=== PATIENT | male | born 1970 | race African-American/Black ===

== ENCOUNTER → 2019-04-27 07:54 | Outpatient (CLI) | payer OTHER, SELFPAY ==
[2019-04-27 08:35] LABS: Add Manual Diff / Slide Review NO; Basophils Absolute Auto 0 /uL (0-100); Basophils Percent Auto 0.5 % (0-2); Eosinophils Absolute Auto 300 /uL (0-450); Eosinophils Percent Auto 3.2 % (2-4); Hematocrit 45.8 % (41-53); Hemoglobin 14.8 g/dL (13.5-17.5); Lymphocytes Absolute Auto 2300 /uL (1100-4500); Mean Corpuscular HGB Conc 32.4 % (30-36); Mean Corpuscular Hemoglobin 26.6 PG (26-34); Mean Corpuscular Volume 82.2 fL (80-100); Monocytes Absolute Auto 800 /uL (0-900); Monocytes Percent Auto 9.3 % (3-14); Neutrophils Absolute Auto 5600 /uL (1500-7000); Platelet Count 241 X10^3/uL (150-400); Red Blood Cell Count 5.57 X10^6/uL (4.5-5.9); Red Cell Distribution Width 14.5 % (11.6-14.8)
[2019-04-27 08:53] LABS: Creatinine Urine Random 252.8 mg/dL
[2019-04-27 08:55] LABS: Alanine Aminotransferase 20 IU/L (21-72); Albumin 4.1 g/dL (3.5-5.0); Albumin Globulin Ratio 1.2 (1.0-2.8); Alkaline Phosphatase 139 U/L (38-126); Aspartate Aminotransferase 26 IU/L (17-59); BUN Creatinine Ratio 11.8 (6-22); Bilirubin Total 0.4 mg/dL (0.2-1.3); Blood Urea Nitrogen 13 mg/dL (9-20); Calcium 9.3 mg/dL (8.4-10.2); Carbon Dioxide 29 mmol/L (22-32); Chloride 104 mmol/L (98-107); Cholesterol 233 mg/dL (140-199); Estimated Glomerular Filt Rate > 60.0 mL/min (>60); Globulin 3.5 g/dL (1.7-4.1); Glucose 100 mg/dL (70-100); HDL Cholesterol 47 mg/dL (40-60); HEMOLYSIS < 15 (0-50); LDL Cholesterol Calculated 159 mg/dL (<100); Potassium 4.3 mmol/L (3.4-5.1); Sodium 138 mmol/L (137-145); Total Protein 7.6 g/dL (6.3-8.2); Triglycerides 133 mg/dL (35-150)
[2019-04-27 08:58] LABS: Microalbumi Creatinin Ratio Ur 5.1 ug/mg CR (<30); Microalbumin Urine Random 1.3 mg/dL (0-1.6)
== END ==
PROVIDERS: PCP Family Medicine; Visit Provider Family Medicine
DX: I10 Essential (primary) hypertension (principal); Z13.1 Encounter for screening for diabetes mellitus; Z13.220 Encounter for screening for lipoid disorders; Z13.0 Encounter for screening for diseases of the blood and blood-forming organs and certain disorders involving the immune mechanism
CPT/HCPCS: 36415; 80053; 80061; 82043; 82570; 85025

== ENCOUNTER → 2019-05-03 09:51 | Outpatient (CLI) | payer OTHER, SELFPAY ==
--- NOTE | 2019-05-03 09:54 | DI.RAD.S_ITS ---
PROCEDURE: XR HIP W PEL IF DONE LT 2V INDICATIONS: pain TECHNIQUE: AP pelvis with lateral view(s) of the left hip(s). COMPARISON: None. FINDINGS: Bones: No fractures or dislocations. Pelvic ring appears intact. No suspicious bony lesions. Soft tissues: The visualized bowel gas pattern is normal. No suspicious soft tissue calcifications. IMPRESSION: Symmetric mild to moderate hip joint osteoarthritis, no trauma found. Dictated by: Jorge L Landry M.D. on 05/03/2019 at 11:45 Approved by: Jorge L Landry M.D. on 05/03/2019 at 11:45
--- NOTE | 2019-05-03 09:54 | DI.RAD.S_ITS ---
PROCEDURE: XR ANKLE RT MIN 3V INDICATIONS: pain TECHNIQUE: 3 views of the ankle were acquired. COMPARISON: None. FINDINGS: Bones: No fractures or dislocations. Ankle mortise is normally aligned. No suspicious bony lesions. Soft tissues: No tibiotalar joint effusion. Achilles tendon appears normal. IMPRESSION: Normal for age, source of current ankle pain symptoms is not seen. Dictated by: Jorge L Landry M.D. on 05/03/2019 at 11:42 Approved by: Jorge L Landry M.D. on 05/03/2019 at 11:43
--- NOTE | 2019-05-03 09:54 | DI.RAD.S_ITS ---
PROCEDURE: XR LUMBAR SPINE MIN 4V INDICATIONS: DJD TECHNIQUE: 5 views of the lumbar spine were acquired. COMPARISON: None. FINDINGS: Bones: 5 nonrib-bearing vertebrae are present. There is normal bony alignment. No vertebral body compression fractures. No suspicious bony lesions. Note is made of degenerative disc disease is mild in severity at L1-2 and L5-S1. Facet osteoarthritis is mild to moderate in severity at L4-5 and moderately severe at L5-S1 to the degree that spinal and foraminal stenosis at the lumbosacral junction may be present. Soft tissues: Overlying bowel gas pattern is normal. No suspicious soft tissue calcifications. Oblique images: No pars defects. IMPRESSION: The degenerative changes are relatively mild, no compression fractures seen. There is potential for significant spinal and foraminal stenosis at L4-5 and especially at L5-S1. Dictated by: Jorge L Landry M.D. on 05/03/2019 at 11:44 Approved by: Jorge L Landry M.D. on 05/03/2019 at 11:45
--- NOTE | 2019-05-03 09:54 | DI.RAD.S_ITS ---
PROCEDURE: XR KNEE LT 3V INDICATIONS: DJD TECHNIQUE: 3 views of the bilateral knees were acquired (6 views total). COMPARISON: [facility], CR, XR KNEE RT 3V, 05/03/2019, 10:09. FINDINGS: Bones: No fractures or dislocations. No suspicious bony lesions. Soft tissues: No joint effusion. No suspicious soft tissue calcifications. IMPRESSION: Minimal narrowing of the medial compartment joint interspace, right greater than left lateral facet patellofemoral joint degenerative osteoarthritic narrowing. No effusion or loose body is seen. Dictated by: Jorge L Landry M.D. on 05/03/2019 at 11:46 Approved by: Jorge L Landry M.D. on 05/03/2019 at 11:47
--- NOTE | 2019-05-03 09:54 | DI.RAD.S_ITS ---
PROCEDURE: XR ANKLE LT MIN 3V INDICATIONS: pain TECHNIQUE: 3 views of the ankle were acquired. COMPARISON: [facility], CR, XR ANKLE RT MIN 3V, 05/03/2019, 9:54. FINDINGS: Bones: No fractures or dislocations. Ankle mortise is normally aligned. No suspicious bony lesions. Soft tissues: No tibiotalar joint effusion. Achilles tendon appears normal. IMPRESSION: No trauma found, no appreciable degenerative change. Source of persistent pain is not found. Dictated by: Jorge L Landry M.D. on 05/03/2019 at 11:43 Approved by: Jorge L Landry M.D. on 05/03/2019 at 11:44
--- NOTE | 2019-05-03 09:54 | DI.RAD.S_ITS ---
PROCEDURE: XR KNEE RT 3V INDICATIONS: DJD TECHNIQUE: 3 views of the knee were acquired. COMPARISON: None. FINDINGS: Bones: No fractures or dislocations. No suspicious bony lesions. Soft tissues: No joint effusion. No suspicious soft tissue calcifications. IMPRESSION: Minimal medial compartment joint space narrowing, also a small degree of narrowing of the lateral facet of the patellofemoral joint can be seen on the patellar sunrise view. No trauma is seen but there is a small degree of degenerative osteoarthritis. Dictated by: Jorge L Landry M.D. on 05/03/2019 at 11:46 Approved by: Jorge L Landry M.D. on 05/03/2019 at 11:46
== END ==
PROVIDERS: PCP Family Medicine; Visit Provider Family Medicine
DX: M25.571 Pain in right ankle and joints of right foot (principal); M25.572 Pain in left ankle and joints of left foot; M17.0 Bilateral primary osteoarthritis of knee; M54.16 Radiculopathy, lumbar region; M25.552 Pain in left hip
CPT/HCPCS: 72110; 73502; 73562; 73610

== ENCOUNTER → 2019-06-01 07:05 | Outpatient (CLI) | payer OTHER, SELFPAY ==
[2019-06-01 07:55] LABS: Hemoglobin A1C% w Est Avg Glu 5.7 % (4.0-6.0)
[2019-06-01 08:02] LABS: Alanine Aminotransferase 31 IU/L (21-72); Albumin 4.2 g/dL (3.5-5.0); Albumin Globulin Ratio 1.3 (1.0-2.8); Alkaline Phosphatase 135 U/L (38-126); Aspartate Aminotransferase 30 IU/L (17-59); BUN Creatinine Ratio 14.5 (6-22); Bilirubin Total 0.4 mg/dL (0.2-1.3); Blood Urea Nitrogen 16 mg/dL (9-20); C-Reactive Protein Quant < 0.5 mg/dL (<1.0); Calcium 9.4 mg/dL (8.4-10.2); Carbon Dioxide 27 mmol/L (22-32); Chloride 105 mmol/L (98-107); Cholesterol 156 mg/dL (140-199); Estimated Glomerular Filt Rate > 60.0 mL/min (>60); Gamma Glutamyl Transpeptidase 40 U/L (15-73); Globulin 3.2 g/dL (1.7-4.1); Glucose 94 mg/dL (70-100); HDL Cholesterol 43 mg/dL (40-60); HEMOLYSIS < 15 (0-50); LDL Cholesterol Calculated 95 mg/dL (<100); Potassium 4.2 mmol/L (3.4-5.1); Sodium 139 mmol/L (137-145); Total Protein 7.4 g/dL (6.3-8.2); Triglycerides 89 mg/dL (35-150)
[2019-06-01 08:03] LABS: Rheumatoid Factor < 8.6 IU/mL (<12.0)
[2019-06-01 08:09] LABS: Erythrocyte Sedimentation Rate 6 MM/HR (0-15)
== END ==
PROVIDERS: PCP Family Medicine; Visit Provider Family Medicine
DX: R74.8 Abnormal levels of other serum enzymes (principal); M25.571 Pain in right ankle and joints of right foot; M25.572 Pain in left ankle and joints of left foot; E78.00 Pure hypercholesterolemia, unspecified; Z83.3 Family history of diabetes mellitus
CPT/HCPCS: 36415; 80053; 80061; 82977; 83036; 85651; 86140; 86430

== ENCOUNTER → 2019-06-06 10:04 | Outpatient (CLI) | payer OTHER, SELFPAY ==
--- NOTE | 2019-06-06 10:06 | DI.RAD.S_ITS ---
PROCEDURE: XR SHOULDER RT MIN 2V INDICATIONS: Right greater than left shoulder pain TECHNIQUE: 3 views of the shoulder were acquired. COMPARISON: None. FINDINGS: Bones: No fractures or dislocations. No suspicious bony lesions. Visualized ribs appear intact. Moderate degenerative changes of the right acromioclavicular joint. Coracoclavicular and acromioclavicular intervals are maintained. Soft tissues: No suspicious soft tissue calcifications. IMPRESSION: Right shoulder without acute radiographic abnormalities. Moderate right acromioclavicular osteoarthrosis. Dictated by: Leif Lloyd M.D. on 06/06/2019 at 13:05 Approved by: Leif Lloyd M.D. on 06/06/2019 at 13:07
--- NOTE | 2019-06-06 10:06 | DI.RAD.S_ITS ---
PROCEDURE: XR SHOULDER LT MIN 2V INDICATIONS: Right greater than left shoulder pain TECHNIQUE: 3 views of the shoulder were acquired. COMPARISON: [facility], CR, XR SHOULDER RT MIN 2V, 06/06/2019, 10:09. FINDINGS: Bones: No acute fractures or dislocations. Mild degenerative changes of the left acromioclavicular joint. Coracoclavicular and acromioclavicular intervals are maintained with left acromioclavicular interval measuring at the upper limits of normal. No suspicious bony lesions. Visualized ribs appear intact. Soft tissues: No suspicious soft tissue calcifications. IMPRESSION: Left shoulder without acute radiographic abnormalities. Mild left acromioclavicular osteoarthrosis with the left acromioclavicular interval measuring at the upper limits of normal. Dictated by: Leif Lloyd M.D. on 06/06/2019 at 13:07 Approved by: Leif Lloyd M.D. on 06/06/2019 at 13:16
[2019-06-06 10:46] LABS: Appearance Urine UA CLEAR; Bilirubin Urine UA NEGATIVE (NEGATIVE); Color Urine UA YELLOW; Glucose Urine UA NEGATIVE (Negative); Ketones Urine UA NEGATIVE (NEGATIVE); Leukocyte Esterase Urine UA 1+ (NEGATIVE); Nitrite Urine UA NEGATIVE (Negative); Occult Blood Urine UA 1+ (Negative); Protein Urine UA NEGATIVE (Negative); Urobilinogen Urine UA 0.2 E.U./dL (0.2); pH Urine UA 5.5 (4.5-8.0)
[2019-06-06 11:09] LABS: Bacteria Urine Few (2-10); RBC Urine 1-5/HPF (0-5/HPF); Squamous Epithelial Cell Urine 1-5 /HPF (0-5/HPF); WBC Urine 5-10/HPF (0-5/HPF)
[2019-06-06 11:11] LABS: Culture Indicated Urine Specimen Cultured
== END ==
PROVIDERS: PCP Family Medicine; Visit Provider Family Medicine
DX: M25.511 Pain in right shoulder (principal); M25.512 Pain in left shoulder; M19.011 Primary osteoarthritis, right shoulder; M19.012 Primary osteoarthritis, left shoulder; R82.90 Unspecified abnormal findings in urine
CPT/HCPCS: 73030; 81001; 87077; 87086

== ENCOUNTER → 2019-07-19 11:59 | Outpatient (CLI) | payer OTHER, SELFPAY | PROVIDERS: PCP Family Medicine; Visit Provider Family Medicine | DX: G56.22 Lesion of ulnar nerve, left upper limb (principal) | CPT/HCPCS: 95885; 95886; 95911 ==

== ENCOUNTER → 2019-11-13 07:50 | Outpatient (CLI) | payer OTHER, SELFPAY ==
--- NOTE | 2019-11-13 | DI.RAD.S_ITS ---
PROCEDURE: XR HIP W PEL IF DONE LT MIN 4V INDICATIONS: degenerative joint disease TECHNIQUE: AP pelvis with lateral view(s) of the left and right hip(s). COMPARISON: [facility], , XR HIP W PEL IF DONE LT 2V, 05/03/2019, 10:05. FINDINGS: Bones: No fractures or dislocations. Pelvic ring appears intact. No suspicious bony lesions. Lumbar spondylosis and facet arthropathy. Mild bilateral hip degeneration with subchondral sclerosis and spurring. Sacroiliac joints appear grossly intact Soft tissues: The visualized bowel gas pattern is normal. No suspicious soft tissue calcifications. IMPRESSION: Mild bilateral hip joint degeneration, grossly unchanged since 05/03/19. Dictated by: Bran Meek M.D. on 11/13/2019 at 12:15 Approved by: Bran Meek M.D. on 11/13/2019 at 12:16
--- NOTE | 2019-11-13 | DI.RAD.S_ITS ---
PROCEDURE: XR THORACIC SPINE 3V INDICATIONS: DEGENERATIVE JOINT DISEASE TECHNIQUE: 3 views of the thoracic spine were acquired. COMPARISON: None. FINDINGS: Bones: No fractures or dislocations. No suspicious bony lesions. Soft tissues: No paravertebral stripe thickening. IMPRESSION: No fracture Dictated by: Bran Meek M.D. on 11/13/2019 at 12:16 Approved by: Bran Meek M.D. on 11/13/2019 at 12:18
--- NOTE | 2019-11-13 | DI.RAD.S_ITS ---
PROCEDURE: XR LUMBAR SPINE 2-3V INDICATIONS: DEGENERATIVE JOINT DISEASE TECHNIQUE: 3 views of the lumbar spine were acquired. COMPARISON: [facility], CR, XR LUMBAR SPINE MIN 4V, 05/03/2019, 10:00. FINDINGS: Bones: No fracture or focal osseous destruction. Multilevel degenerative endplate sclerosis and spurring. Diffuse facet arthropathy. Straightening of the normal lordotic curvature. Trace retrolisthesis of L3 on L4. Moderate narrowing of the L5-S1 disc space which appears slightly progressed. Soft tissues: Overlying bowel gas pattern is normal. No suspicious soft tissue calcifications. IMPRESSION: L5-S1 disc degeneration, slightly progressed since the prior study. Diffuse facet arthropathy. Dictated by: Bran Meek M.D. on 11/13/2019 at 12:30 Approved by: Bran Meek M.D. on 11/13/2019 at 12:33
== END ==
PROVIDERS: PCP Family Medicine; Referring Provider Orthopaedic Surgery; Visit Provider Orthopaedic Surgery
DX: M16.0 Bilateral primary osteoarthritis of hip (principal); M47.816 Spondylosis without myelopathy or radiculopathy, lumbar region; M51.37 Other intervertebral disc degeneration, lumbosacral region
CPT/HCPCS: 72072; 72100; 73522

== ENCOUNTER → 2021-05-15 11:26 | Outpatient (CLI) | payer OTHER, SELFPAY ==
[2021-05-15 12:39] LABS: Add Manual Diff / Slide Review NO; Basophils Absolute Auto 100 /uL (0-100); Basophils Percent Auto 0.9 % (0-2); Eosinophils Absolute Auto 300 /uL (0-450); Eosinophils Percent Auto 3.9 % (2-4); Hematocrit 43.8 % (41-53); Hemoglobin 14.1 g/dL (13.5-17.5); Lymphocytes Absolute Auto 1900 /uL (1100-4500); Lymphocytes Percent Auto 26.6 % (25-40); Mean Corpuscular HGB Conc 32.2 % (30-36); Mean Corpuscular Hemoglobin 26.2 PG (26-34); Mean Corpuscular Volume 81.4 fL (80-100); Monocytes Absolute Auto 800 /uL (0-900); Monocytes Percent Auto 11.5 % (3-14); Neutrophils Absolute Auto 4100 /uL (1500-7000); Neutrophils Percent Auto 57.1 % (50-75); Platelet Count 208 X10^3/uL (150-400); Red Blood Cell Count 5.38 X10^6/uL (4.5-5.9); Red Cell Distribution Width 13.8 % (11.6-14.8); White Blood Cell Count 7.2 X10^3/uL (4.5-11.0)
[2021-05-15 12:51] LABS: Alanine Aminotransferase 35 IU/L (<50); Albumin 4.3 g/dL (3.5-5.0); Albumin Globulin Ratio 1.3 (1.0-2.8); Alkaline Phosphatase 122 U/L (38-126); Aspartate Aminotransferase 35 IU/L (17-59); BUN Creatinine Ratio 13.2 (6-22); Bilirubin Total 0.3 mg/dL (0.2-1.3); Blood Urea Nitrogen 15 mg/dL (9-20); Calcium 9.6 mg/dL (8.4-10.2); Carbon Dioxide 28 mmol/L (22-32); Chloride 106 mmol/L (98-107); Cholesterol 140 mg/dL (140-199); Estimated Glomerular Filt Rate > 60.0 mL/min (>60); Globulin 3.2 g/dL (1.7-4.1); Glucose 102 mg/dL (70-100); HDL Cholesterol 49 mg/dL (40-60); HEMOLYSIS < 15 (0-50); LDL Cholesterol Calculated 73 mg/dL (<100); Potassium 4.5 mmol/L (3.4-5.1); Sodium 138 mmol/L (137-145); Total Protein 7.5 g/dL (6.3-8.2); Triglycerides 91 mg/dL (35-150)
[2021-05-15 12:54] LABS: Hemoglobin A1C% w Est Avg Glu 5.8 % (4.0-6.0)
[2021-05-15 13:22] LABS: Prostate Specific Antigen 1.11 ng/mL (0.10-4.00)
[2021-05-15 13:50] LABS: Thyroid Stimulating Hormone 2.11 uIU/mL (0.47-4.68)
[2021-05-15 15:03] LABS: Creatinine Urine Random 178.8 mg/dL
[2021-05-15 15:11] LABS: Microalbumin Urine Random < 0.6 mg/dL (0-1.6)
== END ==
PROVIDERS: PCP Family Medicine; Referring Provider Family Medicine; Visit Provider Family Medicine
DX: R73.03 Prediabetes (principal); E78.00 Pure hypercholesterolemia, unspecified; E66.09 Other obesity due to excess calories; Z68.41 Body mass index [BMI] 40.0-44.9, adult; I10 Essential (primary) hypertension; Z83.3 Family history of diabetes mellitus
CPT/HCPCS: 36415; 80053; 80061; 82043; 82570; 83036; 84153; 84443; 85025

== ENCOUNTER → 2021-11-12 08:40 | Outpatient (CLI) | payer OTHER, SELFPAY ==
--- NOTE | 2021-11-12 08:44 | DI.US.S_ITS ---
PROCEDURE: US BREAST RT LIMITED COMPARISON: None. INDICATIONS: mass behind nipple FINDINGS: IMPRESSION: Dictated by: Chanel Mattson M.D. on 11/12/2021 at 10:19 Approved by: Chanel Mattson M.D. on 11/12/2021 at 10:44
--- NOTE | 2021-11-12 08:44 | DI.MG.S_ITS ---
MALE BILATERAL DIGITAL DIAGNOSTIC MAMMOGRAM 3D/2D: 11/12/2021 CLINICAL: Right nipple mass. No prior exams were available for comparison. There is a moderate amount of asymmetric heterogeneous gynecomastia in the right breast that correlates with palpable abnormality. No significant masses, calcifications, or other findings are seen in either breast. Specifically, no other finding to correspond to the patient's right breast palpable abnormality. IMPRESSION: INCOMPLETE: NEEDS ADDITIONAL IMAGING EVALUATION There is no abnormality seen in the right breast to correspond with the palpable abnormality which is most consistent with normal fibroglandular tissue of gynecomastia, however, ultrasound is recommended to evaluate for underlying lesion within the tissue. This was performed immediately following this exam. This exam was interpreted at Station ID: [id number]. NOTE: For mammograms, a report in lay terms will be sent to the patient. Approximately 15% of breast malignancies will not be visualized mammographically. In the management of a palpable breast mass, a negative mammogram must not discourage biopsy of a clinically suspicious lesion. Electronically Signed By: Chanel paul/:11/12/2021 09:40:29 ACR BI-RADS Category 0: Incomplete [id number]
--- NOTE | 2021-11-12 10:05 | DI.US.S_ITS ---
Procedure: US breast RT limited LIMITED ULTRASOUND OF RIGHT BREAST: 11/12/2021 CLINICAL: Palpable right breast lump. [facility] the right breast retroareolar was performed. Irizarry scale images of the real-time examination were reviewed. Gynecomastia is present. No significant abnormalities were seen sonographically in the right breast. Specifically, no finding to correspond to the patient's palpable abnormality. IMPRESSION: NEGATIVE Asymmetric gynecomastia is present and may be symptomatic. The patient should follow up with his primary care physician to discuss possible contributing factors including medication changes, and hormonal or lifestyle factors. There is no sonographic evidence of malignancy. Findings and recommendations were conveyed to the patient at time of exam. This exam was interpreted at Station ID: [id number]. Electronically Signed By: Chanel paul/:11/12/2021 11:05:55 letter sent: Normal Exam Ultrasound BI-RADS: 1 Negative
== END ==
PROVIDERS: PCP Family Medicine; Referring Provider Family Medicine; Visit Provider Family Medicine
DX: N62 Hypertrophy of breast (principal); R92.2 Inconclusive mammogram
CPT/HCPCS: 76642; 77066; G0279

== ENCOUNTER → 2022-06-21 07:27 | Outpatient (CLI) | payer OTHER, SELFPAY ==
[2022-06-21 09:39] LABS: Add Manual Diff / Slide Review NO; Basophils Absolute Auto 0 /uL (0-100); Basophils Percent Auto 0.7 % (0-2); Eosinophils Absolute Auto 400 /uL (0-450); Eosinophils Percent Auto 5.2 % (2-4); Hematocrit 42.2 % (41-53); Hemoglobin 13.5 g/dL (13.5-17.5); Lymphocytes Absolute Auto 2000 /uL (1100-4500); Lymphocytes Percent Auto 28.6 % (25-40); Mean Corpuscular Hemoglobin 25.6 PG (26-34); Mean Corpuscular Volume 79.9 fL (80-100); Monocytes Absolute Auto 800 /uL (0-900); Monocytes Percent Auto 10.6 % (3-14); Neutrophils Absolute Auto 3900 /uL (1500-7000); Neutrophils Percent Auto 54.9 % (50-75); Platelet Count 250 X10^3/uL (150-400); Red Blood Cell Count 5.27 X10^6/uL (4.5-5.9); Red Cell Distribution Width 14.1 % (11.6-14.8); White Blood Cell Count 7.1 X10^3/uL (4.5-11.0)
[2022-06-21 10:16] LABS: Hemoglobin A1C% w Est Avg Glu 6.1 % (4.0-6.0)
[2022-06-21 11:02] LABS: Alanine Aminotransferase 33 IU/L (<50); Albumin 3.9 g/dL (3.5-5.0); Albumin Globulin Ratio 1.2 (1.0-2.8); Alkaline Phosphatase 131 U/L (38-126); Aspartate Aminotransferase 30 IU/L (17-59); BUN Creatinine Ratio 11.7 (6-22); Bilirubin Total 0.3 mg/dL (0.2-1.3); Blood Urea Nitrogen 12 mg/dL (9-20); Calcium 8.5 mg/dL (8.4-10.2); Carbon Dioxide 28 mmol/L (22-32); Chloride 104 mmol/L (98-107); Cholesterol 154 mg/dL (140-199); Estimated Glomerular Filt Rate > 60 mL/min (>60); Globulin 3.2 g/dL (1.7-4.1); Glucose 104 mg/dL (70-100); HDL Cholesterol 58 mg/dL (40-60); HEMOLYSIS < 15 (0-50); LDL Cholesterol Calculated 81 mg/dL (<100); Potassium 4.1 mmol/L (3.4-5.1); Sodium 138 mmol/L (137-145); Total Protein 7.1 g/dL (6.3-8.2); Triglycerides 73 mg/dL (35-150)
[2022-06-21 14:20] LABS: Creatinine Urine Random 295.2 mg/dL
[2022-06-21 14:27] LABS: Microalbumi Creatinin Ratio Ur 11.8 ug/mg CR (<30); Microalbumin Urine Random 3.5 mg/dL (0-1.6)
== END ==
PROVIDERS: PCP Family Medicine; Referring Provider Family Medicine; Visit Provider Family Medicine
DX: R73.03 Prediabetes (principal)
CPT/HCPCS: 36415; 80053; 80061; 82043; 82570; 83036; 85025

== ENCOUNTER → 2022-08-06 09:01 | Outpatient (CLI) | payer OTHER, SELFPAY ==
--- NOTE | 2022-08-06 09:04 | DI.CT.S_ITS ---
PROCEDURE: CT LUNG LOW DOSE SCREENING INDICATIONS: Personal history of nicotine dependence TECHNIQUE: Noncontrast 2.0-2.5 mm thick sections acquired from the pulmonary apices to the posterior costophrenic angles. 7 mm thick axial MIP, and 5 mm coronal and sagittal reformats were then acquired. A low radiation dose technique was utilized. COMPARISON: None. FINDINGS: Image quality: Diagnostic, given the low radiation dose technique. Lungs and pleura: No suspicious pulmonary nodule or mass. No consolidation or pleural effusion. Mediastinum: No pericardial effusion. No mediastinal adenopathy by size criteria. Thoracic aorta and central pulmonary arteries are normal in size. Esophagus is normal in caliber. Bones and chest wall: No suspicious bony lesions. No vertebral body compression fractures. No axillary or supraclavicular adenopathy by size criteria. Abdomen: Visualized upper abdomen solid organs and bowel loops appear normal in the absence of contrast. IMPRESSION: LUNG-RADS 1 - negative; Continue annual screening with low-dose noncontrast chest CT in 12 months. Dictated by: Tayo Carr M.D. on 08/06/2022 at 9:43 Approved by: Tayo Carr M.D. on 08/06/2022 at 9:52
== END ==
PROVIDERS: PCP Family Medicine; Referring Provider Family Medicine; Visit Provider Family Medicine
DX: Z13.83 Encounter for screening for respiratory disorder NEC (principal); Z87.891 Personal history of nicotine dependence
CPT/HCPCS: 71250

== ENCOUNTER 2022-09-01 09:53 | Emergency (ER) | payer OTHER, SELFPAY ==
--- NOTE | 2022-09-01 09:58 | DI.RAD.S_ITS ---
PROCEDURE: XR FEMUR RT MIN 2V INDICATIONS: fall TECHNIQUE: 2 views of the femur were acquired. COMPARISON: None. FINDINGS: Bones: No fractures or dislocations. No suspicious bony lesions. Soft tissues: No suspicious soft tissue calcifications or masses. IMPRESSION: No acute radiographic findings. If pain persists, followup imaging in 5-7 days is recommended to exclude occult fracture. Dictated by: Alfreda Cano M.D. on 09/01/2022 at 11:09 Approved by: Alfreda Cano M.D. on 09/01/2022 at 11:09
--- NOTE | 2022-09-01 09:58 | DI.RAD.S_ITS ---
PROCEDURE: XR HIP W PEL IF DONE RT 2V INDICATIONS: fall TECHNIQUE: AP pelvis with lateral view(s) of the right hip(s). COMPARISON: [facility], , XR HIP W PEL IF DONE PAULIE 3TO4V, 11/13/2019, 8:14. FINDINGS: Bones: No fractures or dislocations. There is moderate to severe right hip joint space narrowing. Pelvic ring appears intact. No suspicious bony lesions. Soft tissues: The visualized bowel gas pattern is normal. No suspicious soft tissue calcifications. IMPRESSION: Degenerative change. No acute radiographic findings. If pain persists, consider cross-sectional imaging to evaluate for occult fracture. Dictated by: Alfreda Cano M.D. on 09/01/2022 at 10:54 Approved by: Alfreda Cano M.D. on 09/01/2022 at 10:55
[2022-09-01 10:01] VITALS: BP 174/84; PULSE 69; RESP 20; TEMP 36.8; O2SAT 99
[2022-09-01] MEDS: KETOROLAC 30 MG/ML VIAL IM (10:12)
--- NOTE | 2022-09-01 10:12 | ED.FALL ---
HPI - Fall General Chief Complaint: Fall Stated Complaint: Fall on ice,right thigh pain Time Seen by Provider: 09/01/22 09:58 Source: patient and EMS Mode of arrival: EMS History of Present Illness HPI Narrative: Patient is a 52-year-old male history of hypertension hyperlipidemia presenting after ground level fall landing on his right leg. He feels like it is muscle in his thigh able to move his foot without any difficulty. Hips do not hurt but it does hurt to ambulate and bear weight. No head injury no loss of consciousness. Not on anticoagulation no other injuries reported. Related Data Previous Rx's Medication Instructions Recorded albuterol sulfate 90 mcg/actuation 2 puff inhalation Q6H PRN 10/16/21 aerosol inhaler shortness of breath or wheezing #18 grams celecoxib 200 mg capsule (Celebrex) 200 mg PO BID #180 caps 10/16/21 diclofenac sodium 1 % topical gel 2 g topical QID #720 grams 10/16/21 nortriptyline 10 mg capsule 10 mg PO BEDTIME #90 caps 10/16/21 prazosin 1 mg capsule 1 mg PO BEDTIME #90 caps 10/16/21 rosuvastatin 20 mg tablet 20 mg PO DAILY #90 tabs 10/16/21 amlodipine 10 mg tablet 10 mg PO DAILY #90 tabs 08/11/22 hydrocodone 5 mg-acetaminophen 325 1 tab PO Q6H PRN pain #10 tabs 09/01/22 mg tablet Allergies Allergy/AdvReac Type Severity Reaction Status Date / Time No Known Drug Allergies Allergy Verified 06/29/22 08:48 Review of Systems Review of Systems Narrative: GENERAL: Denies chills,fever HEENT: Denies throat pain RESPIRATORY: Denies dyspnea, cough, wheezing CARDIOVASCULAR: Denies chest pain, palpitations GASTROINTESTINAL: Denies nausea, vomiting MUSCULOSKELETAL: See HPI SKIN: No rash, no laceration, no pruritus NEUROLOGIC: Denies weakness, dizziness, headache, numbness 8 point review of systems is negative except for those stated above and HPI Patient History Medical History Bilateral primary osteoarthritis of hip Bilateral primary osteoarthritis of knee Degenerative joint disease of knee Facet joint disease of lumbosacral region Hyperlipidemia Hypertension Migraine headache Morbid obesity TROY (obstructive sleep apnea) PTSD (post-traumatic stress disorder) Shoulder impingement syndrome Family History Mother Diabetes mellitus Hypertension Breast cancer Grandfather Myocardial infarction Social History Smoking Status: Former smoker Smoking Status: Former smoker tobacco type: cigarettes alcohol intake frequency: holidays/special occasions only Substance Use Type: does not use Exam Initial Vital Signs Initial Vital Signs: Vital Signs Temperature 98.2 F 09/01/22 10:01 Pulse Rate 69 09/01/22 10:01 Respiratory Rate 20 09/01/22 10:01 Blood Pressure 174/84 H 09/01/22 10:01 Pulse Oximetry 99 09/01/22 10:01 Oxygen Delivery Method 09/01/22 10:01 GENERAL: Alert pleasant 52-year-old male no acute distress HEENT: Head atraumatic,EOMI, pupils reactive, face symmetric, moist mucous membranes CARDIOVASCULAR: Regular rate and rhythm without murmurs, rubs or gallops. RESPIRATORY: Breath sounds equal bilaterally, no wheezes rales or rhonchi. ABDOMEN: Soft, nontender. Normoactive bowel sounds all 4 quadrants. No guarding or rebound. EXTREMITIES: Normal range of motion, no clubbing or edema. Neurovascularly intact No clavicle tenderness or step-offs no shoulder pain pelvis is stable. Mild right side pain distal pedal pulse intact. Right knee is within normal limits NEUROLOGICAL: Alert and oriented x4.Normal gait and speech. Document Restorer strength equal bilaterally SKIN: Warm, dry, no laceration, no petechiae, no rashes or lesions. Course Orders Ordered: ED Orders 09/01/22 09:58 XR femur RT min 2V Stat XR hip w pel if done RT 2V Stat Discontinued Medications Ketorolac Tromethamine (Ketorolac 30 Mg/Ml Vial) 30 mg IM NOW ONE Stop: 09/01/22 09:59 Last Admin: 09/01/22 10:12 Dose: 30 mg Documented By: LEIGH Vital Signs Vital signs: Vital Signs - 8 hr 09/01/22 10:01 Temperature 98.2 F Pulse Rate 69 Respiratory Rate 20 Blood Pressure 174/84 H Pulse Oximetry 99 Oxygen Delivery Method Room Air MDM - Fall Imaging Data Extremity x-ray #1: Radiologist's Impression: ALAN Pringle [id number] XRay Report Signed Patient: Kumar Vences MR#: [id number] : 1970 Acct:[id number] Age/Sex: 52 / M Date of Service: 09/01/22 Loc: ED Accession Number: [id number] ?? Procedure: XR hip w pel if done RT 2V Ordering Provider: Dionne Schwartz D.O. PROCEDURE:? XR HIP W PEL IF DONE RT 2V ? INDICATIONS:? fall ? TECHNIQUE:? AP pelvis with lateral view(s) of the right hip(s).? ? COMPARISON:? [facility], , XR HIP W PEL IF DONE PAULIE 3TO4V, 11/13/2019, 8:14. ? FINDINGS:? ? Bones:? No fractures or dislocations.? There is moderate to severe right hip joint space narrowing.? Pelvic ring appears intact.? No suspicious bony lesions.? ? Soft tissues:? The visualized bowel gas pattern is normal.? No suspicious soft tissue calcifications.? ? ? IMPRESSION:? Degenerative change.? No acute radiographic findings. If pain persists, consider cross-sectional imaging to evaluate for occult fracture.? ? Dictated by: Alfreda Cano M.D. on 09/01/2022 at 10:54 ? ? Approved by: Alfreda Cano M.D. on 09/01/2022 at 10:55 ? Extremity x-ray #2: Radiologist's Impression: Signed Patient: Kumar Vences MR#: [id number] : 1970 Acct:[id number] Age/Sex: 52 / M Date of Service: 09/01/22 Loc: ED Accession Number: [id number] ?? Procedure: XR femur RT min 2V Ordering Provider: Dionne Schwartz D.O. PROCEDURE:? XR FEMUR RT MIN 2V ? INDICATIONS:? fall ? TECHNIQUE:? 2 views of the femur were acquired.? ? COMPARISON:? None. ? FINDINGS:? ? Bones:? No fractures or dislocations.? No suspicious bony lesions.? ? Soft tissues:? No suspicious soft tissue calcifications or masses.? ? IMPRESSION:? No acute radiographic findings. If pain persists, followup imaging in 5-7 days is recommended to exclude occult fracture. ? ? Dictated by: Alfreda Cano M.D. on 09/01/2022 at 11:09 ? ? Approved by: Alfreda Cano M.D. on 09/01/2022 at 11:09 ? [facility] Narrative Medical decision making narrative: Patient is a 52-year-old male who had a mechanical fall on the ice landing on his right thigh. X-rays are negative. He is given a shot of Toradol for pain. Neurologically intact. Supportive care only. Crutches as needed. Discharge Plan Departure Patient Disposition: Home Clinical Impression: Contusion Instructions: Contusion Activity Restrictions/Additional Instructions: *You have been diagnosed with right thigh contusion *What to do: At this time elevate and ice. He is crutches as needed *Continue to take medications as directed [place] 1 tablet every 6 hours if needed for severe--> [facility] in [place] Continue Celebrex as prescribed *Follow up with your primary care provider in 2-3 days or call [phone] *Return to ER if you should have increasing pain inability to move toes or any new, worsening or concerning symptoms Prescriptions: New hydrocodone-acetaminophen 5-325 mg tablet 1 tab PO Q6H PRN (Reason: pain) Qty: 10 0RF No Action albuterol sulfate 90 mcg/actuation HFA aerosol inhaler 2 puff INHALATION Q6H PRN (Reason: shortness of breath or wheezing) Qty: 18 3RF celecoxib [Celebrex] 200 mg capsule 200 mg PO BID Qty: 180 3RF diclofenac sodium 1 % gel 2 g TOP QID Qty: 720 3RF nortriptyline 10 mg capsule 10 mg PO BEDTIME Qty: 90 3RF prazosin 1 mg capsule 1 mg PO BEDTIME Qty: 90 3RF rosuvastatin 20 mg tablet 20 mg PO DAILY Qty: 90 3RF amlodipine 10 mg tablet 10 mg PO DAILY Qty: 90 3RF Referrals: Maddi Powers MD [Primary Care Provider] - Visit Report Forms: Patient Portal/API
== END 2022-09-01 16:29 | disposition home or self-care (01) ==
PROVIDERS: Emergency Provider Emergency Medicine; PCP Family Medicine
DX: S70.11XA Contusion of right thigh, initial encounter (principal); W00.0XXA Fall on same level due to ice and snow, initial encounter; Z79.899 Other long term (current) drug therapy
CPT/HCPCS: 73502; 73552; 96372; 99283; J1885

== ENCOUNTER 2022-09-08 20:45 | Emergency (ER) | payer OTHER, SELFPAY ==
[2022-09-08 20:58] VITALS: BP 141/78; PULSE 98; RESP 20; TEMP 36.8; O2SAT 95; BMI 53.1
--- NOTE | 2022-09-08 22:18 | DI.RAD.S_ITS ---
PROCEDURE: XR KNEE LT 3V INDICATIONS: fall TECHNIQUE: 3 views of the knee were acquired. COMPARISON: [facility], , XR KNEE LT 3V, 05/03/2019, 10:11. FINDINGS: Bones: No fractures or dislocations. No suspicious bony lesions. Patellar osteophyte present. Soft tissues: No joint effusion. No suspicious soft tissue calcifications. IMPRESSION: Mild effusion. No visualized acute fracture or dislocation. However, if clinical concern and/or pain persist, short interval imaging followup in 7-10 days is recommended, as occult injury cannot be definitively excluded. Dictated by: Vane Marcus M.D. on 09/08/2022 at 22:57 Approved by: Vane Marcus M.D. on 09/08/2022 at 22:58
--- NOTE | 2022-09-08 22:18 | DI.RAD.S_ITS ---
PROCEDURE: XR FEMUR LT MIN 2V INDICATIONS: fall TECHNIQUE: 2 views of the femur were acquired. COMPARISON: [facility], CR, XR HIP W PEL IF DONE RT 2V, 09/01/2022, 10:17. [facility], CR, XR FEMUR RT MIN 2V, 09/01/2022, 10:17. FINDINGS: Bones: No fractures or dislocations. No suspicious bony lesions. Degenerative changes at the knee are noted. Soft tissues: No suspicious soft tissue calcifications or masses. IMPRESSION: No visualized acute fracture or dislocation. However, if clinical concern and/or pain persist, short interval imaging followup in 7-10 days is recommended, as occult injury cannot be definitively excluded. Dictated by: Vane Marcus M.D. on 09/08/2022 at 22:57 Approved by: Vane Marcus M.D. on 09/08/2022 at 22:57
--- NOTE | 2022-09-08 22:28 | PC.NURSE ---
Refuses xray, requesting MRI.
--- NOTE | 2022-09-09 01:54 | ED_ITS ---
HPI - Extremity Injury (Lower) General Chief Complaint: Extremity Injury, Lower Stated Complaint: GLF Time Seen by Provider: 09/09/22 01:53 Source: patient and family Mode of arrival: EMS Limitations: no limitations History of Present Illness HPI Narrative: Patient is a 52-year-old male here for evaluation of a left lower extremity injury. He states he was seen here couple days ago where he injured his right lower extremity after fall. He has been on crutches because of this. He feels like it is improving but is not back to 100%. This evening he fell because he was trying to protect his right leg but landed on his left leg. Describes pain in his hamstring but then also in his quadriceps. He states that it hurts to stand on his leg and also can not straighten his leg. He reports no other injuries from the event. Related Data Previous Rx's Medication Instructions Recorded albuterol sulfate 90 mcg/actuation 2 puff inhalation Q6H PRN 10/16/21 aerosol inhaler shortness of breath or wheezing #18 grams celecoxib 200 mg capsule (Celebrex) 200 mg PO BID #180 caps 10/16/21 diclofenac sodium 1 % topical gel 2 g topical QID #720 grams 10/16/21 nortriptyline 10 mg capsule 10 mg PO BEDTIME #90 caps 10/16/21 prazosin 1 mg capsule 1 mg PO BEDTIME #90 caps 10/16/21 rosuvastatin 20 mg tablet 20 mg PO DAILY #90 tabs 10/16/21 amlodipine 10 mg tablet 10 mg PO DAILY #90 tabs 08/11/22 hydrocodone 5 mg-acetaminophen 325 1 tab PO Q6H PRN pain #10 tabs 09/01/22 mg tablet hydrocodone 5 mg-acetaminophen 325 1 tab PO Q4-6H PRN pain #10 tabs 09/09/22 mg tablet Allergies Allergy/AdvReac Type Severity Reaction Status Date / Time No Known Drug Allergies Allergy Verified 06/29/22 08:48 Review of Systems Constitutional Constitutional: Reports system reviewed and no additional complaints, except as documented Musculoskeletal Musculoskeletal: Reports system reviewed and no additional complaints, except as documented Integumentary/Breasts Skin/Breast: Reports system reviewed and no additional complaints, except as documented Neurologic Neurologic: Reports system reviewed and no additional complaints, except as documented Hematologic/Lymphatic On Anticoagulants: No Patient History Medical History Bilateral primary osteoarthritis of hip Bilateral primary osteoarthritis of knee Degenerative joint disease of knee Facet joint disease of lumbosacral region Hyperlipidemia Hypertension Migraine headache Morbid obesity TROY (obstructive sleep apnea) PTSD (post-traumatic stress disorder) Shoulder impingement syndrome Family History Mother Diabetes mellitus Hypertension Breast cancer Grandfather Myocardial infarction Social History Smoking Status: Former smoker Smoking Status: Former smoker tobacco type: cigarettes alcohol intake frequency: holidays/special occasions only Substance Use Type: does not use Exam Initial Vital Signs Initial Vital Signs: Vital Signs Temperature 98.2 F 09/08/22 20:58 Pulse Rate 98 H 09/08/22 20:58 Respiratory Rate 20 09/08/22 20:58 Blood Pressure 141/78 H 09/08/22 20:58 Pulse Oximetry 95 09/08/22 20:58 Oxygen Delivery Method 09/08/22 20:58 Const General: No ill appearing HENMT Head: normal to inspection and normocephalic Neuro General: patient alert and patient awake Extrem Other: Patient has tenderness to palpation over the belly of the left hamstring muscle however no tenderness over the quadriceps. There is no deficit noted in this area. He does have a palpable deficit noted in his quadriceps tendon on the left. This is where he is having discomfort. Passively his leg can be straightened but he can not straighten it actively. His ankles unremarkable. No tenderness to palpation of the patella. Procedures Orthopedic Splinting/Casting Injury #1: Side: left Lower Extremity Injury Location: knee Lower Extremity Immobilizer: knee immobilizer Other Orthopedic Equipment: walker Post splinting neuro exam: no change Post splinting vascular exam: no change Placed by: Nursing Course Orders Ordered: ED Orders 09/08/22 22:18 XR femur LT min 2V Stat XR knee LT 3V Stat Discontinued Medications Hydrocodone Bitart/Acetaminophen (Hydrocodone/Acet 5/325 Prepack) 1 bottle MISC SEEINSTR ONE Stop: 09/09/22 01:56 Last Admin: 09/09/22 02:55 Dose: 1 bottle Documented By: SB Vital Signs Vital signs: Vital Signs - 8 hr 09/08/22 20:58 Temperature 98.2 F Pulse Rate 98 H Respiratory Rate 20 Blood Pressure 141/78 H Pulse Oximetry 95 Oxygen Delivery Method Room Air MDM - Extremity Injury (Lower) Imaging Data Extremity x-ray #1: Radiologist's Impression: [address] [address] XRay Report Signed Patient: Kumar Vences MR#: [id number] : 1970 Acct:[id number] Age/Sex: 52 / M Date of Service: 09/08/22 Loc: ED Accession Number: [id number] ?? Procedure: XR femur LT min 2V Ordering Provider: Shorty Harrison D.O. PROCEDURE:? XR FEMUR LT MIN 2V ? INDICATIONS:? fall ? TECHNIQUE:? 2 views of the femur were acquired.? ? COMPARISON:? [facility], CR, XR HIP W PEL IF DONE RT 2V, 09/01/2022, 10:17.? [facility], CR, XR FEMUR RT MIN 2V, 09/01/2022, 10:17. ? FINDINGS:? ? Bones:? No fractures or dislocations.? No suspicious bony lesions.? Degenerative changes at the knee are noted. ? Soft tissues:? No suspicious soft tissue calcifications or masses.? ? IMPRESSION:? No visualized acute fracture or dislocation. However, if clinical concern and/or pain persist, short interval imaging followup in 7-10 days is recommended, as occult injury cannot be definitively excluded. ? ? Dictated by: Vane Marcus M.D. on 09/08/2022 at 22:57 ? ? Approved by: Vane Marcus M.D. on 09/08/2022 at 22:57 Extremity x-ray #2: Radiologist's Impression: [address] [address] XRay Report Signed Patient: Kumar Vences MR#: [id number] : 1970 Acct:[id number] Age/Sex: 52 / M Date of Service: 09/08/22 Loc: ED Accession Number: [id number] ?? Procedure: XR knee LT 3V Ordering Provider: Shorty Harrison D.O. PROCEDURE:? XR KNEE LT 3V ? INDICATIONS:? fall ? TECHNIQUE:? 3 views of the knee were acquired.? ? COMPARISON:? [facility], CR, XR KNEE LT 3V, 05/03/2019, 10:11. ? FINDINGS:? ? Bones:? No fractures or dislocations.? No suspicious bony lesions.? Patellar osteophyte present. ? Soft tissues:? No joint effusion.? No suspicious soft tissue calcifications.? ? ? IMPRESSION:? Mild effusion.? No visualized acute fracture or dislocation. However, if clinical concern and/or pain persist, short interval imaging followup in 7-10 days is recommended, as occult injury cannot be definitively excluded. ? ? Dictated by: Vane Marcus M.D. on 09/08/2022 at 22:57 ? ? Approved by: Vane Marcus M.D. on 09/08/2022 at 22:58?? MDM Narrative Medical decision making narrative: X-ray shows no signs of fracture however given his presentation I do have concern about a quadriceps tendon rupture. He was placed in a knee immobilizer. He was given a walker. He can walk on his lower extremities. He was informed that he should contact the Orthopedic Department at the number provided him for follow-up in the next week. Patient discharged home with follow-up instructions. He expressed understanding. Discharge Plan Departure Patient Disposition: Home Clinical Impression: Quadriceps tendon rupture Instructions: How to Use a Knee Immobilizer Activity Restrictions/Additional Instructions: The x-ray did not show any signs of fractures which means that you can put pressure on your left leg. I do recommend that if you are up and moving that you use the knee immobilizer however you can take it off when your sleeping or sitting on the couch. You can either use the crutches or the walker as needed. Contact the Orthopedic Department at the number provided below for a follow-up. A prescription for pain medication was sent to [facility] in [place]. Prescriptions: New hydrocodone-acetaminophen 5-325 mg tablet 1 tab PO Q4-6H PRN (Reason: pain) Qty: 10 0RF No Action albuterol sulfate 90 mcg/actuation HFA aerosol inhaler 2 puff INHALATION Q6H PRN (Reason: shortness of breath or wheezing) Qty: 18 3RF celecoxib [Celebrex] 200 mg capsule 200 mg PO BID Qty: 180 3RF diclofenac sodium 1 % gel 2 g TOP QID Qty: 720 3RF nortriptyline 10 mg capsule 10 mg PO BEDTIME Qty: 90 3RF prazosin 1 mg capsule 1 mg PO BEDTIME Qty: 90 3RF rosuvastatin 20 mg tablet 20 mg PO DAILY Qty: 90 3RF amlodipine 10 mg tablet 10 mg PO DAILY Qty: 90 3RF hydrocodone-acetaminophen 5-325 mg tablet 1 tab PO Q6H PRN (Reason: pain) Qty: 10 0RF Referrals: Maddi Powers MD [Primary Care Provider] - Lance Sanford MD [Physician] - Stand Alone Forms: Patient Portal/API, Work Release Note
--- NOTE | 2022-09-09 02:00 | PC.NURSE ---
States that he fell 3 days ago and was seen here in the ER - states that he is unable to bear weight to the right leg - states that he feels as though he tore the muscle in the right thigh and that it wasn't just bruising - states that he was compensating using the left leg and that he fell again onto the elft leg this time - states that he sat on the leg with the knee bent - arrived with medics stating that he is unable to walk at all - states that he can not bear weight on either of his legs - sitting in a wheelchair - no obvious deformities noted - no injuries noted - unable/refuses to stand from w/c
--- NOTE | 2022-09-09 02:15 | PC.NURSE ---
MD at bedside to speak with patient
[2022-09-09] MEDS: HYDROCODONE/ACET 5/325 PREPACK 1 BOTTLE MISC (02:55)
--- NOTE | 2022-09-09 02:55 | PC.NURSE ---
Pt given [place] as charted on the MAR with instructions for use at home - understanding verbalized 20 immobilizer applied to the left leg with instructions for adjusting it as well as use at home - understanding verbalized Walker brought to bedside and adjusted to pt's height - instructions for use at home given - repeat demonstration given correctly - uses walker without concern - struggles to stand - difficult to assess willingness to stand/pull up or inability - makes many excuses prior to attempting - stating that he can't - able to walk without assistance once standing - walks to [place] and turns around and returns to the room - sitting on the edge of the bed - pt able to push with his legs easily and without assistance to slide back on to the bed for better seating.
--- NOTE | 2022-09-09 03:30 | PC.NURSE ---
DC instructions given written and verbal - the patient has numerous questions on how he is to get around at home - how do I get off the floor? How do I go up stairs? How do I move in tight places - discussed as able - the patient then struggles to get up again stating that he is unable - encouraged that he is able to adjust himself in the bed using weight on his legs - encouraged that this is the same to stand - continues to make excuses why he can't - encouraged to get up and with RN and tech at bedside the patient is able to stand and move with the walker correctly
== END 2022-09-09 03:35 | disposition home or self-care (01) ==
PROVIDERS: Emergency Provider Emergency Medicine; PCP Family Medicine
DX: S76.119A Strain of unspecified quadriceps muscle, fascia and tendon, initial encounter (principal); W18.30XA Fall on same level, unspecified, initial encounter; Y99.0 Civilian activity done for income or pay
CPT/HCPCS: 73552; 73562; 99281; 99283

== ENCOUNTER → 2022-09-25 07:50 | Outpatient (CLI) | payer OTHER, SELFPAY ==
--- NOTE | 2022-09-25 07:52 | DI.MRI.S_ITS ---
PROCEDURE: MR KNEE LT WO CON INDICATIONS: Strain of left quadriceps muscle TECHNIQUE: Noncontrast sagittal PD fast spin echo and T2 fast spin echo with fat saturation, sagittal 3-D FLASH with fat saturation; coronal T1 spin echo and PD fast spin echo with fat saturation, and axial PD fast spin echo with fat saturation through the knee. COMPARISON: [facility], CR, XR KNEE LT 3V, 09/08/2022, 22:22. FINDINGS: Image quality: Excellent. Menisci: The medial and lateral menisci demonstrate normal morphology and internal signal. The meniscal root ligaments appear intact. Cruciate ligaments: The anterior and posterior cruciate ligaments appear intact. Medial structures: The medial collateral ligament appears intact. The semimembranosus tendon insertions and meniscocapsular junction appear intact. Visualized portions of the pes anserinus tendons appear intact without associated bursal fluid collections. Lateral structures: The lateral collateral ligament, long and short heads of the biceps femoris tendon appear intact. The popliteus tendon appears intact. Iliotibial band appears normal. Anterior structures: There is severe partial tearing of the quadriceps tendon with residual intact fibers from the vastus lateralis component. There is extensive associated edema and fluid along the expected course of the quadriceps tendon as well as tracking along the visualized musculature of the anterior compartment. There is retraction of the torn fibers proximally. Associated mild lateral tilt and shift of the patella is demonstrated. No femoral trochlear dysplasia or ventral trochlear prominence. No edema in the infrapatellar fat pad. Bones and cartilage: No bone marrow contusions or fractures. The cartilage of the medial and lateral femorotibial compartments, as well as the patellofemoral compartment, appears preserved in thickness. Joint space: There is small to moderate joint effusion. No Benz's cyst. IMPRESSION: 1. Severe partial tearing of the quadriceps tendon with residual intact fibers from the vastus lateralis component. There is mild resultant lateral tilt and shift of the patella. 2. Extensive associated edema and fluid along the course of the quadriceps tendon as well as tracking along the visualized anterior compartment musculature. 3. Small to moderate joint effusion. Dictated by: Todd Salazar M.D. on 09/27/2022 at 2:02 Approved by: Todd Salazar M.D. on 09/27/2022 at 2:09
== END ==
PROVIDERS: PCP Family Medicine; Referring Provider Orthopaedic Surgery; Visit Provider Orthopaedic Surgery
DX: S76.112S Strain of left quadriceps muscle, fascia and tendon, sequela (principal); M25.462 Effusion, left knee; R60.0 Localized edema; X58.XXXS Exposure to other specified factors, sequela
CPT/HCPCS: 73721

== ENCOUNTER 2022-10-01 13:46 | Day surgery (SDC) | payer OTHER, SELFPAY ==
[2022-09-28 12:36] VITALS: BMI 52.4
[2022-10-01] VITALS (8 sets, daily range): BP systolic 133–165; BP diastolic 86–95; PULSE 94–998; RESP 10–18; TEMP 36.6–37.1; O2SAT 94–100; BMI 51.7
[2022-10-01 14:34] LABS: COVID19 -Nasal RAPID Negative (Negative)
[2022-10-01] MEDS: LACTATED RINGERS 1,000 ML 42 ML IV (14:53)
--- NOTE | 2022-10-01 15:00 | PM.PREOP ---
Pre-operative Note Interval Note History & Physical reviewed/Exam performed by Physician: Yes Changes to H&P: No
[2022-10-01] MEDS: CEFAZOLIN 3 GM IN 0.9 % NACL 3 GM/100 ML PLAST..BAG IV (16:09)
[2022-10-01] MEDS: BUPIVACAINE 0.5% W/ EPI (PF) 30 ML VIAL INJ (16:10)
[2022-10-01] MEDS: TRANEXAMIC ACID 1,000 MG in SODIUM CHLORIDE 0.9% 100 ML 200 MG IV (16:10)
--- NOTE | 2022-10-01 16:27 | SUR.OPER ---
Supine on padded OR bed, head on pillow, arms secured on padded arm boards at <90 degrees abduction, legs uncrossed, safety belt at thigh, tape over blanket over non-operative leg, bump under left leg and left hip. Pt positioned per direction and supervision of Dr Lr.
--- NOTE | 2022-10-01 17:00 | DI.RAD.S_ITS ---
PROCEDURE: XR KNEE LT 1TO2V INDICATIONS: LEFT QUADRACEPES REPAIR. TECHNIQUE: Two intraoperative fluoroscopic spot images of the left knee. COMPARISON: [facility], KYLEE, XR KNEE LT 3V, 09/08/2022, 22:22. FINDINGS: Bones: There is a bone anchor is seen in the medial femoral condyle. Linear radiodensities project over the patella on AP and lateral views. Normal joint alignment. Soft tissues: Intraoperative changes. IMPRESSION: 1. Intraoperative fluoroscopy for quadriceps repair. 2. No unexpected fracture or significant dislocation. Dictated by: Chanel Mattson M.D. on 10/02/2022 at 11:07 Approved by: Chanel Mattson M.D. on 10/02/2022 at 11:08
--- NOTE | 2022-10-01 18:30 | P.OP_ITS ---
Operative Date/Time/Diagnoses Date of procedure: 10/01/22 Time of procedure: 18:30 Pre-op diagnosis: Left quadriceps tendon rupture Post-op diagnosis: same Procedure & Clinicians Procedure: Operative repair of left quadriceps tendon Same procedure as scheduled: Yes Indications: Harrison is a 52-year-old male who sustained a left quadriceps rupture. He was unable to perform a straight leg raise. In order to restore the extensor mechanism, he was indicated for operative repair of the quadriceps tendon. Surgeon: Cayden Lr Operative Notes Findings: Left complete quadriceps tendon rupture as seen on MRI and under direct visualization Closure Type: primary Specimen(s): none sent Prosthetic devices, grafts, tissues, transplants, or devices: Arthrex tight rope button x2, suture tape x2, Ethibond x1 Estimated Blood Loss (mL): 30 Tourniquet time (min): 85 Procedure in detail: Patient was seen in the preoperative holding area. We discussed the risks and benefits of surgery including the risk of infection, damage to internal structures, bleeding, numbness, failure of the construct, rerupture of his quadriceps, arthritis in the future, future surgeries, risk of anesthesia and . Patient expressed understanding with these risks and wished to go forward with surgery. His left lower extremity was marked with my initials. Patient was then brought back to the operating room and placed supine on the operating table. He underwent smooth induction of anesthesia. The left lower extremity was prepped and draped in the standard sterile fashion and a sterile tourniquet was applied to the upper thigh. 1 g of TXA and 3 g of Ancef were gi meliton. Time-out was performed and again my initials were noted on the left thigh. The tourniquet was then inflated to 300 mmHg. A direct incision was made over the patella and quadriceps tendon through fat and fascia down to the tendon. At this point there was noted there is a complete avulsion of the quadriceps tendon off of the patella. I began by placing a FiberTape starting proximally on the lateral side of the tendon and performing a Krackow suture down the tendon, looping in a tight rope, and then performing Krackow a backup the tendon and tying the suture proximally. This was performed again on the medial side of the tendon. 2 4.5mm drill holes were placed through the patella and the button was pulled through and flipped. The tunnel directions and height were confirmed on fluoroscopy. The repair tapes were then pulled into the tunnels using the tight rope. Final position of the buttons were confirmed using fluoroscopy. The retinaculum was closed with #2 Ethibond. The fascia and skin was closed with 2 0 PDS and cyndi and an Aquacel dressing was placed. Last, the patient was placed into a long-leg cast which was then univalved on the medial side and overwrapped with Coban. Complications: none Post-operative Condition: stable Disposition: PACU Plan for aftercare: Patient will remain in the cast for a minimum of 1 week. If he can tolerate going into a hinged knee brace, we will do this in 1 week. The dressing will remain on for 2 weeks. Keep the cast clean and dry.
[2022-10-01] MEDS: fentaNYL 100 MCG/2 ML INJ IV (18:34)
[2022-10-01] MEDS: OXYCODONE/ACETAMINOPHEN 5/325 TABLET 1 TAB PO ×2 (18:34→19:06)
--- NOTE | 2022-10-01 20:25 | SUR.PHASEII ---
Patient unable to get pivot out of the stretcher and into the wheelchair independently due to his LLE injury/surgery, even with the assist of crutches. Lifting assist requested from inpatient unit and the ER staff. Five person assist needed to place patient in wheelchair and to place patient in car. assisting when able. Instructed patient and to shrimp picker prescription at [facility]. Instructed to call 911 for lift-assist at home if unable to get into the house. V /U.
== END 2022-10-01 20:28 | disposition home or self-care (01) ==
PROVIDERS: PCP Family Medicine; Referring Provider Orthopaedic Surgery; Visit Provider Orthopaedic Surgery
PROC: (CPT 27385; principal; 2022-10-01 15:30)
DX: S76.112A Strain of left quadriceps muscle, fascia and tendon, initial encounter (principal); W10.9XXA Fall (on) (from) unspecified stairs and steps, initial encounter; Z20.822 Contact with and (suspected) exposure to COVID-19
CPT/HCPCS: 27386; 73560; 76000; 87635; A9270; J0330; J0690; J1100; J1885; J2250; J2405; J2704; J3010

== ENCOUNTER → 2023-07-13 09:04 | Outpatient (CLI) | payer OTHER, SELFPAY ==
[2023-07-13 11:03] LABS: Alanine Aminotransferase 28 IU/L (<50); Albumin Globulin Ratio 1.2 (1.0-2.8); Alkaline Phosphatase 139 U/L (38-126); Aspartate Aminotransferase 26 IU/L (17-59); BUN Creatinine Ratio 15.1 (6-22); Bilirubin Total 0.2 mg/dL (0.2-1.3); Blood Urea Nitrogen 16 mg/dL (9-20); Calcium 9.3 mg/dL (8.4-10.2); Carbon Dioxide 30 mmol/L (22-32); Chloride 101 mmol/L (98-107); Cholesterol 229 mg/dL (140-199); Estimated Glomerular Filt Rate > 60 mL/min (>60); Globulin 3.4 g/dL (1.7-4.1); Glucose 107 mg/dL (70-100); HDL Cholesterol 51 mg/dL (40-60); HEMOLYSIS < 15 (0-50); LDL Cholesterol Calculated 146 mg/dL (<100); Potassium 3.8 mmol/L (3.4-5.1); Sodium 137 mmol/L (137-145); Total Protein 7.4 g/dL (6.3-8.2); Triglycerides 161 mg/dL (35-150)
[2023-07-13 11:26] LABS: Creatinine Urine Random 268.3 mg/dL
[2023-07-13 11:31] LABS: Microalbumin Urine Random 1.1 mg/dL (0-1.6)
== END ==
PROVIDERS: PCP Family Medicine; Referring Provider Family Medicine; Visit Provider Family Medicine
DX: I10 Essential (primary) hypertension (principal)
CPT/HCPCS: 36415; 80053; 80061; 82043; 82570

== ENCOUNTER → 2023-12-30 11:16 | Outpatient (CLI) | payer OTHER, SELFPAY ==
--- NOTE | 2023-12-30 11:18 | DI.US.S_ITS ---
PROCEDURE: US PERIPH VENOUS LOW EXTREM LT INDICATIONS: R/O DVT TECHNIQUE: Real-time imaging, as well as color and pulse Doppler interrogation, were performed of the lower extremity deep veins from the inguinal ligament to the popliteal fossa, with documentation of the visualized calf veins. COMPARISON: None. FINDINGS: The common femoral, femoral, popliteal, and the visualized calf veins are normally compressible, and free of intraluminal thrombus. Color and pulse Doppler demonstrate normal phasic intraluminal flow. There is normal augmentation response to distal compression maneuver. Prominent left inguinal lymph nodes are seen measuring up to 1.1 cm in short axis. IMPRESSION: 1. No findings of lower extremity deep venous thrombosis. 2. Mildly enlarged left inguinal lymph node. Recommend clinical follow-up. Dictated by: Clarisse Reed M.D. on 12/30/2023 at 12:10 Approved by: Clarisse Reed M.D. on 12/30/2023 at 12:10
== END ==
PROVIDERS: PCP Family Medicine; Referring Provider Nurse Practitioner Family; Visit Provider Nurse Practitioner Family
DX: M79.89 Other specified soft tissue disorders (principal); R59.0 Localized enlarged lymph nodes
CPT/HCPCS: 93971

== ENCOUNTER 2024-01-07 12:32 | Inpatient (IN) | payer OTHER, SELFPAY ==
[2024-01-07] VITALS (10 sets, daily range): BP systolic 109–146; BP diastolic 61–88; PULSE 74–115; RESP 18–24; TEMP 36.2–36.7; O2SAT 96–99; BMI 53.1; BMI 52.0
--- NOTE | 2024-01-07 12:37 | ED_ITS ---
HPI - Extremity Problem <Wyatt Hauser PA-C - Last Filed: 01/07/24 14:55> General Chief complaint: Extremity Problem,Nontraumatic Stated complaint: left leg pain/swelling- cellulitis last week Time Seen by Provider: 01/07/24 12:37 History of Present Illness HPI Narrative: This is a 53-year-old male presents emergency department due to continued left extremity edema. Patient states that it began about a week and a half ago without any accidents or injuries. He was seen at the walk-in clinic about a week ago where they ordered an ultrasound which was negative for DVT but did show an enlarged lymph node in the inguinal area. He was given a week's worth of Keflex which he has been taking. He just finished his last dose of antibiotics this morning and states that the swelling has been getting worse. Denies any significant pain but does some pain with palpation with the palpation of the posterior calf. No history of heart failure or other valvular disease. History of left knee surgery about a year and a half ago. Denies any chest pain, shortness of breath, fevers or any other concerning signs or symptoms. Related Data Home Medications Medication Instructions Recorded Confirmed amlodipine 10 mg tablet 10 mg PO QAM 01/07/24 01/07/24 celecoxib 200 mg capsule (Celebrex) 200 mg PO QAM 01/07/24 01/07/24 diclofenac sodium 1 % topical gel 2 g topical QID PRN Pain (Scale 01/07/24 01/07/24 Score 4-6) nortriptyline 10 mg capsule 10 mg PO BEDTIME PRN Insomnia 01/07/24 01/07/24 prazosin 1 mg capsule 1 mg PO BEDTIME PRN ptsd/insomnia 01/07/24 01/07/24 rosuvastatin 20 mg tablet 20 mg PO QAM 01/07/24 01/07/24 Previous Rx's Medication Instructions Recorded ibuprofen 600 mg tablet 600 mg PO Q6H PRN pain #60 tabs 10/01/22 albuterol sulfate 90 mcg/actuation 2 puff inhalation Q6H PRN 11/12/22 aerosol inhaler shortness of breath or wheezing #18 grams Disabled Parking #1 ea 07/13/23 Allergies Allergy/AdvReac Type Severity Reaction Status Date / Time No Known Drug Allergies Allergy Verified 01/07/24 13:25 Review of Systems <Wyatt Hauser PA-C - Last Filed: 01/07/24 14:55> Review of Systems Narrative: GENERAL: Denies chills, fatigue, malaise, fever, sweats. HEENT: Denies sinus pain, ear pain, sore throat, difficulty swallowing, dizziness. RESPIRATORY: Denies dyspnea, cough, wheezing, hemoptysis, sputum. CARDIOVASCULAR: Denies chest pain, palpitations, orthopnea, edema, GASTROINTESTINAL: Denies nausea, vomiting, abdominal pain, diarrhea, constipation, melena. : Denies dysuria, frequency, incontinence, hematuria, urinary retention. MUSCULOSKELETAL: Reports left lower extremity edema SKIN: Denies rash, skin lesions, or other NEUROLOGIC: Denies weakness, headache, numbness, change in speech, confusion, seizures, incoordination. PSYCHIATRIC: No concerning psychosocial issues. 12 point review of systems is negative except for those stated above Patient History <Wyatt Hauser PA-C - Last Filed: 01/07/24 14:55> Medical History (Updated 01/07/24 @ 14:15 by Wyatt Hauser PA-C) COVID-19 virus infection (~05/2022) Migraine headache Shoulder impingement syndrome Degenerative joint disease of knee Bilateral primary osteoarthritis of hip Facet joint disease of lumbosacral region Bilateral primary osteoarthritis of knee PTSD (post-traumatic stress disorder) Hyperlipidemia Hypertension TROY (obstructive sleep apnea) Morbid obesity Family History Mother Diabetes mellitus Hypertension Breast cancer Grandfather Myocardial infarction Social History household members: spouse Smoking Status: Former smoker alcohol intake: current Smoking Status: Former smoker tobacco type: cigarettes alcohol intake frequency: holidays/special occasions only Substance Use Type: does not use Exam <Wyatt Hauser PA-C - Last Filed: 01/07/24 14:55> Narrative Exam Narrative: GENERAL: Well-developed patient, in mild distress. HEAD: Atraumatic. Normocephalic. EYES: Pupils equal round and reactive. Extraocular motions intact. No scleral icterus. No injection or drainage. ENT: Nose without bleeding, purulent drainage. Throat without erythema, tonsillar hypertrophy or exudate. Airway patent. NECK: Trachea midline. Non tender EXTREMITIES: 3+ pitting edema to the left lower extremity. Some pain with palpation to the posterior calf. Warm to the touch. Does appear mildly more erythematous than the right lower extremity. 2+ cap refill with good sensation. NEURO: AOx3. SKIN: No rash or erythema of visible areas Initial Vital Signs Initial Vital Signs: Vital Signs Pulse Rate 109 H 01/07/24 12:40 Blood Pressure 146/88 H 01/07/24 12:40 Pulse Oximetry 96 01/07/24 12:40 <Shorty Harrison DO - Last Filed: 01/07/24 14:59> Initial Vital Signs Initial Vital Signs: Vital Signs Pulse Rate 109 H 01/07/24 12:40 Blood Pressure 146/88 H 01/07/24 12:40 Pulse Oximetry 96 01/07/24 12:40 Course <Wyatt Hauser PA-C - Last Filed: 01/07/24 14:55> Orders Ordered: ED Orders 01/07/24 12:46 US periph venous low extrem lt Stat 01/07/24 13:00 CBC Auto Diff [Complete Blood Count AUTO DIFF] Stat CMP [Comprehensive Metabolic Panel] Stat 01/07/24 13:05 Lactate (Lactic Acid) Stat Procalcitonin Stat 01/07/24 13:50 Blood Culture Stat Sodium Chloride (Sodium Chloride 0.9% Flush) 10 ml IV BID ALIX Last Admin: 01/07/24 13:11 Dose: 10 ml Documented By: SEDRICK Sodium Chloride (Sodium Chloride 0.9% Flush) 10 ml IV PRN PRN PRN Reason: Flush Last Admin: 01/07/24 14:28 Dose: 10 ml Documented By: Admin: 01/07/24 14:27 Dose: 10 ml Documented By: Admin: 01/07/24 14:26 Dose: 10 ml Documented By: Admin: 01/07/24 13:44 Dose: 10 ml Documented By: SEDRICK Discontinued Medications Amlodipine Besylate (Amlodipine 5 Mg Tablet) 10 mg PO NOW ONE Stop: 01/07/24 13:32 Last Admin: 01/07/24 13:43 Dose: 10 mg Documented By: SEDRICK Sodium Chloride (Normal Saline 0.9%) 1,000 mls @ 1,000 mls/hr IV BOLUS ONE Stop: 01/07/24 13:45 Last Infusion: 01/07/24 14:50 Dose: Infused Documented By: Admin: 01/07/24 13:13 Dose: 1,000 mls/hr Documented By: SEDRICK Vancomycin HCl (Vancomycin) 1,000 mg in 200 mls @ 200 mls/hr IV NOW ONE Stop: 01/07/24 14:25 Last Infusion: 01/07/24 14:50 Dose: Infused Documented By: Admin: 01/07/24 13:43 Dose: 200 mls/hr Documented By: SEDRICK Ketorolac Tromethamine (Ketorolac 30 Mg/Ml Vial) 15 mg IV NOW ONE Stop: 01/07/24 13:32 Last Admin: 01/07/24 13:43 Dose: 15 mg Documented By: SEDRICK Morphine Sulfate (Morphine 4 Mg/Ml Inj) 4 mg IV NOW ONE Stop: 01/07/24 14:22 Last Admin: 01/07/24 14:25 Dose: 4 mg Documented By: ABBY Ondansetron HCl (Ondansetron 4 Mg/2 Ml Inj) 4 mg IV NOW ONE Stop: 01/07/24 14:22 Last Admin: 01/07/24 14:26 Dose: 4 mg Documented By: ABBY Vital Signs Vital signs: Vital Signs - 8 hr 01/07/24 12:40 01/07/24 12:40 01/07/24 12:41 Temperature 98.1 F Pulse Rate 109 H 115 H Respiratory Rate 20 Blood Pressure 146/88 H 146/88 H Pulse Oximetry 96 98 Oxygen Delivery Method Room Air 01/07/24 13:00 01/07/24 13:30 01/07/24 14:00 Temperature Pulse Rate 99 H 103 H 83 Respiratory Rate 22 24 Blood Pressure Pulse Oximetry 98 98 99 Oxygen Delivery Method Room Air Room Air 01/07/24 14:30 01/07/24 14:50 01/07/24 14:50 Temperature Pulse Rate 81 76 Respiratory Rate Blood Pressure 143/80 H Pulse Oximetry 99 98 Oxygen Delivery Method Room Air <Shorty Harrison DO - Last Filed: 01/07/24 14:59> Orders Ordered: ED Orders 01/07/24 12:46 US periph venous low extrem lt Stat 01/07/24 13:00 CBC Auto Diff [Complete Blood Count AUTO DIFF] Stat CMP [Comprehensive Metabolic Panel] Stat 01/07/24 13:05 Lactate (Lactic Acid) Stat Procalcitonin Stat 01/07/24 13:50 Blood Culture Stat Sodium Chloride (Sodium Chloride 0.9% Flush) 10 ml IV BID ALIX Last Admin: 01/07/24 13:11 Dose: 10 ml Documented By: SEDRICK Sodium Chloride (Sodium Chloride 0.9% Flush) 10 ml IV PRN PRN PRN Reason: Flush Last Admin: 01/07/24 14:28 Dose: 10 ml Documented By: Admin: 01/07/24 14:27 Dose: 10 ml Documented By: Admin: 01/07/24 14:26 Dose: 10 ml Documented By: Admin: 01/07/24 13:44 Dose: 10 ml Documented By: SEDRICK Discontinued Medications Amlodipine Besylate (Amlodipine 5 Mg Tablet) 10 mg PO NOW ONE Stop: 01/07/24 13:32 Last Admin: 01/07/24 13:43 Dose: 10 mg Documented By: SEDRICK Sodium Chloride (Normal Saline 0.9%) 1,000 mls @ 1,000 mls/hr IV BOLUS ONE Stop: 01/07/24 13:45 Last Infusion: 01/07/24 14:50 Dose: Infused Documented By: Admin: 01/07/24 13:13 Dose: 1,000 mls/hr Documented By: SEDRICK Vancomycin HCl (Vancomycin) 1,000 mg in 200 mls @ 200 mls/hr IV NOW ONE Stop: 01/07/24 14:25 Last Infusion: 01/07/24 14:50 Dose: Infused Documented By: Admin: 01/07/24 13:43 Dose: 200 mls/hr Documented By: SEDRICK Ketorolac Tromethamine (Ketorolac 30 Mg/Ml Vial) 15 mg IV NOW ONE Stop: 01/07/24 13:32 Last Admin: 01/07/24 13:43 Dose: 15 mg Documented By: SEDRICK Morphine Sulfate (Morphine 4 Mg/Ml Inj) 4 mg IV NOW ONE Stop: 01/07/24 14:22 Last Admin: 01/07/24 14:25 Dose: 4 mg Documented By: RB Ondansetron HCl (Ondansetron 4 Mg/2 Ml Inj) 4 mg IV NOW ONE Stop: 01/07/24 14:22 Last Admin: 01/07/24 14:26 Dose: 4 mg Documented By: RB Vital Signs Vital signs: Vital Signs - 8 hr 01/07/24 12:40 01/07/24 12:40 01/07/24 12:41 Temperature 98.1 F Pulse Rate 109 H 115 H Respiratory Rate 20 Blood Pressure 146/88 H 146/88 H Pulse Oximetry 96 98 Oxygen Delivery Method Room Air 01/07/24 13:00 01/07/24 13:30 01/07/24 14:00 Temperature Pulse Rate 99 H 103 H 83 Respiratory Rate 22 24 Blood Pressure Pulse Oximetry 98 98 99 Oxygen Delivery Method Room Air Room Air 01/07/24 14:30 01/07/24 14:50 01/07/24 14:50 Temperature Pulse Rate 81 76 Respiratory Rate Blood Pressure 143/80 H Pulse Oximetry 99 98 Oxygen Delivery Method Room Air MDM - Extremity (Nontraumatic) <Wyatt Hauser PA-C - Last Filed: 01/07/24 14:55> Lab Data 01/07/24 13:00 01/07/24 13:00 Labs: Lab Results 01/07/24 01/07/24 Range/Units 13:00 13:05 WBC 15.5 H (4.5-11.0) X10^3/uL RBC 4.71 (4.5-5.9) X10^6/uL Hgb 11.9 L (13.5-17.5) g/dL Hct 37.3 L (41-53) % MCV 79.2 L (80-100) fL MCH 25.4 L (26-34) PG MCHC 32.0 (30-36) % RDW 14.7 (11.6-14.8) % Plt Count 363 (150-400) X10^3/uL Neut % (Auto) 84.4 H (50-75) % Lymph % (Auto) 7.3 L (25-40) % [place] % (Auto) 7.4 (3-14) % Eos % (Auto) 0.6 L (2-4) % Baso % (Auto) 0.3 (0-2) % Neut # (Auto) 88335 H (6502-0109) /uL Lymph # (Auto) 1100 (0318-2116) /uL [place] # (Auto) 1100 H (0-900) /uL Eos # (Auto) 100 (0-450) /uL Baso # (Auto) 100 (0-100) /uL Sodium 136 L (137-145) mmol/L Potassium 4.4 (3.4-5.1) mmol/L Chloride 107 (98-107) mmol/L Carbon Dioxide 24 (22-32) mmol/L BUN 12 (9-20) mg/dL Creatinine 0.89 (0.66-1.25) mg/dL Estimated GFR > 60 (>60) mL/min BUN/Creatinine Ratio 13.5 (6-22) Glucose 139 H (70-100) mg/dL Lactate 1.5 (0.7-2.1) mmol/L Calcium 8.7 (8.4-10.2) mg/dL Total Bilirubin 0.6 (0.2-1.3) mg/dL AST 47 (17-59) IU/L ALT 48 (<50) IU/L Alkaline Phosphatase 136 H (38-126) U/L Total Protein 7.3 (6.3-8.2) g/dL Albumin 3.3 L (3.5-5.0) g/dL Globulin 4.0 (1.7-4.1) g/dL Albumin/Globulin Ratio 0.8 L (1.0-2.8) Procalcitonin 0.29 (<0.5) ng/mL Imaging Data US - DVT: Radiologist's Impression: [place] [address] Ultrasound Report Signed Patient: Kumar Vences MR#: [id number] : 1970 Acct:[id number] Age/Sex: 53 / M Date of Service: 01/07/24 Loc: ED Accession Number: [id number] Procedure: US [facility] venous low extrem lt Ordering Provider: Wyatt Hauser P.A-C PROCEDURE: US PERIP VENOUS LOW EXTREM LT INDICATIONS: LLE edema TECHNIQUE: Real-time imaging, as well as color and pulse Doppler interrogation, were performed of the lower extremity deep veins from the inguinal ligament to the popliteal fossa, with documentation of the visualized calf veins. COMPARISON: [facility], US PERIP VENOUS LOW EXTREM LT, 12/30/2023, 11:24. FINDINGS: The common femoral, femoral, popliteal, and the visualized calf veins are normally compressible, and free of intraluminal thrombus. Color and pulse Doppler demonstrate normal phasic intraluminal flow. There is normal augmentation response to distal compression maneuver. Prominent left groin lymph nodes are seen. Generalized soft tissue edema can be seen. Limited quality study, secondary to body habitus and soft tissue swelling. IMPRESSION: No findings of lower extremity deep venous thrombosis. Note: Concordant preliminary findings given by the home care attendant upon the completion of the examination to Brenda Hauser at 2:30 p.m. on January 07, 2024. Dictated by: Louie Ruffin M.D. on 01/07/2024 at 13:47 Approved by: Louie Ruffin M.D. on 01/07/2024 at 13:48 MDM Narrative Medical decision making narrative: ED course: This is a 53-year-old male with a history of hypertension, cellulitis, obesity, and obstructive sleep apnea presents to the emergency department due to approximately week and a half of the lower extremity edema. Patient was seen in the walk-in clinic about 8 days ago where he had a negative DVT ultrasound but was given oral Keflex. He has been taking this as prescribed in his on his last day today and reporting worsening swelling to the left lower extremity. On exam and appears significant swollen as well as erythematous and warm to the touch. There were no palpable areas of fluctuance concerning for an abscess. White count of 15.5. Blood cultures ordered. Lactate and profile within normal limits. Patient was placed on vancomycin. DVT ultrasound showed was negative for DVT per explosive ordnance technician. Discussed case with Dr. Hair, who kindly accepted the patient for admission. CC: Left lower extremity edema Complicating co-morbidities: Obesity Data collected from: Previous notes Medical records reviewed: Patient was seen in the walk-in clinic on 12/30/23 (8 days ago) Due to lower leg swelling to the left leg over the last 2 days. History of cellulitis in the past. Ultrasound was ordered to rule out DVT. Keflex was prescribed. Ultrasound showed no findings for DVT but did show a mildly enlarged left inguinal lymph node. Patient was seen about a year and a half ago due due to a quadriceps tendon rupture to his left lower extremity. History of bilateral osteoarthritis of the hips and knees. Morbid obesity and obstructive sleep apnea. X-rays were negative. Placed in a knee immobilizer and recommended follow up with the Orthopedics. History of hypertension, takes amlodipine 10 mg daily. Differential considered, but not limited to: Cellulitis, abscess, DVT Exam documented above, pertinent findings include: Erythema and edema to the left lower extremity, no palpable areas of fluctuance Lab Test results independently reviewed as above. Pertinent findings: CMP showed a very mild hyponatremia of 136, otherwise unremarkable. CBC did show leukocytosis of 15.5. Lactate and procalcitonin within normal limits. Mild anemia, no active signs of bleeding. Imaging studies independently reviewed: Ultrasound negative for DVT Scores Used: None MIPS Elements: None Consultations: None Treatments: 1 L bolus of normal saline as well as IV vancomycin Re-evaluations: Discussed possible admission with the patient which he was agreeable to. Discussion: Discussed plan with the patient was comfortable with the plan Diagnosis: Cellulitis Disposition: see below, along with detailed discharge instructions that have been reviewed with patient as well as indications for ED re-evaluation and additional outpatient follow up <Shorty Harrison DO - Last Filed: 01/07/24 14:59> Lab Data Labs: Lab Results 01/07/24 01/07/24 Range/Units 13:00 13:05 WBC 15.5 H (4.5-11.0) X10^3/uL RBC 4.71 (4.5-5.9) X10^6/uL Hgb 11.9 L (13.5-17.5) g/dL Hct 37.3 L (41-53) % MCV 79.2 L (80-100) fL MCH 25.4 L (26-34) PG MCHC 32.0 (30-36) % RDW 14.7 (11.6-14.8) % Plt Count 363 (150-400) X10^3/uL Neut % (Auto) 84.4 H (50-75) % Lymph % (Auto) 7.3 L (25-40) % [place] % (Auto) 7.4 (3-14) % Eos % (Auto) 0.6 L (2-4) % Baso % (Auto) 0.3 (0-2) % Neut # (Auto) 64935 H (4689-8345) /uL Lymph # (Auto) 1100 (0934-6528) /uL [place] # (Auto) 1100 H (0-900) /uL Eos # (Auto) 100 (0-450) /uL Baso # (Auto) 100 (0-100) /uL Sodium 136 L (137-145) mmol/L Potassium 4.4 (3.4-5.1) mmol/L Chloride 107 (98-107) mmol/L Carbon Dioxide 24 (22-32) mmol/L BUN 12 (9-20) mg/dL Creatinine 0.89 (0.66-1.25) mg/dL Estimated GFR > 60 (>60) mL/min BUN/Creatinine Ratio 13.5 (6-22) Glucose 139 H (70-100) mg/dL Lactate 1.5 (0.7-2.1) mmol/L Calcium 8.7 (8.4-10.2) mg/dL Total Bilirubin 0.6 (0.2-1.3) mg/dL AST 47 (17-59) IU/L ALT 48 (<50) IU/L Alkaline Phosphatase 136 H (38-126) U/L Total Protein 7.3 (6.3-8.2) g/dL Albumin 3.3 L (3.5-5.0) g/dL Globulin 4.0 (1.7-4.1) g/dL Albumin/Globulin Ratio 0.8 L (1.0-2.8) Procalcitonin 0.29 (<0.5) ng/mL Discharge Plan Departure Patient Disposition: Admitted As Inpatient Clinical Impression: Cellulitis Admit Date/Time: 01/07/24 14:54 Admit Provider: Jessie Hair ED Sign-out <Shorty Harrison, - Last Filed: 01/07/24 14:59> Cosign ED Attending Cosignature Attestation: Dr Harrison Co-Sign Statement: I was available for consultation during this patient's emergency department visit. This chart is signed by myself for administrative purposes only. I did not have direct contact with this patient during this visit. They were seen independently by the APC.
--- NOTE | 2024-01-07 12:46 | DI.US.S_ITS ---
PROCEDURE: US [facility] VENOUS LOW EXTREM LT INDICATIONS: LLE edema TECHNIQUE: Real-time imaging, as well as color and pulse Doppler interrogation, were performed of the lower extremity deep veins from the inguinal ligament to the popliteal fossa, with documentation of the visualized calf veins. COMPARISON: [facility], US, US [facility] VENOUS LOW EXTREM LT, 12/30/2023, 11:24. FINDINGS: The common femoral, femoral, popliteal, and the visualized calf veins are normally compressible, and free of intraluminal thrombus. Color and pulse Doppler demonstrate normal phasic intraluminal flow. There is normal augmentation response to distal compression maneuver. Prominent left groin lymph nodes are seen. Generalized soft tissue edema can be seen. Limited quality study, secondary to body habitus and soft tissue swelling. IMPRESSION: No findings of lower extremity deep venous thrombosis. Note: Concordant preliminary findings given by the carbon capture power plant operator upon the completion of the examination to Brenda Hauser at 2:30 p.m. on January 07, 2024. Dictated by: Louie Ruffin M.D. on 01/07/2024 at 13:47 Approved by: Louie Ruffin M.D. on 01/07/2024 at 13:48
[2024-01-07] MEDS: SODIUM CHLORIDE 0.9% FLUSH 10 ML IV ×5 (13:11→14:28)
[2024-01-07] MEDS: SODIUM CHLORIDE 0.9% 1,000 ML 1000 ML IV (13:13)
[2024-01-07 13:19] LABS: Add Manual Diff / Slide Review NO; Basophils Absolute Auto 100 /uL (0-100); Basophils Percent Auto 0.3 % (0-2); Eosinophils Absolute Auto 100 /uL (0-450); Eosinophils Percent Auto 0.6 % (2-4); Hematocrit 37.3 % (41-53); Hemoglobin 11.9 g/dL (13.5-17.5); Lymphocytes Absolute Auto 1100 /uL (1100-4500); Lymphocytes Percent Auto 7.3 % (25-40); Mean Corpuscular Hemoglobin 25.4 PG (26-34); Mean Corpuscular Volume 79.2 fL (80-100); Monocytes Absolute Auto 1100 /uL (0-900); Monocytes Percent Auto 7.4 % (3-14); Neutrophils Absolute Auto 13100 /uL (1500-7000); Neutrophils Percent Auto 84.4 % (50-75); Platelet Count 363 X10^3/uL (150-400); Red Blood Cell Count 4.71 X10^6/uL (4.5-5.9); Red Cell Distribution Width 14.7 % (11.6-14.8); White Blood Cell Count 15.5 X10^3/uL (4.5-11.0)
[2024-01-07] MEDS: KETOROLAC 30 MG/ML VIAL 15 MG IV (13:43)
[2024-01-07] MEDS: AMLODIPINE 5 MG TABLET 10 MG PO (13:43)
[2024-01-07] MEDS: VANCOMYCIN 1,000 MG/200 ML PIGGYBACK 200 MG IV (13:43)
[2024-01-07 13:47] LABS: Lactate (Lactic Acid) 1.5 mmol/L (0.7-2.1)
[2024-01-07 13:48] LABS: Alanine Aminotransferase 48 IU/L (<50); Albumin 3.3 g/dL (3.5-5.0); Albumin Globulin Ratio 0.8 (1.0-2.8); Alkaline Phosphatase 136 U/L (38-126); Aspartate Aminotransferase 47 IU/L (17-59); BUN Creatinine Ratio 13.5 (6-22); Bilirubin Total 0.6 mg/dL (0.2-1.3); Blood Urea Nitrogen 12 mg/dL (9-20); Calcium 8.7 mg/dL (8.4-10.2); Carbon Dioxide 24 mmol/L (22-32); Chloride 107 mmol/L (98-107); Estimated Glomerular Filt Rate > 60 mL/min (>60); Glucose 139 mg/dL (70-100); HEMOLYSIS 58 (0-50); Potassium 4.4 mmol/L (3.4-5.1); Sodium 136 mmol/L (137-145); Total Protein 7.3 g/dL (6.3-8.2)
[2024-01-07 14:04] LABS: Procalcitonin 0.29 ng/mL (<0.5)
[2024-01-07] MEDS: MORPHINE 4 MG/ML INJ IV (14:25)
[2024-01-07] MEDS: ONDANSETRON 4 MG/2 ML INJ IV (14:26)
--- NOTE | 2024-01-07 16:11 | PC.NURSE ---
Day shift: In room from ED at approx 1555. He is A&Ox4. Able to ambulate to BR with use of crutches. Reports being hungry and thirsty. Reg diet ordered per Dr Hair. His left leg is swollen and tender. Pain at rest reported at 3/10 and increases when standing. Oriented to room and call light. VS WNL. Agrees to not get OOB w/o help from staff. RA 97%. Awaiting any new MD orders at this time ([id number]).
--- NOTE | 2024-01-07 17:25 | P.HP_ITS ---
History of Present Illness History of Present Illness Date Patient Seen: 01/07/24 Time Patient Seen: 17:25 Chief complaint: left leg pain/swelling- cellulitis last week Narrative: This is a very pleasant 53-year-old male who is under the primary care of Dr. Stein. Presents to the ER with progressive worsening redness and swelling of his left lower extremity. He went to the walk-in clinic on December 29 was treated with a 7 day round of Keflex and his condition has worsened. He was found to have a leukocytosis and significant swelling and pain when he was seen in the ER was admitted for further treatment. Vancomycin treatment was initiated. Patient denies any injury or wound but did say he was scratching his left foot prior to this happening because he thinks he might have a little bit of tinea pedis. Otherwise no change in his history Otherwise he denies systemic complaints He had a Doppler done in the ER which was negative and 1 in the walk-in clinic that was negative as well He denies fevers chills, nausea or vomiting. In September he did a left quadriceps tendon tear and had it surgically fixed. He has been recovering well from this. Past medical history: 1. Migraine headaches 2. 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 Low back pain 4. Hyperlipidemia 5. Hypertension 6. Obstructive sleep apnea 7. Morbid obesity 8. Previous smoker Reviewed medications Allergies no known drug allergies Past surgical history: September 2023 left quadriceps tendon repair Family history: Mom had breast cancer and type 2 diabetes Grandfather had acute [place] Social history: Patient is , he is 2 children and 3 adopted children so total of 5 children. Lives in [place] with his life. 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 Health related behavior: Previous patient was a smoker Patient does not use illicit drugs or alcohol on a regular basis Twelve point review of systems is otherwise negative Negative for any GI symptoms or No chest pain or shortness a breath No rashes [facility] Medical History (Updated 01/07/24 @ 14:15 by Wyatt Hauser PA-C) COVID-19 virus infection (~05/2022) Migraine headache Shoulder impingement syndrome Degenerative joint disease of knee Bilateral primary osteoarthritis of hip Facet joint disease of lumbosacral region Bilateral primary osteoarthritis of knee PTSD (post-traumatic stress disorder) Hyperlipidemia Hypertension TROY (obstructive sleep apnea) Morbid obesity Family History Mother Diabetes mellitus Hypertension Breast cancer Grandfather Myocardial infarction Social History household members: spouse Smoking Status: Former smoker alcohol intake: current Meds Home Medications and Allergies Home Medications Medication Instructions Recorded Confirmed Type ibuprofen 600 mg tablet 600 mg PO Q6H PRN pain #60 tabs 10/01/22 01/07/24 Rx albuterol sulfate 90 mcg/actuation 2 puff inhalation Q6H PRN 11/12/22 01/07/24 Rx aerosol inhaler shortness of breath or wheezing #18 grams Disabled Parking #1 ea 07/13/23 01/07/24 Rx amlodipine 10 mg tablet 10 mg PO QAM 01/07/24 01/07/24 History celecoxib 200 mg capsule (Celebrex) 200 mg PO QAM 01/07/24 01/07/24 History diclofenac sodium 1 % topical gel 2 g topical QID PRN Pain (Scale 01/07/24 01/07/24 History Score 4-6) nortriptyline 10 mg capsule 10 mg PO BEDTIME PRN Insomnia 01/07/24 01/07/24 History prazosin 1 mg capsule 1 mg PO BEDTIME PRN ptsd/insomnia 01/07/24 01/07/24 History rosuvastatin 20 mg tablet 20 mg PO QAM 01/07/24 01/07/24 History Allergies Allergy/AdvReac Type Severity Reaction Status Date / Time No Known Drug Allergies Allergy Verified 01/07/24 13:25 Exam Vital Signs (past 8 hours): - 01/07/24 12:40 01/07/24 12:40 01/07/24 12:41 Temperature 98.1 F Pulse Rate 109 H 115 H Respiratory Rate 20 Blood Pressure 146/88 H 146/88 H Pulse Oximetry 96 98 Oxygen Delivery Method Room Air Oxygen Flow Rate 01/07/24 13:00 01/07/24 13:30 01/07/24 14:00 Temperature Pulse Rate 99 H 103 H 83 Respiratory Rate 22 24 Blood Pressure Pulse Oximetry 98 98 99 Oxygen Delivery Method Room Air Room Air Oxygen Flow Rate 01/07/24 14:30 01/07/24 14:50 01/07/24 14:50 Temperature Pulse Rate 81 76 Respiratory Rate Blood Pressure 143/80 H Pulse Oximetry 99 98 Oxygen Delivery Method Room Air Oxygen Flow Rate 01/07/24 15:00 01/07/24 16:00 01/07/24 16:16 Temperature 97.6 F Pulse Rate 74 82 Respiratory Rate 18 Blood Pressure 109/66 Pulse Oximetry 98 97 Oxygen Delivery Method Room Air Oxygen Flow Rate 0 Oxygen Delivery Method Room Air Oxygen Flow Rate 0 Narrative Exam Narrative: Patient is alert and oriented x3 in no apparent distress Afebrile vital signs are stable HEENT is unremarkable Neck: Supple without adenopathy or thyromegaly Chest: Clear to auscultation without wheezes rhonchi or crackles Cor: Regular rate and rhythm with distant S1-S2 Abdomen: Obese, positive bowel sounds, soft, nontender, nondistended, no hepatosplenomegaly Extremities: Patient with normal right lower extremity with trace edema normal pulses Left lower extremity is 2-3 times larger in terms of swelling than the right. I am able to palpate dorsalis pedis pulses though with difficulty due to swelling. He is marked tenderness and erythema primarily over her anterior betancourt and gastrocnemius muscle Patient has thickened nails but no discernible rash but does have dry skin there is no wounds noted. No drainage. Objective Labs 01/07/24 13:00 01/07/24 13:00 Labs: Laboratory Results - last 24 hr 01/07/24 01/07/24 13:00 13:05 WBC 15.5 H RBC 4.71 Hgb 11.9 L Hct 37.3 L MCV 79.2 L MCH 25.4 L MCHC 32.0 RDW 14.7 Plt Count 363 Neut % (Auto) 84.4 H Lymph % (Auto) 7.3 L [place] % (Auto) 7.4 Eos % (Auto) 0.6 L Baso % (Auto) 0.3 Neut # (Auto) 26036 H Lymph # (Auto) 1100 [place] # (Auto) 1100 H Eos # (Auto) 100 Baso # (Auto) 100 Sodium 136 L Potassium 4.4 Chloride 107 Carbon Dioxide 24 BUN 12 Creatinine 0.89 Estimated GFR > 60 BUN/Creatinine Ratio 13.5 Glucose 139 H Lactate 1.5 Calcium 8.7 Total Bilirubin 0.6 AST 47 ALT 48 Alkaline Phosphatase 136 H Total Protein 7.3 Albumin 3.3 L Globulin 4.0 Albumin/Globulin Ratio 0.8 L Procalcitonin 0.29 Assessment & Plan Assessment & Plan narrative: 53-year-old male admitted for left lower extremity cellulitis Plan: Will continue with vancomycin. Venous Doppler negative for DVT Will consult PT Will elevate Will provide hydrocodone for pain Will provide Lovenox for DVT prophylaxis Will attempt to keep patient off his leg as much as possible. We will repeat labs in a.m. and pending clinical appearance will consider increasing antibiotics. Assessment 2. Hypertension Plan: Continue outpatient medications of amlodipine 10 mg daily and prazosin 1 mg at bedtime Assessment 3. History of PTSD Plan: Continue nortriptyline as needed. Assessment 4. Hyperlipidemia Plan: Continue outpatient rosuvastatin Assessment 5. DJD Plan: Continue with supportive treatment Tylenol etc.. Assessment 6. DVT prophylaxis Plan Lovenox Assessment 7. Obstructive sleep apnea that he has currently not treating Plan: Will monitor while in the hospital and outpatient referral is necessary Code status is full code 56 minute spent with patient discussing with physician, nursing, reviewing clinic chart and meeting with patient and formulating a plan and documentation
[2024-01-07] MEDS: HYDROCODONE/ACET 5/325 TABLET 1 TAB PO ×2 (17:56→23:27)
[2024-01-07] MEDS: VANCOMYCIN 3,000 MG/600 ML PIGGYBACK 200 MG IV (18:26)
[2024-01-08 03:28] VITALS: BP 117/61; PULSE 86; RESP 18; TEMP 36.2; O2SAT 93
[2024-01-08 04:56] LABS: Add Manual Diff / Slide Review NO; Basophils Absolute Auto 100 /uL (0-100); Basophils Percent Auto 0.9 % (0-2); Eosinophils Absolute Auto 200 /uL (0-450); Eosinophils Percent Auto 1.2 % (2-4); Hematocrit 33.8 % (41-53); Hemoglobin 10.8 g/dL (13.5-17.5); Lymphocytes Absolute Auto 1300 /uL (1100-4500); Lymphocytes Percent Auto 9.8 % (25-40); Mean Corpuscular Hemoglobin 25.3 PG (26-34); Mean Corpuscular Volume 79.2 fL (80-100); Monocytes Absolute Auto 1300 /uL (0-900); Monocytes Percent Auto 9.5 % (3-14); Neutrophils Absolute Auto 10700 /uL (1500-7000); Neutrophils Percent Auto 78.6 % (50-75); Platelet Count 350 X10^3/uL (150-400); Red Blood Cell Count 4.27 X10^6/uL (4.5-5.9); Red Cell Distribution Width 14.7 % (11.6-14.8); White Blood Cell Count 13.6 X10^3/uL (4.5-11.0)
[2024-01-08] MEDS: HYDROCODONE/ACET 5/325 TABLET 1 TAB PO ×4 (04:56→20:30)
[2024-01-08 04:59] LABS: BUN Creatinine Ratio 11.6 (6-22); Blood Urea Nitrogen 13 mg/dL (9-20); Calcium 8.7 mg/dL (8.4-10.2); Carbon Dioxide 26 mmol/L (22-32); Chloride 105 mmol/L (98-107); Estimated Glomerular Filt Rate > 60 mL/min (>60); Glucose 118 mg/dL (70-100); HEMOLYSIS < 15 (0-50); Potassium 4.5 mmol/L (3.4-5.1); Sodium 134 mmol/L (137-145)
[2024-01-08] MEDS: VANCOMYCIN 2,000 MG/400 ML PIGGYBACK 200 MG IV ×2 (05:02→17:49)
[2024-01-08 08:00] VITALS: BP 114/56; PULSE 88; RESP 18; TEMP 36.2; O2SAT 93
[2024-01-08] MEDS: ATORVASTATIN 20 MG TABLET 40 MG PO (08:54)
[2024-01-08] MEDS: CELECOXIB 200 MG CAPSULE PO (08:54)
[2024-01-08] MEDS: ENOXAPARIN 40 MG/0.4 ML SYRINGE SUBCUT ×2 (08:54→20:29)
[2024-01-08] MEDS: AMLODIPINE 5 MG TABLET 10 MG PO (08:54)
[2024-01-08] MEDS: SODIUM CHLORIDE 0.9% FLUSH 10 ML IV (08:55)
--- NOTE | 2024-01-08 12:08 | PT.IIE ---
Current Diagnoses Cellulitis of left lower limb (01/07/24) Medical History (Last Updated 12/30/23 @ 10:31 by Tova Schuler [facility] Bilateral primary osteoarthritis of hip Bilateral primary osteoarthritis of knee COVID-19 virus infection (~05/2022) Degenerative joint disease of knee Facet joint disease of lumbosacral region Hyperlipidemia Hypertension Migraine headache Morbid obesity TROY (obstructive sleep apnea) PTSD (post-traumatic stress disorder) Shoulder impingement syndrome Physical Therapy Inpatient Evaluation/Re-Eval M1 PT/OT-IP Prior Functional Status Start: 01/08/24 09:40 Freq: NEEDED Status: Active Protocol: Document 01/08/24 11:28 MB (Rec: 01/08/24 12:08 MB [id number]) Medical Review Prior Functional Status Medical History Reviewed Yes Diet/Fluid Consistency Regular Communication WNLs Mobility and Gait I in the house, uses SPC in right hand when going to work [place] Activities of Daily Living and IADL's I Social History Household Members spouse Living Arrangements House Number of Floors (Floors) One Floor Number of Stairs To Enter/Railing? 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 PT-IP Current Condition Start: 01/08/24 09:40 Freq: NEEDED Status: Active Protocol: Document 01/08/24 11:28 MB (Rec: 01/08/24 12:08 MB [id number]) Physical Therapy Current Condition Current Condition Evaluation Date 01/08/24 Treatment Diagnosis LLE cellulitis M3 PT-IP Subjective Start: 01/08/24 09:40 Freq: NEEDED Status: Active Protocol: Document 01/08/24 11:28 MB (Rec: 01/08/24 12:08 MB [id number]) Subjective Physical Therapy Visit Type Type Initial Evaluation Visit Start Time 11:28 Visit Stop Time 11:43 Number of DEVELOPMENT CHEMIST Visits 0 Physical Therapy Visit Comments Patient Comments Pt states that he is comfortable and he is agreeable to PT Therapy Pain Assessment Pain When Pain Assessed During Mobility Pain Present Pain Present Pain Reported Location Left lower leg Intensity 4 Scale Used Numeric (0 - 10) Pain Management Techniques Distraction,Modification of Treatment,Re-positioning, Timing of Activity with Medications M4 PT-IP Mobility and Gait Start: 01/08/24 09:40 Freq: NEEDED Status: Active Protocol: Document 01/08/24 11:28 MB (Rec: 01/08/24 12:08 MB [id number]) PT-Bed Mobility Assessment Supine to Sit Supine to Sit Independent,Head of Bed Elevated,Bedrails Sit to Supine Sit to Supine Independent,Head of Bed Elevated,Bedrails Scooting Scooting to Edge of Bed Standby Assistance PT-Transfer Assessment Sit to and From Stand Sit to and from Stand Standby Assistance,1 Person Assistance,Use of Upper Extremities Equipment Transfer Assistive Device Front Wheeled Walker Orthotic/Prosthetic Devices or Brace: No Transfers Transfer Destination Bed Transfer Technique Left side stepping Transfer Ability Level of Assist Standby Assistance,1 Person Assistance,Use of Upper Extremities Comments Mobility Comments Step-to stepping left and then right foot with RW, step-to pattern Gait Assessment Gait Gait Assistance Required: Contact Guard Assist Distance (Feet) 3 Able to Maintain Weight Bearing Status Yes During Gait Assistive Devices Assistive Device Front Wheeled Walker Orthotic/Prosthetic Devices or Brace: No Gait Deviations General Gait Pattern Antalgic,Decreased Stride Length,Decreased Feet Clearance,Flexed Trunk,Step-to Gait Factors Limiting Gait Function Factors Limiting Gait Function Limited Range of Motion,Pain, Poor Balance Comments Gait Comments Pt refuses gait belt and states he will be steady enough to step with use of RW without it. Pt side steps up to the HOB to the left PT-Balance Assessment Sitting Balance and Reactions Static Sitting Balance Ability Normal Dynamic Sitting Balance Ability Good Standing Balance and Reactions Static Standing Balance Ability Good Dynamic Standing Balance Ability Good Device Used RW M5 PT-IP Objective Assessments Start: 01/08/24 09:40 Freq: NEEDED Status: Active Protocol: Document 01/08/24 11:28 MB (Rec: 01/08/24 12:08 MB [id number]) Orientation Orientation/Cognition Level of Alertness Alert Orientation Name,Age,Birthday,Month,Year, Place,Situation Language Function Ability No Deficits Noted Safety Awareness Understands Safety Issues Memory Description No Deficits Noted Gross Range of Motion Upper Extremity ROM Assessment Within Functional Limits Lower Extremity ROM Assessment Left Impaired Impairments LLE edema and decreased ROM and strength Strength Lower Extremity Strength Assessment Left Impaired Comments Strength Comments See ROM comments above, decreased WB when standing and no buckling, able to manage standing balance with RW M6 PT-IP Treatment Start: 01/08/24 09:40 Freq: NEEDED Status: Active Protocol: Document 01/08/24 11:28 MB (Rec: 01/08/24 12:08 MB [id number]) Physical Therapy Treatment Education Education Provided Safety M7 PT-IP Assessment and Plan Start: 01/08/24 09:40 Freq: NEEDED Status: Active Protocol: Document 01/08/24 11:28 MB (Rec: 01/08/24 12:08 MB [id number]) PT Summary Assessment and Plan Potential Rehabilitation Potential Good Status of Condition at Evaluation Evolving Summary Impairments Pain,ROM,Strength,Balance,Bed Mobility,Transfers,Gait, Activity Tolerance Progress Towards Goals Progressing Toward Goals Assessment Summary Pt is a 54 y/o male presenting with left LE edema, pain, decreased ROM and strength in setting of acute LLE cellulitis. He mobilizes well in the bed and does not feel like gait training to the steps today for stair training . Can try a later date. Recommend up with nsg. Goals Bed Mobility Goal Independent Transfer Goal Independent,Minimal Assistance ,Front Wheeled Walker Gait Goal Independent,Front Wheel Walker Gait Distance 100 Other Goals Pt will ascend and descend 5 steps with 1-2 rails or 1 rail and LRAD and mod I to allow safe home entry. Days to Meet Goals 5 Frequency of Treatment Frequency Of Treatment Once a Day Treatment Plan Physical Therapy Treatment Plan Bed Mobility Training,Transfer Training,Gait Training, Therapeutic Exercise,Balance Retraining,Discharge Planning Weight Bearing Status Weight Bearing Status Weight Bear as Tolerated Recommendations To Nursing Amount of Assist Needed Standby Assistance,1 Person Assist Discharge Recommendations PT Discharge Recommendations Home with Assistance Transportation Needs at Discharge Private Vehicle
--- NOTE | 2024-01-08 13:59 | PM.PN.1 ---
Subjective Subjective Date Patient Seen: 01/08/24 Time Patient Seen: 14:00 Interval history: Patient is feeling significantly better. His pain is better. He was able to stand on his leg without significant pain. Disrupted frequently by nursing and by labs affected sleep. But otherwise doing well. Blood pressures been well-controlled. He is tolerating p.o. without any difficulty. Twelve point review of systems is otherwise negative. Patient denies any chest pain or difficulty breathing. Denies any nausea vomiting or abdominal pain. No fevers. Exam Vital Signs (past 8 hours): - 01/08/24 08:00 Temperature 97.2 F L Pulse Rate 88 Respiratory Rate 18 Blood Pressure 114/56 L Pulse Oximetry 93 Oxygen Flow Rate 0 Oxygen Delivery Method Room Air Oxygen Flow Rate 0 Narrative Exam Narrative: Afebrile vital signs are stable HEENT is unremarkable Neck is supple without adenopathy Chest: Clear to auscultation without wheezes rhonchi or crackles Cor: Regular rate and rhythm with distant S1-S2 Abdomen: Soft Extremities: Pulses intact bilaterally Left lower extremity shows significant decrease in swelling to the point that they are air some skin changes with slight exfoliation some evidence of early blistering possibly on the anterior betancourt. Erythema is more cold last. Still increased warmth and significant swelling gastrocnemius and entire leg. It is now only approximately twice as big as his right leg. Pedal edema is decreased and more localized just to the top of the foot. Moves all extremities well Neurologic exam nonfocal Thickened dystrophic nails bilateral toes Objective Labs 01/08/24 04:20 01/08/24 04:20 Labs: Laboratory Results - last 24 hr 01/07/24 01/08/24 13:05 04:20 WBC 13.6 H RBC 4.27 L Hgb 10.8 L Hct 33.8 L MCV 79.2 L MCH 25.3 L MCHC 32.0 RDW 14.7 Plt Count 350 Neut % (Auto) 78.6 H Lymph % (Auto) 9.8 L [place] % (Auto) 9.5 Eos % (Auto) 1.2 L Baso % (Auto) 0.9 Neut # (Auto) 72762 H Lymph # (Auto) 1300 [place] # (Auto) 1300 H Eos # (Auto) 200 Baso # (Auto) 100 Sodium 134 L Potassium 4.5 Chloride 105 Carbon Dioxide 26 BUN 13 Creatinine 1.12 Estimated GFR > 60 BUN/Creatinine Ratio 11.6 Glucose 118 H Calcium 8.7 Procalcitonin 0.29 [facility] Medical History (Updated 01/07/24 @ 14:15 by Wyatt Hauser PA-C) COVID-19 virus infection (~05/2022) Migraine headache Shoulder impingement syndrome Degenerative joint disease of knee Bilateral primary osteoarthritis of hip Facet joint disease of lumbosacral region Bilateral primary osteoarthritis of knee PTSD (post-traumatic stress disorder) Hyperlipidemia Hypertension TROY (obstructive sleep apnea) Morbid obesity Family History Mother Diabetes mellitus Hypertension Breast cancer Grandfather Myocardial infarction Social History household members: spouse Smoking Status: Former smoker alcohol intake: current Assessment & Plan Assessment & Plan narrative: 53-year-old male admitted for left lower extremity cellulitis Plan: Will continue with vancomycin. Venous Doppler negative for DVT Patient is feeling better clinically. He was able to stand without excruciating pain in his leg but partially probably related to having pain medication. His pain is well-controlled with the hydrocodone. PT saw him. He is elevating it as much as possible and the swelling and overall pain has gone down. Clinically this is clear that the swelling down the erythema is decreasing probably more localized. No evidence of abscess formation. No exudate but some early blistering on the anterior betancourt. Patient received 3 doses essentially vancomycin. We will continue the same. Pending clinically how he appears tomorrow we could probably give him another dose IV and then send him home on Septra or doxycycline but I think clearly it should be Septra not doxycycline. He does not have any drug allergies. He does not have diabetes but probably impaired glucose tolerance. He failed Keflex outpatient. He declined doing blood sugar checks while he is in the hospital but we will check A1c tomorrow. Assessment 2. Hypertension well-controlled Plan: Continue outpatient medications of amlodipine 10 mg daily and prazosin 1 mg at bedtime Assessment 3. History of PTSD Plan: Continue nortriptyline as needed. Assessment 4. Hyperlipidemia Plan: Continue outpatient rosuvastatin Assessment 5. DJD Plan: Continue with supportive treatment Tylenol etc.. Assessment 6. DVT prophylaxis Plan Lovenox Assessment 7. Obstructive sleep apnea that he has currently not treating Plan: Will monitor while in the hospital and outpatient referral is necessary Code status is full code 53 minute spent with patient discussing with physician, nursing,pharmacy reviewing clinic chart and meeting with patient and formulating a plan and documentation
--- NOTE | 2024-01-08 14:17 | CM.DANOTE ---
DCP Assessment Note Pt is a 54yo M here following cellulitis in his lower left leg. PCP Dr. Priya Cooper and [facility] SENIOR RESEARCH ASSOCIATE reviewed EMR. Per Dr. Hair, pt is doing better today. anticipate home Tuesday vs Tuesday. Anticipate switching to PO abx at [place]. Pt uses cane at baseline. SENIOR RESEARCH ASSOCIATE met with pt in room. Pt lives in [place] with spouse. Deny any CM needs at [place]. Report family can assist as needed. Plan: anticipate home Tuesday vs Tue with family support. No CM needs identified. CM team will continue to follow as needed. KAMLESH Mane Discharge Planning/Care Management CM Discharge Assessment Start: 01/08/24 14:16 Freq: Status: Active Protocol: Document 01/08/24 14:16 (Rec: 01/08/24 14:17 [id number]) Discharge Planning Assessment Assigned Content Engineer KAMLESH Motley DPOA/Assigned Designee Name ismael Granado Contact Information [phone] Advance Directives? No History Provided By Patient Prior Living Arrangements House Household Members spouse Type of transporation used prior to Drives own vehicle admit Independent with ADL's Yes Is patient alert and oriented? Yes Barriers to Discharge No Discharge Plan Home Transportation Arrangement family in [place] Referrals Initiated None needed Whiteboard Updated in Patient Room with Yes name and ext. # of Content Engineer Review Status In Process Please Provide Date Initial DC 01/08/24 Assessment Was Performed Next Review Type Continued Stay Review
[2024-01-08 16:00] VITALS: BP 128/73; PULSE 89; RESP 16; TEMP 36.2; O2SAT 95
[2024-01-08 23:44] VITALS: BP 149/83; PULSE 93; RESP 19; TEMP 36.2; O2SAT 94
[2024-01-09] MEDS: HYDROCODONE/ACET 5/325 TABLET 1 TAB PO ×2 (05:07→17:58)
[2024-01-09] MEDS: VANCOMYCIN TROUGH 1 REQUEST MISC (05:09)
[2024-01-09 05:26] LABS: Add Manual Diff / Slide Review NO; Basophils Absolute Auto 200 /uL (0-100); Basophils Percent Auto 1.4 % (0-2); Eosinophils Absolute Auto 100 /uL (0-450); Eosinophils Percent Auto 1.3 % (2-4); Hematocrit 34.8 % (41-53); Lymphocytes Absolute Auto 1300 /uL (1100-4500); Lymphocytes Percent Auto 11.7 % (25-40); Mean Corpuscular HGB Conc 31.5 % (30-36); Mean Corpuscular Hemoglobin 24.9 PG (26-34); Monocytes Absolute Auto 1100 /uL (0-900); Monocytes Percent Auto 9.9 % (3-14); Neutrophils Absolute Auto 8300 /uL (1500-7000); Neutrophils Percent Auto 75.7 % (50-75); Platelet Count 381 X10^3/uL (150-400); Red Cell Distribution Width 14.7 % (11.6-14.8)
[2024-01-09 05:30] LABS: Hemoglobin A1C% w Est Avg Glu 6.7 % (4.0-6.0)
[2024-01-09 05:33] LABS: Blood Urea Nitrogen 12 mg/dL (9-20); Chloride 107 mmol/L (98-107)
[2024-01-09 05:40] LABS: Alanine Aminotransferase 44 IU/L (<50); Albumin 3.5 g/dL (3.5-5.0); Albumin Globulin Ratio 0.8 (1.0-2.8); Alkaline Phosphatase 135 U/L (38-126); Aspartate Aminotransferase 35 IU/L (17-59); BUN Creatinine Ratio 11.5 (6-22); Bilirubin Total 0.4 mg/dL (0.2-1.3); Calcium 8.9 mg/dL (8.4-10.2); Carbon Dioxide 25 mmol/L (22-32); Estimated Glomerular Filt Rate > 60 mL/min (>60); Globulin 4.3 g/dL (1.7-4.1); Glucose 128 mg/dL (70-100); HEMOLYSIS < 15 (0-50); Potassium 4.3 mmol/L (3.4-5.1); Sodium 136 mmol/L (137-145); Total Protein 7.8 g/dL (6.3-8.2)
[2024-01-09 05:47] LABS: Vancomycin Trough 14.9 ug/mL (10-20)
[2024-01-09] MEDS: VANCOMYCIN 2,000 MG/400 ML PIGGYBACK 200 MG IV ×2 (05:57→17:57)
[2024-01-09 08:00] VITALS: BP 153/82; PULSE 81; RESP 18; TEMP 36.1; O2SAT 96
--- NOTE | 2024-01-09 08:27 | P.PN_ITS ---
Subjective Subjective Date Patient Seen: 01/09/24 Time Patient Seen: 08:27 Interval history: Patient states he is doing okay today. Slept okay last night eating well. He feels like his leg is much better. But still quite painful swelling is still quite prominent. Venous ultrasound negative labs were reviewed white blood cell count is improving kidney function is normal mild anemia. Patient has mild early diabetes with a hemoglobin A1c of 6.7 which is a new diagnosis for him. Discussed about going home patient is on vancomycin discharge plan would be home with oral medication. Exam Vital Signs (past 8 hours): - 01/09/24 08:00 Temperature 97.0 F L Pulse Rate 81 Respiratory Rate 18 Blood Pressure 153/82 H Pulse Oximetry 96 Oxygen Flow Rate 0 Oxygen Delivery Method Room Air Oxygen Flow Rate 0 Narrative Exam Narrative: Gen.: Alert and oriented x3 no apparent distress. HEENT: NCAT PERRLA tympanic membranes are clear nares are patent oral mucosa is moist no tonsillar hypertrophy neck is supple without lymphadenopathy no thyroid enlargement. Cardio: S1-S2 regular rate and rhythm no murmurs appreciated. Respiratory: Lungs are clear to auscultation no wheezes or crackles normal respiratory effort. Abdomen: Soft nontender no rebound or guarding no liver spleen enlargement no appreciable hernias Extremities: Significant left lower extremity edema with cellulitic changes up through the knee. Objective Labs 01/09/24 05:10 01/09/24 05:10 Labs: Laboratory Results - last 24 hr 01/09/24 05:10 WBC 11.0 RBC 4.40 L Hgb 11.0 L Hct 34.8 L MCV 79.0 L MCH 24.9 L MCHC 31.5 RDW 14.7 Plt Count 381 Neut % (Auto) 75.7 H Lymph % (Auto) 11.7 L [place] % (Auto) 9.9 Eos % (Auto) 1.3 L Baso % (Auto) 1.4 Neut # (Auto) 8300 H Lymph # (Auto) 1300 [place] # (Auto) 1100 H Eos # (Auto) 100 Baso # (Auto) 200 H Sodium 136 L Potassium 4.3 Chloride 107 Carbon Dioxide 25 BUN 12 Creatinine 1.04 Estimated GFR > 60 BUN/Creatinine Ratio 11.5 Glucose 128 H Hemoglobin A1c 6.7 H Calcium 8.9 Total Bilirubin 0.4 AST 35 ALT 44 Alkaline Phosphatase 135 H Total Protein 7.8 Albumin 3.5 Globulin 4.3 H Albumin/Globulin Ratio 0.8 L Vancomycin Trough 14.9 PFSH Medical History (Updated 01/09/24 @ 08:31 by Bi Enriquez MD) COVID-19 virus infection (~05/2022) Migraine headache Shoulder impingement syndrome Degenerative joint disease of knee Bilateral primary osteoarthritis of hip Facet joint disease of lumbosacral region Bilateral primary osteoarthritis of knee PTSD (post-traumatic stress disorder) Hyperlipidemia Hypertension TROY (obstructive sleep apnea) Morbid obesity Family History Mother Diabetes mellitus Hypertension Breast cancer Grandfather Myocardial infarction Social History household members: spouse Smoking Status: Former smoker alcohol intake: current Assessment & Plan Assessment and plan (1) Cellulitis: Problem details: Left lower extremity cellulitis Will continue with vancomycin. Venous Doppler negative for DVT patient states he has doing a little bit better. Been up ambulating white blood cell count stable afebrile. Patient is on vancomycin. Tomorrow will go ahead and convert him to oral doxycycline and anticipate going home. Obstructive sleep apnea. Currently not treated. Patient obviously had this based on inpatient monitoring. Patient will need outpatient referral for CPAP. Type 2 diabetes. Patient has a hemoglobin A1c of 6.7. Patient has not been diagnosed with diabetes. Provided diabetic education today. Patient will need to follow-up as an outpatient for further treatment. Hypertension well-controlled continue with patient's current amlodipine prazosin. PTSD patient on prazosin at night with nortriptyline as needed for sleep and insomnia. Hyperlipidemia patient on Crestor. Continue with current dose of 20 mg a day DVT prophylaxis with Lovenox Code status is full code Disposition and plan. Continue IV vancomycin. Switch to oral medication tomorrow and discharge home on orals with close follow-up with Dr. Powers Status: Acute IH PROFEE Charge codes Subsequent inpatient/observation care: [id number]
--- NOTE | 2024-01-09 08:43 | CM.DPNOTE ---
DCP Note ARCHITECTURAL PROJECT MANAGER reviewed EMR. Per Dr. Enriquez, anticipate dc home tomorrow on PO abx, no CM needs from his perspective. Plan: anticipate home with spouse tomorrow/01/09 on PO abx. No barriers identified to safe return home. CM team will continue to follow as needed. Gena Anaya, KAMLESH
[2024-01-09] MEDS: ENOXAPARIN 40 MG/0.4 ML SYRINGE SUBCUT ×2 (09:31→21:07)
[2024-01-09] MEDS: AMLODIPINE 5 MG TABLET 10 MG PO (09:32)
[2024-01-09] MEDS: ATORVASTATIN 20 MG TABLET 40 MG PO (09:32)
[2024-01-09] MEDS: SODIUM CHLORIDE 0.9% FLUSH 10 ML IV ×2 (09:32→21:07)
[2024-01-09] MEDS: CELECOXIB 200 MG CAPSULE PO (09:34)
--- NOTE | 2024-01-09 11:21 | DI.RAD.S_ITS ---
PROCEDURE: XR CHEST 1V INDICATIONS: shortness of breath and weakness TECHNIQUE: One view of the chest was acquired. COMPARISON: None. FINDINGS: Surgical changes and devices: None. Lungs and pleura: Lungs are clear. No pleural effusions or pneumothorax. Mediastinum: Mediastinal contours appear normal. Heart size is normal. Bones and chest wall: No suspicious bony lesions. Overlying soft tissues appear unremarkable. IMPRESSION: No acute cardiopulmonary abnormality is seen. Dictated by: Gilberto Olson M.D. on 01/09/2024 at 12:31 Approved by: Gilberto Olson M.D. on 01/09/2024 at 12:34
--- NOTE | 2024-01-09 11:42 | PT.IPTN ---
Current Diagnoses Cellulitis of left lower limb (01/07/24) Cellulitis, unspecified (01/07/24) Physical Therapy Treatment Note M2 PT-IP Current Condition Start: 01/08/24 09:40 Freq: NEEDED Status: Active Protocol: Document 01/08/24 11:28 MB (Rec: 01/08/24 12:08 MB [id number]) Physical Therapy Current Condition Current Condition Evaluation Date 01/08/24 Treatment Diagnosis LLE cellulitis M3 PT-IP Subjective Start: 01/08/24 09:40 Freq: NEEDED Status: Active Protocol: Document 01/09/24 10:23 MB (Rec: 01/09/24 11:42 MB [id number]) Subjective Physical Therapy Visit Type Type Treatment Note Visit Start Time 10:23 Visit Stop Time 10:34 Number of CIRCUITRY NEGATIVE INSPECTOR Visits 0 Physical Therapy Visit Comments Patient Comments Pt sitting EOB with two CNAs nearby upon PT arrival and they state he was hoping to get up to go to the BR but he is too weak. Therapy Pain Assessment Pain When Pain Assessed During Mobility Pain Present Pain Present Pain Reported Location Left lower leg Intensity 4 Scale Used Numeric (0 - 10) M4 PT-IP Mobility and Gait Start: 01/08/24 09:40 Freq: NEEDED Status: Active Protocol: Document 01/09/24 10:23 MB (Rec: 01/09/24 11:42 MB [id number]) PT-Bed Mobility Assessment Sit to Supine Sit to Supine Total Assistance,Bedrails Scooting Scooting Up and Down in Bed Minimal Assistance PT-Transfer Assessment Comments Mobility Comments PT called in by nsg to assist pt in getting up to BR d/t increased weakness today and unable to get up with +2 assistance from MECHANICAL LABORATORY TECHNICIAN. Donned right sock and shoe and left sock, donned gait belt and obtained RW and pt is unable to stand up despite two attempts, bed raised, +3 assistance available. B legs, including right LE, are very weak today. 3 person assistance to get from sitting EOB to supine and PT holds left leg as pt is then able to push foot board with right foot and use arms to pull up in the bed with bed in Trendelenburg position M5 PT-IP Objective Assessments Start: 01/08/24 09:40 Freq: NEEDED Status: Active Protocol: Document 01/08/24 11:28 MB (Rec: 01/08/24 12:08 MB [id number]) Orientation Orientation/Cognition Level of Alertness Alert Orientation Name,Age,Birthday,Month,Year, Place,Situation Language Function Ability No Deficits Noted Safety Awareness Understands Safety Issues Memory Description No Deficits Noted Gross Range of Motion Upper Extremity ROM Assessment Within Functional Limits Lower Extremity ROM Assessment Left Impaired Impairments LLE edema and decreased ROM and strength Strength Lower Extremity Strength Assessment Left Impaired Comments Strength Comments See ROM comments above, decreased WB when standing and no buckling, able to manage standing balance with RW M6 PT-IP Treatment Start: 01/08/24 09:40 Freq: NEEDED Status: Active Protocol: Document 01/08/24 11:28 MB (Rec: 01/08/24 12:08 MB [id number]) Physical Therapy Treatment Education Education Provided Safety M7 PT-IP Assessment and Plan Start: 01/08/24 09:40 Freq: NEEDED Status: Active Protocol: Document 01/09/24 10:23 MB (Rec: 01/09/24 11:42 MB [id number]) PT Summary Assessment and Plan Potential Rehabilitation Potential Good Status of Condition at Evaluation Evolving Summary Impairments Pain,ROM,Strength,Balance,Bed Mobility,Transfers,Gait, Activity Tolerance Progress Towards Goals Progressing Toward Goals Assessment Summary Pt is significantly weaker in both legs today and cannot get OOB with 3 person assist available this a.m. Spoke with kareng. Goals Bed Mobility Goal Independent Transfer Goal Independent,Minimal Assistance ,Front Wheeled Walker Gait Goal Independent,Front Wheel Walker Gait Distance 100 Other Goals Pt will ascend and descend 5 steps with 1-2 rails or 1 rail and LRAD and mod I to allow safe home entry. Days to Meet Goals 5 Frequency of Treatment Frequency Of Treatment Once a Day Treatment Plan Physical Therapy Treatment Plan Bed Mobility Training,Transfer Training,Gait Training, Therapeutic Exercise,Balance Retraining,Discharge Planning Weight Bearing Status Weight Bearing Status Weight Bear as Tolerated Recommendations To Nursing Amount of Assist Needed Standby Assistance,1 Person Assist Discharge Recommendations PT Discharge Recommendations Home with Assistance Transportation Needs at Discharge Private Vehicle
--- NOTE | 2024-01-09 11:52 | PC.NURSE ---
Addendum entered by Marci Fisher R.N. 01/09/24 15:07: RN has spoken to charge nurse, pharmacist, PT and nurse propagation manager about pt's new onset bilat lower extremity weakness. RN called provider and brought up multiple concerns, including running vancomycin through a hand IV. Two RNs tried placing another IV more proximal due to high risk extravasation and were unsuccessful. Provider denied RN request for midline and said to continue using hand IV. RN brought up the possibility of a reaction from a statin and possibility of a spinal issue. Provider acknowledged RNs concerns. Original Note: After breakfast, pt reported to PCT that he felt very weak when trying to get up. Nursing staff notified PT and PT assessed pt, noticing marked bilateral lower extremity weakness. RN assessed patients vital signs, pt felt intermittently dizzy but no other complaints. RN did a brief stroke assessment, normal vision/visual crow, pupils equal and reactive, peripheral vision intact, normal upper body strength, alert and oriented, VS reported as normal, upper body coordination and speech assessed as normal. RN did notify provider that after breakfast pt was short of breath with exertion to sit on side of bed. Provider gave orders, did not suspect stroke.
[2024-01-09 12:01] LABS: BUN Creatinine Ratio 11.8 (6-22); Blood Urea Nitrogen 13 mg/dL (9-20); Calcium 9.1 mg/dL (8.4-10.2); Carbon Dioxide 26 mmol/L (22-32); Chloride 107 mmol/L (98-107); Estimated Glomerular Filt Rate > 60 mL/min (>60); Glucose 118 mg/dL (70-100); HEMOLYSIS 16 (0-50); Potassium 4.2 mmol/L (3.4-5.1); Sodium 136 mmol/L (137-145)
[2024-01-09 12:09] VITALS: TEMP 36.7
[2024-01-09 12:09] LABS: NT-proBNP (BNP-Adult 18+) < 20 pg/mL (<125)
[2024-01-09 14:53] LABS: Magnesium 2.3 mg/dL (1.6-2.3)
[2024-01-09 19:51] VITALS: BP 149/69; PULSE 89; RESP 19; TEMP 36.3; O2SAT 97
[2024-01-10] MEDS: HYDROCODONE/ACET 5/325 TABLET 1 TAB PO ×3 (03:31→19:01)
[2024-01-10 04:36] VITALS: BP 152/89; PULSE 90; RESP 19; TEMP 36.4; O2SAT 97
[2024-01-10] MEDS: VANCOMYCIN 2,000 MG/400 ML PIGGYBACK 200 MG IV ×2 (06:50→18:13)
[2024-01-10 08:00] VITALS: BP 154/89; PULSE 97; RESP 22; TEMP 35.9; O2SAT 95
[2024-01-10] MEDS: ENOXAPARIN 40 MG/0.4 ML SYRINGE SUBCUT ×2 (10:12→21:46)
[2024-01-10] MEDS: AMLODIPINE 5 MG TABLET 10 MG PO (10:12)
[2024-01-10] MEDS: CELECOXIB 200 MG CAPSULE PO (10:12)
[2024-01-10] MEDS: SODIUM CHLORIDE 0.9% FLUSH 10 ML IV (10:13)
[2024-01-10] MEDS: ATORVASTATIN 20 MG TABLET 40 MG PO (10:13)
--- NOTE | 2024-01-10 10:15 | PM.PN.1 ---
Subjective Subjective Interval history: The pt reports that the pain in his leg is well controlled this morning. He isn't sure if it appears improved from yesterday or not. He denies any chest pain or SOB. He didn't sleep very well last night, and is quite groggy this morning. He has not really been out of bed since the start of his hospitalization. Exam Vital Signs (past 8 hours): - 01/10/24 04:36 01/10/24 08:00 Temperature 97.6 F 96.7 F L Pulse Rate 90 97 H Respiratory Rate 19 22 Blood Pressure 152/89 H 154/89 H Pulse Oximetry 97 95 Oxygen Flow Rate 0 0 Oxygen Delivery Method Room Air Oxygen Flow Rate 0 Narrative Exam Narrative: Gen: NAD, sitting comfortably in bed, snoring when entered room CV: RRR, no murmurs Resp: clear to auscultation bilaterally Abd: soft, nontender Ext: left lower extremity with 3+ pitting edema, erythema to upper calf level, increased warmth; right LE with 1+ pitting edema Objective Labs 01/09/24 05:10 01/09/24 11:40 Labs: Laboratory Results - last 24 hr 01/09/24 11:40 Sodium 136 L Potassium 4.2 Chloride 107 Carbon Dioxide 26 BUN 13 Creatinine 1.10 Estimated GFR > 60 BUN/Creatinine Ratio 11.8 Glucose 118 H Calcium 9.1 Magnesium 2.3 NT-Pro-B Natriuret Pep < 20 PFSH Medical History (Updated 01/09/24 @ 08:31 by Bi Enriquez MD) COVID-19 virus infection (~05/2022) Migraine headache Shoulder impingement syndrome Degenerative joint disease of knee Bilateral primary osteoarthritis of hip Facet joint disease of lumbosacral region Bilateral primary osteoarthritis of knee PTSD (post-traumatic stress disorder) Hyperlipidemia Hypertension TROY (obstructive sleep apnea) Morbid obesity Family History Mother Diabetes mellitus Hypertension Breast cancer Grandfather Myocardial infarction Social History household members: spouse Smoking Status: Former smoker alcohol intake: current Assessment & Plan Assessment & Plan narrative: 1) Left lower extremity cellulitis: Very gradually improving. Blood cultures without growth. Venous doppler without evidence DVT. - Continue IV Vancomycin, would benefit from additional day of IV therapy based on appearance today - Plan to d/c on Doxycyline when able - PT following 2) HTN: BP minimally elevated - Continue home medications Amlodipine, Prazosin - May need to add additional agent if remains elevated 3) Hyperlipidemia: - Continue home statin 4) DM Type 2: New diagnosis with A1C 6.7 - F/U as an outpatient 5) TROY: Evident during hospitalization - Outpatient formal sleep study 6) PTSD: Stable - Continue home Prazosin, Notriptyline Code: Full DVT ppx: Lovenox FEN: Diabetic diet Dispo: PT eval today indicating need for SNF placement. Will continue to work on ambulation while in the hospital, pt desires d/c to home.
--- NOTE | 2024-01-10 10:29 | PT.IPTN ---
Current Diagnoses Cellulitis of left lower limb (01/07/24) Cellulitis, unspecified (01/07/24) Physical Therapy Treatment Note M2 PT-IP Current Condition Start: 01/08/24 09:40 Freq: NEEDED Status: Active Protocol: Document 01/08/24 11:28 MB (Rec: 01/08/24 12:08 MB [id number]) Physical Therapy Current Condition Current Condition Evaluation Date 01/08/24 Treatment Diagnosis LLE cellulitis M3 PT-IP Subjective Start: 01/08/24 09:40 Freq: NEEDED Status: Active Protocol: Document 01/10/24 10:14 TS (Rec: 01/10/24 10:28 TS [id number]) Subjective Physical Therapy Visit Type Type Treatment Note Visit Start Time 09:00 Visit Stop Time 09:45 Number of ELECTRONIC ASSEMBLER GROUP LEADER Visits 1 Physical Therapy Visit Comments Patient Comments Pt found resting in bed, reports pain is 2/10, is agreeable to OOB mobility. Therapy Pain Assessment Pain When Pain Assessed During Mobility Pain Present Pain Present Pain Reported Location Left lower leg Intensity 2 Scale Used Numeric (0 - 10) M4 PT-IP Mobility and Gait Start: 01/08/24 09:40 Freq: NEEDED Status: Active Protocol: Document 01/10/24 10:14 TS (Rec: 01/10/24 10:28 TS [id number]) PT-Bed Mobility Assessment Supine to Sit Supine to Sit Minimal Assistance,Head of Bed Elevated,Bedrails Sit to Supine Sit to Supine Maximum Assistance,2 Person Assistance,Bedrails Scooting Scooting to Edge of Bed Standby Assistance Scooting Up and Down in Bed Standby Assistance PT-Transfer Assessment Comments Mobility Comments Supine to sit [place] for upirghting trunk and LLE assistance to EOB, pt SOB, Spo2 96%, HR 120. Pt sat EOB initially Austen, progressed to SBA with handrails. Pt attempted to stand x5 with MaxA with long pauses in between attempts. Pt could not get lift off bed, pt returned to bed with MaxA x2. He scooted to HOB SBA with handrails and cues for RLE pushint into bed. Pt was left in bed, nursing in room. PT-Balance Assessment Sitting Balance and Reactions Static Sitting Balance Ability Fair Dynamic Sitting Balance Ability Fair M5 PT-IP Objective Assessments Start: 01/08/24 09:40 Freq: NEEDED Status: Active Protocol: Document 01/08/24 11:28 MB (Rec: 01/08/24 12:08 MB [id number]) Orientation Orientation/Cognition Level of Alertness Alert Orientation Name,Age,Birthday,Month,Year, Place,Situation Language Function Ability No Deficits Noted Safety Awareness Understands Safety Issues Memory Description No Deficits Noted Gross Range of Motion Upper Extremity ROM Assessment Within Functional Limits Lower Extremity ROM Assessment Left Impaired Impairments LLE edema and decreased ROM and strength Strength Lower Extremity Strength Assessment Left Impaired Comments Strength Comments See ROM comments above, decreased WB when standing and no buckling, able to manage standing balance with RW M6 PT-IP Treatment Start: 01/08/24 09:40 Freq: NEEDED Status: Active Protocol: Document 01/10/24 10:14 TS (Rec: 01/10/24 10:28 TS [id number]) Physical Therapy Treatment Education Education Provided Safety M7 PT-IP Assessment and Plan Start: 01/08/24 09:40 Freq: NEEDED Status: Active Protocol: Document 01/10/24 10:14 TS (Rec: 01/10/24 10:28 TS [id number]) PT Summary Assessment and Plan Potential Rehabilitation Potential Fair Summary Impairments Pain,ROM,Strength,Balance,Bed Mobility,Transfers,Gait, Activity Tolerance Progress Towards Goals Slow Progress due to Pain,Slow Progress due to Medical Issues,Slow Progress due to Activity Tolerance Assessment Summary Harrison continues to be very weak this session. He requires Austen for uprighting trunk and assistance moving LLE to EOB. He makes multiple attempts to try and stand with FWW this morning, pt could not get lift from bed with MaxA x1. PT is recommending SNF rehab at this time. pt was SBA 2 days ago to stand but has declined. If pt improves while in hospital he may be able to go home with assist from spouse. Goals Bed Mobility Goal Independent Transfer Goal Independent,Minimal Assistance ,Front Wheeled Walker Gait Goal Independent,Front Wheel Walker Gait Distance 100 Other Goals Pt will ascend and descend 5 steps with 1-2 rails or 1 rail and LRAD and mod I to allow safe home entry. Days to Meet Goals 5 Frequency of Treatment Frequency Of Treatment Once a Day Treatment Plan Physical Therapy Treatment Plan Bed Mobility Training,Transfer Training,Gait Training, Therapeutic Exercise,Balance Retraining,Discharge Planning Weight Bearing Status Weight Bearing Status Weight Bear as Tolerated Recommendations To Nursing Amount of Assist Needed 2 Person Assist,3 or More Person Assist Discharge Recommendations PT Discharge Recommendations SNF Rehab Transportation Needs at Discharge Wheelchair/Cabulance,Stretcher /Ambulance
--- NOTE | 2024-01-10 14:43 | PC.NURSE ---
Patient is unable to get up and stand from bed. He states that his l.leg is in pain from the cellulitis. His leg is swollen with 3 to 4+edema and area on betancourt is dry and flaky. His bilateral feet have 3to4+ edema as well. He is a 3 person assist to get situated in bed this morning as he was only able to sit at the end and edge of his bed. Patient has had several incontinent episodes with the urinal in the last couple of days, asked if he would like to try a condom catheter and this has been a hit with him. Patient not having anymore incontinent issues. Patient is obese and has a hard time moving around, he is also sob with exertion. Eats well at meals and is resting now.
[2024-01-10 16:00] VITALS: BP 122/86; PULSE 98; RESP 22; TEMP 36.6; O2SAT 94
--- NOTE | 2024-01-10 16:07 | CM.DPNOTE ---
DCP Note SNUFF DRIER reviewed EMR. SNUFF DRIER regrettably unable to meet with pt today due to triaging needs. Per chart review, pt went from stand by assist to 2-3 person max assist. Per nursing staff, etiology of pt's sudden weakness unclear. Per provider PN, pt has been groggy and not been out of bed in days. Per PN, pt desires to return home not dc to SNF. Per DIRECTOR OF SCOUT WORK Scotty, pt denies too much pain (10/22), however was increasingly weak since admission here. Pt could not get lift from bed to ambulate with walker this morning,. Pt was standby assist with PT eval 01/07. Per RN note, unable to ambulate with nursing staff, pt has had several incontinent episodes with urinal and has been SOB with exertion. CM team will follow closely. Medical POC continues to unfold- hopeful after another day of IV ABX pt will feel stronger/closer to his baseline ambulation to return home with spouse. CM team will inquire about rehab preference/start auth if indicated. KAMLESH Mane
[2024-01-10 20:00] VITALS: BP 139/89; PULSE 103; RESP 19; TEMP 36.6; O2SAT 100
--- NOTE | 2024-01-10 23:09 | PC.NURSE ---
Patient informed this TECHNICAL MGR that he had left his glasses on his dinner tray and that it taken before he could get them off. resource room teacher aware, email was sent to joaquín and labor crew supervisor Jasmine .
[2024-01-11 04:00] VITALS: BP 149/82; PULSE 88; RESP 18; TEMP 35.8; O2SAT 95
[2024-01-11] MEDS: VANCOMYCIN 2,000 MG/400 ML PIGGYBACK 200 MG IV ×2 (05:05→17:39)
[2024-01-11 07:52] VITALS: BP 151/77; PULSE 94; RESP 18; TEMP 36.3; O2SAT 96
--- NOTE | 2024-01-11 08:30 | PM.PN.1 ---
Subjective Subjective Interval history: The pt reports that he continues to feel very weak. He was unable to get out of bed yesterday with 3 person assist. He feels he is barely able to move his legs, but believes this is mainly because of fear. Exam Vital Signs (past 8 hours): - 01/11/24 04:00 01/11/24 07:52 Temperature 96.5 F L 97.4 F L Pulse Rate 88 94 H Respiratory Rate 18 18 Blood Pressure 149/82 H 151/77 H Pulse Oximetry 95 96 Oxygen Flow Rate 0 0 Oxygen Delivery Method Room Air Oxygen Flow Rate 0 Narrative Exam Narrative: Gen: NAD, sitting comfortably in bed CV: RRR, no murmurs Resp: clear to auscultation bilaterally Abd: soft, nontender, slightly distended, no rebound/guarding/rigidity Ext: left lower extremity with 3+ pitting edema, erythema improved from yesterday, increased warmth; right LE with 1+ pitting edema Neuro: CN grossly intact, 5/5 strength UE and sensation intact UE; LE bilaterally sensation intact, 5/5 strength however left leg slightly weaker than right Objective Labs 01/09/24 05:10 01/09/24 11:40 [facility] Medical History (Updated 01/09/24 @ 08:31 by Bi Enriquez MD) COVID-19 virus infection (~05/2022) Migraine headache Shoulder impingement syndrome Degenerative joint disease of knee Bilateral primary osteoarthritis of hip Facet joint disease of lumbosacral region Bilateral primary osteoarthritis of knee PTSD (post-traumatic stress disorder) Hyperlipidemia Hypertension TROY (obstructive sleep apnea) Morbid obesity Family History Mother Diabetes mellitus Hypertension Breast cancer Grandfather Myocardial infarction Social History household members: spouse Smoking Status: Former smoker alcohol intake: current Assessment & Plan Assessment & Plan narrative: 1) Left lower extremity cellulitis: Very gradually continues to improve. Blood cultures without growth. Venous doppler without evidence DVT. - Continue IV Vancomycin - Plan to d/c on Doxycyline when able 2) HTN: BP remains elevated - Continue home medications Amlodipine, Prazosin - Start Lisinopril 2.5mg daily 3) Hyperlipidemia: - Continue home statin 4) DM Type 2: New diagnosis with A1C 6.7 - F/U as an outpatient 5) TROY: Evident during hospitalization - Outpatient formal sleep study 6) PTSD: Stable - Continue home Prazosin, Notriptyline 7) Weakness: New this hospitalization, at baseline ambulatory at times with cane. Now unable to rise really at all even with 3 person assist. Suspect due to deconditioning, however very rapid onset. No significant focal neurological deficits. - Due to body habitus cannot obtain MRI at this facility, CT/CTA head/neck to r/o stroke due to relatively acute onset of severe weakness - Believe depression/mood contributing as well. Encourage OOB to chair with onur lift. - PT and nursing to continue working with pt aggressively for mobility Code: Full DVT ppx: Lovenox FEN: Diabetic diet Dispo: Pt should be ready for discharge tomorrow, other than mobility issues. Desires d/c to home, however would not be safe to do so as of today. Care management will work on placement options in the event needed.
[2024-01-11] MEDS: MAGNESIUM HYDROXIDE 30 ML UDC PO (08:46)
[2024-01-11] MEDS: ENOXAPARIN 40 MG/0.4 ML SYRINGE SUBCUT ×2 (08:46→21:13)
[2024-01-11] MEDS: AMLODIPINE 5 MG TABLET 10 MG PO (08:47)
[2024-01-11] MEDS: ATORVASTATIN 20 MG TABLET 40 MG PO (08:47)
[2024-01-11] MEDS: CELECOXIB 200 MG CAPSULE PO (08:47)
--- NOTE | 2024-01-11 10:30 | PT.IPTN ---
Current Diagnoses Cellulitis of left lower limb (01/07/24) Cellulitis, unspecified (01/07/24) Physical Therapy Treatment Note M2 PT-IP Current Condition Start: 01/08/24 09:40 Freq: NEEDED Status: Active Protocol: Document 01/08/24 11:28 MB (Rec: 01/08/24 12:08 MB [id number]) Physical Therapy Current Condition Current Condition Evaluation Date 01/08/24 Treatment Diagnosis LLE cellulitis M3 PT-IP Subjective Start: 01/08/24 09:40 Freq: NEEDED Status: Active Protocol: Document 01/11/24 11:54 TS (Rec: 01/11/24 12:08 TS [id number]) Subjective Physical Therapy Visit Type Type Treatment Note Visit Start Time 10:30 Visit Stop Time 11:20 Notes OT present Number of TOPOGRAPHICAL DRAFTER Visits 2 Physical Therapy Visit Comments Patient Comments Pt found resting in bed, is agreeable to PT. Therapy Pain Assessment Pain When Pain Assessed At Rest Pain Present Pain Present Pain Reported Location Left lower leg Intensity 4 Scale Used Numeric (0 - 10) Pain Management Techniques Distraction,Modification of Treatment,Re-positioning, Timing of Activity with Medications M4 PT-IP Mobility and Gait Start: 01/08/24 09:40 Freq: NEEDED Status: Active Protocol: Document 01/11/24 11:54 TS (Rec: 01/11/24 12:08 TS [id number]) PT-Bed Mobility Assessment Supine to Sit Supine to Sit Moderate Assistance,Head of Bed Elevated,Bedrails Sit to Supine Sit to Supine Maximum Assistance,2 Person Assistance,Bedrails Scooting Scooting to Edge of Bed Standby Assistance Scooting Up and Down in Bed Minimal Assistance PT-Transfer Assessment Comments Mobility Comments Pt performed heel slides and quad sets prior to mobility. Supine to sit ModA for LLE to EOB and uprighting trunk. Pt sat EOB CGA-ModA at times, pt tends to laterally lean to R side. Quads are weak with MMT sitting EOB. He attempted to stand x2 with MaxA x3, pt could not get lift off of bed. Sit to supine into bed MaxA x2. pt scooted to HOB [place] with cues for rails and pushing through RLE. PT-Balance Assessment Sitting Balance and Reactions Static Sitting Balance Ability Poor Dynamic Sitting Balance Ability Poor M5 PT-IP Objective Assessments Start: 01/08/24 09:40 Freq: NEEDED Status: Active Protocol: Document 01/08/24 11:28 MB (Rec: 01/08/24 12:08 MB [id number]) Orientation Orientation/Cognition Level of Alertness Alert Orientation Name,Age,Birthday,Month,Year, Place,Situation Language Function Ability No Deficits Noted Safety Awareness Understands Safety Issues Memory Description No Deficits Noted Gross Range of Motion Upper Extremity ROM Assessment Within Functional Limits Lower Extremity ROM Assessment Left Impaired Impairments LLE edema and decreased ROM and strength Strength Lower Extremity Strength Assessment Left Impaired Comments Strength Comments See ROM comments above, decreased WB when standing and no buckling, able to manage standing balance with RW M6 PT-IP Treatment Start: 01/08/24 09:40 Freq: NEEDED Status: Active Protocol: Document 01/11/24 11:54 TS (Rec: 01/11/24 12:08 TS [id number]) Physical Therapy Treatment Education Education Provided Safety M7 PT-IP Assessment and Plan Start: 01/08/24 09:40 Freq: NEEDED Status: Active Protocol: Document 01/11/24 11:54 TS (Rec: 01/11/24 12:08 TS [id number]) PT Summary Assessment and Plan Potential Rehabilitation Potential Fair Summary Impairments Pain,ROM,Strength,Balance,Bed Mobility,Transfers,Gait, Activity Tolerance Progress Towards Goals Slow Progress due to Pain,Slow Progress due to Medical Issues,Slow Progress due to Activity Tolerance Assessment Summary Harrison continues to make slow progress with his mobility. He requires ModA for supine to sit to sitting EOB. He tends to laterally lean to R side and requires assistance to maintain midline. He continues to not progress into standing with MaxA x3 with FWW. He demonstrates ability to follow directions but requires extra time to complete tasks and takes long pauses. He has SOB on exertion, Spo2 unremarkable . PT continues to recommend SNF rehab at this time to progress strength, functional mobility and activity tolerance. Goals Bed Mobility Goal Independent Transfer Goal Independent,Minimal Assistance ,Front Wheeled Walker Gait Goal Independent,Front Wheel Walker Gait Distance 100 Other Goals Pt will ascend and descend 5 steps with 1-2 rails or 1 rail and LRAD and mod I to allow safe home entry. Days to Meet Goals 5 Frequency of Treatment Frequency Of Treatment Once a Day Treatment Plan Physical Therapy Treatment Plan Bed Mobility Training,Transfer Training,Gait Training, Therapeutic Exercise,Balance Retraining,Discharge Planning Weight Bearing Status Weight Bearing Status Weight Bear as Tolerated Recommendations To Nursing Amount of Assist Needed 3 or More Person Assist, Mechanical Lift Discharge Recommendations PT Discharge Recommendations SNF Rehab Transportation Needs at Discharge Wheelchair/Cabulance,Stretcher /Ambulance
[2024-01-11] MEDS: HYDROCODONE/ACET 5/325 TABLET 1 TAB PO (11:04)
--- NOTE | 2024-01-11 11:23 | OT.IP.EVAL ---
Current Diagnoses Cellulitis of left lower limb (01/07/24) Cellulitis, unspecified (01/07/24) Past Medical History (Last Updated 12/30/23 @ 10:31 by Tova Schuler [facility]) Bilateral primary osteoarthritis of hip Bilateral primary osteoarthritis of knee COVID-19 virus infection (~05/2022) Degenerative joint disease of knee Facet joint disease of lumbosacral region Hyperlipidemia Hypertension Migraine headache Morbid obesity TROY (obstructive sleep apnea) PTSD (post-traumatic stress disorder) Shoulder impingement syndrome Occupational Therapy Inpatient Evaluation/Re-Eval M1 PT/OT-IP Prior Functional Status Start: 01/08/24 09:40 Freq: NEEDED Status: Active Protocol: Document 01/08/24 11:28 MB (Rec: 01/08/24 12:08 MB [id number]) Medical Review Prior Functional Status Medical History Reviewed Yes Diet/Fluid Consistency Regular Communication WNLs Mobility and Gait I in the house, uses SPC in right hand when going [place] Activities of Daily Living and IADL's I Social History Household Members spouse Living Arrangements House Number of Floors (Floors) One Floor Number of Stairs To Enter/Railing? 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 PT/OT-IP Prior Functional Status Start: 01/11/24 11:25 Freq: NEEDED Status: Active Protocol: Document 01/11/24 11:26 [facility] (Rec: 01/11/24 11:51 [facility] [id number]) Medical Review Prior Functional Status Medical History Reviewed Yes Diet/Fluid Consistency Regular Communication WNLs Mobility and Gait I in the house, uses SPC in right hand when going to work [place] Activities of Daily Living and IADL's I, pt drives Social History Household Members spouse Living Arrangements House Number of Floors (Floors) One Floor Number of Stairs To Enter/Railing? 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 OT-IP Current Condition Start: 01/11/24 11:25 Freq: Status: Active Protocol: Document 01/11/24 11:26 [facility] (Rec: 01/11/24 11:51 [facility] [id number]) Occupational Therapy Current Condition Current Condition Evaluation Date 01/11/24 Treatment Diagnosis LLE cellultis, weakness Diagnosis Onset Date 01/07/24 M3 OT- IP Subjective and Pain Start: 01/11/24 11:25 Freq: Status: Active Protocol: Document 01/11/24 11:26 [facility] (Rec: 01/11/24 11:51 [facility] [id number]) OT- Subjective Occupational Therapy Visit Type Type Initial Evaluation Visit Start Time 10:30 Visit Stop Time 11:23 Occupational Therapy Visit Comments Patient Comments Pt agreed to try to get up to the recliner. Patient/Caregiver Goals To get better. OT Pain Assessment Pain When Pain Assessed At Rest Pain Present Pain Present Pain Reported M4 OT- IP ADL's Start: 01/11/24 11:25 Freq: Status: Active Protocol: Document 01/11/24 11:26 [facility] (Rec: 01/11/24 11:51 [facility] [id number]) OT COD-Uqos-Sfudyuu Comments OT Self-Feeding Comments Not at meal time. OT ADL-Grooming General Evaluation Grooming Ability Standby Assistance Areas Needing Assistance Retrieving/Set-up of Grooming Items Comments OT Grooming Comments Set-up assist and cues for initiation. OT ADL-Oral Care Comments Oral Care Comments Pt doing so with nursing at the end of OT eval. OT ADL-Dressing General Eval Upper Body Dressing Ability Moderate Assistance Lower Body Dressing Ability Total Assistance Comments OT Dressing Comments Pt MODA for gown change and dependent for LB dressing needs. OT ADL-Toileting General Evaluation Toileting Ability Total Assistance Comments OT Toileting Comments Pt has been using external catheter. Pt states since coming into the hospital feel that he is incontinent now. OT ADL-Bathing Comments OT Bathing Comments Sponge bath more appropriate at this time. M5 OT- IP IADL's Start: 01/11/24 11:25 Freq: Status: Active Protocol: Document 01/11/24 11:26 [facility] (Rec: 01/11/24 11:51 [facility] [id number]) OT-Instrumental Activities of Daily Living Deficits IADL Deficits Identified Deficits Home Safety Awareness Awareness of Need for Assistance at Home Good Awareness Money Management Money Management Comments Pt will need assist. Meal Preparation Meal Preparation Comments Pt will need assist. Trainman Trainman Comments Pt will need assist. M6 OT- IP Functional Cognition Start: 01/11/24 11:25 Freq: Status: Active Protocol: Document 01/11/24 11:26 [facility] (Rec: 01/11/24 11:51 [facility] [id number]) Cognitive Factors Limiting Selfcare Function Cognitive Ability Level of Alertness Alert Patient Orientation Name,Place,Situation Attention Span Ability Capable of Focused Attention, Capable of Sustained Attention Ability to Follow Commands Able to Follow One Step Commands Cognitive Comments Cognitive Assessment Comments Pt slow to initiate movement and follow commands at times. Pt needing increased time to process. Pt will benefit from cognitive assessment. OT- Vision and Hearing OT- Hearing Assessment OT- Hearing Assessment WFL OT- Vision Assessment Visual Acuity Glasses For Reading Visual Attentiveness WFL Occular Pursuits WFL Visual Convergence WFL Visual Vinson WFL Diplopia Absent M7 OT- IP Mobility and Balance Start: 01/11/24 11:25 Freq: Status: Active Protocol: Document 01/11/24 11:26 [facility] (Rec: 01/11/24 11:51 [facility] [id number]) OT- Bed Mobility Assessment Rolling Type of Rolling Bilateral Level of Assistance Standby Assistance,Bedrails Sit to Supine Sit to Supine Assist Maximum Assistance,2 Person Assistance Scooting Scooting to Edge of Bed Maximum Assistance,1 Person Assistance,Bedrails OT-Transfer Assessment Comments Mobility Comments Pt needing one person assist to help with his legs and trunk to sit upright and MAX AX 1 to help scoot to the edge of the bed. Unable to get pt to stand with dependent x3 at this time and with the bed raised up and use of momentum. OT- Balance Assessment Sitting Balance and Reactions Static Sitting Balance Ability Poor Dynamic Sitting Balance Ability Poor M8 OT- IP Objective Assessments Start: 01/11/24 11:25 Freq: Status: Active Protocol: Document 01/11/24 11:26 [facility] (Rec: 01/11/24 11:51 [facility] [id number]) OT Gross Range of Motion Upper Extremity Range of Motion ROM Impairments grossly WFL but limited at end ROM OT Strength Comments Strength Comments RUE 4/5 to 5/5 and LUE 5/5 OT- Coordination Assessment Upper Extremity Finger Tapping Test Bilateral UE Impaired Comments Coordination Comments Mildly off for both fingers to nose. OT Sensation Assessment Comments Summary Comments Intact for light touch. M9 OT- IP Assessment and Plan Start: 01/11/24 11:25 Freq: Status: Active Protocol: Document 01/11/24 11:26 [facility] (Rec: 01/11/24 11:51 [facility] [id number]) OT Summary Assessment and Plan Potential Rehabilitation Potential Good Analytic Complexity at Evaluation High Summary OT Impairments Pain,Range of Motion,Strength, Balance,Functional Cognition, Functional Mobility,Grooming, Dressing,Toileting,Bathing, Toilet Transfers,Shower Transfers,Activity Tolerance Progress Towards Goals Slow Progress due to Pain,Slow Progress due to Medical Issues,Slow Progress due to Activity Tolerance,Slow Progress due to Cognition Assessment Summary Pt High complexity and main barriers are steps, pain, decreased initiation and pt states now incontinent of bladder, pain, and now unable to stand up at this time. Prior pt was independent with all ADL,IADL, and worked. Pt states prior would use a SPC at times. Pt will greatly benefit from skilled rehab. Goals Self-Feeding Goal Independent Grooming Goal Independent Dressing Goal Independent Toileting Goal Independent Bathing Goal Independent Toilet Transfer Goal Independent Shower Transfer Goal Independent Days to Meet Goals 30 Frequency of Treatment Frequency Of Treatment Once a Day Treatment Plan OT Treatment Plan ADL Training,Functional Cognition Training,Functional Mobility,Patient/Family Education,Discharge Planning Other Treatment Recommendations and Next SLUMS Treatment Focus Discharge Recommendations OT Discharge Recommendations SNF Rehab Transportation Needs at Discharge Stretcher/Ambulance
--- NOTE | 2024-01-11 12:32 | DI.CT.S_ITS ---
PROCEDURE: CT HEAD/BRAIN WO CON INDICATIONS: weakness, inability to ambulate, r/o CVA - unable to fit MRI TECHNIQUE: Noncontrast 4.5 mm thick angled axial sections acquired from the foramen magnum to the vertex, with coronal and sagittal reformats. For radiation dose reduction, the following was used: automated exposure control, adjustment of mA and/or kV according to patient size. COMPARISON: [facility], CT, CT ANGIO HEAD AND NECK, 01/11/2024, 13:45. FINDINGS: Image quality: Diagnostic. CSF spaces: Basal cisterns are patent. No extra-axial fluid collections. Ventricles are normal in size and shape. Brain: No midline shift. No intracranial masses or hemorrhage. Irizarry-white matter interface is normal. Skull and face: Calvarium and visualized facial bones are intact, without suspicious lesions. Sinuses: Visualized sinuses and mastoids are clear. IMPRESSION: No acute intracranial hemorrhage is seen. No aria noncontrast head CT findings of acute stroke can be seen. However, noncontrast head CT is insensitive to findings of acute stroke. - Please consider short-term follow-up in this patient that cannot have an MRI. No acute intracranial pathology. Dictated by: Louie Ruffin M.D. on 01/11/2024 at 13:34 Approved by: Louie Ruffin M.D. on 01/11/2024 at 13:36
--- NOTE | 2024-01-11 12:33 | DI.CT.S_ITS ---
PROCEDURE: CT ANGIO HEAD AND NECK INDICATIONS: weakness, inability to ambulate, r/o CVA - unable to fit MRI TECHNIQUE: After the administration of intravenous contrast, 1 mm thick sections acquired from the aortic arch through the [place] of [place]. 3-dimensional hifmair-ryiqnbytc-djqsnjorwv (MIP) and/or volume rendering reformats were acquired of the central intracranial vasculature and neck separately. For radiation dose reduction, the following was used: automated exposure control, adjustment of mA and/or kV according to patient size. COMPARISON: [facility], CT, CT HEAD/BRAIN WO CON, 01/11/2024, 13:45. FINDINGS: Image quality: This examination is somewhat limited by quantum mottle artifact. Limited by bolus timing, with venous contamination. BRAIN: CSF spaces: Ventricles are normal in size and shape. Basal cisterns are patent. No extra-axial fluid collections. Brain: No significant abnormality of the brain can be seen. Skull and face: Calvarium and facial bones appear intact, without suspicious lesions. Orbits appear normal. Sinuses: Sinuses and mastoids are clear. HEAD CT ANGIOGRAPHY: Anterior circulation: Intracranial internal carotid arteries are normal in size and flow. The flow within the paired anterior cerebral arteries is normal and symmetric. The flow within the middle cerebral arteries is normal and symmetric. The anterior communicating artery is seen. No aneurysms are seen. Posterior circulation: Visualized portions of the vertebral arteries demonstrate normal caliber, and join to form a normal appearing basilar artery. Flow within the posterior cerebral arteries is normal and symmetric. No aneurysms are seen. NECK CT ANGIOGRAPHY: Carotid system: The great vessels demonstrate a conventional anatomy as they arise from the aortic arch. The origins of the common carotid arteries appear patent. The common carotid arteries demonstrate normal caliber and courses. The bifurcation regions are both widely patent. The internal carotid arteries demonstrate normal calibers and courses. Posterior circulation: The origins of the vertebral arteries both appear widely patent. The more superior extracranial portions of both vertebral arteries also demonstrate normal courses and calibers. They join to form a normal appearing basilar artery. Soft tissues: Visualized neck soft tissues demonstrate no suspicious abnormalities. Bones: No suspicious bony lesions. Visualized cervical spine appears normally aligned. At least moderate cervical spine degenerative change can be seen, with multiple levels of bridging anterior osteophytes. IMPRESSION: No significant intracranial arterial abnormality is seen. No significant abnormality is seen within the arteries of the neck. Additional findings: At least moderate cervical spine degenerative change Any quantitative measurements of stenosis were performed using NASCET criteria. Dictated by: Louie Ruffin M.D. on 01/11/2024 at 13:36 Approved by: Louie Ruffin M.D. on 01/11/2024 at 13:38
--- NOTE | 2024-01-11 15:00 | CM.DPNOTE ---
RIDDHIP Cont Reviewed chart, discussed patient with provider and then met with patient to review discharge plan. Patient knows that therapies are recommending SNF. Patient with flat affect this visit, occasional blank stares, is on his phone and says he is trying to message his although appears to be struggling to complete his text. Patient agreeable to SNF referrals, no SNF preference, states he hoped to return home. Patient attempted to get his on speaker phone, had to . This BATCH TESTER spoke with OT and RN re patient's strange affect, RN has discussed with provider who ordered CT. Later review of notes shows no findings on CT/CTA. Patient will not fit into the MRI machine r/t [facility]. Discussed this case with JASON Henderson at [facility] and faxed updated clinical and therapy notes for her review F [phone]. In addition emailed Kavitha Su at [facility] for review. Will plan to discuss with Lilian at [facility] as well. JASON team following closely. Patient with very rapid onset of 2-3 max person assist. Was SBA from bed to BR upon admission, suspect an element of PTSD/depressive sx possibly contributing. SNF search, [facility] SNF auth request has been started today. Need PASRR if going to SNF. REMIGIO
--- NOTE | 2024-01-11 19:00 | PC.NURSE ---
Day shift: Pt with wheezes in lungs this evening. Dr Powers made aware. Order for chest x-ray and labs put in by this production underwriter per Dr Powers.
--- NOTE | 2024-01-11 19:02 | DI.RAD.S_ITS ---
PROCEDURE: XR CHEST 1V INDICATIONS: abnormal lung sounds TECHNIQUE: One view of the chest was acquired. COMPARISON: [facility], CR, XR CHEST 1V, 01/09/2024, 11:23. FINDINGS: Surgical changes and devices: None. Lungs and pleura: Mild increased interstitial prominence. There is blunting of the costophrenic angles, right greater than left slightly more prominent when compared to prior exam. Mediastinum: Mediastinal contours appear normal. Heart size is enlarged. Bones and chest wall: No suspicious bony lesions. Overlying soft tissues appear unremarkable. IMPRESSION: Cardiomegaly with increased interstitial prominence which could represent edema versus developing pneumonia. Interval progression of minimal bilateral effusions. Dictated by: Vane Marcus M.D. on 01/11/2024 at 20:11 Approved by: Vane Marcus M.D. on 01/11/2024 at 20:11
[2024-01-11 19:38] LABS: Add Manual Diff / Slide Review NO; Basophils Absolute Auto 100 /uL (0-100); Basophils Percent Auto 0.6 % (0-2); Eosinophils Absolute Auto 200 /uL (0-450); Eosinophils Percent Auto 1.6 % (2-4); Hematocrit 36.6 % (41-53); Hemoglobin 11.8 g/dL (13.5-17.5); Lymphocytes Absolute Auto 1000 /uL (1100-4500); Lymphocytes Percent Auto 8.4 % (25-40); Mean Corpuscular HGB Conc 32.2 % (30-36); Mean Corpuscular Hemoglobin 25.3 PG (26-34); Mean Corpuscular Volume 78.6 fL (80-100); Monocytes Absolute Auto 1100 /uL (0-900); Monocytes Percent Auto 8.9 % (3-14); Neutrophils Absolute Auto 9700 /uL (1500-7000); Neutrophils Percent Auto 80.5 % (50-75); Platelet Count 410 X10^3/uL (150-400); Red Blood Cell Count 4.66 X10^6/uL (4.5-5.9); Red Cell Distribution Width 14.7 % (11.6-14.8)
[2024-01-11 19:48] LABS: Alanine Aminotransferase 51 IU/L (<50); Albumin 3.9 g/dL (3.5-5.0); Albumin Globulin Ratio 0.9 (1.0-2.8); Alkaline Phosphatase 129 U/L (38-126); Aspartate Aminotransferase 49 IU/L (17-59); BUN Creatinine Ratio 13.1 (6-22); Bilirubin Total 0.4 mg/dL (0.2-1.3); Blood Urea Nitrogen 14 mg/dL (9-20); Calcium 9.2 mg/dL (8.4-10.2); Carbon Dioxide 27 mmol/L (22-32); Chloride 106 mmol/L (98-107); Estimated Glomerular Filt Rate > 60 mL/min (>60); Globulin 4.5 g/dL (1.7-4.1); Glucose 121 mg/dL (70-100); HEMOLYSIS < 15 (0-50); Potassium 4.5 mmol/L (3.4-5.1); Sodium 137 mmol/L (137-145); Total Protein 8.4 g/dL (6.3-8.2)
[2024-01-11 19:57] LABS: NT-proBNP (BNP-Adult 18+) < 20 pg/mL (<125)
[2024-01-11] MEDS: ALBUTEROL 2.5 MG/3 ML NEB (ADULT) INH (20:20)
[2024-01-11 20:38] VITALS: BP 113/60; PULSE 90; RESP 22; TEMP 36.1; O2SAT 97
--- NOTE | 2024-01-11 20:40 | DI.ECHO.S_ITS ---
[facility]+ [facility] : : [address] : : [place] : : [id number] : : Phone: [phone] Echocardiogram Report + + :Name: INLDA PLEITEZ Study Date: 01/12/2024 Height: 69 in : :Hospital ReadingLocation: Weight: 352 lb : : Gender: Male BSA: 2.6 m2 : :: 1970 Age: 54 yrs BP: 138/76 mmHg: :Reason For Study: CARDIOMEGALY : :Ordering Physician: DOROTHY, : :PERNELL Performed By: Justa Mena : :Referring: PERNELL DE LA CRUZ : + + Interpretation Summary The ejection fraction is estimated to be 60-65%. There is borderline concentric left ventricular hypertrophy. There is no significant valvular heart disease. Procedure: A two-dimensional transthoracic echocardiogram with color flow and Doppler was performed. The study quality was technically difficult. There is no prior echocardiogram noted for this patient. The heart rate ranged between 82-103 bpm during the study. Left Ventricle: The left ventricle is normal in size. There is borderline concentric left ventricular hypertrophy. The ejection fraction is estimated to be 60-65%. Left ventricular wall motion is normal. Right Ventricle: The right ventricle is not well visualized. The right ventricular systolic function is normal. Atria: The left atrial size is normal. Right atrial size is normal. There is no Doppler evidence for an interatrial shunt. Mitral Valve: The mitral valve is normal in structure and function. There is trace mitral regurgitation. Aortic Valve: The aortic valve is trileaflet. The aortic valve opens well. There is no aortic valve stenosis. No aortic regurgitation is present. Tricuspid Valve: The tricuspid valve is not well visualized. No tricuspid regurgitation. Pulmonic Valve: The pulmonic valve leaflets are thin and pliable; valve motion is normal. There is no pulmonic valvular regurgitation. Great Vessels: The aortic root is normal size. The dimensions of the ascending aorta are normal. The IVC is of normal diameter and collapses greater than 50% with a sniff. This suggests a low right atrial pressure of 3 mm Hg. Pericardium/ Pleura There is no pericardial effusion. There is no pleural effusion. MMode/2D Measurements & Calculations LVIDd: 5.5 cm LVOT diam: 2.3 cm LVIDs: 3.3 cm Ao root diam: 3.2 cm FS: 39.7 % asc Aorta Diam: 3.5 cm IVSd: 1.1 cm LVPWd: 1.1 cm LV weber. diameter/BSA (cm/m^2): 2.1 LV sys. diameter/BSA (cm/m^2): 1.3 LA A2 area: 26.5 cm2 RA long axis: 6.2 cm LA A4 area: 21.3 cm2 RA area: 19.8 cm2 LA length (vol): 6.2 cm RA vol: 53.9 ml LA vol: 77.7 ml RA : 20.5 ml/m2 LA vol index: 29.6 ml/m2 IVC diam: 1.6 cm TAPSE: 2.7 cm Doppler Measurements & Calculations Ao V2 max: 136.2 cm/sec LVOT Max Shiraz: 98.0 cm/sec Ao V2 mean: 97.6 cm/sec LV V1 max P.8 mmHg Ao max P.4 mmHg LV V1 VTI: 17.2 cm Ao mean P.2 mmHg SHAHRAM(I,D): 3.3 cm2 Ao V2 VTI: 22.3 cm SHAHRAM(V,D): 3.0 cm2 sev ratio: 0.77 SHAHRAM indexed to BSA (cm^2/m^2): 1.2 MV E max shiraz: 69.8 cm/sec PA V2 max: 103.3 cm/sec MV A max shiraz: 46.7 cm/sec PA V2 mean: 74.3 cm/sec MV E/A: 1.5 PA mean P.4 mmHg Med Peak E' Shiraz: 10.7 cm/sec PA pr(Accel): 36.2 mmHg E/E' med: 6.5 Lat Peak E' Shiraz: 10.8 cm/sec E/E' lat: 6.5 E/e' average: 6.5 MV dec time: 0.20 sec SV(LVOT): 72.7 ml Reading Physician:12:16 PM
[2024-01-11] MEDS: FUROSEMIDE 40 MG/4 ML VIAL 20 MG IV (21:13)
[2024-01-11] MEDS: SODIUM CHLORIDE 0.9% FLUSH 10 ML IV (21:14)
[2024-01-12] MEDS: VANCOMYCIN 2,000 MG/400 ML PIGGYBACK 200 MG IV ×2 (05:42→17:48)
[2024-01-12 05:43] VITALS: BP 138/76; PULSE 89; RESP 19; TEMP 36.1; O2SAT 94
[2024-01-12] MEDS: HYDROCODONE/ACET 5/325 TABLET 1 TAB PO (05:45)
[2024-01-12 06:23] LABS: Vancomycin Trough 13.5 ug/mL (10-20)
[2024-01-12 09:00] VITALS: BP 147/78; PULSE 87
[2024-01-12] MEDS: ATORVASTATIN 20 MG TABLET 40 MG PO (09:00)
[2024-01-12] MEDS: AMLODIPINE 5 MG TABLET 10 MG PO (09:00)
[2024-01-12] MEDS: lisinopriL 5 MG TABLET PO (09:00)
[2024-01-12] MEDS: ENOXAPARIN 40 MG/0.4 ML SYRINGE SUBCUT ×2 (09:02→20:09)
[2024-01-12] MEDS: CELECOXIB 200 MG CAPSULE PO (09:02)
[2024-01-12] MEDS: SODIUM CHLORIDE 0.9% FLUSH 10 ML IV ×2 (09:04→20:10)
[2024-01-12 10:20] LABS: Add Manual Diff / Slide Review NO; Basophils Absolute Auto 100 /uL (0-100); Basophils Percent Auto 0.9 % (0-2); Eosinophils Absolute Auto 100 /uL (0-450); Eosinophils Percent Auto 1.1 % (2-4); Hematocrit 36.1 % (41-53); Hemoglobin 11.4 g/dL (13.5-17.5); Lymphocytes Absolute Auto 500 /uL (1100-4500); Mean Corpuscular HGB Conc 31.7 % (30-36); Monocytes Absolute Auto 800 /uL (0-900); Monocytes Percent Auto 6.7 % (3-14); Neutrophils Absolute Auto 10700 /uL (1500-7000); Neutrophils Percent Auto 87.3 % (50-75); Platelet Count 421 X10^3/uL (150-400); Red Blood Cell Count 4.57 X10^6/uL (4.5-5.9); Red Cell Distribution Width 14.9 % (11.6-14.8); White Blood Cell Count 12.3 X10^3/uL (4.5-11.0)
[2024-01-12 10:47] VITALS: BP 147/89; PULSE 89; RESP 20; TEMP 37; O2SAT 95
[2024-01-12] MEDS: FUROSEMIDE 20 MG/2 ML VIAL IV (10:54)
[2024-01-12 10:56] LABS: HEMOLYSIS < 15 (0-50); Sodium 136 mmol/L (137-145)
[2024-01-12 10:57] LABS: Blood Urea Nitrogen 15 mg/dL (9-20); Calcium 9.2 mg/dL (8.4-10.2); Carbon Dioxide 26 mmol/L (22-32); Chloride 108 mmol/L (98-107); Estimated Glomerular Filt Rate > 60 mL/min (>60); Glucose 133 mg/dL (70-100); Magnesium 2.4 mg/dL (1.6-2.3); Potassium 4.4 mmol/L (3.4-5.1)
--- NOTE | 2024-01-12 11:18 | PT-IP ANOTE ---
Attempted to treat pt. Pt currently getting ECHO. Will con't PT efforts.
--- NOTE | 2024-01-12 12:44 | P.PN_ITS ---
Subjective Subjective Interval history: The pt has no specific complaints this morning. He feels frustrated with his weakness, but does feel it is primarily mental. As per nursing, the pt has had minimal audible wheezing with movement. Exam Vital Signs (past 8 hours): - 01/12/24 05:43 01/12/24 07:00 01/12/24 09:00 Temperature 97.0 F L Pulse Rate 89 87 Respiratory Rate 19 Blood Pressure 138/76 147/78 H Pulse Oximetry 94 Oxygen Delivery Method Room Air Oxygen Flow Rate 0 01/12/24 10:47 Temperature 98.6 F Pulse Rate 89 Respiratory Rate 20 Blood Pressure 147/89 H Pulse Oximetry 95 Oxygen Delivery Method Oxygen Flow Rate Oxygen Delivery Method Room Air Oxygen Flow Rate 0 Narrative Exam Narrative: Gen: NAD, sitting comfortably in bed CV: RRR, no murmurs Resp: clear to auscultation bilaterally Abd: soft, nontender, slightly distended, no rebound/guarding/rigidity Ext: left lower extremity with 2+ pitting edema improved from yesterday, mild erythema, no increased warmth; right LE with 1+ pitting edema Objective Labs 01/12/24 05:30 01/12/24 05:30 Labs: Laboratory Results - last 24 hr 01/11/24 01/12/24 19:31 05:30 WBC 12.0 H 12.3 H RBC 4.66 4.57 Hgb 11.8 L 11.4 L Hct 36.6 L 36.1 L MCV 78.6 L 79.0 L MCH 25.3 L 25.0 L MCHC 32.2 31.7 RDW 14.7 14.9 H Plt Count 410 H 421 H Neut % (Auto) 80.5 H 87.3 H Lymph % (Auto) 8.4 L 4.0 L Preble % (Auto) 8.9 6.7 Eos % (Auto) 1.6 L 1.1 L Baso % (Auto) 0.6 0.9 Neut # (Auto) 9700 H 90084 H Lymph # (Auto) 1000 L 500 L Preble # (Auto) 1100 H 800 Eos # (Auto) 200 100 Baso # (Auto) 100 100 Sodium 137 136 L Potassium 4.5 4.4 Chloride 106 108 H Carbon Dioxide 27 26 BUN 14 15 Creatinine 1.07 0.94 Estimated GFR > 60 > 60 BUN/Creatinine Ratio 13.1 16.0 Glucose 121 H 133 H Calcium 9.2 9.2 Magnesium 2.4 H Total Bilirubin 0.4 AST 49 ALT 51 H Alkaline Phosphatase 129 H NT-Pro-B Natriuret Pep < 20 Total Protein 8.4 H Albumin 3.9 Globulin 4.5 H Albumin/Globulin Ratio 0.9 L Vancomycin Trough 13.5 PFSH Medical History (Updated 01/09/24 @ 08:31 by Bi Enriqeuz MD) COVID-19 virus infection (~05/2022) Migraine headache Shoulder impingement syndrome Degenerative joint disease of knee Bilateral primary osteoarthritis of hip Facet joint disease of lumbosacral region Bilateral primary osteoarthritis of knee PTSD (post-traumatic stress disorder) Hyperlipidemia Hypertension TROY (obstructive sleep apnea) Morbid obesity Family History Mother Diabetes mellitus Hypertension Breast cancer Grandfather Myocardial infarction Social History household members: spouse Smoking Status: Former smoker alcohol intake: current Assessment & Plan Assessment & Plan narrative: 1) Left lower extremity cellulitis: Continues to improve. Blood cultures without growth. Venous doppler without evidence DVT. - Continue IV Vancomycin - Plan to d/c on Doxycyline, hopeful tomorrow - Received one dose of IV Lasix yesterday with improvement in swelling, will repeat again today 2) HTN: BP remains minimally elevated - Continue home medications Amlodipine, Prazosin - Lisinopril 5mg daily initiated yesterday 3) Hyperlipidemia: - Continue home statin 4) DM Type 2: New diagnosis with A1C 6.7 - F/U as an outpatient 5) TROY: Evident during hospitalization - Outpatient formal sleep study 6) PTSD: Stable - Continue home Prazosin, Notriptyline 7) Weakness: New this hospitalization, at baseline ambulatory at times with cane. Now unable to rise really at all even with 3 person assist. Suspect due to deconditioning in addition to acute depression, however very rapid onset. No significant focal neurological deficits. Could not obtain MRI, but CT/CTA yesterday of head/neck clear. - Believe depression/mood contributing heavily. Encourage OOB to chair with onur lift. - PT and nursing to continue working with pt aggressively for mobility - Discussed mood today, pt declines adjustment in medications 8) Wheezing: Mild, only with movement. CXR yesterday with mild pulmonary edema vs consolidation. Pt without any respiratory complaints, O2 saturations normal range. WBC count very minimally elevated. - Repeat IV Lasix as above today - Will continue to closely monitor, however do not believe abx for HCAP indicated at this time Code: Full DVT ppx: Lovenox FEN: Diabetic diet Dispo: Pt currently requires d/c to rehab/SNF due to mobility issues. Working on placement. Desires d/c to home, however would not be safe to do so as of today.
--- NOTE | 2024-01-12 13:55 | PT.IPTN ---
Current Diagnoses Cellulitis of left lower limb (01/07/24) Cellulitis, unspecified (01/07/24) Physical Therapy Treatment Note M2 PT-IP Current Condition Start: 01/08/24 09:40 Freq: NEEDED Status: Active Protocol: Document 01/08/24 11:28 MB (Rec: 01/08/24 12:08 MB [id number]) Physical Therapy Current Condition Current Condition Evaluation Date 01/08/24 Treatment Diagnosis LLE cellulitis M3 PT-IP Subjective Start: 01/08/24 09:40 Freq: NEEDED Status: Active Protocol: Document 01/12/24 15:19 TS (Rec: 01/12/24 15:31 TS [id number]) Subjective Physical Therapy Visit Type Type Treatment Note Visit Start Time 13:55 Visit Stop Time 14:20 Notes Spouse present Number of BOX MACHINE OPERATOR Visits 3 Physical Therapy Visit Comments Patient Comments Pt found resting in chair, is agreeable to PT. Therapy Pain Assessment Pain When Pain Assessed At Rest Pain Present Pain Present Pain Reported Location Left lower leg Intensity 4 Scale Used Numeric (0 - 10) Pain Management Techniques Distraction,Modification of Treatment,Re-positioning, Timing of Activity with Medications M4 PT-IP Mobility and Gait Start: 01/08/24 09:40 Freq: NEEDED Status: Active Protocol: Document 01/12/24 15:19 TS (Rec: 01/12/24 15:31 TS [id number]) PT-Transfer Assessment Sit to and From Stand Sit to and from Stand Maximum Assistance,2 Person Assistance,Use of Upper Extremities Equipment Transfer Assistive Device Gait Belt,Front Wheeled Walker Orthotic/Prosthetic Devices or Brace: No Comments Mobility Comments Pt is agreeable to stand from chair, pt requires motivation from therapist and spouse. STS from chair x1 MaxA x3 to stand, pt has Bilateral buckling of knees, pt becomes anxious and fearful, required to sit down. STS x1 again MaxA x3 with FWW, pt continues to have buckling and could not come fully into standing. Pt was left in chair, all needs met. Gait Assessment Comments Gait Comments Unable PT-Balance Assessment Sitting Balance and Reactions Static Sitting Balance Ability Poor Dynamic Sitting Balance Ability Poor M5 PT-IP Objective Assessments Start: 01/08/24 09:40 Freq: NEEDED Status: Active Protocol: Document 01/08/24 11:28 MB (Rec: 01/08/24 12:08 MB [id number]) Orientation Orientation/Cognition Level of Alertness Alert Orientation Name,Age,Birthday,Month,Year, Place,Situation Language Function Ability No Deficits Noted Safety Awareness Understands Safety Issues Memory Description No Deficits Noted Gross Range of Motion Upper Extremity ROM Assessment Within Functional Limits Lower Extremity ROM Assessment Left Impaired Impairments LLE edema and decreased ROM and strength Strength Lower Extremity Strength Assessment Left Impaired Comments Strength Comments See ROM comments above, decreased WB when standing and no buckling, able to manage standing balance with RW M6 PT-IP Treatment Start: 01/08/24 09:40 Freq: NEEDED Status: Active Protocol: Document 01/12/24 15:19 TS (Rec: 01/12/24 15:31 TS [id number]) Physical Therapy Treatment Education Education Provided Safety M7 PT-IP Assessment and Plan Start: 01/08/24 09:40 Freq: NEEDED Status: Active Protocol: Document 01/12/24 15:19 TS (Rec: 01/12/24 15:31 TS [id number]) PT Summary Assessment and Plan Potential Rehabilitation Potential Fair Summary Impairments Pain,ROM,Strength,Balance,Bed Mobility,Transfers,Gait, Activity Tolerance Progress Towards Goals Slow Progress due to Pain,Slow Progress due to Medical Issues,Slow Progress due to Activity Tolerance Assessment Summary Harrison continues to make slow progress with his mobility. He progressed into standing this session with Lanny powers with FWW . PT is recommending SNF rehab . Goals Bed Mobility Goal Independent Transfer Goal Independent,Minimal Assistance ,Front Wheeled Walker Gait Goal Independent,Front Wheel Walker Gait Distance 100 Other Goals Pt will ascend and descend 5 steps with 1-2 rails or 1 rail and LRAD and mod I to allow safe home entry. Days to Meet Goals 5 Frequency of Treatment Frequency Of Treatment Once a Day Treatment Plan Physical Therapy Treatment Plan Bed Mobility Training,Transfer Training,Gait Training, Therapeutic Exercise,Balance Retraining,Discharge Planning Weight Bearing Status Weight Bearing Status Weight Bear as Tolerated Recommendations To Nursing Amount of Assist Needed 3 or More Person Assist, Mechanical Lift Discharge Recommendations PT Discharge Recommendations SNF Rehab Transportation Needs at Discharge Wheelchair/Cabulance,Stretcher /Ambulance
--- NOTE | 2024-01-12 14:38 | PC.NURSE ---
Addendum entered by Marci Fisher R.N. 01/12/24 16:25: RN was able to reach on-call provider, notified provider of OT cognitive eval score, provider ordered MAINSTREAMING FACILITATOR eval. Brought up concerns to provider about open MRI machine/possible transfer if appropriate; brought up the possibility of a psych eval. Provider deferred to primary provider. Original Note: Late morning/early afternoon RN attempted to call patient's primary provider. Message was left with primary provider nursing staff regarding non-urgent patient concern. RN was calling to discuss pt care plan updates. RN called on-call provider and left a message with provider's nurse. Several hours later, on-call provider's staff returned the call to this RN. The loss control manager provider staff said the primary provider would address concerns tomorrow and the on-call provider would not address the RN's care plan concerns at this time.
--- NOTE | 2024-01-12 14:50 | OT.IP.TRT ---
Addendum entered and electronically signed by Catarina Cutler OT 01/12/24 15:55: Pt scored 22/30 on the SLUMS not 24/30 as pt's written numbers on the clock not accurate or very legible. Original Note: Current Diagnoses Cellulitis of left lower limb (01/07/24) Cellulitis, unspecified (01/07/24) Occupational Therapy Treatment Note M2 OT-IP Current Condition Start: 01/11/24 11:25 Freq: Status: Active Protocol: Document 01/11/24 11:26 [facility] (Rec: 01/11/24 11:51 [facility] [id number]) Occupational Therapy Current Condition Current Condition Evaluation Date 01/11/24 Treatment Diagnosis LLE cellultis, weakness Diagnosis Onset Date 01/07/24 M3 OT- IP Subjective and Pain Start: 01/11/24 11:25 Freq: Status: Active Protocol: Document 01/12/24 15:19 [facility] (Rec: 01/12/24 15:50 [facility] [id number]) OT- Subjective Occupational Therapy Visit Type Type Treatment Note Visit Start Time 13:50 Visit Stop Time 14:50 Occupational Therapy Visit Comments Patient Comments Pt needing lots of encouragement for his and therapists to stand. Patient/Caregiver Goals To get better. OT Pain Assessment Pain When Pain Assessed At Rest Pain Present Pain Present Pain Reported M4 OT- IP ADL's Start: 01/11/24 11:25 Freq: Status: Active Protocol: Document 01/12/24 15:19 [facility] (Rec: 01/12/24 15:50 [facility] [id number]) OT [id number] Comments OT Self-Feeding Comments Pt not hungry and having to encourage pt to eat. Pt's states that he does not eat well at home. OT ADL-Grooming Comments OT Grooming Comments Not performed. OT ADL-Oral Care Comments Oral Care Comments Not performed. OT ADL-Dressing General Eval Lower Body Dressing Ability Total Assistance OT ADL-Bathing Comments OT Bathing Comments Sponge bath more appropriate at this time. M5 OT- IP IADL's Start: 01/11/24 11:25 Freq: Status: Active Protocol: Document 01/11/24 11:26 [facility] (Rec: 01/11/24 11:51 [facility] [id number]) OT-Instrumental Activities of Daily Living Deficits IADL Deficits Identified Deficits Home Safety Awareness Awareness of Need for Assistance at Home Good Awareness Money Management Money Management Comments Pt will need assist. Meal Preparation Meal Preparation Comments Pt will need assist. Policy Analyst Policy Analyst Comments Pt will need assist. M6 OT- IP Functional Cognition Start: 01/11/24 11:25 Freq: Status: Active Protocol: Document 01/12/24 15:19 [facility] (Rec: 01/12/24 15:50 [facility] [id number]) Cognitive Factors Limiting Selfcare Function Cognitive Tests SLUMS Pt scored 24/30 which implies mild neurocognitive disorder and not able to comprehand sentence to add 3 + 20, able to name 12 animals in one minute, able to recall 2/5 objects after time passed, and not able to state 4 digit number backwards. Cognitive Comments Cognitive Assessment Comments Pt states has had decreased initiation of movement and difficulty to get his words out and at time his speech is slurred. Requested STIPPLER waqar. M7 OT- IP Mobility and Balance Start: 01/11/24 11:25 Freq: Status: Active Protocol: Document 01/12/24 15:19 [facility] (Rec: 01/12/24 15:50 [facility] [id number]) OT-Transfer Assessment Sit to and From Stand Sit to and from Stand Maximum Assistance,1 Person Assistance,2 Person Assistance Comments Mobility Comments MAXA x3 to stand to FWW. Pt having to have his knee blocked and use of momentum to assist to stand. Pt not able to stand all the way the second time. Pt at times able to scoot in the recliner but needing assist to help his legs in place. Pt's there to assist pt to stand as well and when asked states does not have any lifting or back issues to help out. OT- Balance Assessment Sitting Balance and Reactions Static Sitting Balance Ability Fair Dynamic Sitting Balance Ability Poor Standing Balance and Reactions Static Standing Balance Ability Poor Comments Other Balance Tests/Deviations/Treatment Pt having a little better : awareness of midline. Pt better able to sit to midline after cues to shift his weight off his right hip. M9 OT- IP Assessment and Plan Start: 01/11/24 11:25 Freq: Status: Active Protocol: Document 01/12/24 15:19 [facility] (Rec: 01/12/24 15:50 [facility] [id number]) OT Summary Assessment and Plan Potential Rehabilitation Potential Good Analytic Complexity at Evaluation High Summary OT Impairments Pain,Range of Motion,Strength, Balance,Functional Cognition, Functional Mobility,Grooming, Dressing,Toileting,Bathing, Toilet Transfers,Shower Transfers,Activity Tolerance Progress Towards Goals Slow Progress due to Pain,Slow Progress due to Medical Issues,Slow Progress due to Activity Tolerance,Slow Progress due to Cognition Assessment Summary Pt able to stand with MAXA X 3 to FWW. Pt's present to answer questions of prior history and that pt was declining after his quad surgery last year and more so in the past two months and only able to walk 20 ft with use of the villavicencio to hold onto at times for balance and as pt would also get SOB and winded . Pt scored 24/30 on the SLUMS which implies mild neuro cognitive impairments. Pt will benefit from skilled rehab. Goals Self-Feeding Goal Independent Grooming Goal Independent Dressing Goal Independent Toileting Goal Independent Bathing Goal Independent Toilet Transfer Goal Independent Shower Transfer Goal Independent Days to Meet Goals 30 Frequency of Treatment Frequency Of Treatment Once a Day Treatment Plan OT Treatment Plan ADL Training,Functional Cognition Training,Functional Mobility,Patient/Family Education,Discharge Planning Discharge Recommendations OT Discharge Recommendations SNF Rehab Transportation Needs at Discharge Stretcher/Ambulance
--- NOTE | 2024-01-12 15:01 | CM.DPNOTE ---
DCP Cont [facility] auth received today auth # [id number] [facility] declines as patient currently needing 3p assist and they cannot accommodate this. Wanda declines currently, will plan to re-review if patient's needs decrease, ie 2p assist. MULU Day, kindly agreed to send referral to [facility] and Rylee Alatorre for review. Level 1 PASRR completed. Needs review if patient is started on an SSRI/anti-depressant. Met w/patient's spouse Jenna with OT and AUTOMOTIVE CUSTOMER EXPERIENCE ADVISOR present. Updated on SNF search and mentioned [facility] auth in place. Spouse reports that patient is a vet, has PTSD and has had depressive sx in the past, withdrawal, loss of motivation and has received counseling that was effective. Spouse reviews a two month timeline of physical and cognitive changes in patient. Patient has missed weeks of work. Patient has denied suicidal thoughts when asked , according to spouse. Strongly encouraged spouse to ask patient's PCP for a neurology referral. Encouraged spouse to also consider psychiatry resources. Provided spouse with the following: -[facility] ([facility]) -[facility] resource -[facility] caregiver agency -[facility] counseling This CM team will plan to follow closely for discharge coordination, no SNF secured yet. REMIGIO
--- NOTE | 2024-01-12 16:12 | DIET.CONS ---
Dietary Consultation Note Admission Date: 01/07/2024 14:54 Assessment: 54 y M admitted for cellulitis in lower leg. Nutrition screened for LOS and new onset of type 2 diabetes (A1c 6.7%). Met with pt at bedside. Reports appetite is lower than normal during hospitalization. OT note reported pt not hungry, needing encouragement to eat, and stating pt not eating well at home. No weight loss per chart. Discussed outpatient educ options for new DM dx. Did not provided inpatient educ today, pt appeared tired, closing eyes during visit and disengaged. Ht: 175.26 cm Wt: 160 kg BMI: 52.0 UBW: 158-163 kg per chart within last year Last BM: 01/09/24 (01/09/24 23:43) MNA: 14 Anders Score: 18 Diet: 01/10/24 Dinner Carbohydrate Consistent Diet Diet Modifications: Carbohydrate level: Medium (3 CHO) Reflex DM orders: No Food Texture: Level 7 - Regular Liquid Consistency: Level 0 - Thin Nutrition Percent Meal Consumed 100% 01/12/24 10:48 Percent Meal Consumed 50% 01/11/24 18:00 Percent Meal Consumed 75% 01/10/24 18:00 Labs: RBC 4.57 X10^6/uL (4.5-5.9) 01/12/24 05:30 Hgb 11.4 g/dL (13.5-17.5) L 01/12/24 05:30 Hct 36.1 % (41-53) L 01/12/24 05:30 Creatinine 0.94 mg/dL (0.66-1.25) 01/12/24 05:30 Hemoglobin A1c 6.7 % (4.0-6.0) H 01/09/24 05:10 Lactate 1.5 mmol/L (0.7-2.1) 01/07/24 13:05 NT-Pro-B Natriuret Pep < 20 pg/mL (<125) 01/11/24 19:31 Nutrition Diagnosis: Altered nutrition r/t lab values (A1c) related to endocrine dysfunction as evidenced by A1c 6.7% Interventions: 1. Discussed outpatient educ 2. Ordered max protein/glucerna 1x/day to support adequate intake Monitoring/Evaluations: f/u on po intake, DM educ as appropriate Electronically Signed by: Mery Mohr 01/12/24 16:12 Clinical Dietitian [address] [address]
[2024-01-12 20:52] VITALS: BP 150/82; PULSE 85; RESP 18; TEMP 36.5; O2SAT 94
[2024-01-13 04:35] VITALS: BP 120/83; PULSE 86; RESP 20; TEMP 36.4; O2SAT 97
[2024-01-13] MEDS: VANCOMYCIN 2,000 MG/400 ML PIGGYBACK 200 MG IV (05:27)
--- NOTE | 2024-01-13 09:00 | PT.IPTN ---
Current Diagnoses Cellulitis of left lower limb (01/07/24) Cellulitis, unspecified (01/07/24) Physical Therapy Treatment Note M2 PT-IP Current Condition Start: 01/08/24 09:40 Freq: NEEDED Status: Active Protocol: Document 01/08/24 11:28 MB (Rec: 01/08/24 12:08 MB [id number]) Physical Therapy Current Condition Current Condition Evaluation Date 01/08/24 Treatment Diagnosis LLE cellulitis M3 PT-IP Subjective Start: 01/08/24 09:40 Freq: NEEDED Status: Active Protocol: Document 01/13/24 10:42 TS (Rec: 01/13/24 10:52 TS [id number]) Subjective Physical Therapy Visit Type Type Treatment Note Visit Start Time 09:00 Visit Stop Time 09:46 Number of OWNER OPERATOR Visits 3 Physical Therapy Visit Comments Patient Comments Pt found resting in bed, pt is agreeable to PT. Therapy Pain Assessment Pain When Pain Assessed At Rest Pain Present Pain Present Pain Reported M4 PT-IP Mobility and Gait Start: 01/08/24 09:40 Freq: NEEDED Status: Active Protocol: Document 01/13/24 10:42 TS (Rec: 01/13/24 10:52 TS [id number]) PT-Bed Mobility Assessment Supine to Sit Supine to Sit Moderate Assistance,Head of Bed Elevated,Bedrails Scooting Scooting to Edge of Bed Moderate Assistance PT-Transfer Assessment Sit to and From Stand Sit to and from Stand Maximum Assistance,2 Person Assistance,Use of Upper Extremities Equipment Transfer Assistive Device Gait Belt,Front Wheeled Walker Orthotic/Prosthetic Devices or Brace: No Transfers Transfer Destination Chair Transfer Technique Mechanical Lift Transfer Ability Level of Assist Total Assistance Comments Mobility Comments Nursing in room. Supine to sit ModA for LLE assist to EOB and for uprighting trunk. Pt scooted to EOB ModA and max cues for sequencing. He attempted to stand MaxA x2 with FWW, pt could not come into standing. Pt was hoyered from EOB to chair with 2 person assist. Pt wasleft in chair, all needs met. Gait Assessment Comments Gait Comments Unable PT-Balance Assessment Sitting Balance and Reactions Static Sitting Balance Ability Fair Dynamic Sitting Balance Ability Poor Comments Other Balance Tests/Deviations/Treatment Pt maintained midline in : sitting EOB ~5mins, no lateral lean to R side. M5 PT-IP Objective Assessments Start: 01/08/24 09:40 Freq: NEEDED Status: Active Protocol: Document 01/08/24 11:28 MB (Rec: 01/08/24 12:08 MB [id number]) Orientation Orientation/Cognition Level of Alertness Alert Orientation Name,Age,Birthday,Month,Year, Place,Situation Language Function Ability No Deficits Noted Safety Awareness Understands Safety Issues Memory Description No Deficits Noted Gross Range of Motion Upper Extremity ROM Assessment Within Functional Limits Lower Extremity ROM Assessment Left Impaired Impairments LLE edema and decreased ROM and strength Strength Lower Extremity Strength Assessment Left Impaired Comments Strength Comments See ROM comments above, decreased WB when standing and no buckling, able to manage standing balance with RW M6 PT-IP Treatment Start: 01/08/24 09:40 Freq: NEEDED Status: Active Protocol: Document 01/13/24 10:42 TS (Rec: 01/13/24 10:52 TS [id number]) Physical Therapy Treatment Education Education Provided Safety M7 PT-IP Assessment and Plan Start: 01/08/24 09:40 Freq: NEEDED Status: Active Protocol: Document 01/13/24 10:42 TS (Rec: 01/13/24 10:52 TS [id number]) PT Summary Assessment and Plan Potential Rehabilitation Potential Fair Summary Impairments Pain,ROM,Strength,Balance,Bed Mobility,Transfers,Gait, Activity Tolerance Progress Towards Goals Slow Progress due to Pain,Slow Progress due to Medical Issues,Slow Progress due to Activity Tolerance Assessment Summary Harrison continues to make slow progress with his mobility. He continues to be ModA for most bed mobility. He attempted to come into standing with MaxA x2, could not get lift form bed. He did maintain better midline, had no lateral lean to R side this session. PT continues to recommend SNF at this time. Goals Bed Mobility Goal Independent Transfer Goal Independent,Minimal Assistance ,Front Wheeled Walker Gait Goal Independent,Front Wheel Walker Gait Distance 100 Other Goals Pt will ascend and descend 5 steps with 1-2 rails or 1 rail and LRAD and mod I to allow safe home entry. Days to Meet Goals 5 Frequency of Treatment Frequency Of Treatment Once a Day Treatment Plan Physical Therapy Treatment Plan Bed Mobility Training,Transfer Training,Gait Training, Therapeutic Exercise,Balance Retraining,Discharge Planning Weight Bearing Status Weight Bearing Status Weight Bear as Tolerated Recommendations To Nursing Amount of Assist Needed 3 or More Person Assist, Mechanical Lift Discharge Recommendations PT Discharge Recommendations SNF Rehab Transportation Needs at Discharge Wheelchair/Cabulance,Stretcher /Ambulance
--- NOTE | 2024-01-13 09:07 | DI.CT.S_ITS ---
PROCEDURE: CT CERVIAL SPINE W CON INDICATIONS: inability to ambulate TECHNIQUE: After the administration of intravenous Isovue contrast, 3 mm thick sections acquired through the levels of interest. Sagittal and coronal reformats were then constructed. For radiation dose reduction, the following was used: automated exposure control. COMPARISON: [facility], CT, CT ANGIO HEAD AND NECK, 01/11/2024, 13:45. FINDINGS: Image quality: There is artifact associated with the metallic hardware. Artifact from the metallic hardware is reduced by metal reconstruction algorithm. This examination is somewhat limited by quantum mottle artifact. Bones: No acute fractures are seen. No suspicious bony lesions are seen. Bridging anterior osteophytes can be seen C4 through C6. Partially bridging anterior osteophytes can be seen at C2-C3. Milder degenerative changes are seen elsewhere. Soft tissues: No significant surrounding soft tissue abnormality is seen. No abnormal enhancement. IMPRESSION: No significant abnormal enhancement can be seen. Underlying degenerative changes are seen. If it would be helpful for clinical management decision making, please consider a dedicated cervical spine MRI for further evaluation (assuming that there is no contraindication). Dictated by: Louie Ruffin M.D. on 01/13/2024 at 14:10 Approved by: Louie Ruffin M.D. on 01/13/2024 at 14:12
--- NOTE | 2024-01-13 09:08 | PM.PN.1 ---
Subjective Subjective Date Patient Seen: 01/13/24 Interval history: The pt reports that he felt significantly improved being up to chair yesterday. He felt that working with PT went a little better yesterday as well. He does endorse feeling quite down and depressed. He feels this will only improve when he starts to see results such as being able to move again. Discussed medications to help with his mood. He does not currently want to take anything, feels it is unnecessary and he should be able to get better without them. Exam Vital Signs (past 8 hours): - 01/13/24 04:35 Temperature 97.5 F L Pulse Rate 86 Respiratory Rate 20 Blood Pressure 120/83 Pulse Oximetry 97 Oxygen Flow Rate 0 Oxygen Delivery Method Room Air Oxygen Flow Rate 0 Narrative Exam Narrative: Gen: NAD, sitting comfortably in bed CV: RRR, no murmurs Resp: clear to auscultation bilaterally Abd: soft, nontender, slightly distended, no rebound/guarding/rigidity Ext: left lower extremity with 2+ pitting edema improved from yesterday, mild erythema, no increased warmth; right LE with 1+ pitting edema Objective Labs 01/12/24 05:30 01/12/24 05:30 Labs: Laboratory Results - last 24 hr 01/12/24 05:30 WBC 12.3 H RBC 4.57 Hgb 11.4 L Hct 36.1 L MCV 79.0 L MCH 25.0 L MCHC 31.7 RDW 14.9 H Plt Count 421 H Neut % (Auto) 87.3 H Lymph % (Auto) 4.0 L [place] % (Auto) 6.7 Eos % (Auto) 1.1 L Baso % (Auto) 0.9 Neut # (Auto) 99389 H Lymph # (Auto) 500 L [place] # (Auto) 800 Eos # (Auto) 100 Baso # (Auto) 100 Sodium 136 L Potassium 4.4 Chloride 108 H Carbon Dioxide 26 BUN 15 Creatinine 0.94 Estimated GFR > 60 BUN/Creatinine Ratio 16.0 Glucose 133 H Calcium 9.2 Magnesium 2.4 H PFSH Medical History (Updated 01/09/24 @ 08:31 by Bi Enriquez MD) COVID-19 virus infection (~05/2022) Migraine headache Shoulder impingement syndrome Degenerative joint disease of knee Bilateral primary osteoarthritis of hip Facet joint disease of lumbosacral region Bilateral primary osteoarthritis of knee PTSD (post-traumatic stress disorder) Hyperlipidemia Hypertension TROY (obstructive sleep apnea) Morbid obesity Family History Mother Diabetes mellitus Hypertension Breast cancer Grandfather Myocardial infarction Social History household members: spouse Smoking Status: Former smoker alcohol intake: current Assessment & Plan Assessment & Plan narrative: 1) Left lower extremity cellulitis: Continues to improve. Blood cultures without growth. Venous doppler without evidence DVT. - Transition to PO Doxycycline today - s/p IV Lasix x2 with significant improvement in swelling, will repeat again today 2) HTN: BP improving - Continue home medications Amlodipine, Prazosin - Continue Lisinopril 5mg daily, started 01/10 3) Hyperlipidemia: - Continue home statin 4) DM Type 2: New diagnosis with A1C 6.7 - F/U as an outpatient 5) TROY: Evident during hospitalization - Outpatient formal sleep study 6) PTSD: Stable - Continue home Prazosin, Notriptyline 7) Weakness: New this hospitalization, at baseline ambulatory at times with cane. Now unable to rise without 3 person assist. Suspect due to deconditioning in addition to acute depression, however very rapid onset. Could not obtain MRI, but CT/CTA 01/10 of head/neck clear. Low concern for acute neurological event due to no focal deficits, strength actually 5/5 in bed (pt does have hx of torn quadricep affecting strength as well). - Believe depression/mood contributing heavily. Encourage OOB to chair with onur lift, as pt did feel this helped his mood yesterday - PT and nursing to continue working with pt aggressively for mobility - Discussed mood today with pt. He does not wish to start medications. Discussed care with Dr Barrow (Dr Alvarez not available today). He recommends working on behavioral activation, could consider Buproprion as well as slightly more activating/fast acting than other options. Will readdress with the pt at lunch. Hopeful to speak with his as well today, message left with her this morning. - CT neck today 8) Wheezing: Mild, only with movement. CXR yesterday with mild pulmonary edema vs consolidation. Pt without any respiratory complaints, O2 saturations normal range. WBC count very minimally elevated. - Repeat IV Lasix as above today - Will continue to closely monitor, however do not believe abx for HCAP indicated at this time - Continue with IS regularly Code: Full DVT ppx: Lovenox FEN: Diabetic diet Dispo: Pt currently requires d/c to rehab/SNF due to mobility issues. Working on placement. Desires d/c to home, however would not be safe to do so as of today.
[2024-01-13] MEDS: CELECOXIB 200 MG CAPSULE PO (09:11)
[2024-01-13] MEDS: AMLODIPINE 5 MG TABLET 10 MG PO (09:11)
[2024-01-13] MEDS: ENOXAPARIN 40 MG/0.4 ML SYRINGE SUBCUT ×2 (09:11→20:24)
[2024-01-13] MEDS: ATORVASTATIN 20 MG TABLET 40 MG PO (09:11)
[2024-01-13] MEDS: SODIUM CHLORIDE 0.9% FLUSH 10 ML IV ×2 (09:12→20:29)
[2024-01-13 09:16] VITALS: BP 161/94; PULSE 89
[2024-01-13] MEDS: lisinopriL 5 MG TABLET PO (09:16)
[2024-01-13] MEDS: FUROSEMIDE 20 MG/2 ML VIAL IV (09:16)
[2024-01-13 10:35] LABS: Alanine Aminotransferase 68 IU/L (<50); Albumin Globulin Ratio 0.9 (1.0-2.8); Alkaline Phosphatase 135 U/L (38-126); Aspartate Aminotransferase 66 IU/L (17-59); BUN Creatinine Ratio 15.4 (6-22); Bilirubin Total 0.5 mg/dL (0.2-1.3); Blood Urea Nitrogen 16 mg/dL (9-20); Calcium 9.3 mg/dL (8.4-10.2); Carbon Dioxide 25 mmol/L (22-32); Chloride 106 mmol/L (98-107); Creatine Kinase 779 U/L (55-170); Estimated Glomerular Filt Rate > 60 mL/min (>60); Globulin 4.6 g/dL (1.7-4.1); Glucose 119 mg/dL (70-100); HEMOLYSIS < 15 (0-50); Potassium 4.4 mmol/L (3.4-5.1); Sodium 136 mmol/L (137-145); Total Protein 8.6 g/dL (6.3-8.2)
[2024-01-13 10:39] LABS: Add Manual Diff / Slide Review NO; Basophils Absolute Auto 100 /uL (0-100); Basophils Percent Auto 0.8 % (0-2); Eosinophils Absolute Auto 200 /uL (0-450); Eosinophils Percent Auto 1.5 % (2-4); Hemoglobin 12.5 g/dL (13.5-17.5); Lymphocytes Absolute Auto 1400 /uL (1100-4500); Lymphocytes Percent Auto 11.8 % (25-40); Mean Corpuscular HGB Conc 32.1 % (30-36); Mean Corpuscular Hemoglobin 25.4 PG (26-34); Mean Corpuscular Volume 79.1 fL (80-100); Monocytes Absolute Auto 1000 /uL (0-900); Monocytes Percent Auto 7.9 % (3-14); Neutrophils Absolute Auto 9500 /uL (1500-7000); Platelet Count 466 X10^3/uL (150-400); Red Blood Cell Count 4.94 X10^6/uL (4.5-5.9); Red Cell Distribution Width 14.7 % (11.6-14.8); White Blood Cell Count 12.2 X10^3/uL (4.5-11.0)
--- NOTE | 2024-01-13 10:48 | DI.US.S_ITS ---
PROCEDURE: US ABDOMEN LIMITED INDICATIONS: RUQ, elevated liver enzymes TECHNIQUE: Real-time focused scanning was performed of the abdomen, with image documentation. COMPARISON: None. FINDINGS: The liver demonstrates enlarged size. The liver demonstrates generalized moderately increased echogenicity. This decreases ultrasound sensitivity for detection of hepatic masses. No findings of gallstones or sludge are seen. The gallbladder wall is not thickened, measuring 3 mm or less. No specific pericholecystic fluid is seen. The sonographic Chase sign is negative. There is no biliary dilatation, the common bile duct measures 7 mm. The pancreas is not seen, secondary to overlying bowel gas. This study is limited by body habitus. IMPRESSION: The gallbladder demonstrates a normal sonographic appearance. No biliary dilatation is seen. Enlarged, fatty liver. Dictated by: Louie Ruffin M.D. on 01/13/2024 at 13:05 Approved by: Louie Ruffin M.D. on 01/13/2024 at 13:07
[2024-01-13 11:53] LABS: Lactate Dehydrogenase 299 U/L (120-246)
--- NOTE | 2024-01-13 11:59 | SLP.IPNOTE ---
SECURITY TRAINER attempted speech/language evaluation. Pt reported I don't sound like how I sounded when I came in here. He reports specifically he sounds forced and that he has to force voice out. He also states his voice sounds higher. He stated maybe it was because he was tired. ST educated Pt on recommendation for an ENT referral, however Pt reported it wouldn't be effective and that he doesn't care about his voice and just wants to walk. SECURITY TRAINER completed a swallow screen with Pt consuming chips and thin cranberry juice. Pt demonstrated no difficulties swallowing with no overt s/s of aspiration. No ST warranted at this time. However, if Pt has changes in status/increased motivation to work on voice SECURITY TRAINER recommend a new speech order for address changes to speech/language/cognition/swallow.
[2024-01-13 12:08] LABS: Erythrocyte Sedimentation Rate 78 MM/HR (0-15)
[2024-01-13 13:00] VITALS: BP 142/84; PULSE 91; RESP 18; TEMP 36.4; O2SAT 94
[2024-01-13 13:00] LABS: Gamma Glutamyl Transpeptidase 46 U/L (15-73)
--- NOTE | 2024-01-13 14:35 | OT.IPNOTE ---
Pt not available and not in the room at this time.
[2024-01-13 15:18] LABS: Appearance Urine UA CLEAR; Bilirubin Urine UA NEGATIVE (NEGATIVE); Color Urine UA YELLOW; Glucose Urine UA NEGATIVE (Negative); Ketones Urine UA NEGATIVE (NEGATIVE); Leukocyte Esterase Urine UA NEGATIVE (NEGATIVE); Nitrite Urine UA NEGATIVE (Negative); Occult Blood Urine UA 1+ (Negative); Protein Urine UA NEGATIVE (Negative); Urobilinogen Urine UA 0.2 E.U./dL (0.2); pH Urine UA 5.5 (4.5-8.0)
--- NOTE | 2024-01-13 15:24 | PC.NURSE ---
Addendum entered by Marci Fisher R.N. 02/07/24 12:51: Correction to note: Per provider, psych consulted and pt spouse contacted. Per nurse truck rental manager, MRI options explored and no appropriate MRI in [place]. Original Note: In am, spoke with primary provider about concerns, recommending psych evaluation and possible transfer for open MRI. Provider acknowledged RNs concerns. At this time no psych consult ordered/ no transfer initiated by provider. RN requested that provider speak with pt's spouse, RN verified contact information in chart is up to date.
[2024-01-13 15:29] LABS: Bacteria Urine Occasional (0-1); Culture Indicated Urine Cult Not Indicated; Mucus Urine 1+ (Negative); RBC Urine 1-5/HPF (0-5/HPF); Squamous Epithelial Cell Urine 5-10 /HPF (0-5/HPF); Urine Volume 10mL (spun); WBC Urine 1-5/HPF (0-5/HPF)
--- NOTE | 2024-01-13 15:38 | CM.DPC ---
DCP SNF planning cont: Per MD, pt still requiring 3PA and will consult with Psychiatrist Dr. Alvarez on any recommendations but pt is reluctant to take any medications for his seeming depression or other mental health struggles. 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 Per PT/OT, pt seemed more motivated today but remains 3PA today. SW spoke to Santiago at [facility] and updated on difficulty with finding accepting SNF and she will keep SNF auth in place but requests updated clinicals be faxed tomorrow. SW spoke to [facility] and currently they cannot accept 3PA but if pt is 2PA they would consider. [facility] also cannot accept 3[facility]. [facility] continues to review. Plan: SW to follow closely on patient progress to determine safe discharge plan to SNF once pt's care needs reduce. KAMLESH Gallo
[2024-01-13 20:00] VITALS: BP 134/75; PULSE 92; RESP 17; TEMP 36; O2SAT 96
[2024-01-13] MEDS: DOXYCYCLINE HYCLATE 100 MG TABLET PO (20:24)
[2024-01-14 05:53] LABS: Add Manual Diff / Slide Review NO; Basophils Absolute Auto 100 /uL (0-100); Basophils Percent Auto 0.9 % (0-2); Eosinophils Absolute Auto 200 /uL (0-450); Eosinophils Percent Auto 2.2 % (2-4); Hematocrit 34.5 % (41-53); Hemoglobin 11.1 g/dL (13.5-17.5); Lymphocytes Absolute Auto 1200 /uL (1100-4500); Lymphocytes Percent Auto 11.3 % (25-40); Mean Corpuscular HGB Conc 32.1 % (30-36); Mean Corpuscular Hemoglobin 25.5 PG (26-34); Mean Corpuscular Volume 79.4 fL (80-100); Monocytes Absolute Auto 1000 /uL (0-900); Monocytes Percent Auto 9.8 % (3-14); Neutrophils Absolute Auto 7800 /uL (1500-7000); Neutrophils Percent Auto 75.8 % (50-75); Platelet Count 437 X10^3/uL (150-400); Red Blood Cell Count 4.35 X10^6/uL (4.5-5.9); Red Cell Distribution Width 14.8 % (11.6-14.8); White Blood Cell Count 10.3 X10^3/uL (4.5-11.0)
[2024-01-14 06:18] LABS: Creatine Kinase 595 U/L (55-170)
[2024-01-14 06:19] LABS: BUN Creatinine Ratio 18.2 (6-22); Blood Urea Nitrogen 18 mg/dL (9-20); Carbon Dioxide 25 mmol/L (22-32); Chloride 108 mmol/L (98-107); Estimated Glomerular Filt Rate > 60 mL/min (>60); Glucose 107 mg/dL (70-100); HEMOLYSIS < 15 (0-50); Sodium 137 mmol/L (137-145)
[2024-01-14 06:45] VITALS: BP 155/86; PULSE 69; RESP 17; TEMP 35.9; O2SAT 95
[2024-01-14 06:59] LABS: TSH w/ Reflex to FT4 1.94 uIU/mL (0.47-4.68)
[2024-01-14 08:00] VITALS: BP 148/97; PULSE 84; RESP 22; TEMP 36.1; O2SAT 94
--- NOTE | 2024-01-14 08:48 | SLP.IPNOTE ---
This NATIONAL VAN OWNER OPERATOR entered the room at 8:30 to find the pt resting in bed. Pt agreeable to NATIONAL VAN OWNER OPERATOR entering the room and checking in. In previous note, the pt had reported some voice changes but no ST was warranted at that time. The pt reported to this NATIONAL VAN OWNER OPERATOR that he felt his voice has improved since yesterday and did not have any concerns for this NATIONAL VAN OWNER OPERATOR at this time. No other concerns noted re: language or swallowing. Plan to discharge from caseload but if new concerns arise, please consult ST as needed.
[2024-01-14] MEDS: buPROPion XL 150 MG TAB PO (09:41)
[2024-01-14] MEDS: ENOXAPARIN 40 MG/0.4 ML SYRINGE SUBCUT ×2 (09:41→20:46)
[2024-01-14] MEDS: AMLODIPINE 5 MG TABLET 10 MG PO (09:41)
[2024-01-14 09:42] VITALS: BP 148/97; PULSE 84
[2024-01-14] MEDS: lisinopriL 5 MG TABLET PO (09:42)
[2024-01-14] MEDS: DOXYCYCLINE HYCLATE 100 MG TABLET PO ×2 (09:42→20:46)
[2024-01-14] MEDS: SODIUM CHLORIDE 0.9% FLUSH 10 ML IV ×2 (09:42→20:46)
[2024-01-14] MEDS: CELECOXIB 200 MG CAPSULE PO (09:42)
--- NOTE | 2024-01-14 11:03 | PM.PN.1 ---
Subjective Subjective Date Patient Seen: 01/14/24 Time Patient Seen: 08:30 Interval history: 54-year-old male admitted for cellulitis of the left lower extremity. Has not been out of bed this morning, just woke up. No increased pain. No subjective fevers overnight. Feeling stable from yesterday. Not sure how many times he is got out of bed yesterday to sit in the chair. He states that he will plan to try this later in the day when he is more awake. Exam Vital Signs (past 8 hours): - 01/14/24 06:45 01/14/24 07:00 01/14/24 08:00 Temperature 96.6 F L 96.9 F L Pulse Rate 69 84 Respiratory Rate 17 22 Blood Pressure 155/86 H 148/97 H Pulse Oximetry 95 94 Oxygen Delivery Method Room Air Oxygen Flow Rate 0 01/14/24 09:42 Temperature Pulse Rate 84 Respiratory Rate Blood Pressure 148/97 H Pulse Oximetry Oxygen Delivery Method Oxygen Flow Rate Oxygen Delivery Method Room Air Oxygen Flow Rate 0 Narrative Exam Narrative: Gen: NAD, sleeping comfortably in bed, awakens easily CV: warm and well perfused Resp: breathing comfortably on RA Ext: left lower extremity with 2+ pitting edema, mild erythema, no increased warmth; right LE with 1+ pitting edema Psych: reserved, withdrawn Neuro: grossly nml Objective Labs 01/14/24 05:17 01/14/24 05:17 Labs: Laboratory Results - last 24 hr 01/13/24 01/13/24 01/13/24 11:10 11:25 14:50 WBC RBC Hgb Hct MCV MCH MCHC RDW Plt Count Neut % (Auto) Lymph % (Auto) [place] % (Auto) Eos % (Auto) Baso % (Auto) Neut # (Auto) Lymph # (Auto) [place] # (Auto) Eos # (Auto) Baso # (Auto) ESR 78 H Sodium Potassium Chloride Carbon Dioxide BUN Creatinine Estimated GFR BUN/Creatinine Ratio Glucose Calcium GGT 46 Lactate Dehydrogenase 299 H Total Creatine Kinase C-Reactive Protein 3.0 H TSH Urine Color Yellow Urine Appearance Clear Urine pH 5.5 Ur Specific [place] 1.020 Urine Protein Negative Urine Glucose (UA) Negative Urine Ketones Negative Urine Occult Blood 1+ H Urine Nitrate Negative Urine Bilirubin Negative Urine Urobilinogen 0.2 Ur Leukocyte Esterase Negative Urine RBC 1-5/hpf Urine WBC 1-5/hpf Ur Squamous Epith Cells 5-10 /hpf H Urine Bacteria Occasional (0-1) Urine Mucus 1+ H Ur Culture Indicated? Cult not indicated Vol Urine Centrifuged 10ml (spun) 01/14/24 05:17 WBC 10.3 RBC 4.35 L Hgb 11.1 L Hct 34.5 L MCV 79.4 L MCH 25.5 L MCHC 32.1 RDW 14.8 Plt Count 437 H Neut % (Auto) 75.8 H Lymph % (Auto) 11.3 L [place] % (Auto) 9.8 Eos % (Auto) 2.2 Baso % (Auto) 0.9 Neut # (Auto) 7800 H Lymph # (Auto) 1200 [place] # (Auto) 1000 H Eos # (Auto) 200 Baso # (Auto) 100 ESR Sodium 137 Potassium 4.0 Chloride 108 H Carbon Dioxide 25 BUN 18 Creatinine 0.99 Estimated GFR > 60 BUN/Creatinine Ratio 18.2 Glucose 107 H Calcium 9.0 GGT Lactate Dehydrogenase Total Creatine Kinase 595 H C-Reactive Protein TSH 1.94 Urine Color Urine Appearance Urine pH Ur Specific [place] Urine Protein Urine Glucose (UA) Urine Ketones Urine Occult Blood Urine Nitrate Urine Bilirubin Urine Urobilinogen Ur Leukocyte Esterase Urine RBC Urine WBC Ur Squamous Epith Cells Urine Bacteria Urine Mucus Ur Culture Indicated? Vol Urine Centrifuged [facility] Medical History (Updated 01/14/24 @ 11:20 by Danae Gross MD) COVID-19 virus infection (~05/2022) Migraine headache Shoulder impingement syndrome Degenerative joint disease of knee Bilateral primary osteoarthritis of hip Facet joint disease of lumbosacral region Bilateral primary osteoarthritis of knee PTSD (post-traumatic stress disorder) Hyperlipidemia Hypertension TROY (obstructive sleep apnea) Morbid obesity Family History Mother Diabetes mellitus Hypertension Breast cancer Grandfather Myocardial infarction Social History household members: spouse Smoking Status: Former smoker alcohol intake: current Assessment & Plan Assessment and plan (1) Cellulitis: Problem details: Left lower extremity cellulitis Will continue with vancomycin. Venous Doppler negative for DVT patient states he has doing a little bit better. Been up ambulating white blood cell count stable afebrile. Patient is on vancomycin. Tomorrow will go ahead and convert him to oral doxycycline and anticipate going home. Obstructive sleep apnea. Currently not treated. Patient obviously had this based on inpatient monitoring. Patient will need outpatient referral for CPAP. Type 2 diabetes. Patient has a hemoglobin A1c of 6.7. Patient has not been diagnosed with diabetes. Provided diabetic education today. Patient will need to follow-up as an outpatient for further treatment. Hypertension well-controlled continue with patient's current amlodipine prazosin. PTSD patient on prazosin at night with nortriptyline as needed for sleep and insomnia. Hyperlipidemia patient on Crestor. Continue with current dose of 20 mg a day DVT prophylaxis with Lovenox Code status is full code Disposition and plan. Continue IV vancomycin. Switch to oral medication tomorrow and discharge home on orals with close follow-up with Dr. Powers Qualifiers: Site of cellulitis: extremity Site of cellulitis of extremity: lower extremity Laterality: left Qualified Code(s): L03.116 - Cellulitis of left lower limb Status: Acute (2) Class 3 obesity due to excess calories without serious comorbidity with body mass index (BMI) of 40.0 to 44.9 in adult: Status: Chronic (3) Essential hypertension: Status: Chronic (4) Chronic post-traumatic stress disorder (PTSD): Status: Chronic (5) Pure hypercholesterolemia: Status: Chronic Plan 54-year-old male with history of hypertension, type 2 diabetes and PTSD currently admitted with left lower extremity cellulitis. ## Left lower extremity cellulitis: Per patient and chart review, cellulitis improving. Blood cultures no growth to date x5 days. Leukocytosis on CBC has resolved as of this morning. Venous Doppler without evidence of DVT on admission. Tolerating transitioned to p.o. antibiotics yesterday without signs of worsening infection -continue p.o. doxycycline -continuing to appear edematous in the lower extremities, we will repeat Lasix again today ## Weakness/non-ambulatory: New this hospitalization, at baseline pt is ambulatory at times with cane. Now unable to rise without 3 person assist. Suspect due to deconditioning in addition to acute depression, however very rapid onset. TSH nml. Could not obtain MRI, but CT/CTA 01/10 of head/neck clear. Low concern for acute neurological event due to no focal deficits, strength actually 5/5 in bed (pt does have hx of torn quadricep affecting strength as well). No sign of myositis. PT working with the patient, continuing to require 3 person assist yesterday care was discussed with psychiatry who recommends behavioral activation therapy which is not available inpatient and consideration for buspirone due to it is activating effects and rapid onset of action compared to other antidepressant agent -bupropion, 1st dose to be given this morning. Patient continuing to be agreeable to this plan - Continue to trend LFTS, currently very low concern for rhabdo - KARENA pending ## HTN: BPs consistently high 142 mid 150 systolic and 80s to 90s diastolic. We will increase lisinopril dose - Continue home medications Amlodipine, Prazosin - increase Lisinopril 5mg->10mg daily, started 01/10, dose increase 01/13 ## Hyperlipidemia: - d/c home statin, see below ## DM Type 2: New diagnosis with A1C 6.7 - F/U as an outpatient ## TROY: suspected during hospitalization - Outpatient formal sleep study ## PTSD: Stable - Continue home Prazosin, Notriptyline ## wheezing: No other respiratory complaints, O2 saturations within normal. White blood cells normal today, no signs of new acute infection. Suspected to be related to mild pulmonary edema, treating with Lasix as discussed above ## elevated LFTs ## Fatty liver on US ## elevated CK: nml GTT. CK elevated but downtrending. Suspect related to inactivity/obesity/DM2 as well as ethnicity - continue to trend - statin discontinued to see if these lab abnormmalities resolve Code: Full DVT ppx: Lovenox FEN: Diabetic diet Dispo: Pt currently requires d/c to rehab/SNF due to mobility issues. Working on placement. Desires d/c to home, however would not be safe to do so as of today. On discussion with case management, multiple placement options if patient is 2 person assist but more difficult placement with 3 person assist. Continue working with physical therapy.
--- NOTE | 2024-01-14 11:05 | PT.IPTN ---
Current Diagnoses Other obesity due to excess calories (01/07/24) Pure hypercholesterolemia, unspecified (01/07/24) Post-traumatic stress disorder, chronic (01/07/24) Essential (primary) hypertension (01/07/24) Cellulitis of left lower limb (01/07/24) Cellulitis, unspecified (01/07/24) Body mass index [BMI] 40.0-44.9, adult (01/07/24) Physical Therapy Treatment Note M2 PT-IP Current Condition Start: 01/08/24 09:40 Freq: NEEDED Status: Active Protocol: Document 01/08/24 11:28 MB (Rec: 01/08/24 12:08 MB [id number]) Physical Therapy Current Condition Current Condition Evaluation Date 01/08/24 Treatment Diagnosis LLE cellulitis M3 PT-IP Subjective Start: 01/08/24 09:40 Freq: NEEDED Status: Active Protocol: Document 01/14/24 11:53 TS (Rec: 01/14/24 12:14 TS [id number]) Subjective Physical Therapy Visit Type Type Treatment Note Visit Start Time 11:05 Visit Stop Time 11:45 Number of FLOOR PLAN ADJUSTER Visits 4 Physical Therapy Visit Comments Patient Comments Pt found resting in bed, is agreeable to PT. Therapy Pain Assessment Pain When Pain Assessed At Rest Pain Present Pain Present Pain Reported M4 PT-IP Mobility and Gait Start: 01/08/24 09:40 Freq: NEEDED Status: Active Protocol: Document 01/14/24 11:53 TS (Rec: 01/14/24 12:14 TS [id number]) PT-Bed Mobility Assessment Supine to Sit Supine to Sit Minimal Assistance,1 Person Assistance,Head of Bed Elevated,Bedrails Sit to Supine Sit to Supine Maximum Assistance,2 Person Assistance,Bedrails Scooting Scooting to Edge of Bed Contact Guard Assistance Scooting Up and Down in Bed Standby Assistance PT-Transfer Assessment Sit to and From Stand Sit to and from Stand Maximum Assistance,2 Person Assistance,Use of Upper Extremities Equipment Transfer Assistive Device Gait Belt,Front Wheeled Walker Orthotic/Prosthetic Devices or Brace: No Transfers Transfer Destination Chair Transfer Technique Mechanical Lift Transfer Ability Level of Assist Total Assistance Comments Mobility Comments Supine to sit [place] for uprighting trunk, pt assisted LE's to EOB. He sat EOB maintaining good midline with BUE support. STS from bed MaxA x2 pt could not get lift from bed. Pt agreed to stand again . STS MaxA x2 with FWW with blocking of pt knees, pt came into standing with upright posture for ~15 secs. He fatigued quickly in standing and required to sit back EOB. Sit to supine into MaxA x2. Pt scooted to [facility] SBA with handrails. Pt was hoyered to chair, was left with nursing. Gait Assessment Comments Gait Comments Unable PT-Balance Assessment Sitting Balance and Reactions Static Sitting Balance Ability Fair Dynamic Sitting Balance Ability Poor M5 PT-IP Objective Assessments Start: 01/08/24 09:40 Freq: NEEDED Status: Active Protocol: Document 01/08/24 11:28 MB (Rec: 01/08/24 12:08 MB [id number]) Orientation Orientation/Cognition Level of Alertness Alert Orientation Name,Age,Birthday,Month,Year, Place,Situation Language Function Ability No Deficits Noted Safety Awareness Understands Safety Issues Memory Description No Deficits Noted Gross Range of Motion Upper Extremity ROM Assessment Within Functional Limits Lower Extremity ROM Assessment Left Impaired Impairments LLE edema and decreased ROM and strength Strength Lower Extremity Strength Assessment Left Impaired Comments Strength Comments See ROM comments above, decreased WB when standing and no buckling, able to manage standing balance with RW M6 PT-IP Treatment Start: 01/08/24 09:40 Freq: NEEDED Status: Active Protocol: Document 01/14/24 11:53 TS (Rec: 01/14/24 12:14 [id number]) Physical Therapy Treatment Education Education Provided Safety M7 PT-IP Assessment and Plan Start: 01/08/24 09:40 Freq: NEEDED Status: Active Protocol: Document 01/14/24 11:53 TS (Rec: 01/14/24 12:14 [id number]) PT Summary Assessment and Plan Potential Rehabilitation Potential Fair Summary Impairments Pain,ROM,Strength,Balance,Bed Mobility,Transfers,Gait, Activity Tolerance Progress Towards Goals Slow Progress due to Pain,Slow Progress due to Medical Issues,Slow Progress due to Activity Tolerance Assessment Summary Harrison made some progress today with his mobility but continues to be limited by ongoing medical issues and weakness. He is Aust[place]/SBA for bed mobility this session with HOB elevated. He performed STS x2 with MaxA x2 and use of FWW. First attempt he could not get into standing, on second attempt he was fully upright for ~10 secs. In standing pt's knees bilaterally buckle and require blocking. He continues to be a onur lift for transfers. This therapist is concerned by him being in hospital he is getting weaker and would benefit from more intense therapy. PT is recommending SNF vs acute rehab at this time to improve functional mobility and strength. Goals Bed Mobility Goal Independent Transfer Goal Independent,Minimal Assistance ,Front Wheeled Walker Gait Goal Independent,Front Wheel Walker Gait Distance 100 Other Goals Pt will ascend and descend 5 steps with 1-2 rails or 1 rail and LRAD and mod I to allow safe home entry. Days to Meet Goals 5 Frequency of Treatment Frequency Of Treatment Once a Day Treatment Plan Physical Therapy Treatment Plan Bed Mobility Training,Transfer Training,Gait Training, Therapeutic Exercise,Balance Retraining,Discharge Planning Weight Bearing Status Weight Bearing Status Weight Bear as Tolerated Recommendations To Nursing Amount of Assist Needed Mechanical Lift Discharge Recommendations PT Discharge Recommendations SNF Rehab,Acute Rehab,SNF vs Acute Rehab Transportation Needs at Discharge Wheelchair/Cabulance
[2024-01-14 16:00] VITALS: BP 126/79; PULSE 92; RESP 20; TEMP 36.1; O2SAT 96
--- NOTE | 2024-01-14 16:14 | CM.DPC ---
DCP Continued Reviewed EMR and team rounds for pt?s medical status. Pt started new psych med, Buproprion, with hopes this might assist with behavioral activation. Per PT, pt is still a 3PA. PT considering recommending acute rehab if pt status appropriate. Plan: [place] authorization for SNF still in place, CM team to follow for pt's mobility progress for more placement options. MARITZA Santana
[2024-01-14 20:00] VITALS: BP 139/84; PULSE 84; RESP 16; TEMP 35.9; O2SAT 96
[2024-01-15 04:00] VITALS: BP 136/74; PULSE 74; RESP 18; TEMP 36.4; O2SAT 97
[2024-01-15 08:10] LABS: Add Manual Diff / Slide Review NO; Basophils Absolute Auto 100 /uL (0-100); Eosinophils Absolute Auto 200 /uL (0-450); Eosinophils Percent Auto 2.6 % (2-4); Hematocrit 35.2 % (41-53); Hemoglobin 11.2 g/dL (13.5-17.5); Lymphocytes Absolute Auto 1100 /uL (1100-4500); Lymphocytes Percent Auto 12.1 % (25-40); Mean Corpuscular Hemoglobin 25.1 PG (26-34); Mean Corpuscular Volume 78.4 fL (80-100); Monocytes Absolute Auto 1100 /uL (0-900); Monocytes Percent Auto 11.4 % (3-14); Neutrophils Absolute Auto 6800 /uL (1500-7000); Neutrophils Percent Auto 72.9 % (50-75); Platelet Count 449 X10^3/uL (150-400); Red Blood Cell Count 4.49 X10^6/uL (4.5-5.9); Red Cell Distribution Width 14.8 % (11.6-14.8); White Blood Cell Count 9.3 X10^3/uL (4.5-11.0)
[2024-01-15 08:22] LABS: Alanine Aminotransferase 54 IU/L (<50); Albumin 3.5 g/dL (3.5-5.0); Albumin Globulin Ratio 0.9 (1.0-2.8); Alkaline Phosphatase 119 U/L (38-126); Aspartate Aminotransferase 42 IU/L (17-59); Bilirubin Total 0.5 mg/dL (0.2-1.3); Blood Urea Nitrogen 15 mg/dL (9-20); Calcium 8.9 mg/dL (8.4-10.2); Carbon Dioxide 27 mmol/L (22-32); Chloride 108 mmol/L (98-107); Creatine Kinase 313 U/L (55-170); Estimated Glomerular Filt Rate > 60 mL/min (>60); Globulin 4.1 g/dL (1.7-4.1); Glucose 115 mg/dL (70-100); HEMOLYSIS < 15 (0-50); Potassium 3.9 mmol/L (3.4-5.1); Sodium 137 mmol/L (137-145); Total Protein 7.6 g/dL (6.3-8.2)
[2024-01-15] MEDS: ENOXAPARIN 40 MG/0.4 ML SYRINGE SUBCUT ×2 (10:46→21:35)
[2024-01-15] MEDS: lisinopriL 5 MG TABLET 10 MG PO (10:47)
[2024-01-15] MEDS: SODIUM CHLORIDE 0.9% FLUSH 10 ML IV ×2 (10:47→21:36)
[2024-01-15] MEDS: DOXYCYCLINE HYCLATE 100 MG TABLET PO ×2 (10:47→21:35)
[2024-01-15] MEDS: AMLODIPINE 5 MG TABLET 10 MG PO (10:47)
[2024-01-15] MEDS: buPROPion XL 150 MG TAB PO (10:47)
[2024-01-15] MEDS: CELECOXIB 200 MG CAPSULE PO (10:47)
--- NOTE | 2024-01-15 11:16 | PM.PN.1 ---
Subjective Subjective Date Patient Seen: 01/15/24 Time Patient Seen: 10:20 Interval history: 54-year-old man admitted for cellulitis with subsequent development of lower body weakness. This morning he is feeling well. No pain in his legs leg swelling improving. He was able to stand yesterday. Stood with physical therapy and 2 person assist. No side effects from Wellbutrin initiation at this point. No change in symptoms since transitioning to doxycycline off of IV medication Exam Vital Signs (past 8 hours): - 01/15/24 04:00 Temperature 97.6 F Pulse Rate 74 Respiratory Rate 18 Blood Pressure 136/74 Pulse Oximetry 97 Oxygen Flow Rate 0 Oxygen Delivery Method Room Air Oxygen Flow Rate 0 Narrative Exam Narrative: Gen: NAD, slaying in bed watching TV, but awake CV: warm and well perfused Resp: breathing comfortably on RA Ext: left lower extremity with 2+ pitting edema, mild erythema, no increased warmth; right LE with 1+ pitting edema Psych: reserved, withdrawn but more talkative today than yesterday Neuro: grossly nml Objective Labs 01/15/24 07:55 01/15/24 07:55 Labs: Laboratory Results - last 24 hr 01/15/24 07:55 WBC 9.3 RBC 4.49 L Hgb 11.2 L Hct 35.2 L MCV 78.4 L MCH 25.1 L MCHC 32.0 RDW 14.8 Plt Count 449 H Neut % (Auto) 72.9 Lymph % (Auto) 12.1 L [place] % (Auto) 11.4 Eos % (Auto) 2.6 Baso % (Auto) 1.0 Neut # (Auto) 6800 Lymph # (Auto) 1100 [place] # (Auto) 1100 H Eos # (Auto) 200 Baso # (Auto) 100 Sodium 137 Potassium 3.9 Chloride 108 H Carbon Dioxide 27 BUN 15 Creatinine 0.94 Estimated GFR > 60 BUN/Creatinine Ratio 16.0 Glucose 115 H Calcium 8.9 Total Bilirubin 0.5 AST 42 ALT 54 H Alkaline Phosphatase 119 Total Creatine Kinase 313 H D Total Protein 7.6 Albumin 3.5 Globulin 4.1 Albumin/Globulin Ratio 0.9 L [facility] Medical History (Updated 01/15/24 @ 11:24 by Danae Gross MD) Fatty infiltration of liver LFT elevation DM2 (diabetes mellitus, type 2) COVID-19 virus infection (~05/2022) Migraine headache Shoulder impingement syndrome Degenerative joint disease of knee Bilateral primary osteoarthritis of hip Facet joint disease of lumbosacral region Bilateral primary osteoarthritis of knee PTSD (post-traumatic stress disorder) Hyperlipidemia Hypertension TROY (obstructive sleep apnea) Morbid obesity Family History Mother Diabetes mellitus Hypertension Breast cancer Grandfather Myocardial infarction Social History household members: spouse Smoking Status: Former smoker alcohol intake: current Assessment & Plan Assessment and plan (1) Cellulitis: Problem details: Left lower extremity cellulitis Will continue with vancomycin. Venous Doppler negative for DVT patient states he has doing a little bit better. Been up ambulating white blood cell count stable afebrile. Patient is on vancomycin. Tomorrow will go ahead and convert him to oral doxycycline and anticipate going home. Obstructive sleep apnea. Currently not treated. Patient obviously had this based on inpatient monitoring. Patient will need outpatient referral for CPAP. Type 2 diabetes. Patient has a hemoglobin A1c of 6.7. Patient has not been diagnosed with diabetes. Provided diabetic education today. Patient will need to follow-up as an outpatient for further treatment. Hypertension well-controlled continue with patient's current amlodipine prazosin. PTSD patient on prazosin at night with nortriptyline as needed for sleep and insomnia. Hyperlipidemia patient on Crestor. Continue with current dose of 20 mg a day DVT prophylaxis with Lovenox Code status is full code Disposition and plan. Continue IV vancomycin. Switch to oral medication tomorrow and discharge home on orals with close follow-up with Dr. Powers Qualifiers: Laterality: left Site of cellulitis: extremity Site of cellulitis of extremity: lower extremity Qualified Code(s): L03.116 - Cellulitis of left lower limb Status: Acute (2) Class 3 obesity due to excess calories without serious comorbidity with body mass index (BMI) of 40.0 to 44.9 in adult: Status: Chronic (3) Essential hypertension: Status: Chronic (4) Chronic post-traumatic stress disorder (PTSD): Status: Chronic (5) Pure hypercholesterolemia: Status: Chronic (6) DM2 (diabetes mellitus, type 2): Qualifiers: Diabetes mellitus mcfp insulin use: without intermodal customer service use Diabetes mellitus complication status: without complication Qualified Code(s): E11.9 - Type 2 diabetes mellitus without complications Status: Acute (7) LFT elevation: Status: Acute (8) Fatty infiltration of liver: Status: Acute Plan 54-year-old male with history of hypertension, type 2 diabetes and PTSD currently admitted with left lower extremity cellulitis. ## Left lower extremity cellulitis: Per patient and chart review, cellulitis improving. Blood cultures no growth to date x5 days. No more leukocytosis on CBC. Venous Doppler without evidence of DVT on admission. Tolerating transitioned to p.o. antibiotics yesterday without signs of worsening infection -continue p.o. doxycycline ## Weakness/non-ambulatory: New this hospitalization, at baseline pt is ambulatory at times with cane. Now unable to rise without 3 person assist. Suspect due to deconditioning in addition to acute depression, however very rapid onset. TSH nml. Could not obtain MRI, but CT/CTA 01/10 of head/neck clear. Low concern for acute neurological event due to no focal deficits, strength actually 5/5 in bed (pt does have hx of torn quadricep affecting strength as well). No sign of myositis. CK downtrending. PT working with the patient, 2 person assist as of yesterday. Care was discussed with psychiatry perviously who recommends behavioral activation therapy which is not available inpatient and consideration for buspirone due to it is activating effects and rapid onset of action compared to other antidepressant agent -bupropion, 1st dose to be given this morning. Patient continuing to be agreeable to this plan - Continue to trend LFTS, downtrending today, currently very low concern for rhabdo - KARENA pending ## HTN: BPs improved on increased dose of Lisinopril, now 130s systolic over 80s diastolic - Continue home medications Amlodipine, Prazosin - continue Lisinopril 10mg daily, started 01/10, dose increase 01/13 ## Hyperlipidemia: - d/c home statin, see below ## DM Type 2: New diagnosis with A1C 6.7 - F/U as an outpatient ## TROY: suspected during hospitalization - Outpatient formal sleep study ## PTSD: Stable - Continue home Prazosin, Notriptyline ## wheezing: No other respiratory complaints, O2 saturations within normal. White blood cells normal today, no signs of new acute infection. Suspected to be related to mild pulmonary edema, treating with Lasix as discussed above ## elevated LFTs ## Fatty liver on US ## elevated CK: nml GTT. CK elevated but downtrending again today. Suspect related to inactivity/obesity/DM2 as well as ethnicity. LFts downtrending as well with now nml AST and only very mild elevation in ALT - continue to trend - statin discontinued to see if these lab abnormalities resolve Code: Full DVT ppx: Lovenox FEN: Diabetic diet Dispo: Pt currently requires d/c to rehab/SNF due to mobility issues. Working on placement. Desires d/c to home, however would not be safe to do so as of today. On discussion with case management, multiple placement options if patient is 2 person assist so they will work on specific placement now that PT requesting 2 person assist as of session yesterday. Continue working with physical therapy.
--- NOTE | 2024-01-15 11:32 | PC.NURSE ---
Patients left leg is swollen with 3+pitting edema, area is rough and warm but looks better compared to a few days ago. He denies pain and is eating breakfast.
[2024-01-15 12:00] VITALS: BP 137/74; PULSE 77; RESP 18; TEMP 36.3; O2SAT 95
--- NOTE | 2024-01-15 13:25 | CM.DPC ---
Addendum entered by Terri Raza R.N. 01/15/24 14:44: Spoke to Vashti, Machelle.Brenda, as she worked with patient, continues to be weak, non-weight bearing, mechanical lift continues. Original Note: SILVIA Cont: Was told that patient was a two person transfer, note from yesterday indicates mechanical lift. Once P.T. notes are completed for today, will send to [facility], spoke to Leyla, she is also doing admissions for [facility]. Spoke to Lilian at [facility], and updated her, stated that they are full, but are anticipating discharges for tomorrow. She would still need to run this by her supervisor photostat, since most of their patients have high acuity care needs, according to Lilian. P: SILVIA continuing to work on discharge plan, it is unclear at this time if patient would be a candidate for acute inpatient rehab, as [place] has not authed this in the past. Will see how he does with P.T. today and will fax over to [facility]. Terri Raza RN/Break Out Man
--- NOTE | 2024-01-15 15:15 | PT.IPTN ---
Current Diagnoses Type 2 diabetes mellitus without complications (01/07/24) Other obesity due to excess calories (01/07/24) Pure hypercholesterolemia, unspecified (01/07/24) Post-traumatic stress disorder, chronic (01/07/24) Essential (primary) hypertension (01/07/24) Fatty (change of) liver, not elsewhere classified (01/07/24) Cellulitis of left lower limb (01/07/24) Cellulitis, unspecified (01/07/24) Other specified abnormal findings of blood chemistry (01/07/24) Body mass index [BMI] 40.0-44.9, adult (01/07/24) Physical Therapy Treatment Note M2 PT-IP Current Condition Start: 01/08/24 09:40 Freq: NEEDED Status: Active Protocol: Document 01/08/24 11:28 MB (Rec: 01/08/24 12:08 MB [id number]) Physical Therapy Current Condition Current Condition Evaluation Date 01/08/24 Treatment Diagnosis LLE cellulitis M3 PT-IP Subjective Start: 01/08/24 09:40 Freq: NEEDED Status: Active Protocol: Document 01/15/24 13:22 MB (Rec: 01/15/24 15:15 MB [id number]) Subjective Physical Therapy Visit Type Type Treatment Note Visit Start Time 13:22 Visit Stop Time 14:49 Number of DIGITAL ASSOCIATE Visits 0 Physical Therapy Visit Comments Patient Comments Pt resting in bed and and SAW nearby. Family hoping to observe PT treatment and provide more PLOF info and express concerns about pt's presentation. Therapy Pain Assessment Pain When Pain Assessed At Rest Pain Present Pain Present Pain Reported Location Left lower leg Intensity 4 Scale Used Numeric (0 - 10) Pain Management Techniques Distraction,Modification of Treatment,Re-positioning M4 PT-IP Mobility and Gait Start: 01/08/24 09:40 Freq: NEEDED Status: Active Protocol: Document 01/15/24 13:22 MB (Rec: 01/15/24 15:15 MB [id number]) PT-Bed Mobility Assessment Supine to Sit Supine to Sit Contact Guard Assistance,1 Person Assistance,Head of Bed Elevated,Bedrails Sit to Supine Sit to Supine Minimal Assistance,1 Person Assistance,Head of Bed Elevated,Bedrails Scooting Scooting to Edge of Bed Contact Guard Assistance PT-Transfer Assessment Comments Mobility Comments Pt is unable to stand up once sitting EOB d/t B LE weakness and buckling at knees and hips . 2 person assistance nearby, pt using RW for support for UEs and PT blocking legs. Attempted x2 and returned to sitting. PT-Balance Assessment Sitting Balance and Reactions Static Sitting Balance Ability Fair Dynamic Sitting Balance Ability Poor Comments Other Balance Tests/Deviations/Treatment Pt with poor ability to scoot : back on the bed and the issue appears to be bed height too tall (and cannot be lowered more) and leg weakness rather than core or spinal weakness in sitting. M5 PT-IP Objective Assessments Start: 01/08/24 09:40 Freq: NEEDED Status: Active Protocol: Document 01/15/24 13:22 MB (Rec: 01/15/24 15:15 MB [id number]) Strength Comments Strength Comments B shoulder flexion and abduction, B elbow flexion and extension 5/5 today. Right bank consultant normal and left bank consultant mildly weak at 4/5. LLE MMT deferred in setting of cellulitis. Right ankle DF and great toe extension 5/5 in hook lying. B HS normal in the bed. Sitting, lacks full knee extension B with strength grossly 2+/5 B quads. Pt reports history of left quad tear and surgery and right quad injury but he is normally functional, walking, uses cane. Coordination Assessment Assessment Coordination Comments B finger to nose with bradykinesia and some dysmetria. M6 PT-IP Treatment Start: 01/08/24 09:40 Freq: NEEDED Status: Active Protocol: Document 01/15/24 13:22 MB (Rec: 01/15/24 15:15 MB [id number]) Physical Therapy Treatment Exercises Exercises Ankle Pumps,Heel Slides Education Education Provided Safety M7 PT-IP Assessment and Plan Start: 01/08/24 09:40 Freq: NEEDED Status: Active Protocol: Document 01/15/24 13:22 MB (Rec: 01/15/24 15:15 MB [id number]) PT Summary Assessment and Plan Potential Rehabilitation Potential Fair Status of Condition at Evaluation Evolving Summary Impairments Pain,ROM,Strength,Balance,Bed Mobility,Transfers,Gait, Activity Tolerance Progress Towards Goals Slow Progress due to Medical Issues,Slow Progress due to Activity Tolerance Assessment Summary and SAW are present for PT treatment and they are good advocates for pt. SAW is an ED nurse at [facility]. and SAW report concern about pt having walked into the hospital 8 days ago and now he is unable to walk. They are also concerned about pt's urinary incontinence and confusion over the phone. states that pt had a few months of slight urinary incontinence DIGITAL ASSOCIATE but overall, pt was I, ambulated and worked on the [employer] at baseline . This PT worked with pt on assessment and he was able to get up and take a few steps with PT. On the next treatment date, he had a marked change in functional status and was unable to get up despite 3 person assistance available. Today, PT appreciates mild left hand weakness, B UE bradykinesia and mild dysmetria and B LE weakness. With attempted standing, he has B knee buckling and he is unable to reach full standing and he cannot gait train. Once again, this is markedly different than assessment date one week ago. PT recommends neuro work-up to rule out any underlying neurological issue contributing to weakness and decreased coordination as well as family reports of confusion and incontinence. Family is concerned about the possibility of SNF. When SAW asks about acute rehab, PT educates that given age and previous I mobility status and working, pt would be a good acute rehab candidate but he may not have a medical diagnosis that allows acute rehab placement. Con't PT efforts. Goals Bed Mobility Goal Independent Transfer Goal Independent,Minimal Assistance ,Front Wheeled Walker Gait Goal Independent,Front Wheel Walker Gait Distance 100 Other Goals Pt will ascend and descend 5 steps with 1-2 rails or 1 rail and LRAD and mod I to allow safe home entry. Days to Meet Goals 5 Frequency of Treatment Frequency Of Treatment Once a Day Treatment Plan Physical Therapy Treatment Plan Bed Mobility Training,Transfer Training,Gait Training, Therapeutic Exercise,Balance Retraining,Discharge Planning Weight Bearing Status Weight Bearing Status Weight Bear as Tolerated Recommendations To Nursing Amount of Assist Needed Mechanical Lift Discharge Recommendations PT Discharge Recommendations SNF vs Acute Rehab Transportation Needs at Discharge Wheelchair/Cabulance
[2024-01-15 16:00] VITALS: BP 148/80; PULSE 91; RESP 16; TEMP 36.4; O2SAT 98
[2024-01-15 19:45] VITALS: BP 158/77; PULSE 78; RESP 16; TEMP 36.4; O2SAT 96
[2024-01-16 03:30] VITALS: PULSE 87; RESP 18; TEMP 36.6; O2SAT 98
--- NOTE | 2024-01-16 08:37 | DI.CT.S_ITS ---
PROCEDURE: CT LUMBAR SPINE W CON INDICATIONS: acute LE weakness TECHNIQUE: After the administration of intravenous Isovue contrast, 3 mm thick sections acquired through the levels of interest. Sagittal and coronal reformats were then constructed. For radiation dose reduction, the following was used: automated exposure control. COMPARISON: None. FINDINGS: Image quality: Excellent. Bones: There is normal lumbar spine alignment. No acute compression fracture or spondylolisthesis. Vertebral body heights are fairly well preserved. No suspicious bony lesions. T12-L1: Within normal limits. L1-2: Within normal limits. L2-3: Mild diffuse disc bulge and bilateral facet arthrosis is seen. No significant central canal stenosis. There is mild bilateral neural foraminal narrowing. L3-4: Broad-based disc bulge and bilateral facet arthrosis is seen with mild central canal stenosis and bilateral neural foraminal narrowing. L4-5: Broad-based disc bulge and bilateral facet arthrosis is seen. Mild central canal stenosis and moderate to severe left-sided neural foraminal narrowing and [id number] right-sided neural foraminal narrowing is seen. L5-S1: Diffuse disc bulge and bilateral facet arthrosis is seen causing mild central canal stenosis and moderate to severe right-sided neural foraminal narrowing and mild left-sided neural foraminal narrowing. Soft tissues: No gross paraspinous soft tissue abnormality. No area of abnormal contrast enhancement. Visualized bilateral kidneys show no stones or hydronephrosis. IMPRESSION: 1. No compression fracture or spondylolisthesis in lumbar spine. No suspicious bony lesions. 2. [id number] degenerative disc disease and bilateral facet arthrosis in mid to lower lumbar spine causing various degrees of central canal stenosis and bilateral neural foraminal narrowing more notably at L4-5 and L5-S1 levels as described above. Dictated by: Bandar Haney M.D. on 01/16/2024 at 11:57 Approved by: Bandar Haney M.D. on 01/16/2024 at 12:17
--- NOTE | 2024-01-16 08:38 | DI.CT.S_ITS ---
PROCEDURE: CT THORACIC SPINE W CON INDICATIONS: acute LE weakness TECHNIQUE: After the administration of intravenous Isovue contrast, 3 mm thick sections acquired through the levels of interest. Sagittal and coronal reformats were then constructed. For radiation dose reduction, the following was used: automated exposure control. COMPARISON: None. FINDINGS: Image quality: Excellent. Bones: Alignment of thoracic spine is anatomic. No acute compression fracture or spondylolisthesis. No suspicious bony lesions. No significant central canal stenosis is seen. Soft tissues: Very mild degenerative endplate changes are noted in mid to lower thoracic spine. No significant disc bulge, canal stenosis or neural foraminal narrowing. No abnormal paraspinous soft tissue mass or drainable fluid collection. No area of abnormal enhancement within the central spinal canal is seen. The visualized bilateral lung crow are clear. IMPRESSION: 1. Mild degenerative disc disease in mid to lower thoracic spine. No acute compression fracture or spondylolisthesis. 2. No significant disc bulge, canal stenosis or neural foraminal narrowing. 3. No area of abnormal contrast enhancement. No drainable fluid collection. Dictated by: Bandar Haney M.D. on 01/16/2024 at 12:11 Approved by: Bandar Haney M.D. on 01/16/2024 at 12:13
[2024-01-16] MEDS: buPROPion XL 150 MG TAB PO (09:25)
[2024-01-16] MEDS: CELECOXIB 200 MG CAPSULE PO (09:25)
[2024-01-16] MEDS: lisinopriL 5 MG TABLET 10 MG PO (09:25)
[2024-01-16] MEDS: DOXYCYCLINE HYCLATE 100 MG TABLET PO ×2 (09:25→20:49)
[2024-01-16] MEDS: ENOXAPARIN 40 MG/0.4 ML SYRINGE SUBCUT ×2 (09:26→20:49)
[2024-01-16] MEDS: SODIUM CHLORIDE 0.9% FLUSH 10 ML IV ×2 (09:26→20:50)
[2024-01-16] MEDS: AMLODIPINE 5 MG TABLET 10 MG PO (09:26)
[2024-01-16 09:28] LABS: Alanine Aminotransferase 52 IU/L (<50); Albumin 3.8 g/dL (3.5-5.0); Albumin Globulin Ratio 0.9 (1.0-2.8); Alkaline Phosphatase 122 U/L (38-126); Aspartate Aminotransferase 40 IU/L (17-59); Bilirubin Total 0.5 mg/dL (0.2-1.3); Blood Urea Nitrogen 15 mg/dL (9-20); Carbon Dioxide 28 mmol/L (22-32); Chloride 107 mmol/L (98-107); Creatine Kinase 195 U/L (55-170); Estimated Glomerular Filt Rate > 60 mL/min (>60); Globulin 4.2 g/dL (1.7-4.1); Glucose 131 mg/dL (70-100); HEMOLYSIS < 15 (0-50); Potassium 3.8 mmol/L (3.4-5.1); Sodium 138 mmol/L (137-145)
--- NOTE | 2024-01-16 09:52 | PC.NURSE ---
Patient is unable to ambulate at this time, he is a 3 person assist to stand. He has been more talkative with this RN. His and her sister are visiting and Dr. Powers into see them. She is working on getting patient transferred possibly to another facility. He is resting comfortably.
--- NOTE | 2024-01-16 10:32 | PT-IP ANOTE ---
Checked in on pt for treatment and he is currently unavailable as he is down for testing. Con't PT efforts.
--- NOTE | 2024-01-16 10:50 | PM.PN.1 ---
Subjective Subjective Interval history: The pt has no specific concerns this morning. He remains frustrated about his limited ability to move, and weakness. He denies any negative side effects since starting the Bupropion, but does report that he has woken in the night with some thoughts of self-harm. He is not certain if these began before or after he started the Bupropion. He reports that he knows he would never act on these thoughts. Exam Vital Signs (past 8 hours): - 01/16/24 03:30 Temperature 98 F Pulse Rate 87 Respiratory Rate 18 Pulse Oximetry 98 Oxygen Flow Rate 0 Oxygen Delivery Method Room Air Oxygen Flow Rate 0 Narrative Exam Narrative: Gen: NAD, sitting comfortably in bed, attentively listening to conversation CV: RRR, no murmurs Resp: clear to auscultation bilaterally Abd: soft, slightly distended, normoactive bowel sounds, nontender Ext: 2+ pitting edema right LE, 3+ pitting edema left LE without tenderness or significant edema Neuro: CN no gross deficits, 5/5 strength UE, sensation intact bilateral LE, able to move legs in bed without difficulty, 5/5 strength with plantar flexion Objective Labs 01/15/24 07:55 01/16/24 08:50 Labs: Laboratory Results - last 24 hr 01/16/24 08:50 Sodium 138 Potassium 3.8 Chloride 107 Carbon Dioxide 28 BUN 15 Creatinine 0.94 Estimated GFR > 60 BUN/Creatinine Ratio 16.0 Glucose 131 H Calcium 9.0 Total Bilirubin 0.5 AST 40 ALT 52 H Alkaline Phosphatase 122 Total Creatine Kinase 195 H Total Protein 8.0 Albumin 3.8 Globulin 4.2 H Albumin/Globulin Ratio 0.9 L [facility] Medical History (Updated 01/15/24 @ 11:24 by Danae Gross MD) Fatty infiltration of liver LFT elevation DM2 (diabetes mellitus, type 2) COVID-19 virus infection (~05/2022) Migraine headache Shoulder impingement syndrome Degenerative joint disease of knee Bilateral primary osteoarthritis of hip Facet joint disease of lumbosacral region Bilateral primary osteoarthritis of knee PTSD (post-traumatic stress disorder) Hyperlipidemia Hypertension TROY (obstructive sleep apnea) Morbid obesity Family History Mother Diabetes mellitus Hypertension Breast cancer Grandfather Myocardial infarction Social History household members: spouse Smoking Status: Former smoker alcohol intake: current Assessment & Plan Assessment & Plan narrative: 1) Left lower extremity cellulitis: Stable/improved. Blood cultures without growth. Venous doppler without evidence DVT. - On PO Doxycycline, continue for total 14 days antibiotic treatment 2) Weakness: New this hospitalization, at baseline ambulatory at times with cane. Now unable to rise without 3 person assist. Has not improved significantly despite ongoing PT while in the hospital. Today his reports that the morning the weakness acutely worsened, he was having difficulty speaking with slurring words and could not effectively get his fork to his mouth to feed himself. He seemed confused as well. This has since resolved, however does cause more concern for CVA, which previously was less of a concern due to no focal neurological deficits on exam other than quad weakness. Discussed case with Dr Mccord, Neurology, at [facility] in [place] this morning. She recommended imaging the remainder of his spine with CT. Considered delayed Guillian-[place], however symptoms have not really been ascending and no deficits in sensation. Could also consider critical illness myopathy, however no upper extremity symptoms and labs improving already when weakness is not. Her leading suspicion was CVA, with depression contributing heavily as well. - CT thoracic and lumbar spine today - Repeat blood cultures to ensure no infection - Pt needs MRI, however no inpatient MRIs in the state can be utilized due to pts body habitus. Unfortunately unable to do day transfer for outpatient open MRI. Hopeful for discharge to acute rehab so that MRI can be completed to help confirm diagnosis. - PT and nursing to continue working with pt aggressively for mobility 3) HTN: BP - Continue home medications Amlodipine, Prazosin - Continue Lisinopril 10mg daily 4) Constipation: Pt without BM for several days. Refusing Miralax when offered. - Continue to offer Miralax - Milk of Magnesia PRN - Dulcolax PRN 5) Depression: Likely complicating weakness. Acutely worsened since hospitalization. Some suicidal ideation, no intent to act on it as per patient. Question if related to initiation of Bupropion or not. - Will continue Bupropion for now, with close monitoring of SI 6) Hyperlipidemia: - D/C'ed home statin on 01/12, continue to hold - Should try to restart once CK in normal range, especially in light of possible CVA 7) DM Type 2: New diagnosis with A1C 6.7 - F/U as an outpatient 8) TROY: Evident during hospitalization - Outpatient formal sleep study 9) PTSD: Stable - Continue home Prazosin, Notriptyline Code: Full DVT ppx: Lovenox FEN: Diabetic diet Dispo: Discussed pts ongoing care with pt, his , and [id number]. Reviewed hospital course, discussion Neurologist, limitations in care due to pts body habitus. Spoke with [facility], , [facility] and none would accept the pt for transfer due to him not requiring a higher level of care and Neurology not feeling they had anything to add without MRI completed. Discussed care with care management, physical therapy, nursing. Care management will continue to work on placement in acute rehab. Did obtain contact information from [facility] regarding their inpatient acute rehab, and they will contact them regarding possibility of placement. Pt will continue to work with PT in the interim to hopefully make some progress. More than 120 minutes spent in direct care of this patient, discussion care with the family, reviewing/updating the chart, discussing with specialists and outside facilities for potential transfer, discussion with our care management team.
[2024-01-16 12:00] VITALS: BP 150/82; PULSE 100; RESP 18; TEMP 35.9; O2SAT 96
[2024-01-16] MEDS: BISACODYL 5 MG TABLET PO (12:16)
--- NOTE | 2024-01-16 12:34 | PC.NURSE ---
Patient states that he has not had a bowel movement for several days, he has been offered miralax and bowel medications daily and has refused them every time. phoned and states that patient has not had a bm for 11 days, she was informed that patient has been refusing his medication for this daily and sometimes twice a day. Dulcolax oral pill just given to patient and he took it. His and sister in law are very encouraging towards patient but he does seem more withdrawn and down today. Patient was more talkative yesterday. Patient just got up to the chair with 2 person max assist and walker. Physical therapy in room and other staff to help patient. He has perked up and is feeling better after being able to stand and pivot in the chair.
--- NOTE | 2024-01-16 12:56 | PT.IPTN ---
Current Diagnoses Type 2 diabetes mellitus without complications (01/07/24) Other obesity due to excess calories (01/07/24) Pure hypercholesterolemia, unspecified (01/07/24) Post-traumatic stress disorder, chronic (01/07/24) Essential (primary) hypertension (01/07/24) Fatty (change of) liver, not elsewhere classified (01/07/24) Cellulitis of left lower limb (01/07/24) Cellulitis, unspecified (01/07/24) Other specified abnormal findings of blood chemistry (01/07/24) Body mass index [BMI] 40.0-44.9, adult (01/07/24) Physical Therapy Treatment Note M2 PT-IP Current Condition Start: 01/08/24 09:40 Freq: NEEDED Status: Active Protocol: Document 01/08/24 11:28 MB (Rec: 01/08/24 12:08 MB [id number]) Physical Therapy Current Condition Current Condition Evaluation Date 01/08/24 Treatment Diagnosis LLE cellulitis M3 PT-IP Subjective Start: 01/08/24 09:40 Freq: NEEDED Status: Active Protocol: Document 01/16/24 12:20 MB (Rec: 01/16/24 12:55 MB [id number]) Subjective Physical Therapy Visit Type Type Treatment Note Visit Start Time 12:20 Visit Stop Time 12:50 Number of DESTINATION SPECIALIST Visits 0 Physical Therapy Visit Comments Patient Comments Pt is agreeable to PT. M4 PT-IP Mobility and Gait Start: 01/08/24 09:40 Freq: NEEDED Status: Active Protocol: Document 01/16/24 12:20 MB (Rec: 01/16/24 12:55 MB [id number]) PT-Bed Mobility Assessment Supine to Sit Supine to Sit Contact Guard Assistance,1 Person Assistance,Head of Bed Elevated,Bedrails Scooting Scooting to Edge of Bed Contact Guard Assistance PT-Transfer Assessment Sit to and From Stand Sit to and from Stand Moderate Assistance,2 Person Assistance,Use of Upper Extremities Equipment Transfer Assistive Device Gait Belt,Front Wheeled Walker Orthotic/Prosthetic Devices or Brace: No Transfers Transfer Destination Chair Transfer Technique Swap out from EOB to chair Comments Mobility Comments Two person assist with STS x3: blocking B knees to promote knee and hip extension and with with forward lean, decreased glute firing and ability to shift weight posterior. Pt with hands on walker and therapists blocking walker and pt's legs. Standing attempts grossly 30 sec to 1 min and pt is able to unlock right knee and left knee x2-3 reps, two sets with ongoing +2 min to mod A in RW. PT-Balance Assessment Comments Other Balance Tests/Deviations/Treatment Sitting balance EOB with UE : support and superv to CGA today M5 PT-IP Objective Assessments Start: 01/08/24 09:40 Freq: NEEDED Status: Active Protocol: Document 01/15/24 13:22 MB (Rec: 01/15/24 15:15 MB [id number]) Strength Comments Strength Comments B shoulder flexion and abduction, B elbow flexion and extension 5/5 today. Right tape making machine operator normal and left tape making machine operator mildly weak at 4/5. LLE MMT deferred in setting of cellulitis. Right ankle DF and great toe extension 5/5 in hook lying. B HS normal in the bed. Sitting, lacks full knee extension B with strength grossly 2+/5 B quads. Pt reports history of left quad tear and surgery and right quad injury but he is normally functional, walking, uses cane. Coordination Assessment Assessment Coordination Comments B finger to nose with bradykinesia and some dysmetria. M6 PT-IP Treatment Start: 01/08/24 09:40 Freq: NEEDED Status: Active Protocol: Document 01/16/24 12:20 MB (Rec: 01/16/24 12:55 MB [id number]) Physical Therapy Treatment Exercises Exercises Ankle Pumps,Gluteal Sets,Quad Sets,Heel Slides Education Education Provided Safety M7 PT-IP Assessment and Plan Start: 01/08/24 09:40 Freq: NEEDED Status: Active Protocol: Document 01/16/24 12:20 MB (Rec: 01/16/24 12:55 MB [id number]) PT Summary Assessment and Plan Potential Rehabilitation Potential Good Status of Condition at Evaluation Evolving Summary Impairments Pain,ROM,Strength,Balance,Bed Mobility,Transfers,Gait, Activity Tolerance Progress Towards Goals Slow Progress due to Medical Issues,Slow Progress due to Activity Tolerance Assessment Summary MMT performed sitting EOB again today and right great toe extension and DF 5/5, B quads 2+/5, right hip flexors 4-/5 and left hip flexors 3-/5 . Pt makes progress with two person assist for STS reps and standing time up to 1' and able to unlock knees with support from both sides and UE support on walker. Goals Bed Mobility Goal Independent Transfer Goal Independent,Minimal Assistance ,Front Wheeled Walker Gait Goal Independent,Front Wheel Walker Gait Distance 100 Other Goals Pt will ascend and descend 5 steps with 1-2 rails or 1 rail and LRAD and mod I to allow safe home entry. Days to Meet Goals 5 Frequency of Treatment Frequency Of Treatment Once a Day Treatment Plan Physical Therapy Treatment Plan Bed Mobility Training,Transfer Training,Gait Training, Therapeutic Exercise,Balance Retraining,Discharge Planning Weight Bearing Status Weight Bearing Status Weight Bear as Tolerated Recommendations To Nursing Amount of Assist Needed Mechanical Lift Discharge Recommendations PT Discharge Recommendations SNF vs Acute Rehab Transportation Needs at Discharge Wheelchair/Cabulance
--- NOTE | 2024-01-16 15:50 | CM.DPNOTE ---
DCP Note FILM COLOR TESTER reviewed EMR. FILM COLOR TESTER communicated often with Dr. Powers throughout the day. Current situation is as follows- SNFs unwilling to accept his 3PA/onur needs at this time. Priya reports [facility]/ either don't have bed availability or do not believe pt's needs indicated a higher level of care at this time for MRI/neuro work up. Provider hopeful for acute rehab placement and OP MRI f/u or LTAC? Per provider report, nothing found on CT of spine, at this point provider believes potential stroke. FILM COLOR TESTER spoke with Elida at [facility] (p [phone]) and Arthur at [facility] acute rehab ([phone]). both unable to accept pt without MRI/diagnosis. [facility]OR [facility] ([phone]). Notification number is [id number]. FILM COLOR TESTER lvm with [facility] social media community manager Heather Sommers ([phone]) at approx 0900, no response as of 1600. FILM COLOR TESTER lvm with [facility] ([phone][facility] ([facility]?) at approx 0900, no response as of 1600. FILM COLOR TESTER spoke with Kenneth Jane CM (p [phone]) mult times throughout the day. Lucinda reports pt has auth for SNF. Per previous CM notes, unable to locate accepting SNF at this time due to pt's need/bed availability. Lucinda reports [facility] provider will review case for peer to peer to inquire about need for transferring to higher level of care/facility with appropriate MRI. no update from them as of 1600. Agreeeable to get one time agreement with [facility] or [facility] due to pt's rejections. Per PT/OT/RN, pt 2PA today to get to chair,. mobilized much better than yesterday. FILM COLOR TESTER met with pt, reviewed above information/barriers to discharge/placement. Pt reported verbal understanding. Pt is hopeful to get stronger to dc home. Pt preference for placement is as close to home as possible. [facility]. Pt overall much more alert/chatty with this FILM COLOR TESTER then previously. FILM COLOR TESTER spoke with Jacquelin at [facility]- no bed availability at this time. FILM COLOR TESTER will pursue re-reviews from [facility] (limited bed availability), [facility], [facility], and [facility] in morning. FILM COLOR TESTER will continue to pursue [facility] support as well as [facility] peer to peer input after evaluation. KAMLESH Mane
[2024-01-16 20:33] VITALS: BP 134/75; PULSE 66; RESP 20; TEMP 36.4; O2SAT 96
[2024-01-17 08:39] VITALS: BP 138/81; PULSE 91; RESP 16; TEMP 36.3; O2SAT 96
--- NOTE | 2024-01-17 09:05 | PM.PN.1 ---
Subjective Subjective Date Patient Seen: 01/17/24 Interval history: The pt was very encouraged by his increased mobility yesterday, and states this morning he feels stronger. The pt is concerned about potentially increased welling in his right foot. He denies any chest pain or SOB. Exam Vital Signs (past 8 hours): - 01/17/24 08:39 Temperature 97.3 F L Pulse Rate 91 H Respiratory Rate 16 Blood Pressure 138/81 Pulse Oximetry 96 Oxygen Flow Rate 0 Oxygen Delivery Method Room Air Oxygen Flow Rate 0 Narrative Exam Narrative: Gen: NAD, sitting comfortably in bed, more alert and engaging than previous encounters CV: RRR, no murmurs Resp: clear to auscultation bilaterally Abd: soft, slightly distended, normoactive bowel sounds, nontender Ext: 2+ pitting edema right LE, 3+ pitting edema left LE without tenderness or significant edema Objective Labs 01/15/24 07:55 01/16/24 08:50 Labs: Laboratory Results - last 24 hr 01/16/24 08:50 Sodium 138 Potassium 3.8 Chloride 107 Carbon Dioxide 28 BUN 15 Creatinine 0.94 Estimated GFR > 60 BUN/Creatinine Ratio 16.0 Glucose 131 H Calcium 9.0 Total Bilirubin 0.5 AST 40 ALT 52 H Alkaline Phosphatase 122 Total Creatine Kinase 195 H Total Protein 8.0 Albumin 3.8 Globulin 4.2 H Albumin/Globulin Ratio 0.9 L PFSH Medical History (Updated 01/15/24 @ 11:24 by Danae Gross MD) Fatty infiltration of liver LFT elevation DM2 (diabetes mellitus, type 2) COVID-19 virus infection (~05/2022) Migraine headache Shoulder impingement syndrome Degenerative joint disease of knee Bilateral primary osteoarthritis of hip Facet joint disease of lumbosacral region Bilateral primary osteoarthritis of knee PTSD (post-traumatic stress disorder) Hyperlipidemia Hypertension TROY (obstructive sleep apnea) Morbid obesity Family History Mother Diabetes mellitus Hypertension Breast cancer Grandfather Myocardial infarction Social History household members: spouse Smoking Status: Former smoker alcohol intake: current Assessment & Plan Assessment & Plan narrative: 1) Left lower extremity cellulitis: Stable/improved. Blood cultures without growth. Venous doppler without evidence DVT. - On PO Doxycycline, continue for total 14 days antibiotic treatment - IV Lasix 20mg today to help with persistent swelling, not notably increased from day prior 2) Weakness: New this hospitalization, at baseline ambulatory at times with cane. Yesterday his reported that the morning the weakness acutely worsened, he was having difficulty speaking with slurring words and could not effectively get his fork to his mouth to feed himself. He seemed confused as well. This has since resolved, however does cause more concern for CVA, which previously was less of a concern due to no focal neurological deficits on exam other than quad weakness. Attempted to consult the yesterday, however they declined consultation. Discussed case with Dr Mccord, Neurology, at [facility] in [place] yesterday. She recommended imaging the remainder of his spine with CT. Considered delayed Guillian-[place], however symptoms have not really been ascending and no deficits in sensation. Could also consider critical illness myopathy, however no upper extremity symptoms and labs improving already when weakness is not. Her leading suspicion was CVA, with depression contributing heavily as well. Pt did have improvement in mobility yesterday. CT thoracic and lumbar spine yesterday without acute findings. - Pt needs MRI, however no inpatient MRIs in the state can be utilized due to pts body habitus. Unfortunately unable to do day transfer for outpatient open MRI. Hopeful for discharge to acute rehab so that MRI can be completed to help confirm diagnosis. - PT and nursing to continue working with pt aggressively for mobility 3) HTN: BP acceptable range - Continue home medications Amlodipine, Prazosin - Continue Lisinopril 10mg daily 4) Constipation: Pt without BM for several days. - Continue to offer Miralax - Milk of Magnesia PRN - Dulcolax PRN 5) Depression: Likely complicating weakness. Acutely worsened since hospitalization. Some suicidal ideation, no intent to act on it as per patient. Question if related to initiation of Bupropion or not. - Will continue Bupropion for now, with close monitoring of SI 6) Hyperlipidemia: - D/C'ed home statin on 01/12, continue to hold - Should try to restart once CK in normal range, especially in light of possible CVA 7) DM Type 2: New diagnosis with A1C 6.7 - F/U as an outpatient 8) TROY: Evident during hospitalization - Outpatient formal sleep study 9) PTSD: Stable - Continue home Prazosin, Notriptyline Code: Full DVT ppx: Lovenox FEN: Diabetic diet Dispo: Spoke with [facility], , [facility] yesterday and none would accept the pt for transfer due to him not requiring a higher level of care and Neurology not feeling they had anything to add without MRI completed. Care management will continue to work on placement in acute rehab vs SNF (ideally acute rehab). [facility], and they will contact them regarding possibility of placement. Pt will continue to work with PT in the interim to hopefully make some progress.
[2024-01-17] MEDS: SODIUM CHLORIDE 0.9% FLUSH 10 ML IV ×2 (10:00→20:31)
[2024-01-17] MEDS: buPROPion XL 150 MG TAB PO (10:15)
[2024-01-17] MEDS: AMLODIPINE 5 MG TABLET 10 MG PO (10:15)
[2024-01-17 10:16] VITALS: BP 138/81; PULSE 91
[2024-01-17] MEDS: DOXYCYCLINE HYCLATE 100 MG TABLET PO ×2 (10:16→20:30)
[2024-01-17] MEDS: lisinopriL 5 MG TABLET 10 MG PO (10:16)
[2024-01-17] MEDS: CELECOXIB 200 MG CAPSULE PO (10:16)
[2024-01-17] MEDS: polyethylene glycoL 3350 17 GM POWD.PACK PO (10:17)
[2024-01-17] MEDS: ENOXAPARIN 40 MG/0.4 ML SYRINGE SUBCUT ×2 (10:17→20:29)
--- NOTE | 2024-01-17 11:10 | PT.IPTN ---
Current Diagnoses Type 2 diabetes mellitus without complications (01/07/24) Other obesity due to excess calories (01/07/24) Pure hypercholesterolemia, unspecified (01/07/24) Post-traumatic stress disorder, chronic (01/07/24) Essential (primary) hypertension (01/07/24) Fatty (change of) liver, not elsewhere classified (01/07/24) Cellulitis of left lower limb (01/07/24) Cellulitis, unspecified (01/07/24) Other specified abnormal findings of blood chemistry (01/07/24) Body mass index [BMI] 40.0-44.9, adult (01/07/24) Physical Therapy Treatment Note M2 PT-IP Current Condition Start: 01/08/24 09:40 Freq: NEEDED Status: Active Protocol: Document 01/08/24 11:28 MB (Rec: 01/08/24 12:08 MB [id number]) Physical Therapy Current Condition Current Condition Evaluation Date 01/08/24 Treatment Diagnosis LLE cellulitis M3 PT-IP Subjective Start: 01/08/24 09:40 Freq: NEEDED Status: Active Protocol: Document 01/17/24 13:07 TS (Rec: 01/17/24 13:23 TS [id number]) Subjective Physical Therapy Visit Type Type Treatment Note Visit Start Time 11:10 Visit Stop Time 11:50 Number of REVENUE AGENT Visits 1 Physical Therapy Visit Comments Patient Comments Pt found in bed, feels he is improving, is agreeable to PT. M4 PT-IP Mobility and Gait Start: 01/08/24 09:40 Freq: NEEDED Status: Active Protocol: Document 01/17/24 13:07 TS (Rec: 01/17/24 13:23 TS [id number]) PT-Bed Mobility Assessment Supine to Sit Supine to Sit Standby Assistance,Head of Bed Elevated,Bedrails Scooting Scooting to Edge of Bed Standby Assistance PT-Transfer Assessment Sit to and From Stand Sit to and from Stand Moderate Assistance,2 Person Assistance,Use of Upper Extremities Equipment Transfer Assistive Device Gait Belt,Front Wheeled Walker Orthotic/Prosthetic Devices or Brace: No Transfers Transfer Destination Chair Transfer Technique Stand Step Pivot Transfer Ability Level of Assist Moderate Assistance,2 Person Assistance Comments Mobility Comments Supine to sit SBA with HOB elevated and BUE support with use of handrails. pt sat EOB and maintained midline with UE support. He performed STS x2 from bed ModAx2, pt stood ~ 1min each time with FWW. He performed stand step pivot to chair ModA x2 with use of FWW, required some cueing for step sequencing. Pt stood from chair ModAx2 with FWW and cues for sequencing. Pt was left in chair, all needs met. Gait Assessment Gait Gait Assistance Required: Moderate Assistance Distance (Feet) 3 Able to Maintain Weight Bearing Status Yes During Gait Assistive Devices Assistive Device Front Wheeled Walker Gait Deviations General Gait Pattern Antalgic,Decreased Stride Length,Decreased Feet Clearance,Flexed Trunk,Step-to Gait Factors Limiting Gait Function Factors Limiting Gait Function Decreased Sensation,Decreased Strength,Pain,Poor Balance PT-Balance Assessment Sitting Balance and Reactions Static Sitting Balance Ability Good Dynamic Sitting Balance Ability Fair Standing Balance and Reactions Static Standing Balance Ability Fair Dynamic Standing Balance Ability Fair Device Used FWW M5 PT-IP Objective Assessments Start: 01/08/24 09:40 Freq: NEEDED Status: Active Protocol: Document 01/15/24 13:22 MB (Rec: 01/15/24 15:15 MB [id number]) Strength Comments Strength Comments B shoulder flexion and abduction, B elbow flexion and extension 5/5 today. Right chemical process operator normal and left chemical process operator mildly weak at 4/5. LLE MMT deferred in setting of cellulitis. Right ankle DF and great toe extension 5/5 in hook lying. B HS normal in the bed. Sitting, lacks full knee extension B with strength grossly 2+/5 B quads. Pt reports history of left quad tear and surgery and right quad injury but he is normally functional, walking, uses cane. Coordination Assessment Assessment Coordination Comments B finger to nose with bradykinesia and some dysmetria. M6 PT-IP Treatment Start: 01/08/24 09:40 Freq: NEEDED Status: Active Protocol: Document 01/17/24 13:07 TS (Rec: 01/17/24 13:23 TS [id number]) Physical Therapy Treatment Education Education Provided Safety M7 PT-IP Assessment and Plan Start: 01/08/24 09:40 Freq: NEEDED Status: Active Protocol: Document 01/17/24 13:07 TS (Rec: 01/17/24 13:23 TS [id number]) PT Summary Assessment and Plan Potential Rehabilitation Potential Good Summary Impairments Pain,ROM,Strength,Balance,Bed Mobility,Transfers,Gait, Activity Tolerance Progress Towards Goals Progressing Toward Goals Assessment Summary Harrison is making progress with his mobility. He is SBA for all bed mobility with HOB elevated and with use of handrails. He performed STS x2 ModA from bed and x1 from lower surface of chair with FWW. He progressed to stand step pivot transfer to chair with FWW and ModA x2 for safety. He continues to demonstrate quad weakness and has some buckling on LLE. PT at this time will continue to recommend SNF vs Acute. Pt is hopeful to improve enough to go home. Goals Bed Mobility Goal Independent Transfer Goal Independent,Minimal Assistance ,Front Wheeled Walker Gait Goal Independent,Front Wheel Walker Gait Distance 100 Other Goals Pt will ascend and descend 5 steps with 1-2 rails or 1 rail and LRAD and mod I to allow safe home entry. Days to Meet Goals 5 Frequency of Treatment Frequency Of Treatment Once a Day Treatment Plan Physical Therapy Treatment Plan Bed Mobility Training,Transfer Training,Gait Training, Therapeutic Exercise,Balance Retraining,Discharge Planning Weight Bearing Status Weight Bearing Status Weight Bear as Tolerated Recommendations To Nursing Amount of Assist Needed 2 Person Assist,Mechanical Lift Discharge Recommendations PT Discharge Recommendations SNF vs Acute Rehab Transportation Needs at Discharge Wheelchair/Cabulance
--- NOTE | 2024-01-17 11:50 | OT.IP.TRT ---
Current Diagnoses Type 2 diabetes mellitus without complications (01/07/24) Other obesity due to excess calories (01/07/24) Pure hypercholesterolemia, unspecified (01/07/24) Post-traumatic stress disorder, chronic (01/07/24) Essential (primary) hypertension (01/07/24) Fatty (change of) liver, not elsewhere classified (01/07/24) Cellulitis of left lower limb (01/07/24) Cellulitis, unspecified (01/07/24) Other specified abnormal findings of blood chemistry (01/07/24) Body mass index [BMI] 40.0-44.9, adult (01/07/24) Occupational Therapy Treatment Note M2 OT-IP Current Condition Start: 01/11/24 11:25 Freq: Status: Active Protocol: Document 01/11/24 11:26 [facility] (Rec: 01/11/24 11:51 [facility] [id number]) Occupational Therapy Current Condition Current Condition Evaluation Date 01/11/24 Treatment Diagnosis LLE cellultis, weakness Diagnosis Onset Date 01/07/24 M3 OT- IP Subjective and Pain Start: 01/11/24 11:25 Freq: Status: Active Protocol: Document 01/17/24 11:25 [facility] (Rec: 01/17/24 13:29 [facility] [id number]) OT- Subjective Occupational Therapy Visit Type Type Treatment Note Visit Start Time 11:25 Visit Stop Time 11:50 Occupational Therapy Visit Comments Patient Comments Pt agreed to get up and try to transfer to the recliner. Patient/Caregiver Goals TO go home. OT Pain Assessment Pain When Pain Assessed During Mobility Pain Present Pain Present Pain Reported M4 OT- IP ADL's Start: 01/11/24 11:25 Freq: Status: Active Protocol: Document 01/17/24 11:25 [facility] (Rec: 01/17/24 13:29 [facility] [id number]) OT [id number] Comments OT Self-Feeding Comments not meal time OT ADL-Grooming General Evaluation Grooming Ability Independent Comments OT Grooming Comments Pt able to do after set-up. OT ADL-Oral Care General Eval Oral Care Ability Independent OT ADL-Dressing General Eval Lower Body Dressing Ability Total Assistance Areas Needing Assistance Socks OT ADL-Toileting Comments OT Toileting Comments Pt states has been using the urinal in bed. OT ADL-Bathing Comments OT Bathing Comments not performed M5 OT- IP IADL's Start: 01/11/24 11:25 Freq: Status: Active Protocol: Document 01/11/24 11:26 [facility] (Rec: 01/11/24 11:51 [facility] [id number]) OT-Instrumental Activities of Daily Living Deficits IADL Deficits Identified Deficits Home Safety Awareness Awareness of Need for Assistance at Home Good Awareness Money Management Money Management Comments Pt will need assist. Meal Preparation Meal Preparation Comments Pt will need assist. Shop Assistant Shop Assistant Comments Pt will need assist. M6 OT- IP Functional Cognition Start: 01/11/24 11:25 Freq: Status: Active Protocol: Document 01/17/24 11:25 [facility] (Rec: 01/17/24 13:29 [facility] [id number]) Cognitive Factors Limiting Selfcare Function Cognitive Ability Level of Alertness Alert Attention Span Ability Capable of Focused Attention, Capable of Sustained Attention Ability to Follow Commands Able to Follow One Step Commands Cognitive Comments Cognitive Assessment Comments Pt able to joke around with therapists, better initiation to move, and motivated to get better to go home. M7 OT- IP Mobility and Balance Start: 01/11/24 11:25 Freq: Status: Active Protocol: Document 01/17/24 11:25 [facility] (Rec: 01/17/24 13:29 [facility] [id number]) OT-Transfer Assessment Sit to and From Stand Sit to and from Stand Moderate Assistance,2 Person Assistance Transfers Transfer Ability Moderate Assistance,2 Person Assistance Devices Transfer Assistive Devices Gait Belt,Front Wheeled Walker Comments Mobility Comments MODA x2 to stand to FWW and able to stand for 1 minute, very to tighten his legs and heavy use of the hands on the FWW. MODA X 2 to transfer to the recliner with assist for balance and to guide the FWW. OT- Balance Assessment Sitting Balance and Reactions Static Sitting Balance Ability Good Standing Balance and Reactions Static Standing Balance Ability Poor Dynamic Standing Balance Ability Poor M8 OT- IP Objective Assessments Start: 01/11/24 11:25 Freq: Status: Active Protocol: Document 01/11/24 11:26 [facility] (Rec: 01/11/24 11:51 [facility] [id number]) OT Gross Range of Motion Upper Extremity Range of Motion ROM Impairments grossly WFL but limited at end ROM OT Strength Comments Strength Comments RUE 4/5 to 5/5 and LUE 5/5 OT- Coordination Assessment Upper Extremity Finger Tapping Test Bilateral UE Impaired Comments Coordination Comments Mildly off for both fingers to nose. OT Sensation Assessment Comments Summary Comments Intact for light touch. M9 OT- IP Assessment and Plan Start: 01/11/24 11:25 Freq: Status: Active Protocol: Document 01/17/24 11:25 [facility] (Rec: 01/17/24 13:29 [facility] [id number]) OT Summary Assessment and Plan Potential Rehabilitation Potential Good Analytic Complexity at Evaluation High Summary OT Impairments Pain,Range of Motion,Strength, Balance,Functional Cognition, Functional Mobility,Grooming, Dressing,Toileting,Bathing, Toilet Transfers,Shower Transfers,Activity Tolerance Progress Towards Goals Progressing Toward Goals Assessment Summary Pt able to stand with MODA X 2 to FWW and transfer to the recliner today. Pt able to stand with the FWW for on minute with CGA x2 for safety. Pt still would benefit skilled rehab versus possible acute rehab as pt is able to tolerate more now and very motivated to go home. Goals Self-Feeding Goal Independent Grooming Goal Independent Dressing Goal Independent Toileting Goal Independent Bathing Goal Independent Toilet Transfer Goal Independent Shower Transfer Goal Independent Days to Meet Goals 29 Frequency of Treatment Frequency Of Treatment Once a Day Treatment Plan OT Treatment Plan ADL Training,Functional Cognition Training,Functional Mobility,Patient/Family Education,Discharge Planning Other Treatment Recommendations and Next redo SLUMS Treatment Focus Discharge Recommendations OT Discharge Recommendations SNF vs Acute Rehab Transportation Needs at Discharge Wheelchair/Cabulance
--- NOTE | 2024-01-17 15:40 | CM.DPNOTE ---
DCP Note PRESS SETTER reviewed EMR. NOE Day sent updated clinicals to [facility] for review. [facility], [facility], and [facility] all deny pt for lack of beds/lack of ability to meet his current needs. PRESS SETTER lvm with Glory Schneider approx 9am, no response as of 1529. PRESS SETTER spoke with [facility] Talishaallison ([phone]) multiple times throughout the day. Continues to follow closely and offer to assist in SNF placement search. Per COMPOSING MACHINE OPERATOR/TENDER Scotty, able to mobilize better today. able to transfer to chair. PRESS SETTER Danielle kindly agreed to reach out to [facility] In acute rehab on this PRESS SETTER behalf. Intake/admissions [facility] (p [phone]/f [phone]/email ) agreed to review. NOE Day kindly agreed to fax and email clinicals for review. PRESS SETTER spoke with intake[facility]admissions [facility]. She reports bed availability, they would assist in arranging cabulance transport, and their teams round at 11:30am, will give answer tomorrow about acceptance. PRESS SETTER updated provider. Excited by acute rehab possibility. PRESS SETTER updated pt. Hopeful to dc to acute rehab tomorrow. Report he will pass it along to his . Plan: acceptance at [facility] in[facility] rehab pending. CM team will continue to follow closely. KAMLESH Mane
[2024-01-17 16:00] VITALS: BP 132/92; PULSE 88; RESP 18; TEMP 36.1; O2SAT 99
[2024-01-17] MEDS: FUROSEMIDE 20 MG/2 ML VIAL IV (16:38)
[2024-01-17 16:51] VITALS: BP 132/92; PULSE 88; RESP 18; TEMP 36.1; O2SAT 99
[2024-01-17 18:23] LABS: ANA Screen, IFA Negative (.)
[2024-01-17 20:01] VITALS: BP 127/70; PULSE 77; RESP 14; TEMP 35.6; O2SAT 99
[2024-01-18 04:52] LABS: Aldolase 14.9 U/L (3.3-10.3)
[2024-01-18 05:31] VITALS: BP 138/75; PULSE 76; RESP 19; TEMP 36.4; O2SAT 97
[2024-01-18 08:00] VITALS: BP 131/74; PULSE 79; RESP 18; TEMP 36.3; O2SAT 96
--- NOTE | 2024-01-18 08:50 | P.DS_ITS ---
History of Present Illness History of Present Illness Date Patient Seen: 01/18/24 Chief complaint: left leg pain/swelling- cellulitis last week Narrative: This is a very pleasant 53-year-old male who is under the primary care of Dr. Stein. Presents to the ER with progressive worsening redness and swelling of his left lower extremity. He went to the walk-in clinic on December 29 was treated with a 7 day round of Keflex and his condition has worsened. He was found to have a leukocytosis and significant swelling and pain when he was seen in the ER was admitted for further treatment. Vancomycin treatment was initiated. Patient denies any injury or wound but did say he was scratching his left foot prior to this happening because he thinks he might have a little bit of tinea pedis. Otherwise no change in his history Otherwise he denies systemic complaints He had a Doppler done in the ER which was negative and 1 in the walk-in clinic that was negative as well He denies fevers chills, nausea or vomiting. In September he did a left quadriceps tendon tear and had it surgically fixed. He has been recovering well from this. Past medical history: 1. Migraine headaches 2. 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 Low back pain 4. Hyperlipidemia 5. Hypertension 6. Obstructive sleep apnea 7. Morbid obesity 8. Previous smoker Reviewed medications Allergies no known drug allergies Past surgical history: September 2023 left quadriceps tendon repair Family history: Mom had breast cancer and type 2 diabetes Grandfather had acute CT Social history: Patient is , he is 2 children and 3 adopted children so total of 5 children. Lives in [place] with his life. 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 Health related behavior: Previous patient was a smoker Patient does not use illicit drugs or alcohol on a regular basis Twelve point review of systems is otherwise negative Negative for any GI symptoms or No chest pain or shortness a breath No rashes Discharge Providers Provider Date of admission: 01/07/24 14:54 Discharge Date: 01/18/24 Primary care physician: Maddi Powers MD Consults: 01/07/24 17:16 Consult to Physical Therapy Evaluate & Treat Comment: Physician Instructions: Evaluate and Treat 01/11/24 07:59 Consult to Occupational Therapy Evaluate & Treat Comment: Physician Instructions: Evaluate and treat 01/12/24 15:39 Consult to Speech Therapy Evaluate & Treat Comment: Physician Instructions: Evaluate and treat Discharge provider: Maddi Powers MD Summary Hospital Course Discharge Diagnosis: Cellulitis Lower extremity weakness, suspected CVA Hypertension DM type 2 Constipation Depression Hyperlipidemia PTSD TROY Hospital Course: The pt presented with significant left lower extremity cellulitis, having failed outpatient treatment with Keflex. He was initiated on Vancomycin. His cellulitis gradually improved. He was transitioned to PO Doxycycline after 7 days. The pt received multiple doses of IV Lasix to help with associated LE swelling associated with his cellulitis. He will complete 14 days of antibiotics total with doxycycline after discharge. On hospital day 2 the pt started to have increasing weakness. On hospital day 3 he was unable to ambulate or stand. This was initially thought to be due to deconditioning, with the pt being extremely sedentary at home for 10 days prior to presentation to the hospital as well, in addition to his morbid obesity. The weakness did not initially improve with physical therapy, however. Head/neck CT and CTA were unrevealing. CT of his thoracic and lumbar spine were also unrevealing, showing only chronic changes. Lab work showed elevated CK, mildly elevated LDH, and very minimally elevated liver enzymes. His statin was held due to elevated CK. U/S of liver revealed fatty liver disease. His CK trended back down to normal. There was concern over a potential CVA, as the day the pt developed severe weakness as per family he also was slurring his words, seemed confused, and was having a hard time feeding himself. MRI unfortunately could not be obtained due to the pts body habitus. We would recommend open MRI be obtained as an outpatient. Depression was also likely contributing to the pts difficulty walking, with somatization. He was initiated on Bupropion, which he was tolerating well at the time of discharge. The pt did make improvements with PT the last 2-3 days prior to d/c. While in the hospital, the pt briefly had a mild wheeze. CXR was obtained, which showed cardiomegaly. Echo was obtained that was reassuring. He never had hypoxia, SOB, or chest pain. His breathing was stable and clear at discharge. Status at Discharge Cognitive/behavioral status at discharge: oriented Overall status at discharge: patient is not back to baseline Exam Vital Signs (past 8 hours): - 01/18/24 05:31 Temperature 97.6 F Pulse Rate 76 Respiratory Rate 19 Blood Pressure 138/75 Pulse Oximetry 97 Oxygen Flow Rate 0 Oxygen Delivery Method Room Air Oxygen Flow Rate 0 Narrative Exam Narrative: Gen: NAD, sitting comfortably in bed, more alert and engaging than previous encounters CV: RRR, no murmurs Resp: clear to auscultation bilaterally Abd: soft, slightly distended, normoactive bowel sounds, nontender Ext: 2+ pitting edema right LE, 3+ pitting edema left LE without tenderness or significant edema Objective Labs 01/15/24 07:55 01/16/24 08:50 Labs: Laboratory Results - last 24 hr 01/13/24 11:25 Aldolase 14.9 H Anti-Nuclear Antibody Negative [facility] Medical History (Updated 01/15/24 @ 11:24 by Danae Gross MD) Fatty infiltration of liver LFT elevation DM2 (diabetes mellitus, type 2) COVID-19 virus infection (~05/2022) Migraine headache Shoulder impingement syndrome Degenerative joint disease of knee Bilateral primary osteoarthritis of hip Facet joint disease of lumbosacral region Bilateral primary osteoarthritis of knee PTSD (post-traumatic stress disorder) Hyperlipidemia Hypertension TROY (obstructive sleep apnea) Morbid obesity Family History Mother Diabetes mellitus Hypertension Breast cancer Grandfather Myocardial infarction Social History household members: spouse Smoking Status: Former smoker alcohol intake: current Discharge Plan Discharge Plan Patient Disposition: Xfer Inpatient Rehab Other facility: [facility] acute inpatient rehab Discharge orders & Medications Prescriptions: New acetaminophen 325 mg Tablet 650 mg PO Q6H PRN (Reason: Fever/Mild Pain (1-3)) Qty: 30 0RF bisacodyl 5 mg Tablet,Delayed Release (Dr/Ec) 5 mg PO BID PRN (Reason: Constipation) Qty: 30 0RF polyethylene glycol 3350 17 gram Powder In Packet 17 g PO BID Qty: 30 0RF lisinopril 5 mg Tablet 10 mg PO DAILY Qty: 30 0RF doxycycline hyclate 100 mg Tablet 100 mg PO BID Qty: 5 0RF bupropion HCl [Wellbutrin XL] 150 mg Tablet Extended Release 24 Hr 150 mg PO DAILY Qty: 30 0RF Continued (DME) Disabled Parking See Rx Instructions .ROUTE .MEDSUPPLY Qty: 1 0RF Rx Instructions: I find this patient to be medical disabled and qualified for Disabled Parking as indicated, and signed, on the and the Accompanying Disabled Parking Application for Individuals. albuterol sulfate 90 mcg/actuation HFA aerosol inhaler 2 puff INHALATION Q6H PRN (Reason: shortness of breath or wheezing) Qty: 18 0RF ibuprofen 600 mg tablet 600 mg PO Q6H PRN (Reason: pain) Qty: 60 0RF celecoxib [Celebrex] 200 mg capsule 200 mg PO QAM prazosin 1 mg capsule 1 mg PO BEDTIME PRN (Reason: ptsd/insomnia) amlodipine 10 mg tablet 10 mg PO QAM nortriptyline 10 mg capsule 10 mg PO BEDTIME PRN (Reason: Insomnia) rosuvastatin 20 mg tablet 20 mg PO QAM diclofenac sodium 1 % gel 2 g TOP QID PRN (Reason: Pain (Scale Score 4-6)) Follow up/Referrals: Maddi Powers MD [Primary Care Provider] - Diet/Activity/Treatments Diet: Diet as Tolerated and Carb-consistent/Diabetic Liquid consistency: Normal/Thin Food texture: Regular Special Rehabilitation Services Reason for rehabilitation: Therapy following stroke and Recovery r/t decondition Rehab type: Physical therapy Discharge Data Primary Care Provider: Maddi Powers
[2024-01-18 08:51] LABS: Creatine Kinase 119 U/L (55-170)
[2024-01-18 09:05] VITALS: BP 131/74; PULSE 79
[2024-01-18] MEDS: polyethylene glycoL 3350 17 GM POWD.PACK PO (09:05)
[2024-01-18] MEDS: lisinopriL 5 MG TABLET 10 MG PO (09:05)
[2024-01-18] MEDS: ENOXAPARIN 40 MG/0.4 ML SYRINGE SUBCUT ×2 (09:06→20:47)
[2024-01-18] MEDS: CELECOXIB 200 MG CAPSULE PO (09:06)
[2024-01-18] MEDS: AMLODIPINE 5 MG TABLET 10 MG PO (09:06)
[2024-01-18] MEDS: buPROPion XL 150 MG TAB PO (09:07)
[2024-01-18] MEDS: DOXYCYCLINE HYCLATE 100 MG TABLET PO ×2 (09:07→20:47)
[2024-01-18] MEDS: SODIUM CHLORIDE 0.9% FLUSH 10 ML IV ×2 (09:07→20:47)
--- NOTE | 2024-01-18 09:15 | PT.IPTN ---
Current Diagnoses Type 2 diabetes mellitus without complications (01/07/24) Other obesity due to excess calories (01/07/24) Pure hypercholesterolemia, unspecified (01/07/24) Post-traumatic stress disorder, chronic (01/07/24) Essential (primary) hypertension (01/07/24) Fatty (change of) liver, not elsewhere classified (01/07/24) Cellulitis of left lower limb (01/07/24) Cellulitis, unspecified (01/07/24) Other specified abnormal findings of blood chemistry (01/07/24) Body mass index [BMI] 40.0-44.9, adult (01/07/24) Physical Therapy Treatment Note M2 PT-IP Current Condition Start: 01/08/24 09:40 Freq: NEEDED Status: Active Protocol: Document 01/08/24 11:28 MB (Rec: 01/08/24 12:08 MB [id number]) Physical Therapy Current Condition Current Condition Evaluation Date 01/08/24 Treatment Diagnosis LLE cellulitis M3 PT-IP Subjective Start: 01/08/24 09:40 Freq: NEEDED Status: Active Protocol: Document 01/18/24 10:04 TS (Rec: 01/18/24 10:18 [id number]) Subjective Physical Therapy Visit Type Type Treatment Note Visit Start Time 09:15 Visit Stop Time 09:40 Number of WELT SEWER Visits 2 Physical Therapy Visit Comments Patient Comments Pt found resting in bed, would like to get up to restroom and have shower. Pt is agreeable to PT. M4 PT-IP Mobility and Gait Start: 01/08/24 09:40 Freq: NEEDED Status: Active Protocol: Document 01/18/24 10:04 TS (Rec: 01/18/24 10:18 [id number]) PT-Bed Mobility Assessment Supine to Sit Supine to Sit Standby Assistance,Head of Bed Elevated,Bedrails Scooting Scooting to Edge of Bed Standby Assistance PT-Transfer Assessment Sit to and From Stand Sit to and from Stand Minimal Assistance,Maximum Assistance,1 Person Assistance ,2 Person Assistance,Use of Upper Extremities Equipment Transfer Assistive Device Gait Belt,Front Wheeled Walker Orthotic/Prosthetic Devices or Brace: No Comments Mobility Comments Supine to sit SBA with HOB elevated 30D and use of handrails. He performed STS from bed Austen x1 with FWW, pt requires extra time to find balance in standing. He ambulated to toilet CGA x2 for safety to toilet, he had x1 mnor LOB requiring Austen x1 for balance correction and use of FWW. Pt stood from toilet with MaxA x2 and use of grab bars and FWW. Pt had some difficulty and signs of fatigue in LE's and required extra time to lock knees. He ambulated to chair ~5'Austen x2 with FWW. Pt was left in chair , all needs met. Gait Assessment Gait Gait Assistance Required: Contact Guard Assist,Minimum Assistance,2 Person Assist Distance (Feet) 15 Able to Maintain Weight Bearing Status Yes During Gait Assistive Devices Assistive Device Gait Belt,Front Wheeled Walker Orthotic/Prosthetic Devices or Brace: No Gait Deviations General Gait Pattern Antalgic,Decreased Stride Length,Decreased Feet Clearance,Flexed Trunk,Step-to Gait Factors Limiting Gait Function Factors Limiting Gait Function Decreased Sensation,Decreased Strength,Pain,Poor Balance Comments Gait Comments Requires 2 person with gait for safety. PT-Balance Assessment Sitting Balance and Reactions Static Sitting Balance Ability Good Dynamic Sitting Balance Ability Fair Standing Balance and Reactions Static Standing Balance Ability Fair Dynamic Standing Balance Ability Fair Device Used FWW M5 PT-IP Objective Assessments Start: 01/08/24 09:40 Freq: NEEDED Status: Active Protocol: Document 01/15/24 13:22 MB (Rec: 01/15/24 15:15 MB [id number]) Strength Comments Strength Comments B shoulder flexion and abduction, B elbow flexion and extension 5/5 today. Right numerologist normal and left numerologist mildly weak at 4/5. LLE MMT deferred in setting of cellulitis. Right ankle DF and great toe extension 5/5 in hook lying. B HS normal in the bed. Sitting, lacks full knee extension B with strength grossly 2+/5 B quads. Pt reports history of left quad tear and surgery and right quad injury but he is normally functional, walking, uses cane. Coordination Assessment Assessment Coordination Comments B finger to nose with bradykinesia and some dysmetria. M6 PT-IP Treatment Start: 01/08/24 09:40 Freq: NEEDED Status: Active Protocol: Document 01/18/24 10:04 TS (Rec: 01/18/24 10:18 TS [id number]) Physical Therapy Treatment Education Education Provided Safety M7 PT-IP Assessment and Plan Start: 01/08/24 09:40 Freq: NEEDED Status: Active Protocol: Document 01/18/24 10:04 TS (Rec: 01/18/24 10:18 TS [id number]) PT Summary Assessment and Plan Potential Rehabilitation Potential Good Summary Impairments Pain,ROM,Strength,Balance,Bed Mobility,Transfers,Gait, Activity Tolerance Progress Towards Goals Progressing Toward Goals Assessment Summary Harrison continues to make progress with his mobility. He continues to be SBA for all bed mobility. He is Austen x1 to stand from higher surface of bed with FWW. He progressed his to 1x10' to toilet CGA x2 and 1x5' Austen x2 to chair with FWW. He had increased difficulty standing from toilet due to fatigue and lower surface, he required MaxA x2 with FWW and grab bars . He continues to have BLE buckling but is improving. PT continues to recommend SNF vs Acute rehab. Goals Bed Mobility Goal Independent Transfer Goal Independent,Minimal Assistance ,Front Wheeled Walker Gait Goal Independent,Front Wheel Walker Gait Distance 100 Other Goals Pt will ascend and descend 5 steps with 1-2 rails or 1 rail and LRAD and mod I to allow safe home entry. Days to Meet Goals 5 Frequency of Treatment Frequency Of Treatment Once a Day Treatment Plan Physical Therapy Treatment Plan Bed Mobility Training,Transfer Training,Gait Training, Therapeutic Exercise,Balance Retraining,Discharge Planning Weight Bearing Status Weight Bearing Status Weight Bear as Tolerated Recommendations To Nursing Amount of Assist Needed 2 Person Assist,Mechanical Lift Discharge Recommendations PT Discharge Recommendations SNF vs Acute Rehab Transportation Needs at Discharge Wheelchair/Cabulance
--- NOTE | 2024-01-18 10:27 | OT.IP.TRT ---
Current Diagnoses Type 2 diabetes mellitus without complications (01/07/24) Other obesity due to excess calories (01/07/24) Pure hypercholesterolemia, unspecified (01/07/24) Post-traumatic stress disorder, chronic (01/07/24) Essential (primary) hypertension (01/07/24) Fatty (change of) liver, not elsewhere classified (01/07/24) Cellulitis of left lower limb (01/07/24) Cellulitis, unspecified (01/07/24) Other specified abnormal findings of blood chemistry (01/07/24) Body mass index [BMI] 40.0-44.9, adult (01/07/24) Occupational Therapy Treatment Note M2 OT-IP Current Condition Start: 01/11/24 11:25 Freq: Status: Active Protocol: Document 01/11/24 11:26 [facility] (Rec: 01/11/24 11:51 [facility] [id number]) Occupational Therapy Current Condition Current Condition Evaluation Date 01/11/24 Treatment Diagnosis LLE cellultis, weakness Diagnosis Onset Date 01/07/24 M3 OT- IP Subjective and Pain Start: 01/11/24 11:25 Freq: Status: Active Protocol: Document 01/18/24 10:17 [facility] (Rec: 01/18/24 10:27 [facility] [id number]) OT- Subjective Occupational Therapy Visit Type Type Treatment Note Visit Start Time 09:52 Visit Stop Time 10:16 Occupational Therapy Visit Comments Patient Comments Pt agreed to redo cognitive assessment. Patient/Caregiver Goals To get better. M6 OT- IP Functional Cognition Start: 01/11/24 11:25 Freq: Status: Active Protocol: Document 01/18/24 10:17 [facility] (Rec: 01/18/24 10:27 [facility] [id number]) Cognitive Factors Limiting Selfcare Function Cognitive Ability Level of Alertness Alert Patient Orientation Name,Age,Birthday,Month,Date, Year,Day of Week,Place, Situation Attention Span Ability Capable of Focused Attention, Capable of Sustained Attention Ability to Follow Commands Able to Follow Multi-Step Commands Memory Description No Deficits Noted Safety Awareness No Deficits Noted Problem Solving Ability No deficits Noted Executive Function Ability No Deficits Noted Cognitive Tests SLUMS Pt scored 22/30 on 01/12/24 and now scoring 30/30 on 01/18/24. Normal. Cognitive Comments Cognitive Assessment Comments Pt scored 77 seconds on [place] [employer] which is 40% for his age. Pt score implies normal but not perfect for visual attention, speed of processing, task switching, mental flexibilty, and executive functioning. Pt able to joke around and states feels liek he is back mentally now. Summary Comments Intact for light touch. M9 OT- IP Assessment and Plan Start: 01/11/24 11:25 Freq: Status: Active Protocol: Document 01/18/24 10:17 [facility] (Rec: 01/18/24 10:27 [facility] [id number]) OT Summary Assessment and Plan Potential Rehabilitation Potential Excellent Analytic Complexity at Evaluation High Summary OT Impairments Pain,Range of Motion,Strength, Balance,Functional Mobility, Dressing,Toileting,Bathing, Toilet Transfers,Shower Transfers Progress Towards Goals Progressing Toward Goals Assessment Summary Pt now scored 30/30 on the SLUMS which implies normal for cognition, Pt scored 22/30 on 01/12/24. Pt is doing much better overall and will greatly benefit from acute rehab. Goals Self-Feeding Goal Independent Grooming Goal Independent Dressing Goal Independent Toileting Goal Independent Bathing Goal Independent Toilet Transfer Goal Independent Shower Transfer Goal Independent Days to Meet Goals 28 Frequency of Treatment Frequency Of Treatment Once a Day Treatment Plan OT Treatment Plan ADL Training,Functional Cognition Training,Functional Mobility,Patient/Family Education,Discharge Planning Discharge Recommendations OT Discharge Recommendations Acute Rehab Transportation Needs at Discharge Wheelchair/Cabulance
--- NOTE | 2024-01-18 10:59 | DIET.CONS2 ---
Dietary Inpatient Consultation Note Admission Date: 01/07/2024 14:54 Nutrition f/u. Met with pt at bedside who reports normal appetite and consumption of 3 meals/day. Snacks from home present at bedside. Provided overview of nutrition related diabetes educ d/t new onset type 2 DM with A1c 6.7%. F/u prn. Diet: 01/10/24 Dinner Carbohydrate Consistent Diet Diet Modifications: Carbohydrate level: Medium (3 CHO) Reflex DM orders: No Food Texture: Level 7 - Regular Liquid Consistency: Level 0 - Thin Electronically Signed by: Mery Mohr 01/18/24 10:59 Clinical Dietitian [address] [address]
--- NOTE | 2024-01-18 14:57 | P.PN_ITS ---
Subjective Subjective Date Patient Seen: 01/18/24 Interval history: The pt reports feeling well this morning. He was again encouraged by his increased mobility yesterday. He has no distinct concerns today. Exam Vital Signs (past 8 hours): - 01/18/24 08:00 01/18/24 09:05 Temperature 97.3 F L Pulse Rate 79 79 Respiratory Rate 18 Blood Pressure 131/74 131/74 Pulse Oximetry 96 Oxygen Flow Rate 0 Oxygen Delivery Method Room Air Oxygen Flow Rate 0 Narrative Exam Narrative: Gen: NAD, sitting comfortably in bed, more alert and engaging than previous encounters CV: RRR, no murmurs Resp: clear to auscultation bilaterally Abd: soft, slightly distended, normoactive bowel sounds, nontender Ext: 2+ pitting edema right LE, 3+ pitting edema left LE without tenderness or significant edema Objective Labs 01/15/24 07:55 01/16/24 08:50 Labs: Laboratory Results - last 24 hr 01/13/24 01/18/24 11:25 08:10 Total Creatine Kinase 119 Aldolase 14.9 H Anti-Nuclear Antibody Negative [facility] Medical History (Updated 01/15/24 @ 11:24 by Danae Gross MD) Fatty infiltration of liver LFT elevation DM2 (diabetes mellitus, type 2) COVID-19 virus infection (~05/2022) Migraine headache Shoulder impingement syndrome Degenerative joint disease of knee Bilateral primary osteoarthritis of hip Facet joint disease of lumbosacral region Bilateral primary osteoarthritis of knee PTSD (post-traumatic stress disorder) Hyperlipidemia Hypertension TROY (obstructive sleep apnea) Morbid obesity Family History Mother Diabetes mellitus Hypertension Breast cancer Grandfather Myocardial infarction Social History household members: spouse Smoking Status: Former smoker alcohol intake: current Assessment & Plan Assessment & Plan narrative: 1) Left lower extremity cellulitis: Stable/improved. Blood cultures without growth. Venous doppler without evidence DVT. - On PO Doxycycline, continue for total 14 days antibiotic treatment 2) Weakness: New this hospitalization, at baseline ambulatory at times with cane. His reported that the morning the weakness acutely worsened, he was having difficulty speaking with slurring words and could not effectively get his fork to his mouth to feed himself. He seemed confused as well. This has since resolved, however does cause more concern for CVA, which previously was less of a concern due to no focal neurological deficits on exam other than quad weakness. Attempted to consult the , however they declined consultation. Discussed case with Dr Mccord, Neurology, at [facility] in [place] on 01/15. She recommended imaging the remainder of his spine with CT. Considered delayed Guillian-Wales, however symptoms have not really been ascending and no deficits in sensation. Could also consider critical illness myopathy, however no upper extremity symptoms and labs improving already when weakness is not. Her leading suspicion was CVA, with depression contributing heavily as well. Pt did have improvement in mobility the last [address] thoracic and lumbar spine without acute findings. - Pt needs MRI, however no inpatient MRIs in the state can be utilized due to pts body habitus. Unfortunately unable to do day transfer for outpatient open MRI. Hopeful for discharge to acute rehab so that MRI can be completed to help confirm diagnosis. - PT and nursing to continue working with pt aggressively for mobility - Encouraged by ongoing progress in terms of mobility 3) HTN: BP acceptable range - Continue home medications Amlodipine, Prazosin - Continue Lisinopril 10mg daily 4) Constipation: Pt without BM for several days. - Continue to offer Miralax - Milk of Magnesia PRN - Dulcolax PRN 5) Depression: Likely complicating weakness. Acutely worsened since hospitalization. Suicidal ideation resolved with improved sleep. Pt appears much more joyful today. Anticipate this will continue to help with mobility as well. - Will continue Bupropion for now, with close monitoring of SI 6) Hyperlipidemia: - D/C'ed home statin on 01/12, continue to hold - Should try to restart once CK in normal range, especially in light of possible CVA 7) DM Type 2: New diagnosis with A1C 6.7 - F/U as an outpatient 8) TROY: Evident during hospitalization - Outpatient formal sleep study 9) PTSD: Stable - Continue home Prazosin, Notriptyline Code: Full DVT ppx: Lovenox FEN: Diabetic diet Dispo: Spoke with [facility], , [facility] and none would accept the pt for transfer due to him not requiring a higher level of care and Neurology not feeling they had anything to add without MRI completed. Care management will continue to work on placement in acute rehab vs SNF (ideally acute rehab). MD acute inpatient rehab unfortunately now declined admission as well. Pt will continue to work with PT, and depending on timeline for discharge may be able to d/c home ultimately.
--- NOTE | 2024-01-18 15:49 | CM.DPNOTE ---
DCP Note ELECTRICAL RESEARCH ENGINEER reviewed EMR. Dr. Powers signed copy of med list in case of accepting facility/dc today to acute rehab or SNF. Per TIE MILL OPERATOR Scotty, pt is now 2PA/sometimes standby assist with him. Improving in mobility greatly. ELECTRICAL RESEARCH ENGINEER spoke with FRANCO Martin child protective services social worker for those not assigned to [facility] (P [phone], email ). Attempting to secure [facility] SNF auth for ability to place with [facility] contracted facilities. [facility] [place], unable to accept pt due to lack of diagnoses. SNF search is as follows [facility], [facility], [facility], [facility], [facility], [facility]- deny, lack of bed availability and or inability to meet his rehab needs. [facility] acute rehab deny due to lack of diagnoses from inability to get MRI. [facility] (Admissions contact [place] p [phone], f [phone]) reviewing, [facility] contracted not [facility] ([phone]) lvm, no response [facility] (Admissions Jackie, p [phone]) reviewing, [place] contracted but not [facility] ([place] not [facility]) (p [phone], f [phone]) no bariatric beds but willing to review ELECTRICAL RESEARCH ENGINEER updated provider. ELECTRICAL RESEARCH ENGINEER spoke with Santiago at [facility] to update her on SNF search. Santiago requested DCP/CM team call her first thing in morning with updates on reviewing facilities and their team can assist in the search. ELECTRICAL RESEARCH ENGINEER had lengthy conversation with pt and spouse on the phone in room. Updated them on barriers to placement. Pt and spouse remain hopeful for rehab, preference remains close to home as possible. Plan: SNF placement pending. CM team will continue to follow closely. CM team will connect with Santiago Cooper CM and Veronica GAMEZ child protective services social worker for assistance in placement. Consider asking local SNFs to re-review due to pt's significant improvements. KAMLESH Mane
[2024-01-18 16:00] VITALS: BP 122/74; PULSE 88; RESP 16; TEMP 36.6; O2SAT 97
[2024-01-18 22:00] VITALS: BP 135/77; PULSE 81; RESP 18; TEMP 36.4; O2SAT 98
[2024-01-19 06:00] VITALS: BP 134/80; PULSE 80; RESP 17; TEMP 36.6; O2SAT 98
--- NOTE | 2024-01-19 07:56 | P.PN_ITS ---
Subjective Subjective Date Patient Seen: 01/19/24 Time Patient Seen: 07:57 Interval history: Patient seen and evaluated this morning. He is feeling well. Bowel movements urination working good. Continue to make progress as far as mobility goes. No focal deficits other than just lower weakness. No concerns about headache dizziness lightheadedness. His main difficulty is is getting from May chair or toilet to the standing position when she gets moving he feels like he does well. Labs vital signs x-rays and CT scans reviewed. Exam Vital Signs (past 8 hours): - 01/19/24 06:00 Temperature 97.8 F Pulse Rate 80 Respiratory Rate 17 Blood Pressure 134/80 Pulse Oximetry 98 Oxygen Flow Rate 0 Oxygen Delivery Method Room Air Oxygen Flow Rate 0 Narrative Exam Narrative: Gen.: Alert no apparent distress good historian HEENT: Pupils equal round and reactive or mucosa is moist neck is supple Cardio: S1-S2 regular rate and rhythm Respiratory: Normal respiratory effort Abdomen: Soft nontender Extremities: Left lower extremities swollen twice the size of the right. No redness no pain or tenderness Neurologic: No gross focal neurological deficits now able to raise his legs off the bed on both sides. No upper extremity weakness appreciated on examination Objective Labs 01/15/24 07:55 01/16/24 08:50 Labs: Laboratory Results - last 24 hr 01/18/24 08:10 Total Creatine Kinase 119 PFSH Medical History (Updated 01/15/24 @ 11:24 by Danae Gross MD) Fatty infiltration of liver LFT elevation DM2 (diabetes mellitus, type 2) COVID-19 virus infection (~05/2022) Migraine headache Shoulder impingement syndrome Degenerative joint disease of knee Bilateral primary osteoarthritis of hip Facet joint disease of lumbosacral region Bilateral primary osteoarthritis of knee PTSD (post-traumatic stress disorder) Hyperlipidemia Hypertension TROY (obstructive sleep apnea) Morbid obesity Family History Mother Diabetes mellitus Hypertension Breast cancer Grandfather Myocardial infarction Social History household members: spouse Smoking Status: Former smoker alcohol intake: current Assessment & Plan Assessment and plan (1) Cellulitis: Problem details: Left lower extremity cellulitis Will continue with vancomycin. Venous Doppler negative for DVT patient states he has doing a little bit better. Been up ambulating white blood cell count stable afebrile. Patient is on vancomycin. Tomorrow will go ahead and convert him to oral doxycycline and anticipate going home. Obstructive sleep apnea. Currently not treated. Patient obviously had this based on inpatient monitoring. Patient will need outpatient referral for CPAP. Type 2 diabetes. Patient has a hemoglobin A1c of 6.7. Patient has not been diagnosed with diabetes. Provided diabetic education today. Patient will need to follow-up as an outpatient for further treatment. Hypertension well-controlled continue with patient's current amlodipine prazosin. PTSD patient on prazosin at night with nortriptyline as needed for sleep and insomnia. Hyperlipidemia patient on Crestor. Continue with current dose of 20 mg a day DVT prophylaxis with Lovenox Code status is full code Disposition and plan. Continue IV vancomycin. Switch to oral medication tomorrow and discharge home on orals with close follow-up with Dr. Powers Qualifiers: Laterality: left Site of cellulitis: extremity Site of cellulitis of extremity: lower extremity Qualified Code(s): L03.116 - Cellulitis of left lower limb Status: Acute Plan Left lower extremity cellulitis. Still significant left lower extremity edema compared to right. On oral antibiotics. No DVT. Significant improvement since hospitalization. Weakness. More consistent and lower extremities and upper extremities. Really no significant focal lateralizing neurological deficits has had consistent lower extremity weakness. Labs reviewed. And all have improved. Patient does have improved mobility significantly in the last 2 days and even more so yesterday he said. CT imaging of head spine without acute findings. Patient continues to progress with physical therapy. Patient encouraged ongoing mobility and making slow steady progress. Difficulties with the discharge planning for this patient because of weakness. I think weakness is more due to his critical illness lower extremity cellulitis and morbid obesity. Appreciated phone consultation by Neurology. Doubt underlying Guillain-Christiana as no ascending paralysis. Continue to work with physical therapy with steady progress. Patient will need follow-up with outpatient MRI. Hypertension. Blood pressure is looking good today with amlodipine prazosin and lisinopril. Constipation improved now doing daily bowel movements with MiraLax milk of magnesia and Dulcolax as needed. Depression. Continue with bupropion no suicidal symptoms at this point. Hyperlipidemia. Statin on hold. Monitoring Ck. Long-term benefits outweigh short-term risks. Would anticipate re-initiate eating this outpatient. Diabetes type 2. Obstructive sleep apnea need outpatient formal sleep study Full code DVT prophylaxis Lovenox Difficult to discharge patient multiple attempts for transfer of care and arrangement of MRI and Neurology. No significant interest in transfer patient. Patient is gradually improving. No focal neurological deficits. Suspect morbid obesity acute muscle weakness due to underlying cellulitis and medical illness. Patient would benefit sleep benefit from acute rehab versus custodial facilities he is making significant progress.
[2024-01-19 08:49] VITALS: BP 145/83; PULSE 74; RESP 18; TEMP 36.1; O2SAT 98
[2024-01-19 08:50] VITALS: BP 145/83; PULSE 75
[2024-01-19] MEDS: lisinopriL 5 MG TABLET 10 MG PO (08:50)
[2024-01-19] MEDS: buPROPion XL 150 MG TAB PO (08:50)
[2024-01-19] MEDS: polyethylene glycoL 3350 17 GM POWD.PACK PO (08:52)
[2024-01-19] MEDS: ENOXAPARIN 40 MG/0.4 ML SYRINGE SUBCUT (08:52)
[2024-01-19] MEDS: AMLODIPINE 5 MG TABLET 10 MG PO (08:52)
[2024-01-19] MEDS: DOXYCYCLINE HYCLATE 100 MG TABLET PO ×2 (08:52→20:59)
[2024-01-19] MEDS: CELECOXIB 200 MG CAPSULE PO (08:52)
--- NOTE | 2024-01-19 11:15 | PT.IPTN ---
Current Diagnoses Type 2 diabetes mellitus without complications (01/07/24) Other obesity due to excess calories (01/07/24) Pure hypercholesterolemia, unspecified (01/07/24) Post-traumatic stress disorder, chronic (01/07/24) Essential (primary) hypertension (01/07/24) Fatty (change of) liver, not elsewhere classified (01/07/24) Cellulitis of left lower limb (01/07/24) Cellulitis, unspecified (01/07/24) Other specified abnormal findings of blood chemistry (01/07/24) Body mass index [BMI] 40.0-44.9, adult (01/07/24) Physical Therapy Treatment Note M2 PT-IP Current Condition Start: 01/08/24 09:40 Freq: NEEDED Status: Active Protocol: Document 01/08/24 11:28 MB (Rec: 01/08/24 12:08 MB [id number]) Physical Therapy Current Condition Current Condition Evaluation Date 01/08/24 Treatment Diagnosis LLE cellulitis M3 PT-IP Subjective Start: 01/08/24 09:40 Freq: NEEDED Status: Active Protocol: Document 01/19/24 12:07 TS (Rec: 01/19/24 12:16 TS [id number]) Subjective Physical Therapy Visit Type Type Treatment Note Visit Start Time 11:15 Visit Stop Time 11:44 Number of RUM PROCESSING OPERATOR Visits 3 Physical Therapy Visit Comments Patient Comments Pt found sitting up on EOB, is agreeable to PT. M4 PT-IP Mobility and Gait Start: 01/08/24 09:40 Freq: NEEDED Status: Active Protocol: Document 01/19/24 12:07 TS (Rec: 01/19/24 12:16 TS [id number]) PT-Transfer Assessment Sit to and From Stand Sit to and from Stand Contact Guard Assistance, Minimal Assistance,1 Person Assistance Equipment Transfer Assistive Device Gait Belt,Front Wheeled Walker Orthotic/Prosthetic Devices or Brace: No Comments Mobility Comments STS from bed [place] with FWW. He ambulated ~15'CGA with FWW and step to gait, had no buckling, pt fatigues quickly and required to sit. STS again from bed CGA with FWW, pt ambulated ~15'CGA FWW. He ambulated back to bed for anther rest break. STS from bed with FWW CGA, pt ambulated back to chair, was left in chair with all needs met. Gait Assessment Gait Gait Assistance Required: Contact Guard Assist,1 Person Assist Distance (Feet) 40 Able to Maintain Weight Bearing Status Yes During Gait Assistive Devices Assistive Device Gait Belt,Front Wheeled Walker Orthotic/Prosthetic Devices or Brace: No Gait Deviations General Gait Pattern Antalgic,Decreased Stride Length,Decreased Feet Clearance,Flexed Trunk,Step-to Gait Factors Limiting Gait Function Factors Limiting Gait Function Decreased Sensation,Decreased Strength,Pain,Poor Balance PT-Balance Assessment Sitting Balance and Reactions Static Sitting Balance Ability Good Dynamic Sitting Balance Ability Fair Standing Balance and Reactions Static Standing Balance Ability Fair Dynamic Standing Balance Ability Fair Device Used FWW M5 PT-IP Objective Assessments Start: 01/08/24 09:40 Freq: NEEDED Status: Active Protocol: Document 01/15/24 13:22 MB (Rec: 01/15/24 15:15 MB [id number]) Strength Comments Strength Comments B shoulder flexion and abduction, B elbow flexion and extension 5/5 today. Right erco machine operator normal and left erco machine operator mildly weak at 4/5. LLE MMT deferred in setting of cellulitis. Right ankle DF and great toe extension 5/5 in hook lying. B HS normal in the bed. Sitting, lacks full knee extension B with strength grossly 2+/5 B quads. Pt reports history of left quad tear and surgery and right quad injury but he is normally functional, walking, uses cane. Coordination Assessment Assessment Coordination Comments B finger to nose with bradykinesia and some dysmetria. M6 PT-IP Treatment Start: 01/08/24 09:40 Freq: NEEDED Status: Active Protocol: Document 01/19/24 12:07 TS (Rec: 01/19/24 12:16 [id number]) Physical Therapy Treatment Education Education Provided Safety M7 PT-IP Assessment and Plan Start: 01/08/24 09:40 Freq: NEEDED Status: Active Protocol: Document 01/19/24 12:07 TS (Rec: 01/19/24 12:16 [id number]) PT Summary Assessment and Plan Potential Rehabilitation Potential Good Summary Impairments Pain,ROM,Strength,Balance,Bed Mobility,Transfers,Gait, Activity Tolerance Progress Towards Goals Progressing Toward Goals Assessment Summary Harrison continues to make progress with his mobility. He is CGA/Austen for STS with FWW. He progressed his gait to ~40 'CGA with FWW. He fatigues quickly with gait and requires seated rest breaks. PT continues to recommend SNF at this time. Goals Bed Mobility Goal Independent Transfer Goal Independent,Minimal Assistance ,Front Wheeled Walker Gait Goal Independent,Front Wheel Walker Gait Distance 100 Other Goals Pt will ascend and descend 5 steps with 1-2 rails or 1 rail and LRAD and mod I to allow safe home entry. Days to Meet Goals 5 Frequency of Treatment Frequency Of Treatment Once a Day Treatment Plan Physical Therapy Treatment Plan Bed Mobility Training,Transfer Training,Gait Training, Therapeutic Exercise,Balance Retraining,Discharge Planning Weight Bearing Status Weight Bearing Status Weight Bear as Tolerated Recommendations To Nursing Amount of Assist Needed 1 Person Assist Discharge Recommendations PT Discharge Recommendations SNF Rehab Transportation Needs at Discharge Wheelchair/Cabulance
--- NOTE | 2024-01-19 11:28 | CM.DPC ---
Addendum entered by KAMLESH Pena 01/19/24 15:36: MERCHANDISE FLOW ASSOCIATE spoke with Juanis Carreon, PASRR Coordinator, and discussed that pt could be eligible for hospital exeption if endorsed by hospital staff. MERCHANDISE FLOW ASSOCIATE discussed this with HEAD SCHOOL CUSTODIAN, Scotty, and OT, Catarina, who endorsed that pt is enthusiastic and they do not think he will be at SNF for longer than 30 days. PASRR coordinator, Juanis, requested that Level II PASRR to be forwarded to her after MD signature. MARITZA Santana Original Note: DCP Continued Reviewed EMR and team rounds for pt?s medical status. MERCHANDISE FLOW ASSOCIATE received a call from [facility] (Crystal: [phone]), willing to accept on a single case agreement. Anticipating to accept on 01.19 after receiving specialized bed for pt. MERCHANDISE FLOW ASSOCIATE notified Kenneth Henderson CM, of placement and will send letter of agreement to [facility]. MERCHANDISE FLOW ASSOCIATE notified pt's RN and Dr. Enriquez of acceptance at SNF. Plan: Will complete PASRR and transfer paperwork, DCP will coordinate with [facility] for transport tomorrow, 5. DCP following for pending transfer needs. MARITZA Santana
--- NOTE | 2024-01-19 11:55 | OT.IP.TRT ---
Current Diagnoses Type 2 diabetes mellitus without complications (01/07/24) Other obesity due to excess calories (01/07/24) Pure hypercholesterolemia, unspecified (01/07/24) Post-traumatic stress disorder, chronic (01/07/24) Essential (primary) hypertension (01/07/24) Fatty (change of) liver, not elsewhere classified (01/07/24) Cellulitis of left lower limb (01/07/24) Cellulitis, unspecified (01/07/24) Other specified abnormal findings of blood chemistry (01/07/24) Body mass index [BMI] 40.0-44.9, adult (01/07/24) Occupational Therapy Treatment Note M2 OT-IP Current Condition Start: 01/11/24 11:25 Freq: Status: Active Protocol: Document 01/11/24 11:26 [facility] (Rec: 01/11/24 11:51 [facility] [id number]) Occupational Therapy Current Condition Current Condition Evaluation Date 01/11/24 Treatment Diagnosis LLE cellultis, weakness Diagnosis Onset Date 01/07/24 M3 OT- IP Subjective and Pain Start: 01/11/24 11:25 Freq: Status: Active Protocol: Document 01/19/24 12:14 [facility] (Rec: 01/19/24 12:40 [facility] [id number]) OT- Subjective Occupational Therapy Visit Type Type Treatment Note Visit Start Time 11:55 Visit Stop Time 12:20 Occupational Therapy Visit Comments Patient Comments Pt states not wanting to get up at this time as too tired from walking this morning with PT. Pt agreed to talk about rehab goals and needs. Patient/Caregiver Goals To get better. M6 OT- IP Functional Cognition Start: 01/11/24 11:25 Freq: Status: Active Protocol: Document 01/19/24 12:14 [facility] (Rec: 01/19/24 12:40 [facility] [id number]) Cognitive Factors Limiting Selfcare Function Cognitive Ability Level of Alertness Alert Patient Orientation Name,Age,Birthday,Month,Date, Year,Day of Week,Place, Situation Attention Span Ability Capable of Focused Attention, Capable of Sustained Attention Ability to Follow Commands Able to Follow Multi-Step Commands Memory Description No Deficits Noted Safety Awareness No Deficits Noted Problem Solving Ability No deficits Noted Executive Function Ability No Deficits Noted Cognitive Comments Cognitive Assessment Comments Intact. Able to talk at length with pt of what to expect for rehab, having pt think about goals- such as being able to stand at this sink without a FWW for grooming needs, be independent for dressing, toileting , and bathing needs, and to be able to do his steps at home. Pt having good understanding for rehab process and goals. Pt is very aware to advocate for himself. M9 OT- IP Assessment and Plan Start: 01/11/24 11:25 Freq: Status: Active Protocol: Document 01/19/24 12:14 [facility] (Rec: 01/19/24 12:40 [facility] [id number]) OT Summary Assessment and Plan Potential Rehabilitation Potential Excellent Analytic Complexity at Evaluation High Summary OT Impairments Pain,Range of Motion,Strength, Balance,Functional Mobility, Dressing,Toileting,Bathing, Toilet Transfers,Shower Transfers Progress Towards Goals Progressing Toward Goals Assessment Summary Pt greatly improved and now one person assist for mobility and ADL needs. Pt looking to go to skilled rehab tomorrow. Goals Self-Feeding Goal Independent Grooming Goal Independent Dressing Goal Independent Toileting Goal Independent Bathing Goal Independent Toilet Transfer Goal Independent Shower Transfer Goal Independent OT-Other Goals Goals while standing and without use of a device or equipment beside the bench for the shower. Days to Meet Goals 25 Frequency of Treatment Frequency Of Treatment Once a Day Treatment Plan OT Treatment Plan ADL Training,Functional Cognition Training,Functional Mobility,Patient/Family Education,Discharge Planning Discharge Recommendations OT Discharge Recommendations Acute Rehab,SNF vs Acute Rehab Transportation Needs at Discharge Wheelchair/Cabulance
[2024-01-19 14:53] VITALS: BP 117/62; PULSE 85; RESP 16; TEMP 35.9; O2SAT 98
--- NOTE | 2024-01-19 19:13 | PC.NURSE ---
Patient has been sitting up in his chair comfortably and denies discomfort.
[2024-01-19 20:31] VITALS: BP 117/68; PULSE 79; RESP 17; TEMP 36.1; O2SAT 97
[2024-01-20 04:59] VITALS: BP 161/87; PULSE 92; RESP 16; TEMP 36.2; O2SAT 100
--- NOTE | 2024-01-20 09:19 | P.DS_ITS ---
History of Present Illness History of Present Illness Date Patient Seen: 01/20/24 Chief complaint: left leg pain/swelling- cellulitis last week Narrative: This is a very pleasant 53-year-old male who is under the primary care of Dr. Stein. Presents to the ER with progressive worsening redness and swelling of his left lower extremity. He went to the walk-in clinic on December 29 was treated with a 7 day round of Keflex and his condition has worsened. He was found to have a leukocytosis and significant swelling and pain when he was seen in the ER was admitted for further treatment. Vancomycin treatment was initiated. Patient denies any injury or wound but did say he was scratching his left foot prior to this happening because he thinks he might have a little bit of tinea pedis. Otherwise no change in his history Otherwise he denies systemic complaints He had a Doppler done in the ER which was negative and 1 in the walk-in clinic that was negative as well He denies fevers chills, nausea or vomiting. In September he did a left quadriceps tendon tear and had it surgically fixed. He has been recovering well from this. Past medical history: 1. Migraine headaches 2. 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 Low back pain 4. Hyperlipidemia 5. Hypertension 6. Obstructive sleep apnea 7. Morbid obesity 8. Previous smoker Reviewed medications Allergies no known drug allergies Past surgical history: September 2023 left quadriceps tendon repair Family history: Mom had breast cancer and type 2 diabetes Grandfather had acute [place] Social history: Patient is , he is 2 children and 3 adopted children so total of 5 children. Lives in [place] with his life. 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 Health related behavior: Previous patient was a smoker Patient does not use illicit drugs or alcohol on a regular basis Twelve point review of systems is otherwise negative Negative for any GI symptoms or No chest pain or shortness a breath No rashes Discharge Providers Provider Date of admission: 01/07/24 14:54 Discharge Date: 01/20/24 Primary care physician: Maddi Powers MD Consults: 01/07/24 17:16 Consult to Physical Therapy Evaluate & Treat Comment: Physician Instructions: Evaluate and Treat 01/11/24 07:59 Consult to Occupational Therapy Evaluate & Treat Comment: Physician Instructions: Evaluate and treat 01/12/24 15:39 Consult to Speech Therapy Evaluate & Treat Comment: Physician Instructions: Evaluate and treat Discharge provider: Maddi Powers MD Summary Hospital Course Discharge Diagnosis: Cellulitis Lower extremity weakness, suspected CVA Hypertension DM type 2 Constipation Depression Hyperlipidemia PTSD TROY Hospital Course: The pt presented with significant left lower extremity cellulitis, having failed outpatient treatment with Keflex. He was initiated on Vancomycin. His cellulitis gradually improved. He was transitioned to PO Doxycycline after 7 days. The pt received multiple doses of IV Lasix to help with associated LE swelling associated with his cellulitis. He will complete 14 days of antibiotics total with doxycycline after discharge. On hospital day 2 the pt started to have increasing weakness. On hospital day 3 he was unable to ambulate or stand. This was initially thought to be due to deconditioning, with the pt being extremely sedentary at home for 10 days prior to presentation to the hospital as well, in addition to his morbid obesity. The weakness did not initially improve with physical therapy, however. Head/neck CT and CTA were unrevealing. CT of his thoracic and lumbar spine were also unrevealing, showing only chronic changes. Lab work showed elevated CK, mildly elevated LDH, and very minimally elevated liver enzymes. His statin was held due to elevated CK. U/S of liver revealed fatty liver disease. His CK trended back down to normal. There was concern over a potential CVA, as the day the pt developed severe weakness as per family he also was slurring his words, seemed confused, and was having a hard time feeding himself. MRI unfortunately could not be obtained due to the pts body habitus. We would recommend open MRI be obtained as an outpatient. Depression was also likely contributing to the pts difficulty walking, with somatization. He was initiated on Bupropion, which he was tolerating well at the time of discharge. The pt did make improvements with PT the last 4 days prior to d/c. While in the hospital, the pt briefly had a mild wheeze. CXR was obtained, which showed cardiomegaly. Echo was obtained that was reassuring. He never had hypoxia, SOB, or chest pain. His breathing was stable and clear at discharge. Status at Discharge Cognitive/behavioral status at discharge: oriented Functional status at discharge: uses cane/walker Overall status at discharge: patient is progressing back to baseline Exam Vital Signs (past 8 hours): - 01/20/24 04:59 Temperature 97.1 F L Pulse Rate 92 H Respiratory Rate 16 Blood Pressure 161/87 H Pulse Oximetry 100 Oxygen Flow Rate 0 Oxygen Delivery Method Room Air Oxygen Flow Rate 0 Narrative Exam Narrative: Gen: NAD, sitting comfortably in bed, more alert and engaging than previous encounters CV: RRR, no murmurs Resp: clear to auscultation bilaterally Abd: soft, slightly distended, normoactive bowel sounds, nontender Ext: 2+ pitting edema right LE, 3+ pitting edema left LE without tenderness or significant edema Objective Labs 01/15/24 07:55 01/16/24 08:50 [facility] Medical History (Updated 01/15/24 @ 11:24 by Danae Gross MD) Fatty infiltration of liver LFT elevation DM2 (diabetes mellitus, type 2) COVID-19 virus infection (~05/2022) Migraine headache Shoulder impingement syndrome Degenerative joint disease of knee Bilateral primary osteoarthritis of hip Facet joint disease of lumbosacral region Bilateral primary osteoarthritis of knee PTSD (post-traumatic stress disorder) Hyperlipidemia Hypertension TROY (obstructive sleep apnea) Morbid obesity Family History Mother Diabetes mellitus Hypertension Breast cancer Grandfather Myocardial infarction Social History household members: spouse Smoking Status: Former smoker alcohol intake: current Discharge Plan Discharge Plan Patient Disposition: SNF Other facility: [facility] Discharge orders & Medications Prescriptions: New acetaminophen 325 mg Tablet 650 mg PO Q6H PRN (Reason: Fever/Mild Pain (1-3)) Qty: 30 0RF bisacodyl 5 mg Tablet,Delayed Release (Dr/Ec) 5 mg PO BID PRN (Reason: Constipation) Qty: 30 0RF polyethylene glycol 3350 17 gram Powder In Packet 17 g PO BID Qty: 30 0RF lisinopril 5 mg Tablet 10 mg PO DAILY Qty: 30 0RF doxycycline hyclate 100 mg Tablet 100 mg PO BID Qty: 5 0RF bupropion HCl [Wellbutrin XL] 150 mg Tablet Extended Release 24 Hr 150 mg PO DAILY Qty: 30 0RF Continued (DME) Disabled Parking See Rx Instructions .ROUTE .MEDSUPPLY Qty: 1 0RF Rx Instructions: I find this patient to be medical disabled and qualified for Disabled Parking as indicated, and signed, on the and the Accompanying Disabled Parking Application for Individuals. albuterol sulfate 90 mcg/actuation HFA aerosol inhaler 2 puff INHALATION Q6H PRN (Reason: shortness of breath or wheezing) Qty: 18 0RF ibuprofen 600 mg tablet 600 mg PO Q6H PRN (Reason: pain) Qty: 60 0RF celecoxib [Celebrex] 200 mg capsule 200 mg PO QAM prazosin 1 mg capsule 1 mg PO BEDTIME PRN (Reason: ptsd/insomnia) amlodipine 10 mg tablet 10 mg PO QAM nortriptyline 10 mg capsule 10 mg PO BEDTIME PRN (Reason: Insomnia) rosuvastatin 20 mg tablet 20 mg PO QAM diclofenac sodium 1 % gel 2 g TOP QID PRN (Reason: Pain (Scale Score 4-6)) Follow up/Referrals: Maddi Powers MD [Primary Care Provider] - Diet/Activity/Treatments Diet: Diet as Tolerated and Carb-consistent/Diabetic Liquid consistency: Normal/Thin Food texture: Regular [facility] Rehabilitation Services Reason for rehabilitation: Therapy following stroke and Recovery r/t decondition Rehab type: Physical therapy Visit Report/Discharge Packet Stand Alone Forms: Patient Portal/API Discharge Data Primary Care Provider: Maddi Powers
--- NOTE | 2024-01-20 09:22 | CM.DPC ---
DCP Discharge SNF Per MD, pt remains medically stable to d/c to SNF today before safe return home and no identified barriers to discharge. ARMANDO called [facility] and confirmed they can still accept pt today but still need [place] auth# and letter of agreement. SW confirmed best fax number for [facility] and NOE Barb kindly faxed signed med list, no scripts, PASRR signed by MD, discharge summary and MD orders to review. SW spoke to [facility] [place] and confirmed SNF auth is #[id number] and gave admissions Crystal at [facility] [place] number to get the auth and letter of agreement directly from [place]. SW called [facility] transport and confirmed they have pt on their schedule for today at 1300 and will come up to the room with w/c and will call pt and spouse this morning for payment. SW met bedside with pt and explained role and updated on above and pt confirms he remains agreeable to discharge today to [facility] before home and answered pt questions and pt plans to call his spouse and update her. Pt aware of the private cost for cabulance today and agreeable. 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 Plan: Patient to discharge to [facility] SNF in [place] today under his [place] insurance via [facility] private pay at 1300 before safe return home. KAMLESH Gallo
[2024-01-20 10:00] VITALS: BP 142/83; PULSE 62; RESP 18; TEMP 36.1; O2SAT 96
[2024-01-20] MEDS: AMLODIPINE 5 MG TABLET 10 MG PO (10:00)
[2024-01-20] MEDS: buPROPion XL 150 MG TAB PO (10:02)
[2024-01-20] MEDS: lisinopriL 5 MG TABLET 10 MG PO (10:03)
[2024-01-20] MEDS: DOXYCYCLINE HYCLATE 100 MG TABLET PO (10:03)
[2024-01-20] MEDS: CELECOXIB 200 MG CAPSULE PO (10:04)
--- NOTE | 2024-01-20 10:49 | PT-IP ANOTE ---
Pt states not having PT needs at this time. Pt is to d/c to SNF at 13:00 this afternoon.
--- NOTE | 2024-01-20 11:37 | OT.IPNOTE ---
Pt awaiting to go to skilled rehab and already able to take a shower with nursing staff. Reiterated to be an active participant in his recovery as he has been very motivated and doing much better now. NO Charge.
--- NOTE | 2024-01-20 13:51 | PC.NURSE ---
Patient is A&OX4, VSS,afebrile on RA. He is x1-2 min assist using FWW. He is able to walk to the bathroom and sit on BSC for shower this a.m. MD Powers at bedside discharging patient today.Transportation with [employer] is arranged for 1300. Transporter arrives at 1300 and patient is escorted at 1310 with transporter to van with all of his belongings including FWW, and crutches. RN called report to Milind at [facility].
== END 2024-01-20 13:10 | DRG 602 ==
LOC: ED 12:37 → AC 14:55
PROVIDERS: Family Medicine; Admitting Provider Student in an Organized Health Care Education/Training Program; Emergency Provider Physician Assistant Medical; PCP Family Medicine; Referring Provider Physician Assistant Medical; Visit Provider Family Medicine
DX: L03.116 Cellulitis of left lower limb (principal); I63.9 Cerebral infarction, unspecified; Z68.43 Body mass index [BMI] 50.0-59.9, adult; E66.01 Morbid (severe) obesity due to excess calories; I10 Essential (primary) hypertension; F43.10 Post-traumatic stress disorder, unspecified; E78.5 Hyperlipidemia, unspecified; M19.90 Unspecified osteoarthritis, unspecified site; E11.9 Type 2 diabetes mellitus without complications; G47.33 Obstructive sleep apnea (adult) (pediatric); F32.A Depression, unspecified; R06.2 Wheezing; K76.0 Fatty (change of) liver, not elsewhere classified; R47.81 Slurred speech; R47.89 Other speech disturbances; K59.00 Constipation, unspecified; Z87.891 Personal history of nicotine dependence
CPT/HCPCS: 36415; 70450; 70496; 70498; 71045; 72126; 72129; 72132; 76705; 80048; 80053; 80202; 81001; 82085; 82550; 82977; 83036; 83605; 83615; 83735; 83880; 84145; 84443; 85025; 85651; 86038; 86140; 87040; 93306; 93971; 96365; 96375; 97110; 97116; 97129; 97130; 97161; 97166; 97530; 97535; 99232; 99284; A9270; J1650; J1885; J1940; J2270; J2405; J7613; Q9967

== ENCOUNTER 2024-02-08 12:12 | Emergency (ER) | payer OTHER, SELFPAY ==
[2024-01-07 18:36] VITALS: BMI 52.0
[2024-02-08 12:25] VITALS: BP 144/74; PULSE 82; RESP 18; TEMP 36.7; O2SAT 96; BMI 51.7
--- NOTE | 2024-02-08 13:33 | ED.DIZZY ---
HPI - Dizziness <Bekah Liu PA-C - Last Filed: 02/08/24 14:45> General Chief Complaint: Dizziness Stated Complaint: Inner ear issue/balance/ dbl vision Time Seen by Provider: 02/08/24 12:55 Source: patient Mode of arrival: Ambulatory History of Present Illness HPI Narrative: 54-year-old male presents to the emergency department for ?imbalance?. He believes that he may have some wax in his left ear which is causing his symptoms. 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 He has had no recent travel. He is denying any fever, chills, body aches or joint pains. He reports no eye pain, headache, nausea, vomiting or disruption during sleep. His symptoms have been going on for about 5 days now. He does endorse movement in his vision? that he noticed when he was playing his game on his mobile phone. Not specifically double vision or loss of vision but what he tried to convey as movement. It does resolve if he finds a focal point however. He states no issues in his peripheral vision. No changes in his hearing, no fullness in his sinuses or ear pressure per se but he does report that he recently was discharged from physical therapy rehabilitation from January 19 to January 27 following his hospital admission for left lower leg cellulitis January 06 through January 19. He was treated with vancomycin IV and Toradol for pain. He has resolved all of those issues, Related Data Home Medications Medication Instructions Recorded Confirmed amlodipine 10 mg tablet 10 mg PO QAM 01/07/24 02/03/24 celecoxib 200 mg capsule (Celebrex) 200 mg PO QAM 01/07/24 02/03/24 diclofenac sodium 1 % topical gel 2 g topical QID PRN Pain (Scale 01/07/24 02/03/24 Score 4-6) nortriptyline 10 mg capsule 10 mg PO BEDTIME PRN Insomnia 01/07/24 02/03/24 prazosin 1 mg capsule 1 mg PO BEDTIME PRN ptsd/insomnia 01/07/24 02/03/24 rosuvastatin 20 mg tablet 20 mg PO QAM 01/07/24 02/03/24 Previous Rx's Medication Instructions Recorded ibuprofen 600 mg tablet 600 mg PO Q6H PRN pain #60 tabs 10/01/22 albuterol sulfate 90 mcg/actuation 2 puff inhalation Q6H PRN 11/12/22 aerosol inhaler shortness of breath or wheezing #18 grams Disabled Parking #1 ea 07/13/23 acetaminophen 325 mg tablet 650 mg (2 x 325 mg) PO Q6H PRN 01/18/24 Fever/Mild Pain (1-3) #30 tabs bisacodyl 5 mg tablet,delayed 5 mg PO BID PRN Constipation #30 01/18/24 release tabs bupropion HCl 150 mg 24 hr tablet, 150 mg PO DAILY #30 tabs 01/18/24 extended release (Wellbutrin XL) lisinopril 5 mg tablet 10 mg (2 x 5 mg) PO DAILY #30 tabs 01/18/24 polyethylene glycol 3350 17 gram 17 g PO BID #30 ea 01/18/24 oral powder packet meclizine 25 mg tablet 25 mg PO QID #30 tabs 02/08/24 Allergies Allergy/AdvReac Type Severity Reaction Status Date / Time No Known Drug Allergies Allergy Verified 02/03/24 09:55 Review of Systems <Bekah Liu PA-C - Last Filed: 02/08/24 14:45> Review of Systems Narrative: All other systems reviewed and are negative. Patient History <Bekah Liu PA-C - Last Filed: 02/08/24 14:45> Medical History (Updated 02/08/24 @ 13:56 by Bekah Liu PA-C) Fatty infiltration of liver LFT elevation DM2 (diabetes mellitus, type 2) COVID-19 virus infection (~05/2022) Migraine headache Shoulder impingement syndrome Degenerative joint disease of knee Bilateral primary osteoarthritis of hip Facet joint disease of lumbosacral region Bilateral primary osteoarthritis of knee PTSD (post-traumatic stress disorder) Hyperlipidemia Hypertension TROY (obstructive sleep apnea) Morbid obesity Family History Mother Diabetes mellitus Hypertension Breast cancer Grandfather Myocardial infarction Social History household members: spouse Smoking Status: Former smoker alcohol intake: current Smoking Status: Former smoker tobacco type: cigarettes alcohol intake frequency: holidays/special occasions only Substance Use Type: does not use Exam <Bekah Liu PA-C - Last Filed: 02/08/24 14:45> Initial Vital Signs Initial Vital Signs: Vital Signs Temperature 98.0 F 02/08/24 12:25 Pulse Rate 82 02/08/24 12:25 Respiratory Rate 18 02/08/24 12:25 Blood Pressure 144/74 H 02/08/24 12:25 Pulse Oximetry 96 02/08/24 12:25 Oxygen Delivery Method Room Air 02/08/24 12:25 Vital signs reviewed and are normal. Const Other: Smiling, seated, no distress. Speech is of normal volume. Was ambulatory upon arrival. Using crutches with the assisted weightbear. [facility] Head: normal to inspection, normocephalic, atraumatic and No scalp tenderness Nose: external nose normal, nares normal, nasal mucous membranes and turbinates normal, septum normal, mucous membranes and turbinates abnormal (Hypertrophic turbinates left greater than right), No nasal discharge and No nasal polyp Face and sinus: normal facial exam, sinuses nontender and face symmetric Mouth: oral mucosae normal, lip normal, tongue normal and oropharynx normal Throat: posterior oropharynx normal, uvula midline (Surgically absent.) and tonsils absent Eyes Visual Vinson: normal visual vinson by confrontation Alignment and Position: alignment normal and position normal Periorbital: periorbital findings normal Eyelids: eyelids normal Conjunctivae: conjunctivae normal Sclera: sclerae normal Pupils: PERRL, normal by confrontation and accommodation normal EOM: EOM intact bilaterally, no movement deficit and No nystagmus Other: Visual acuity is intact to fingers. Neck Neck: normal visual inspection, full ROM, no meningeal signs, trachea midline and supple Carotids: no bruits Lymphatic: No lymphadenopathy Resp Auscultation: clear to auscultation bilaterally Cardio Palpation: normal PMI Rate: regular rate Rhythm: regular rhythm Neuro Cranial Nerves: CN's II-XI intact bilaterally, sense of smell intact, PERRL, accommodation normal, EOM intact bilaterally, facial strength normal, tongue midline, gag reflex normal, hearing normal, able to rotate head bilaterally, able to elevate shoulders bilaterally, No nystagmus and other (Normal [id number], negative Romberg negative pronator drift) Extrem Other: No focal deficits. Strength is equal intact, throughout all 4 extremities. Rapid alternating hand movements are equal bilaterally and normal. Psych Other: Alert and oriented <Shorty Harrison DO - Last Filed: 02/08/24 14:58> Initial Vital Signs Initial Vital Signs: Vital Signs Temperature 98.0 F 02/08/24 12:25 Pulse Rate 82 02/08/24 12:25 Respiratory Rate 18 02/08/24 12:25 Blood Pressure 144/74 H 02/08/24 12:25 Pulse Oximetry 96 02/08/24 12:25 Oxygen Delivery Method Room Air 02/08/24 12:25 Course <Bekah Liu PA-C - Last Filed: 02/08/24 14:45> Course Course Narrative: He has quite a bit of fluid behind the left TM, serous in nature, bony landmarks are still seen. His hearing is intact. His symptoms do resolve with closing of his eyes. He was recently discharged from the hospital I believe now that he is exposed to fresh air and pollen and other irritants I believe that he is having some seasonal allergies in addition to some fullness in the ear causing his vertiginous symptoms. There are no neurologic focal findings or deficits, and normal vital signs. Discussed the use of an antihistamine, long-acting such as Laureen, I have prescribed meclizine, use caution with decongestants as they can elevate blood pressure, please start Flonase to try and shrink some of your turbinate tissue and allow that left ear to drain and dry up. We discussed red flag warning signs in detail. Vital Signs Vital signs: Vital Signs - 8 hr 02/08/24 12:25 02/08/24 14:03 Temperature 98.0 F Pulse Rate 82 79 Respiratory Rate 18 20 Blood Pressure 144/74 H 144/73 H Pulse Oximetry 96 99 Oxygen Delivery Method Room Air Room Air Reviewed and are normal. <Shorty Harrison DO - Last Filed: 02/08/24 14:58> Vital Signs Vital signs: Vital Signs - 8 hr 02/08/24 12:25 02/08/24 14:03 Temperature 98.0 F Pulse Rate 82 79 Respiratory Rate 18 20 Blood Pressure 144/74 H 144/73 H Pulse Oximetry 96 99 Oxygen Delivery Method Room Air Room Air MDM - Dizziness <Bekah Liu PA-C - Last Filed: 02/08/24 14:45> Medical Records Attestation: I reviewed the patient's medical records. MDM Narrative Medical decision making narrative: No focal findings on neurologic examination. He was found to have quite a bit of serous fluid in his left ear with a slight bulge to the TM, but bony landmarks are still seen. The right side had a slight air-fluid level. No reproducible symptoms with extraocular movements, he is negative Romberg, negative pronator drift, negative rapid alternating movements. I believe he has some benign positional vertigo secondary to the increased fluid in his left inner ear. Discussed use of fluticasone to try and shrink some of his turbinate tissues, consider Antivert also known as meclizine, use caution with any decongestant such as pseudoephedrine as it can increase her blood pressure. Also consider adding a long-acting antihistamine such as Laureen, Claritin or Zyrtec. Please follow up with her doctor at next available, and consider an ENT referral if your symptoms persist. Please return to the emergency department if any symptoms recur, worsen or change or you have any new worrisome symptoms. Discharge Plan Departure Patient Disposition: Home Clinical Impression: Serous otitis media Qualifiers: Chronicity: unspecified Laterality: left Qualified Code(s): H65.92 - Unspecified nonsuppurative otitis media, left ear Benign paroxysmal positional vertigo Qualifiers: Laterality: unspecified laterality Qualified Code(s): H81.10 - Benign paroxysmal vertigo, unspecified ear Instructions: DI for Vertigo Activity Restrictions/Additional Instructions: I believe the fluid in your left inner ear might be contributing to her symptoms. I would like you to try Flonase [id number]-oqpvyvo nasal spray twice a day in each nostril for the next couple of weeks, consider a long-acting antihistamine such as Laureen, Claritin or Zyrtec taken daily for the next couple of weeks. Antivert a I have also prescribed lso known as meclizine for positional symptoms or that false sensation of movement, this will dry you out so please do hydrate, also wear sunglasses as it can dilate your pupils when outdoors. Please do follow up with your doctor at next available, you might require an ear nose and throat evaluation or referral, please consider a decongestant but use caution with pseudoephedrine as it can raise your blood pressure. Please return to the emergency department if any her symptoms worsen, change, or you have any new worrisome symptoms. Regarding your vision please monitor this if it does occur again please do not hesitate to return here. Otherwise touch base with your eye provider as well. Prescriptions: New meclizine 25 mg tablet 25 mg PO QID Qty: 30 0RF No Action (DME) Disabled Parking See Rx Instructions .ROUTE .MEDSUPPLY Qty: 1 0RF Rx Instructions: I find this patient to be medical disabled and qualified for Disabled Parking as indicated, and signed, on the and the Accompanying Disabled Parking Application for Individuals. albuterol sulfate 90 mcg/actuation HFA aerosol inhaler 2 puff INHALATION Q6H PRN (Reason: shortness of breath or wheezing) Qty: 18 0RF ibuprofen 600 mg tablet 600 mg PO Q6H PRN (Reason: pain) Qty: 60 0RF celecoxib [Celebrex] 200 mg capsule 200 mg PO QAM prazosin 1 mg capsule 1 mg PO BEDTIME PRN (Reason: ptsd/insomnia) amlodipine 10 mg tablet 10 mg PO QAM nortriptyline 10 mg capsule 10 mg PO BEDTIME PRN (Reason: Insomnia) rosuvastatin 20 mg tablet 20 mg PO QAM diclofenac sodium 1 % gel 2 g TOP QID PRN (Reason: Pain (Scale Score 4-6)) acetaminophen 325 mg Tablet 650 mg PO Q6H PRN (Reason: Fever/Mild Pain (1-3)) Qty: 30 0RF bisacodyl 5 mg Tablet,Delayed Release (Dr/Ec) 5 mg PO BID PRN (Reason: Constipation) Qty: 30 0RF polyethylene glycol 3350 17 gram Powder In Packet 17 g PO BID Qty: 30 0RF lisinopril 5 mg Tablet 10 mg PO DAILY Qty: 30 0RF bupropion HCl [Wellbutrin XL] 150 mg Tablet Extended Release 24 Hr 150 mg PO DAILY Qty: 30 0RF Referrals: Maddi Powers MD [Primary Care Provider] - Stand Alone Forms: Patient Portal/API ED Sign-out <Shorty Harrison DO - Last Filed: 02/08/24 14:58> Cosign ED Attending Cosignature Attestation: Dr Harrison Co-Sign Statement: I was available for consultation during this patient's emergency department visit. This chart is signed by myself for administrative purposes only. I did not have direct contact with this patient during this visit. They were seen independently by the APC.
[2024-02-08 14:03] VITALS: BP 144/73; PULSE 79; RESP 20; O2SAT 99
== END 2024-02-08 14:05 | disposition home or self-care (01) ==
PROVIDERS: Emergency Provider Physician Assistant Medical; PCP Family Medicine
DX: H65.92 Unspecified nonsuppurative otitis media, left ear (principal); H81.10 Benign paroxysmal vertigo, unspecified ear; Z87.891 Personal history of nicotine dependence
CPT/HCPCS: 99281; 99283

== ENCOUNTER → 2024-02-22 14:47 | Outpatient (CLI) | payer OTHER, SELFPAY ==
[2024-01-07 18:36] VITALS: BMI 52.0
--- NOTE | 2024-02-22 14:49 | DI.US.S_ITS ---
PROCEDURE: US PERIP VENOUS LOW EXTREM LT INDICATIONS: Left lower leg swelling TECHNIQUE: Real-time imaging, as well as color and pulse Doppler interrogation, were performed of the lower extremity deep veins from the inguinal ligament to the popliteal fossa, with documentation of the visualized calf veins. COMPARISON: [facility], , [facility] VENOUS LOW EXTREM LT, 01/07/2024, 14:07. FINDINGS: The common femoral, femoral, popliteal, and the visualized calf veins are normally compressible, and free of intraluminal thrombus. Color and pulse Doppler demonstrate normal phasic intraluminal flow. There is normal augmentation response to distal compression maneuver. The posterior tibial vein and peroneal vein are not visualized due to diffuse soft tissue edema. IMPRESSION: No findings of lower extremity deep venous thrombosis. Dictated by: Clarisse Reed M.D. on 02/22/2024 at 14:25 Approved by: Clarisse Reed M.D. on 02/22/2024 at 14:26
== END ==
PROVIDERS: PCP Family Medicine; Referring Provider Nurse Practitioner Family; Visit Provider Nurse Practitioner Family
DX: M79.89 Other specified soft tissue disorders (principal)
CPT/HCPCS: 93971

== ENCOUNTER → 2024-05-01 10:54 | Outpatient (CLI) | payer OTHER, SELFPAY ==
[2024-01-07 18:36] VITALS: BMI 52.0
--- NOTE | 2024-05-01 10:57 | DI.RAD.S_ITS ---
PROCEDURE: XR FINGER LT MIN 2V INDICATIONS: pain TECHNIQUE: AP hand, 2 views of the 3rd finger(s) acquired. COMPARISON: None. FINDINGS: Bones: No fractures or dislocations. No suspicious bony lesions. Abnormal tilting of the distal 3rd phalanx along the ulnar side of the DIP joint. Soft tissues: No suspicious soft tissue calcifications. IMPRESSION: Abnormal tilting of the distal 3rd phalanx along the ulnar side of the DIP joint, suggestive of ligamentous injury. Dictated by: Deep Saunders M.D. on 05/01/2024 at 15:16 Approved by: Deep Saunders M.D. on 05/01/2024 at 15:16
[2024-05-01 12:23] LABS: Cholesterol 150 mg/dL (140-199); HDL Cholesterol 61 mg/dL (40-60); LDL Cholesterol Calculated 72 mg/dL (<100); Triglycerides 86 mg/dL (35-150)
[2024-05-01 13:05] LABS: Hemoglobin A1C% w Est Avg Glu 5.7 % (4.0-6.0)
== END ==
PROVIDERS: PCP Family Medicine; Referring Provider Family Medicine; Visit Provider Family Medicine
DX: R93.6 Abnormal findings on diagnostic imaging of limbs (principal); E78.00 Pure hypercholesterolemia, unspecified; R52 Pain, unspecified; E11.9 Type 2 diabetes mellitus without complications
CPT/HCPCS: 36415; 73140; 80061; 83036

== ENCOUNTER 2025-02-02 11:35 | Emergency (ER) | payer OTHER, SELFPAY ==
[2024-01-07 18:36] VITALS: BMI 52.0
[2025-02-02] VITALS (10 sets, daily range): BP systolic 146–175; BP diastolic 77–95; PULSE 78–93; RESP 16; TEMP 36.6; O2SAT 97–99; BMI 51.7
--- NOTE | 2025-02-02 11:46 | DI.RAD.S_ITS ---
PROCEDURE: XR KNEE LT 3V INDICATIONS: L knee pain, swelling TECHNIQUE: 3 views of the knee were acquired. COMPARISON: [facility], CR, XR KNEE LT 1TO2V, 10/01/2022, 17:48. [facility], CR, XR KNEE LT 3V, 09/08/2022, 22:22. FINDINGS: Bones: A surgical changes along the inferior pole of the patella. No displaced fracture. Soft tissues: Large joint effusion. No suspicious soft tissue calcifications. IMPRESSION: Large knee joint effusion, without displaced fracture. Dictated by: Deep Saunders M.D. on 02/02/2025 at 12:30 Approved by: Deep Saunders M.D. on 02/02/2025 at 12:31
--- NOTE | 2025-02-02 12:03 | ED.LOWEXIN ---
HPI - Extremity Injury (Lower) <Libby Horn PA-C - Last Filed: 02/02/25 15:37> General Chief Complaint: Extremity Injury, Lower Stated Complaint: L knee pain Time Seen by Provider: 02/02/25 11:49 History of Present Illness HPI Narrative: Mr. Vences is very pleasant 55-year-old gentleman with past medical history of HTN, osteoarthritis, PTSD, left leg lymphedema, prior left knee quadriceps tendon repair in 2022 who presents to the emergency department via EMS from his home on [facility] for left knee pain x1 week. Patient states he always struggles with some intermittent left knee pain however about a week ago he was working on a door overusing his left knee. He has had worsening left knee pain since then and this week it has struggled to bear weight on the leg due to the pain. Denies any increased swelling of the left knee or leg, he does have chronic swelling of the leg however. He has not taken any pain medications. He lives at home with his . No numbness, tingling, redness, fevers, chills, flu-like symptoms. Describes the pain is primarily on the anteromedial aspect of the knee. Related Data Previous Rx's Medication Instructions Recorded albuterol sulfate 90 mcg/actuation 2 puff inhalation Q6H PRN 11/12/22 aerosol inhaler shortness of breath or wheezing #18 grams Disabled Parking #1 ea 07/13/23 amlodipine 10 mg tablet 10 mg PO QAM #30 tabs 07/04/24 celecoxib 200 mg capsule (Celebrex) 400 mg (2 x 200 mg) PO QAM #90 caps 12/31/24 losartan 50 mg tablet 50 mg PO DAILY #90 tabs 12/31/24 nortriptyline 10 mg capsule 10 mg PO BEDTIME PRN Insomnia #90 12/31/24 caps prazosin 1 mg capsule 1 mg PO BEDTIME PRN ptsd/insomnia 12/31/24 #90 caps rosuvastatin 20 mg tablet 20 mg PO QAM #90 tabs 12/31/24 diclofenac sodium 3 % topical gel 1 applic topical BID #100 grams 01/30/25 apixaban 5 mg tablet 10 mg (2 x 5 mg) PO Q12H 7 days 02/02/25 #28 tabs apixaban 5 mg tablet (Eliquis) 5 mg PO BID 21 days #42 tabs 02/02/25 hydrocodone 5 mg-acetaminophen 325 1 tab PO Q4-6H PRN pain #12 tabs 02/02/25 mg tablet Allergies Allergy/AdvReac Type Severity Reaction Status Date / Time No Known Drug Allergies Allergy Verified 09/18/24 13:32 Review of Systems <Libby Horn PA-C - Last Filed: 02/02/25 15:37> Review of Systems ROS Unobtainable: All systems reviewed & are unremarkable except as noted in HPI and below Patient History <Libby Horn PA-C - Last Filed: 02/02/25 15:37> Medical History Fatty infiltration of liver LFT elevation DM2 (diabetes mellitus, type 2) COVID-19 virus infection (~05/2022) Migraine headache Shoulder impingement syndrome Degenerative joint disease of knee Bilateral primary osteoarthritis of hip Facet joint disease of lumbosacral region Bilateral primary osteoarthritis of knee PTSD (post-traumatic stress disorder) Hyperlipidemia Hypertension TROY (obstructive sleep apnea) Morbid obesity Family History Mother Diabetes mellitus Hypertension Breast cancer Grandfather Myocardial infarction Social History household members: spouse alcohol intake: current tobacco type: cigarettes alcohol intake frequency: holidays/special occasions only Exam <Libby Horn PA-C - Last Filed: 02/02/25 15:37> Narrative Exam Narrative: GENERAL: 55 year old patient appears stated age. Obese patient, in no acute distress. HEAD: Atraumatic. Normocephalic. CARDIOVASCULAR: Regular rate RESPIRATORY: ?Nonlabored respirations. ?Speaking in clear, full sentences.? EXTREMITIES: Entire left leg lymphedema. Prior left knee surgical scars. Tenderness to palpation of anterior and medial aspect of left knee. No calf tenderness. Bilateral feet are warm and well perfused. No rashes, erythema. Patient's position of comfort is with knee in partial flexion. NEURO: AOx3. ?Clear speech. ?SITLT on BL LE. SKIN: No rash or erythema of visible areas Initial Vital Signs Initial Vital Signs: Vital Signs Pulse Rate 91 H 02/02/25 11:42 Blood Pressure 171/78 H 02/02/25 11:42 Pulse Oximetry 98 02/02/25 11:42 <Giles Del Rosario MD - Last Filed: 02/02/25 20:37> Initial Vital Signs Initial Vital Signs: Vital Signs Pulse Rate 91 H 02/02/25 11:42 Blood Pressure 171/78 H 02/02/25 11:42 Pulse Oximetry 98 02/02/25 11:42 Course <Libby Horn PA-C - Last Filed: 02/02/25 15:37> Orders Ordered: ED Orders 02/02/25 11:46 XR knee LT 3V Stat 02/02/25 12:34 US periph venous low extrem lt Stat Discontinued Medications Hydrocodone Bitart/Acetaminophen (Hydrocodone/Acet 5/325 Tablet) 1 tab PO NOW ONE Stop: 02/02/25 12:04 Last Admin: 02/02/25 12:14 Dose: 1 tab Documented By: Apixaban (Apixaban 5 Mg Tablet) 10 mg PO NOW ONE Stop: 02/02/25 14:43 Last Admin: 02/02/25 14:53 Dose: 10 mg Documented By: VIET Ibuprofen (Ibuprofen 400 Mg Tablet) 400 mg PO NOW ONE Stop: 02/02/25 12:04 Last Admin: 02/02/25 12:15 Dose: 400 mg Documented By: Vital Signs Vital signs: Vital Signs - 8 hr 02/02/25 13:00 02/02/25 13:00 02/02/25 13:30 Pulse Rate 79 Blood Pressure 175/90 H 156/83 H Pulse Oximetry 98 02/02/25 13:30 02/02/25 14:00 02/02/25 14:00 Pulse Rate 78 86 Blood Pressure 154/95 H Pulse Oximetry 98 98 02/02/25 14:30 02/02/25 14:30 02/02/25 15:00 Pulse Rate 89 86 Blood Pressure 146/77 H Pulse Oximetry 98 97 02/02/25 15:00 Pulse Rate Blood Pressure 164/77 H Pulse Oximetry <Giles Del Rosario MD - Last Filed: 02/02/25 20:37> Orders Ordered: ED Orders 02/02/25 11:46 XR knee LT 3V Stat 02/02/25 12:34 US periph venous low extrem lt Stat Discontinued Medications Hydrocodone Bitart/Acetaminophen (Hydrocodone/Acet 5/325 Tablet) 1 tab PO NOW ONE Stop: 02/02/25 12:04 Last Admin: 02/02/25 12:14 Dose: 1 tab Documented By: Apixaban (Apixaban 5 Mg Tablet) 10 mg PO NOW ONE Stop: 02/02/25 14:43 Last Admin: 02/02/25 14:53 Dose: 10 mg Documented By: VIET Ibuprofen (Ibuprofen 400 Mg Tablet) 400 mg PO NOW ONE Stop: 02/02/25 12:04 Last Admin: 02/02/25 12:15 Dose: 400 mg Documented By: Vital Signs Vital signs: Vital Signs - 8 hr 02/02/25 13:00 02/02/25 13:00 02/02/25 13:30 Pulse Rate 79 Blood Pressure 175/90 H 156/83 H Pulse Oximetry 98 02/02/25 13:30 02/02/25 14:00 02/02/25 14:00 Pulse Rate 78 86 Blood Pressure 154/95 H Pulse Oximetry 98 98 02/02/25 14:30 02/02/25 14:30 02/02/25 15:00 Pulse Rate 89 86 Blood Pressure 146/77 H Pulse Oximetry 98 97 02/02/25 15:00 Pulse Rate Blood Pressure 164/77 H Pulse Oximetry MDM - Extremity Injury (Lower) <Libby Horn PA-C - Last Filed: 02/02/25 15:37> Medical Records Attestation: I reviewed the patient's medical records. Imaging Data Left Knee X-Ray: Radiologist's Impression: PROCEDURE: XR KNEE LT 3V INDICATIONS: L knee pain, swelling TECHNIQUE: 3 views of the knee were acquired. COMPARISON: [facility], , XR KNEE LT 1TO2V, 10/01/2022, 17:48. [facility], , XR KNEE LT 3V, 09/08/2022, 22:22. FINDINGS: Bones: A surgical changes along the inferior pole of the patella. No displaced fracture. Soft tissues: Large joint effusion. No suspicious soft tissue calcifications. IMPRESSION: Large knee joint effusion, without displaced fracture. Dictated by: Deep Saunders M.D. on 02/02/2025 at 12:30 Approved by: Deep Saunders M.D. on 02/02/2025 at 12:31 Left leg Vascular US: Radiologist's Impression: PROCEDURE: US [facility] VENOUS LOW EXTREM LT INDICATIONS: left leg swelling bed bound 1 week pain concern dvt TECHNIQUE: Real-time imaging, as well as color and pulse Doppler interrogation, were performed of the lower extremity deep veins from the inguinal ligament to the popliteal fossa, with documentation of the visualized calf veins. COMPARISON: [facility], US, US [facility] VENOUS LOW EXTREM LT, 02/22/2024, 14:56. FINDINGS: Occlusive deep venous thrombus is seen in the popliteal vein. The common femoral and femoral veins are normally compressible, and free of intraluminal thrombus. Color and pulse Doppler demonstrate normal phasic intraluminal flow. There is normal augmentation response to distal compression maneuver. Calf vessels are not well visualized. Complex fluid collection in the popliteal fossa measuring 5.6 x 3.8 x 3.1 cm. IMPRESSION: 1. Short segment occlusive thrombus within the left popliteal vein. 2. Complex Benz cyst. Concordant preliminary findings were conveyed to the Dr. Wong by the chemistry manager on 02/02/2025 at 2:10 PM ([place] time). Approved by: Tayo Yarbrough M.D. on 02/02/2025 at 13:30 MDM Narrative Medical decision making narrative: 55-year-old gentleman with past medical history of HTN, osteoarthritis, PTSD, left leg lymphedema, prior left knee quadriceps tendon repair in 2022 who presents to the emergency department via EMS from his home on [facility] for left knee pain x1 week. Differential diagnosis includes but is not limited to DVT, lymphadema,left knee osteoarthritis, sprain, strain, fracture, overuse injury, etc. On exam patient is in no acute distress, nontoxic appearing, vital signs appropriate except for mildly elevated blood pressure, his left leg lymphedema, lower extremities are neurovascularly intact, he has tenderness to palpation of the anteromedial left knee. No direct trauma but he did have overuse injury that precipitated the pain. No increased swelling of the leg, no calf tenderness. No history of DVT. We will obtain left knee x-ray injury pain with [place] and ibuprofen. arrived to the ER, contributed to the history that his left leg actually is much more swollen than previously, no history of DVT, we will obtain left lower extremity venous ultrasound. Informed by chemistry manager that patient has a large fluid collection in the left popliteal fossa, nonvascular appearing, septated, possible Benz cyst that is causing venous compression and subsequent thrombosis in the popliteal vein. We will consult with Orthopedics for further guidance and management. Discssed case with orthopedic surgeon Dr. Balbuena. He explained that this large fluid collection is likely because of the joint arthritis, joint can be drained but patient comfort however does not need to be drained. Recommend starting anticoagulation, no indication for CT or advanced imaging at this time. After shared decision-making with the patient, we will not proceed with joint aspiration at this time, we will initiate Eliquis for DVT. First dose of Eliquis given in the ED, discussed risks of anticoagulation, patient has no current bleeding or bleeding risk factors. Prescribed 1st 30 days of Eliquis. Also prescribe short course of pain medication as patient will need to stop NSAIDs. Discussed narcotic risks. Discussed strict ED return precautions, follow up with PCP. Patient and verbalized understanding of all information. He was provided with a walker for ambulation. He is stable for discharge home. Discharge Plan Departure Patient Disposition: Home Clinical Impression: Acute deep vein thrombosis (DVT) of popliteal vein of left lower extremity, Effusion of knee joint, left Instructions: DI for Deep Vein Thrombosis, Apixaban Activity Restrictions/Additional Instructions: Dear Mr. Vences, Today you were evaluated for left knee pain. X-ray of the left knee shows a large effusion but no fractures of the bones. Ultrasound of your left leg reveals a large effusion or Benz cyst that resulted in a blood clot in 1 of the veins of your lower leg. We are starting on blood thinners. Please take 10 mg of Eliquis twice a day for the 1st 7 days followed by 5 mg of Eliquis twice a day for the subsequent 21 days. However please understand you will need to be on blood thinners for at least 3 months and you need to follow up with your primary care doctor for further prescriptions. Please avoid prolonged bed rest or massage of the left lower extremity. Avoid taking any NSAIDs such as ibuprofen or Celebrex while on blood thinners. Please return to the emergency department if you develop any new or worsening symptoms, chest pain, shortness of breath, redness or signs of infection of the leg or other concerns. You have been prescribed a short course of narcotic medications. These are potentially dangerous and addictive medications that should be used carefully. While on these medications you cannot drive or operate heavy machinery. Additionally, you cannot sign legal documents or perform any duties such as this. Many people get constipated on narcotic medications so it would be advisable to discuss stool softeners with the pharmacist when you pharmacy picking tech your prescription. Please understand that we cannot provide further refills of narcotics or controlled substances through the ED and your pain management will need to be through your Primary Care Provider Please follow up with your primary care doctor within the next 2-3 days for ER follow-up. (If you do not have a PCP you can call [phone]. ?to schedule an appointment with an [facility] Primary Care Provider) IF YOU DEVELOP ANY NEW OR WORSENING SYMPTOMS, RETURN TO THE ER! Please read the attached instructions, they highlight more specific treatments and interventions for you at home. Thank you for letting me participate in your care, Libby Horn PA-C Prescriptions: New apixaban 5 mg tablet 10 mg PO Q12H 7 Days Qty: 28 0RF Rx Instructions: first 7 days Eliquis 5 mg tablet 5 mg PO BID 21 Days Qty: 42 0RF Rx Instructions: after completion of first 7 days hydrocodone-acetaminophen 5-325 mg tablet 1 tab PO Q4-6H PRN (Reason: pain) Qty: 12 0RF No Action (DME) Disabled Parking See Rx Instructions .ROUTE .MEDSUPPLY Qty: 1 0RF Rx Instructions: I find this patient to be medical disabled and qualified for Disabled Parking as indicated, and signed, on the and the Accompanying Disabled Parking Application for Individuals. diclofenac sodium 3 % gel 1 applic topical BID Qty: 100 3RF albuterol sulfate 90 mcg/actuation HFA aerosol inhaler 2 puff INHALATION Q6H PRN (Reason: shortness of breath or wheezing) Qty: 18 0RF amlodipine 10 mg tablet 10 mg PO QAM Qty: 30 2RF losartan 50 mg tablet 50 mg PO DAILY Qty: 90 3RF rosuvastatin 20 mg tablet 20 mg PO QAM Qty: 90 2RF nortriptyline 10 mg capsule 10 mg PO BEDTIME PRN (Reason: Insomnia) Qty: 90 0RF prazosin 1 mg capsule 1 mg PO BEDTIME PRN (Reason: ptsd/insomnia) Qty: 90 0RF celecoxib [Celebrex] 200 mg capsule 400 mg PO QAM Qty: 90 0RF Referrals: Maddi Powers MD [Primary Care Provider] - Stand Alone Forms: Patient Portal/API/Survey ED Sign-out <Giles Del Rosario MD - Last Filed: 02/02/25 20:37> Cosign ED Attending Cosignature Attestation: I was immediately available in the department for consultation. This documentation has been reviewed and I agree with assessment and plan. Supervised by Giles Del Rosario MD
[2025-02-02] MEDS: HYDROCODONE/ACET 5/325 TABLET 1 TAB PO (12:14)
[2025-02-02] MEDS: IBUPROFEN 400 MG TABLET PO (12:15)
--- NOTE | 2025-02-02 12:34 | DI.US.S_ITS ---
PROCEDURE: US PERIP VENOUS LOW EXTREM LT INDICATIONS: left leg swelling bed bound 1 week pain concern dvt TECHNIQUE: Real-time imaging, as well as color and pulse Doppler interrogation, were performed of the lower extremity deep veins from the inguinal ligament to the popliteal fossa, with documentation of the visualized calf veins. COMPARISON: [facility], , [facility] VENOUS LOW EXTREM LT, 02/22/2024, 14:56. FINDINGS: Occlusive deep venous thrombus is seen in the popliteal vein. The common femoral and femoral veins are normally compressible, and free of intraluminal thrombus. Color and pulse Doppler demonstrate normal phasic intraluminal flow. There is normal augmentation response to distal compression maneuver. Calf vessels are not well visualized. Complex fluid collection in the popliteal fossa measuring 5.6 x 3.8 x 3.1 cm. IMPRESSION: 1. Short segment occlusive thrombus within the left popliteal vein. 2. Complex Benz cyst. Concordant preliminary findings were conveyed to the Dr. Wong by the career advisor on 02/02/2025 at 2:10 PM ([place] time). Approved by: Tayo Yarbrough M.D. on 02/02/2025 at 13:30
[2025-02-02] MEDS: APIXABAN 5 MG TABLET 10 MG PO (14:53)
== END 2025-02-02 15:46 | disposition home or self-care (01) ==
PROVIDERS: Emergency Provider Physician Assistant; PCP Family Medicine
DX: I82.432 Acute embolism and thrombosis of left popliteal vein (principal); M25.462 Effusion, left knee
CPT/HCPCS: 73562; 93971; 99283

== ENCOUNTER 2025-02-15 11:44 | Emergency (ER) | payer OTHER, SELFPAY ==
[2024-01-07 18:36] VITALS: BMI 52.0
[2025-02-15 11:54] VITALS: BP 128/74; PULSE 100; RESP 16; TEMP 36.9; O2SAT 99; BMI 516.9
--- NOTE | 2025-02-15 12:17 | ED.LOWEXIN ---
HPI - Extremity Injury (Lower) General Chief Complaint: Extremity Injury, Lower Stated Complaint: Lt Leg swelling History of Present Illness HPI Narrative: 51-year-old gentleman past medical history of hypertension osteoarthritis PTSD left leg lymphedema prior left knee quadriceps tendon repair in 2022 seen in the ER back on February 02 diagnosed with left lower leg DVT presents via EMS today with continued left lower leg knee pain and swelling with ambulation. He has a pending MRI and he was under the impression that the ER would schedule that for him here but I was just called back by diagnostic imaging who stated his MRI has been approved for outpatient but he would like to proceed with the CT scan of the lower extremity since he continues to have significant pain and swelling at rest and with ambulation despite being on anticoagulants. Patient denies fever, chills, chest pain, shortness of breath at this time. Other than what is stated 14 point review of system is negative. Related Data Previous Rx's ?Medication ?Instructions ?Recorded albuterol sulfate 90 mcg/actuation 2 puff inhalation Q6H PRN 11/12/22 aerosol inhaler shortness of breath or wheezing #18 grams Disabled Parking #1 ea 07/13/23 amlodipine 10 mg tablet 10 mg PO QAM #30 tabs 07/04/24 celecoxib 200 mg capsule (Celebrex) 400 mg (2 x 200 mg) PO QAM #90 caps 12/31/24 losartan 50 mg tablet 50 mg PO DAILY #90 tabs 12/31/24 nortriptyline 10 mg capsule 10 mg PO BEDTIME PRN Insomnia #90 12/31/24 caps prazosin 1 mg capsule 1 mg PO BEDTIME PRN ptsd/insomnia 12/31/24 #90 caps rosuvastatin 20 mg tablet 20 mg PO QAM #90 tabs 12/31/24 hydrocodone 5 mg-acetaminophen 325 1 tab PO Q4-6H PRN pain #12 tabs 02/02/25 mg tablet diclofenac sodium 3 % topical gel 1 applic topical BID #100 grams 02/11/25 apixaban 5 mg tablet (Eliquis) 5 mg PO BID 21 days #42 tabs 02/13/25 Allergies Allergy/AdvReac Type Severity Reaction Status Date / Time No Known Drug Allergies Allergy Verified 02/15/25 11:54 Review of Systems Review of Systems ROS Unobtainable: All systems reviewed & are unremarkable except as noted in HPI and below Patient History Medical History Fatty infiltration of liver LFT elevation DM2 (diabetes mellitus, type 2) COVID-19 virus infection (~05/2022) Migraine headache Shoulder impingement syndrome Degenerative joint disease of knee Bilateral primary osteoarthritis of hip Facet joint disease of lumbosacral region Bilateral primary osteoarthritis of knee PTSD (post-traumatic stress disorder) Hyperlipidemia Hypertension TROY (obstructive sleep apnea) Morbid obesity Family History Mother Diabetes mellitus Hypertension Breast cancer Grandfather Myocardial infarction Social History household members: spouse alcohol intake: current tobacco type: cigarettes alcohol intake frequency: holidays/special occasions only Exam Narrative Exam Narrative: GENERAL: [55] year old patient appears stated age. Well-developed patient, in mild distress. HEAD: Atraumatic. Normocephalic. EYES: Pupils equal round and reactive. Extraocular motions intact. No scleral icterus. No injection or drainage. NECK: Trachea midline. Non tender CARDIOVASCULAR: Regular rate and rhythm without murmurs, gallops, or rubs. RESPIRATORY: Clear to auscultation. Breath sounds equal bilaterally. No wheezes, rales, or rhonchi. GASTROINTESTINAL: Abdomen soft, non-tender, nondistended. EXTREMITIES: Left leg lymphedema with prior knee surgical scar vertically tenderness to palpation anterior medial and lateral aspect of the left knee. No calf tenderness motor sensory intact +2 DP +2 PT cap refill less than 2 seconds BACK: Nontender without deformity or crepitance. No flank tenderness. NEURO: AOx3. SKIN: No rash or erythema of visible areas Initial Vital Signs Initial Vital Signs: Vital Signs Temperature 98.4 F 02/15/25 11:54 Pulse Rate 100 H 02/15/25 11:54 Respiratory Rate 16 02/15/25 11:54 Blood Pressure 128/74 02/15/25 11:54 Pulse Oximetry 99 02/15/25 11:54 Oxygen Delivery Method Room Air 02/15/25 11:54 Course Vital Signs Vital signs: Vital Signs - 8 hr 02/15/25 11:54 Temperature 98.4 F Pulse Rate 100 H Respiratory Rate 16 Blood Pressure 128/74 Pulse Oximetry 99 Oxygen Delivery Method Room Air MDM - Extremity Injury (Lower) Imaging Data Extremity x-ray #1: Radiologist's Impression: [place] [id number] [place] [id number] Scan Report Signed Patient: Kumar Vences MR#: [id number] : 1970 Acct:[id number] Age/Sex: 55 / M Date of Service: 02/15/25 Loc: ED Accession Number: [id number] Procedure: CT LE LT wo con Ordering Provider: Renato Elizabeth D.O. PROCEDURE: CT LE LT W CON INDICATIONS: L knee pain/swelling TECHNIQUE: Noncontrast 1-1.5 mm axial sections acquired from the mid-patella to the proximal tibia, with coronal and sagittal reformats. COMPARISON: [facility], CR, XR KNEE LT 3V, 02/02/2025, 12:04. FINDINGS: Image quality: Excellent. Bones: Postsurgical changes are noted in patella with 2 small metallic clips seen in posterior inferior aspect of patella. No acute fracture or dislocation. Mild lateral subluxation of patella. No suspicious intraosseous lesions. No cortical erosion or abnormal periosteal reaction. [id number] tricompartmental osteoarthritis is seen more notably in medial femoral tibial compartment and lateral portion of patellofemoral compartment. Soft tissues: Significant subcutaneous soft tissue edema and swelling along anterior aspect of patella is seen. There is large suprapatellar joint effusion. No calcified intra-articular loose bodies. Mild synovial thickening and enhancement is seen concerning for synovitis. No peripherally enhancing abscess collection is noted. No abnormal soft tissue calcifications. Sagittal views show no full-thickness quadriceps tendon or patellar tendon rupture. Attenuated appearance of distal quadriceps tendon concerning for tendinosis and low-grade partial-thickness tear. No gross full-thickness ACL or PCL rupture. IMPRESSION: 1. Mild anterior right knee soft tissue swelling. Large suprapatellar joint effusion. Thickened synovial lining and enhancement concerning for synovitis. No calcified intra-articular loose bodies. 2. Postsurgical changes in patella. Slight lateral subluxation of patella. No acute fracture or dislocation. No CT evidence of osteomyelitis. Ceig-gt-erwascmf tricompartmental osteoarthritis more notably in medial femoral tibial compartment and lateral portion of patellofemoral compartment. 3. Suggestion of tendinosis and low-grade partial-thickness tear involving distal quadriceps tendon. No full-thickness tendon rupture. No gross full-thickness cruciate ligament rupture. MDM Narrative Medical decision making narrative: Vital signs nurse triage note medication list previous ER visits and all imaging modalities reviewed. Mild anterior right knee soft tissue swelling with large suprapatellar joint effusion. Slight lateral subluxation of the patella but no acute fracture or dislocation and no os osteomyelitis. Suggestion of tendinosis and low-grade partial-thickness tear involving distal quadriceps tendon no full-thickness tendon rupture no gross full-thickness cruciate ligament rupture. Patient placed in knee immobilizer given tramadol here he has an outpatient MRI tomorrow at 1:30 p.m. differential diagnosis includes fracture dislocation osteoarthritis osteomyelitis tendon ligament rupture. Patient will follow up with orthopedic as outpatient pending MRI results. Discharge Plan Departure Patient Disposition: Home Clinical Impression: Injury of quadriceps tendon Instructions: DI for Knee Pain Prescriptions: No Action (DME) Disabled Parking See Rx Instructions .ROUTE .MEDSUPPLY Qty: 1 0RF Rx Instructions: I find this patient to be medical disabled and qualified for Disabled Parking as indicated, and signed, on the and the Accompanying Disabled Parking Application for Individuals. albuterol sulfate 90 mcg/actuation HFA aerosol inhaler 2 puff INHALATION Q6H PRN (Reason: shortness of breath or wheezing) Qty: 18 0RF amlodipine 10 mg tablet 10 mg PO QAM Qty: 30 2RF losartan 50 mg tablet 50 mg PO DAILY Qty: 90 3RF rosuvastatin 20 mg tablet 20 mg PO QAM Qty: 90 2RF nortriptyline 10 mg capsule 10 mg PO BEDTIME PRN (Reason: Insomnia) Qty: 90 0RF prazosin 1 mg capsule 1 mg PO BEDTIME PRN (Reason: ptsd/insomnia) Qty: 90 0RF celecoxib [Celebrex] 200 mg capsule 400 mg PO QAM Qty: 90 0RF diclofenac sodium 3 % gel 1 applic topical BID Qty: 100 3RF Eliquis 5 mg tablet 5 mg PO BID 21 Days Qty: 42 0RF Rx Instructions: after completion of first 7 days hydrocodone-acetaminophen 5-325 mg tablet 1 tab PO Q4-6H PRN (Reason: pain) Qty: 12 0RF Referrals: Maddi Powers MD [Primary Care Provider, Family Practice] Stand Alone Forms: Patient Portal/API
--- NOTE | 2025-02-15 12:32 | DI.CT.S_ITS ---
PROCEDURE: CT LE LT W CON INDICATIONS: L knee pain/swelling TECHNIQUE: Noncontrast 1-1.5 mm axial sections acquired from the mid-patella to the proximal tibia, with coronal and sagittal reformats. COMPARISON: [facility], CR, XR KNEE LT 3V, 02/02/2025, 12:04. FINDINGS: Image quality: Excellent. Bones: Postsurgical changes are noted in patella with 2 small metallic clips seen in posterior inferior aspect of patella. No acute fracture or dislocation. Mild lateral subluxation of patella. No suspicious intraosseous lesions. No cortical erosion or abnormal periosteal reaction. Gpui-[id number] tricompartmental osteoarthritis is seen more notably in medial femoral tibial compartment and lateral portion of patellofemoral compartment. Soft tissues: Significant subcutaneous soft tissue edema and swelling along anterior aspect of patella is seen. There is large suprapatellar joint effusion. No calcified intra-articular loose bodies. Mild synovial thickening and enhancement is seen concerning for synovitis. No peripherally enhancing abscess collection is noted. No abnormal soft tissue calcifications. Sagittal views show no full-thickness quadriceps tendon or patellar tendon rupture. Attenuated appearance of distal quadriceps tendon concerning for tendinosis and low-grade partial-thickness tear. No gross full- thickness ACL or PCL rupture. IMPRESSION: 1. Mild anterior right knee soft tissue swelling. Large suprapatellar joint effusion. Thickened synovial lining and enhancement concerning for synovitis. No calcified intra-articular loose bodies. 2. Postsurgical changes in patella. Slight lateral subluxation of patella. No acute fracture or dislocation. No CT evidence of osteomyelitis. Jkyu-mm-kpatmptw tricompartmental osteoarthritis more notably in medial femoral tibial compartment and lateral portion of patellofemoral compartment. 3. Suggestion of tendinosis and low-grade partial-thickness tear involving distal quadriceps tendon. No full-thickness tendon rupture. No gross full-thickness cruciate ligament rupture. Dictated by: Bandar Haney M.D. on 02/15/2025 at 13:16 Approved by: Bandar Haney M.D. on 02/15/2025 at 13:23
[2025-02-15] MEDS: TRAMADOL 50 MG TABLET PO (12:59)
[2025-02-15 13:13] VITALS: BP 143/85; PULSE 94; RESP 16; O2SAT 98
[2025-02-15 13:50] VITALS: BP 142/81; PULSE 92; RESP 19; O2SAT 98
== END 2025-02-15 14:18 | disposition home or self-care (01) ==
PROVIDERS: Emergency Provider Family Medicine; PCP Family Medicine
DX: S76.102A Unspecified injury of left quadriceps muscle, fascia and tendon, initial encounter (principal); X58.XXXA Exposure to other specified factors, initial encounter
CPT/HCPCS: 73700; 99283; 99284

== ENCOUNTER → 2025-02-16 12:30 | Outpatient (CLI) | payer OTHER, SELFPAY ==
[2024-01-07 18:36] VITALS: BMI 52.0
--- NOTE | 2025-02-16 12:32 | DI.RAD.S_ITS ---
PROCEDURE: XR KNEE LT 3V INDICATIONS: knee pain TECHNIQUE: 3 views of the knee were acquired. COMPARISON: [facility], CR, XR KNEE LT 3V, 02/02/2025, 12:04. [facility], CR, XR KNEE LT 1TO2V, 10/01/2022, 17:48. FINDINGS: Bones: No fractures or dislocations. Stable appearance of patellar hardware without evidence of complication. No suspicious bony lesions. Lateral subluxation of the patella is stable compared to prior. Soft tissues: Large joint effusion. No suspicious soft tissue calcifications. IMPRESSION: Stable appearance of patellar hardware. Large knee joint effusion. Lateral subluxation of the patella is stable compared to prior. Dictated by: Jose Duffy M.D. on 02/17/2025 at 13:15 Approved by: Jose Duffy M.D. on 02/17/2025 at 13:16
--- NOTE | 2025-02-16 13:30 | DI.MRI.S_ITS ---
PROCEDURE: MR KNEE LT WO CON INDICATIONS: pain and swelling TECHNIQUE: Noncontrast sagittal PD fast spin echo and T2 fast spin echo with fat saturation, sagittal 3-D FLASH with fat saturation; coronal T1 spin echo and PD fast spin echo with fat saturation, and axial PD fast spin echo with fat saturation through the knee. COMPARISON: [facility], MR, MR KNEE LT WO CON, 09/25/2022, 8:08. FINDINGS: Image quality: Diagnostic. Images are limited by patient motion artifacts, low [id number], limited patient positioning related to body habitus per notes. Bones and cartilage: Approximately 2.4 cm cc 1.9 cm AP x 1.8 cm transverse low T1, high T2 oval- shaped r lobulated structure in the proximal tibia diaphysis commonly may represent enchondroma. Bone infarct or other lesion which rarely may include metastasis considered less likely. Follow-up suggested. Moderate areas of abnormal low T1, high T2 signal/bone edema most notably in the medial femoral condyle, medial tibial plateau which are nonspecific and may be related to contusion or bone injury however given the other findings reactive bone edema or osteomyelitis could be considered. Follow-up is needed. Evaluation of the knee joint effusion fluid for gram stain and culture suggested. Moderate diffuse cartilaginous thinning in the medial, lateral and patellofemoral compartments. Joint space: Large knee joint effusion with multiple loculations, heterogeneous signal intensity with synovial thickening, synovitis. Whether this fluid is infected or not cannot be determined by MRI however given the constellation of findings raises the suspicion for septic arthritis versus serosanguineous or post injury effusion. Joint space aspiration and laboratory evaluation of the fluid may be useful for further evaluation. Follow-up is needed. Large popliteal cyst with multiple septations partially ruptured into the surrounding soft tissues measures up to at least 10 cm cc by 6 cm transverse by 5 cm AP maximal dimensions. Menisci: Diffuse thinning commonly related to chronic maceration/degeneration in the mid body of the medial meniscus and as well as in the anterior horn and to a lesser degree posterior horn. Lateral meniscus is grossly normal in size and signal without definitive tear. Suspected meniscocapsular separation posteriorly, medial and lateral. Cruciate ligaments: Uxwn-[id number]-[id number] diffuse increased size T2 weighted signal and thinning of the mid and distal anterior cruciate ligament suspicious for injury/strain with intact fibers without complete tear. Posterior cruciate ligament is normal. Medial structures: Moderate diffuse soft tissue edema surrounding the medial collateral ligament may be related to grade 1 injury without tear or retraction. Marker abnormal increased T2 weighted signal, edema, partial tear of the distal semimembranosus tendon with tendinous retraction. Lateral structures: Markedly abnormal appearance of the popliteus muscle with extensive heterogeneous signal, internal fluid and cystic changes and fluid adjacent to the distal popliteus tendon suspicious for partial tear likely chronic. Myositis or other process not excluded. Edema surrounding the lateral collateral ligament which is not well visualized some of which due to artifacts. Anterior structures: On the axial images the patella is laterally subluxed by up to 1.1 cm. Postoperative changes in the patella with associated metallic susceptibility artifact. Nonspecific thickening of the distal quadriceps tendon partially evaluated due to artifacts may be related to tendinopathy/partial tear. Thickening of the medial and lateral patellar retinacula is nonspecific. Moderate edema in the infrapatellar fat pad. IMPRESSION: Large heterogeneous signal intensity loculated joint effusion, whether this fluid is infected or not cannot be determined by MRI and correlation with joint aspiration and laboratory evaluation suggested. Bone edema in the medial femoral condyle and medial tibial plateau greater than lateral tibial plateau is nonspecific may be related to bone contusion however osteomyelitis not excluded and follow-up is needed. Large complex partially ruptured popliteal cyst. Cystic changes throughout the popliteus muscle may related to injury/tear, myositis or other process which rarely may include intramuscular abscess. Maceration/degeneration medial meniscus. Other findings as above. Follow-up is needed. Dictated by: Alen Sampson M.D. on 02/18/2025 at 11:00 Approved by: Alen Sampson M.D. on 02/18/2025 at 11:59
== END ==
PROVIDERS: PCP Family Medicine; Referring Provider Family Medicine; Visit Provider Family Medicine
DX: S83.012A Lateral subluxation of left patella, initial encounter (principal); M66.0 Rupture of popliteal cyst; M25.462 Effusion, left knee; M25.562 Pain in left knee
CPT/HCPCS: 73562; 73721

== ENCOUNTER → 2025-02-21 16:06 | Outpatient (CLI) | payer OTHER, SELFPAY ==
[2024-01-07 18:36] VITALS: BMI 52.0
[2025-02-21 16:44] LABS: Crystals Body Fluid - IN-HOUSE NONE Present
[2025-02-21 17:13] LABS: Add Manual Diff / Slide Review NO; Basophils Absolute Auto 100 /uL (0-100); Eosinophils Absolute Auto 100 /uL (0-450); Eosinophils Percent Auto 0.9 % (2-4); Hemoglobin 11.9 g/dL (13.5-17.5); Lymphocytes Absolute Auto 1300 /uL (1100-4500); Lymphocytes Percent Auto 17.4 % (25-40); Mean Corpuscular Hemoglobin 24.6 PG (26-34); Mean Corpuscular Volume 76.8 fL (80-100); Monocytes Absolute Auto 900 /uL (0-900); Monocytes Percent Auto 11.5 % (3-14); Neutrophils Absolute Auto 5100 /uL (1500-7000); Neutrophils Percent Auto 69.2 % (50-75); Platelet Count 492 X10^3/uL (150-400); Red Blood Cell Count 4.82 X10^6/uL (4.5-5.9); Red Cell Distribution Width 15.1 % (11.6-14.8); White Blood Cell Count 7.4 X10^3/uL (4.5-11.0)
[2025-02-21 17:30] LABS: Erythrocyte Sedimentation Rate 80 MM/HR (0-15)
[2025-02-21 17:43] LABS: C-Reactive Protein Quant 2.4 mg/dL (<1.0)
== END ==
PROVIDERS: PCP Family Medicine; Referring Provider Orthopaedic Surgery Adult Reconstructive Orthopaedic Surgery; Visit Provider Orthopaedic Surgery Adult Reconstructive Orthopaedic Surgery
DX: S76.109A Unspecified injury of unspecified quadriceps muscle, fascia and tendon, initial encounter (principal); M00.9 Pyogenic arthritis, unspecified; M25.562 Pain in left knee
CPT/HCPCS: 36415; 85025; 85651; 86140; 87070; 87075; 87205; 89060

== ENCOUNTER 2025-02-21 19:30 | Inpatient (IN) | payer OTHER, SELFPAY ==
[2024-01-07 18:36] VITALS: BMI 52.0
[2025-02-21 19:55] VITALS: BP 140/92; PULSE 107; RESP 20; TEMP 37; O2SAT 97; BMI 51.7
[2025-02-21] MEDS: OXYCODONE/ACETAMINOPHEN 5/325 TABLET 1 TAB PO (20:07)
[2025-02-21 20:47] LABS: Add Manual Diff / Slide Review NO; Basophils Absolute Auto 100 /uL (0-100); Basophils Percent Auto 0.8 % (0-2); Eosinophils Absolute Auto 100 /uL (0-450); Eosinophils Percent Auto 0.8 % (2-4); Hematocrit 37.3 % (41-53); Hemoglobin 12.1 g/dL (13.5-17.5); Lymphocytes Absolute Auto 1200 /uL (1100-4500); Lymphocytes Percent Auto 13.4 % (25-40); Mean Corpuscular HGB Conc 32.4 % (30-36); Mean Corpuscular Volume 77.1 fL (80-100); Monocytes Absolute Auto 1000 /uL (0-900); Monocytes Percent Auto 11.8 % (3-14); Neutrophils Absolute Auto 6400 /uL (1500-7000); Neutrophils Percent Auto 73.2 % (50-75); Platelet Count 474 X10^3/uL (150-400); Red Blood Cell Count 4.84 X10^6/uL (4.5-5.9); Red Cell Distribution Width 15.2 % (11.6-14.8); White Blood Cell Count 8.7 X10^3/uL (4.5-11.0)
[2025-02-21 21:00] LABS: Alanine Aminotransferase 42 IU/L (<50); Albumin 3.8 g/dL (3.5-5.0); Albumin Globulin Ratio 0.7 (1.0-2.8); Alkaline Phosphatase 159 U/L (38-126); Aspartate Aminotransferase 49 IU/L (17-59); BUN Creatinine Ratio 10.6 (6-22); Bilirubin Total 0.4 mg/dL (0.2-1.3); Blood Urea Nitrogen 12 mg/dL (9-20); Carbon Dioxide 25 mmol/L (22-32); Chloride 102 mmol/L (98-107); Estimated Glomerular Filt Rate > 60 mL/min (>60); Globulin 5.3 g/dL (1.7-4.1); Glucose 120 mg/dL (70-99); HEMOLYSIS 17 (0-50); Lactate (Lactic Acid) 2.3 mmol/L (0.7-2.1); Potassium 4.2 mmol/L (3.4-5.1); Sodium 136 mmol/L (137-145); Total Protein 9.1 g/dL (6.3-8.2)
[2025-02-21 22:20] LABS: Reflexed Lactate in 2 Hours Y
[2025-02-21 22:40] VITALS: PULSE 92; O2SAT 96
[2025-02-21 23:00] VITALS: PULSE 95; O2SAT 97
[2025-02-21 23:17] LABS: Lactate 2HR (Lactic Acid Rflx) 1.4 mmol/L (0.7-2.1)
[2025-02-21 23:30] VITALS: PULSE 75; O2SAT 97
[2025-02-22] VITALS (22 sets, daily range): BP systolic 133–162; BP diastolic 78–104; PULSE 76–115; RESP 12–20; TEMP 35.8–36.4; O2SAT 92–98; BMI 51.7
--- NOTE | 2025-02-22 01:41 | ED.EXTPRO ---
HPI - Extremity Problem General Chief complaint: Extremity Problem,Nontraumatic Stated complaint: said to check in to be admitted for surgery power Time Seen by Provider: 02/21/25 19:37 Source: patient Mode of arrival: Wheelchair History of Present Illness HPI Narrative: 55-year-old gentleman history of left quadriceps tendon repair with severe pain in his left knee. Was seen by Dr. Balbuena in his office today to review current workup which includes: Left Knee - AP, Lateral, and [place] Views performed 02/16/2025: 1. Kellgren Boubacar grade four arthritis 2. Suture button in the inferior aspect of the patella with drill tunnels through the patella consistent with a history of quadriceps tendon repair MRI Left Knee performed 02/16/2025: 1. Very large effusion throughout the knee with fluid extending into the popliteal fossa in addition to throughout the entire knee joint 2. Bony edema in the lateral compartment consistent with significant arthritic changes 3. Intact quadriceps tendon at its patellar insertion where it was previously repaired LABS: ESR 80 CRP 2.4 Left knee aspirate - Gram positive cocci ASSESSMENT: Left knee subacute septic arthritis in the setting of a remote quadriceps tendon repair On arrival in the emergency department patient is not complaining of fever, chills, the pain is severe in the left knee with continued significant diffusion. IV Dilaudid was given with no relief of pain. He is anticoagulated for DVT and can not take nonsteroidals Related Data Previous Rx's ?Medication ?Instructions ?Recorded albuterol sulfate 90 mcg/actuation 2 puff inhalation Q6H PRN 11/12/22 aerosol inhaler shortness of breath or wheezing #18 grams Disabled Parking #1 ea 07/13/23 amlodipine 10 mg tablet 10 mg PO QAM #30 tabs 07/04/24 celecoxib 200 mg capsule (Celebrex) 400 mg (2 x 200 mg) PO QAM #90 caps 12/31/24 losartan 50 mg tablet 50 mg PO DAILY #90 tabs 12/31/24 nortriptyline 10 mg capsule 10 mg PO BEDTIME PRN Insomnia #90 12/31/24 caps prazosin 1 mg capsule 1 mg PO BEDTIME PRN ptsd/insomnia 12/31/24 #90 caps rosuvastatin 20 mg tablet 20 mg PO QAM #90 tabs 12/31/24 hydrocodone 5 mg-acetaminophen 325 1 tab PO Q4-6H PRN pain #12 tabs 02/02/25 mg tablet diclofenac sodium 3 % topical gel 1 applic topical BID #100 grams 02/11/25 apixaban 5 mg tablet (Eliquis) 5 mg PO BID 3 months #180 tabs 02/19/25 Allergies Allergy/AdvReac Type Severity Reaction Status Date / Time No Known Drug Allergies Allergy Verified 02/21/25 15:03 Review of Systems Review of Systems Narrative: Pertinent positive and negative findings as per HPI Patient History Medical History Fatty infiltration of liver LFT elevation DM2 (diabetes mellitus, type 2) COVID-19 virus infection (~05/2022) Migraine headache Shoulder impingement syndrome Degenerative joint disease of knee Bilateral primary osteoarthritis of hip Facet joint disease of lumbosacral region Bilateral primary osteoarthritis of knee PTSD (post-traumatic stress disorder) Hyperlipidemia Hypertension TROY (obstructive sleep apnea) Morbid obesity Family History Mother Diabetes mellitus Hypertension Breast cancer Grandfather Myocardial infarction Social History household members: spouse Smoking Status: Former smoker alcohol intake: current Smoking Status: Former smoker tobacco type: cigarettes alcohol intake frequency: holidays/special occasions only Exam Initial Vital Signs Initial Vital Signs: Vital Signs Temperature 98.6 F 02/21/25 19:55 Pulse Rate 107 H 02/21/25 19:55 Respiratory Rate 20 02/21/25 19:55 Blood Pressure 140/92 H 02/21/25 19:55 Pulse Oximetry 97 02/21/25 19:55 Oxygen Delivery Method Room Air 02/21/25 19:55 General: Alert appropriate, while resting pain is controlled Respiratory: Able to speak in full sentences, no obvious respiratory distress Cardiac: Regular rate and rhythm Skin: No obvious rashes, warm and dry Extremity: Left leg is swollen throughout. Large left knee effusion significant pain with any manipulation of the knee difficulty and extending the knee completely. The knee is warm to the touch but not obviously erythematous Psych: appropriate insight and affect, cooperative Course Orders Ordered: ED Orders 02/21/25 20:25 Blood Culture Stat 02/21/25 20:30 Complete Blood Count AUTO DIFF Stat Comprehensive Metabolic Panel Stat Lactate (Lactic Acid) Stat Acetaminophen (Acetaminophen 325 Mg Tablet) 650 mg PO Q6H PRN PRN Reason: Fever/Mild Pain (1-3) Hydrocodone Bitart/Acetaminophen (Hydrocodone/Acet 5/325 Tablet) 1 tab PO Q4H PRN PRN Reason: Pain, Moderate (4-6) Last Admin: 02/22/25 03:12 Dose: 1 tab Documented By: Sodium Chloride (Normal Saline 0.9%) 1,000 mls @ 100 mls/hr IV CONT ALIX Last Admin: 02/22/25 02:58 Dose: 100 mls/hr Documented By: RADHA Morphine Sulfate (Morphine 4 Mg/Ml Inj) 3 mg IV Q2HR PRN PRN Reason: severe pain Naloxone HCl (Naloxone 0.4 Mg/Ml Vial) 0.2 mg IV Q2MIN PRN PRN Reason: Opiate Reversal Ondansetron HCl (Ondansetron 4 Mg/2 Ml Inj) 4 mg IV Q8HR PRN PRN Reason: Nausea And Vomiting Sodium Chloride (Sodium Chloride 0.9% Flush) 10 ml IV BID ALIX Sodium Chloride (Sodium Chloride 0.9% Flush) 10 ml IV PRN PRN PRN Reason: Flush Discontinued Medications Oxycodone/Acetaminophen (Oxycodone/Acetaminophen 5/325 Tablet) 1 tab PO NOW ONE Stop: 02/21/25 20:05 Last Admin: 02/21/25 20:07 Dose: 1 tab Documented By: SHELBY Vital Signs Vital signs: Vital Signs - 8 hr 02/21/25 22:40 02/21/25 23:00 02/21/25 23:30 Pulse Rate 92 H 95 H 75 Respiratory Rate Blood Pressure Pulse Oximetry 96 97 97 Oxygen Delivery Method 02/22/25 00:00 02/22/25 00:30 02/22/25 01:00 Pulse Rate 88 76 83 Respiratory Rate Blood Pressure Pulse Oximetry 97 96 96 Oxygen Delivery Method 02/22/25 01:25 02/22/25 01:25 02/22/25 01:26 Pulse Rate 93 H 84 Respiratory Rate 16 Blood Pressure 133/78 133/78 Pulse Oximetry 98 98 Oxygen Delivery Method 02/22/25 01:30 Pulse Rate 87 Respiratory Rate Blood Pressure Pulse Oximetry 96 Oxygen Delivery Method Room Air MDM - Extremity (Nontraumatic) Lab Data 02/21/25 20:30 02/21/25 20:30 Labs: Lab Results 02/21/25 02/21/25 Range/Units 20:30 22:55 WBC 8.7 (4.5-11.0) X10^3/uL RBC 4.84 (4.5-5.9) X10^6/uL Hgb 12.1 L (13.5-17.5) g/dL Hct 37.3 L (41-53) % MCV 77.1 L (80-100) fL MCH 25.0 L (26-34) PG MCHC 32.4 (30-36) % RDW 15.2 H (11.6-14.8) % Plt Count 474 H (150-400) X10^3/uL Neut % (Auto) 73.2 (50-75) % Lymph % (Auto) 13.4 L (25-40) % [place] % (Auto) 11.8 (3-14) % Eos % (Auto) 0.8 L (2-4) % Baso % (Auto) 0.8 (0-2) % Neut # (Auto) 6400 (6284-1031) /uL Lymph # (Auto) 1200 (1949-0262) /uL [place] # (Auto) 1000 H (0-900) /uL Eos # (Auto) 100 (0-450) /uL Baso # (Auto) 100 (0-100) /uL Sodium 136 L (137-145) mmol/L Potassium 4.2 (3.4-5.1) mmol/L Chloride 102 (98-107) mmol/L Carbon Dioxide 25 (22-32) mmol/L BUN 12 (9-20) mg/dL Creatinine 1.13 (0.66-1.25) mg/dL Estimated GFR > 60 (>60) mL/min BUN/Creatinine Ratio 10.6 (6-22) Glucose 120 H (70-99) mg/dL Lactate 2.3 H 1.4 (0.7-2.1) mmol/L Calcium 9.0 (8.4-10.2) mg/dL Total Bilirubin 0.4 (0.2-1.3) mg/dL AST 49 (17-59) IU/L ALT 42 (<50) IU/L Alkaline Phosphatase 159 H (38-126) U/L Total Protein 9.1 H (6.3-8.2) g/dL Albumin 3.8 (3.5-5.0) g/dL Globulin 5.3 H (1.7-4.1) g/dL Albumin/Globulin Ratio 0.7 L (1.0-2.8) MDM Narrative Medical decision making narrative: 55-year-old gentleman with septic left knee. Sent to the ER by Dr. Munson with anticipation of hospitalization and surgical washout in the morning. From his notes today: He has come back for 2 emergency department visits and didn't have an aspiration performed during either of those or get inflammatory markers. He had been diagnosed with a DVT and started on Eliquis. He underwent the aspiration in clinic, and I told him that I would call him with the results as soon as they came back. Showing that there was gram-positive cocci on his Gram stain, I immediately called him and directed him to go to the emergency department. I have also alerted the emergency department about him and began making arrangements for joint debridement to be performed tomorrow by Dr. Nava. We are going to begin making arrangements to take him to the OR in the morning. I have called the charge nurse as well as the emergency department to let them know about this. We will try to get him admitted to the medical service with plans for IV antibiotics, but we don't want to initiate those until we have gotten him into the operating room given the subacute nature of his presentation and our desire for cultures. I discussed with him, at length, to the degree which I am able to predict at this point in time, the anticipated course of treatment for him, which will potentially involve more than one surgical debridement. The biggest risk of this surgery is the recurrence of infection. He also has a very high risk of ongoing chronic pain in this area due to the presence of arthritic changes in the knee joint already. He also has a high risk of needing a blood transfusion because he has been taking Eliquis in addition to the risks inherent to all surgeries, such as damage to surrounding structures, medical complications, or complications related to anesthesia. We're going to plan for him to proceed to the operating room with my partner, Dr. Nava, in the morning. Discharge Plan Departure Patient Disposition: Admitted as Observation Clinical Impression: Septic joint of left knee joint Qualifiers: Septic arthritis organism: due to unspecified organism Qualified Code(s): M00.9 - Pyogenic arthritis, unspecified Admit Date/Time: 02/22/25 01:57 Admit Provider: Bryan Carr
[2025-02-22] MEDS: SODIUM CHLORIDE 0.9% 1,000 ML 100 ML IV (02:58)
[2025-02-22] MEDS: HYDROCODONE/ACET 5/325 TABLET 1 TAB PO ×2 (03:12→20:30)
--- NOTE | 2025-02-22 04:32 | PM.HP.1 ---
History of Present Illness History of Present Illness Chief complaint: said to check in to be admitted for surgery power Narrative: 55-year-old male with past medical history of hypertension, hyperlipidemia, insomnia, DVT on Eliquis presents with septic left knee. Per report the patient recently had a left quadricep tendon repair with severe knee pain that started a few days ago. Patient was seen by Dr. Munson orthopedic surgeon in his office today and was concern for a septic knee. Left knee aspirate shows gram-positive cocci. It was noted that this was a subacute septic arthritis. The orthopedic surgeon sent the patient here for further management. The plan was to do a washout and debridement in the morning and to hold antibiotic at this time. In addition to hold his Eliquis as the patient does have a history of DVT. Otherwise the patient denies any fever, chills, nausea, vomiting, diarrhea, chest pain or shortness of breath. In our emergency room, the patient was hemodynamically stable. Labs shows WBC of 8.7 lactate initially 2.3 but repeat 1.4 after 1 L of IV fluid. Again per orthopedics surgeon instruction we will hold antibiotic until we have gotten the patient into the operating room given the subacute nature of the presence and the need for cultures. [facility] Medical History Fatty infiltration of liver LFT elevation DM2 (diabetes mellitus, type 2) COVID-19 virus infection (~05/2022) Migraine headache Shoulder impingement syndrome Degenerative joint disease of knee Bilateral primary osteoarthritis of hip Facet joint disease of lumbosacral region Bilateral primary osteoarthritis of knee PTSD (post-traumatic stress disorder) Hyperlipidemia Hypertension TROY (obstructive sleep apnea) Morbid obesity Family History Mother Diabetes mellitus Hypertension Breast cancer Grandfather Myocardial infarction Social History household members: spouse Smoking Status: Former smoker alcohol intake: current Meds Home Medications and Allergies Home Medications ?Medication ?Instructions ?Recorded ?Confirmed ?Type albuterol sulfate 90 mcg/actuation 2 puff inhalation Q6H PRN 11/12/22 02/21/25 Rx aerosol inhaler shortness of breath or wheezing #18 grams Disabled Parking #1 ea 07/13/23 02/21/25 Rx amlodipine 10 mg tablet 10 mg PO QAM #30 tabs 07/04/24 02/21/25 Rx celecoxib 200 mg capsule (Celebrex) 400 mg (2 x 200 mg) PO QAM #90 caps 12/31/24 02/21/25 Rx losartan 50 mg tablet 50 mg PO DAILY #90 tabs 12/31/24 02/21/25 Rx nortriptyline 10 mg capsule 10 mg PO BEDTIME PRN Insomnia #90 12/31/24 02/21/25 Rx caps prazosin 1 mg capsule 1 mg PO BEDTIME PRN ptsd/insomnia 12/31/24 02/21/25 Rx #90 caps rosuvastatin 20 mg tablet 20 mg PO QAM #90 tabs 12/31/24 02/21/25 Rx hydrocodone 5 mg-acetaminophen 325 1 tab PO Q4-6H PRN pain #12 tabs 02/02/25 02/21/25 Rx mg tablet diclofenac sodium 3 % topical gel 1 applic topical BID #100 grams 02/11/25 02/21/25 Rx apixaban 5 mg tablet (Eliquis) 5 mg PO BID 3 months #180 tabs 02/19/25 02/21/25 Rx Allergies Allergy/AdvReac Type Severity Reaction Status Date / Time No Known Drug Allergies Allergy Verified 02/21/25 15:03 Review of Systems Review of Systems ROS: Yes All systems reviewed with the patient and are negative except as otherwise documented Exam Vital Signs (past 8 hours): - 02/21/25 22:40 02/21/25 23:00 02/21/25 23:30 Temperature Pulse Rate 92 H 95 H 75 Respiratory Rate Blood Pressure Pulse Oximetry 96 97 97 Oxygen Delivery Method Oxygen Flow Rate 02/22/25 00:00 02/22/25 00:30 02/22/25 01:00 Temperature Pulse Rate 88 76 83 Respiratory Rate Blood Pressure Pulse Oximetry 97 96 96 Oxygen Delivery Method Oxygen Flow Rate 02/22/25 01:25 02/22/25 01:25 02/22/25 01:26 Temperature Pulse Rate 93 H 84 Respiratory Rate 16 Blood Pressure 133/78 133/78 Pulse Oximetry 98 98 Oxygen Delivery Method Oxygen Flow Rate 02/22/25 01:30 02/22/25 02:00 02/22/25 02:57 Temperature 96.9 F L Pulse Rate 87 89 77 Respiratory Rate 16 Blood Pressure 141/81 H Pulse Oximetry 96 95 97 Oxygen Delivery Method Room Air Oxygen Flow Rate 0 Oxygen Delivery Method Room Air Oxygen Flow Rate 0 Narrative Exam Narrative: Physical Exam: GENERAL: The patient is not in any acute distressed. Awake and alert. HEENT: Nonicteric sclerae, PERRLA, EOMI. Oropharynx clear. Moist mucous membranes. Conjunctivae appear well perfused. HEART: Regular rate and rhythm without murmurs. No lower extremities edema. LUNGS: Clear to auscultation bilaterally. No wheezing, crackles or rhonchi ABDOMEN: Soft, positive bowel sounds, nontender. SKIN: Left knee swelling with some erythema. No rash, no excessive bruising, petechiae, or purpura. NEUROLOGIC: AxO x 3. Cranial nerves II-XII intact without motor/sensory deficit. Objective Labs 02/21/25 20:30 02/21/25 20:30 Labs: Laboratory Results - last 24 hr 02/21/25 02/21/25 20:30 22:55 WBC 8.7 RBC 4.84 Hgb 12.1 L Hct 37.3 L MCV 77.1 L MCH 25.0 L MCHC 32.4 RDW 15.2 H Plt Count 474 H Neut % (Auto) 73.2 Lymph % (Auto) 13.4 L [place] % (Auto) 11.8 Eos % (Auto) 0.8 L Baso % (Auto) 0.8 Neut # (Auto) 6400 Lymph # (Auto) 1200 [place] # (Auto) 1000 H Eos # (Auto) 100 Baso # (Auto) 100 Sodium 136 L Potassium 4.2 Chloride 102 Carbon Dioxide 25 BUN 12 Creatinine 1.13 Estimated GFR > 60 BUN/Creatinine Ratio 10.6 Glucose 120 H Lactate 2.3 H 1.4 Calcium 9.0 Total Bilirubin 0.4 AST 49 ALT 42 Alkaline Phosphatase 159 H Total Protein 9.1 H Albumin 3.8 Globulin 5.3 H Albumin/Globulin Ratio 0.7 L Assessment & Plan Assessment & Plan narrative: Septic left knee arthritis. Likely subacute per report. Admit the patient to medical observation. NPO. IV fluid. Pain control. Hold Eliquis due to plan for OR in the morning by orthopedic surgeon Dr. Nava. The plan was to do a washout and debridement in the morning and to hold antibiotic at this time. Again per orthopedics surgeon instruction we will hold antibiotic until we have gotten the patient into the operating room given the subacute nature of the presence and the need for cultures. Of note patient is medically stable and cleared for surgery from a medical standpoint. History of DVT. Again hold Eliquis morning dose. Patient will need to go to the OR. Consider resuming Eliquis versus other anticoagulation per orthopedic surgeon postop. Hypertension. Monitor blood pressure and resume home antihypertensive accordingly. Hyperlipidemia. Resume home statin. Insomnia. Resume home prazosin. DVT prophylaxis SCDs for now hold anticoagulation due to OR in the morning. CODE STATUS full code. Disposition likely home in 1 to 2 days - As the provider of this telehealth evaluation, requested by the patient's evaluating physician, I attest that I introduced myself to the patient, provided my credentials and determined that telemedicine via a real-time, 2 way interactive audio and video platform is an appropriate and effective means of providing this service. - I reviewed the patient's chart and had a discussion with the member of the patient's treatment team. - The patient and I mutually agreed with continuation of this evaluation via telemedicine. The patient consented for the telemedicine evaluation. - This virtual encounter was taken place from [place] by Dr. Bryan Carr. The patient was evaluated at [facility]. The encounter was approximately 35 minutes. The nurse was present during the entire time of the encounter and was able to move the stethoscope in appropriate directions. Time-Based Coding :: [TOTAL MINUTES] spent with patient and on the chart (including review of chart, obtaining history, exam, reviewing outside data, placing orders, documenting exam and treatment plan, and counseling patient) on [DATE].
[2025-02-22 05:40] LABS: Add Manual Diff / Slide Review NO; Basophils Absolute Auto 100 /uL (0-100); Basophils Percent Auto 1.1 % (0-2); Eosinophils Absolute Auto 100 /uL (0-450); Eosinophils Percent Auto 1.8 % (2-4); Hematocrit 34.1 % (41-53); Hemoglobin 11.3 g/dL (13.5-17.5); Lymphocytes Absolute Auto 1200 /uL (1100-4500); Lymphocytes Percent Auto 17.3 % (25-40); Mean Corpuscular HGB Conc 33.1 % (30-36); Mean Corpuscular Hemoglobin 25.4 PG (26-34); Mean Corpuscular Volume 76.7 fL (80-100); Monocytes Absolute Auto 1100 /uL (0-900); Monocytes Percent Auto 16.8 % (3-14); Neutrophils Absolute Auto 4300 /uL (1500-7000); Platelet Count 412 X10^3/uL (150-400); Red Blood Cell Count 4.44 X10^6/uL (4.5-5.9); Red Cell Distribution Width 15.4 % (11.6-14.8); White Blood Cell Count 6.8 X10^3/uL (4.5-11.0)
[2025-02-22 05:53] LABS: BUN Creatinine Ratio 10.4 (6-22); Blood Urea Nitrogen 11 mg/dL (9-20); Calcium 8.7 mg/dL (8.4-10.2); Carbon Dioxide 25 mmol/L (22-32); Chloride 102 mmol/L (98-107); Estimated Glomerular Filt Rate > 60 mL/min (>60); Glucose 121 mg/dL (70-99); HEMOLYSIS < 15 (0-50); Sodium 133 mmol/L (137-145)
--- NOTE | 2025-02-22 06:45 | PC.NURSE ---
second shift supervisor patient went down to OR escorted with TOP FRAME [employer]TER, in bed. all personal belongings left in room, except for glasses. patient wore glasses to sign consent forms. all other belongings are on bench covered by white pillow. [id number].
--- NOTE | 2025-02-22 07:02 | PM.PREOP ---
Pre-operative Note Interval Note History & Physical reviewed/Exam performed by Physician: Yes Changes to H&P: No H&P completed within 30 days and has changed as indicated here:: 55yo M with concern of left knee septic arthritis. He has been admitted for an I and D and hardware removal. I explained to the patient that he may require additional procedures to ensure that he has eradicated the infection. We will also start his IV antibiotics as soon as cultures were obtained in the operating room. I also explained to the patient that he will likely be in the hospital until at least Tuesday if not later in the week. The risks, benefits and alternatives of the procedure were discussed with the patient to include bleeding, infection, damage to surrounding structures, ongoing infection, need for additional washouts, development of osteoarthritis, quad tendon rupture, knee stiffness, chronic pain and anesthesia risks such as heart attack, stroke and . Patient understood these risks and wanted to move forward with the procedure. He was signed and consent was completed this morning. He was consented for a left knee hardware removal and I and D.
[2025-02-22] MEDS: LACTATED RINGERS 1,000 ML 42 ML IV ×2 (07:11→10:03)
--- NOTE | 2025-02-22 07:35 | EKG_ITS ---
[address] [address] [address], [place] [address] Test Date: 2025-02-22 Pat Name: Kumar Vences Department: Room: 218 Gender: Male Chief Wheelage Clerk: Quiana FAYE : 1970 Requested By: Order Number: [id number] Reading MD: Renato Hicks MD Measurements Intervals [place] Rate: 85 P: 51 [place]: 200 QRS: -17 QRSD: 102 T: 2 QT: 364 QTc: 433 Interpretive Statements Normal sinus rhythm with sinus arrhythmia Low voltage QRS Electronically Signed On 02-25-2025 15:02:41 PDT by Renato Hicks MD
--- NOTE | 2025-02-22 08:24 | SUR.OPER ---
Supine on padded OR bed, head on pillow, arms secured on padded arm boards at <90 degrees abduction, legs uncrossed, safety belt at abdomen, tape over blanket over right lower leg. Left leg under control of surgeon and blanket bump under left hip.
--- NOTE | 2025-02-22 08:25 | PC.NURSE ---
Pt in surgery prior to 714 Will assess upon return.
[2025-02-22] MEDS: BUPIVACAINE 0.25% (PF) VIAL 30 ML INJ (08:31)
[2025-02-22] MEDS: VANCOMYCIN 1,000 MG VIAL 1000 MG TOP (08:33)
[2025-02-22] MEDS: cefTRIAXone 2,000 MG in SODIUM CHLORIDE 0.9% 100 ML 200 MG IV ×2 (09:01→18:10)
--- NOTE | 2025-02-22 09:30 | PT-IP ANOTE ---
PT eval received. EMR reviewed. pt is scheduled to have surgery this morning. Will d/c PT eval order and will wait for new PT eval order after surgery.
[2025-02-22] MEDS: HYDROGEN PEROXIDE 473 ML SOLUTION 15 ML TOP (09:34)
--- NOTE | 2025-02-22 09:40 | OT.IPNOTE ---
Not at to do OT eval as pt on surgery this AM.
--- NOTE | 2025-02-22 10:19 | P.HP_ITS ---
History of Present Illness History of Present Illness Date Patient Seen: 02/22/25 Chief complaint: Dr said to check in to be admitted for surgery power Narrative: The pt is a 55yo with hypertension, sleep apnea, DM type 2, hyperlipidemia, PTSD, DVT, and hx of quadriceps tendon tear s/p repair in 2022 who presented with ongoing severe left knee pain. The pt had acute onset of left knee swelling and severe pain the middle of January. He states the knee suddenly became very swollen, denying any provoking event. At that time he was still able to ambulate, but with the use of crutches for support. The pt was then kneeling on the floor at home, and the pain acutely worsened. Since then, the pt has not been able to really ambulate at all. The swelling has persisted. He has been spending all day in bed, urinating in a cup. The knee was never red or warm to touch. The pt was evaluated in the ED on 02/02. At that point xray was completed that was reassuring. Doppler was completed that showed a popliteal DVT. He was initiated on Eliquis and discharged home. The pts pain and swelling persisted. The pt returned to the ED on 02/15 due to persistent severe pain. At that point, CT scan was completed that showed significant effusion but no other acute findings. The pt was again discharged home. He then underwent outpatient MRI on 02/16 that showed a large loculated effusion, bone edema, cystic changes in the popliteus muscle, and a large partially ruptured popliteal cyst. The pt was urgently referred to Ortho, who evaluated the pt and completed a joint aspiration. Gram positive cocci were shown, and the pt was referred the ED for admission. The day of admission, labs showed no elevation in WBC count, but significant elevation of ESR and CRP. The pt was admitted for joint wash-out and IV antibiotics. Throughout the entire course of the pts knee pain and swelling he has denied any fevers, chills, knee erythema or warmth, chest pain, SOB. He has otherwise been feeling well. He is currently in school, trying to complete course work for an AA in [employer]. [facility] Medical History (Updated 02/22/25 @ 10:23 by Maddi Powers MD) Family history of type 2 diabetes mellitus Fatty infiltration of liver LFT elevation DM2 (diabetes mellitus, type 2) COVID-19 virus infection (~05/2022) Migraine headache Shoulder impingement syndrome Bilateral primary osteoarthritis of hip Facet joint disease of lumbosacral region Bilateral primary osteoarthritis of knee PTSD (post-traumatic stress disorder) Hyperlipidemia Hypertension TROY (obstructive sleep apnea) Morbid obesity Family History Mother Diabetes mellitus Hypertension Breast cancer Grandfather Myocardial infarction Social History household members: spouse Smoking Status: Former smoker alcohol intake: current Meds Home Medications and Allergies Home Medications ?Medication ?Instructions ?Recorded ?Confirmed ?Type albuterol sulfate 90 mcg/actuation 2 puff inhalation Q 6H PRN 11/12/22 02/21/25 Rx aerosol inhaler shortness of breath or wheez ing #18 grams Disabled Parking #1 ea 07/13/23 02/21/25 Rx amlodipine 10 mg tablet 10 mg PO QAM #30 tabs 02/21/25 Rx celecoxib 200 mg capsule (Celebrex) 400 mg (2 x 200 mg ) PO QAM #90 caps 12/31/24 02/21/25 Rx losartan 50 mg tablet 50 mg PO DAILY #90 tabs 12/1202/21/25 Rx nortriptyline 10 mg capsule 10 mg PO BEDTIME PRN Insom maxx #90 12/31/24 02/21/25 Rx caps prazosin 1 mg capsule 1 mg PO BEDTIME PRN ptsd/ins omnia 12/31/24 02/21/25 Rx #90 caps rosuvastatin 20 mg tablet 20 mg PO QAM #90 tabs 02/21/25 Rx hydrocodone 5 mg-acetaminophen 325 1 tab PO Q4-6H PRN pain #12 tabs 02/02/25 02/21/25 Rx mg tablet diclofenac sodium 3 % topical gel 1 applic topical BID #100 grams 02/11/25 02/21/25 Rx apixaban 5 mg tablet (Eliquis) 5 mg PO BID 3 months #1 80 tabs 02/19/25 02/21/25 Rx Allergies Allergy/AdvReac Type Severity Reaction Status Date / Time No Known Drug Allergies Allergy Verified 02/21/25 15:03 Exam Vital Signs (past 8 hours): - 02/22/25 02:57 02/22/25 06:52 Temperature 96.9 F L 97.3 F L Pulse Rate 77 91 H Respiratory Rate 16 20 Blood Pressure 141/81 H 133/80 Pulse Oximetry 97 97 Oxygen Delivery Method Room Air Oxygen Flow Rate 0 Oxygen Delivery Method Room Air Oxygen Flow Rate 0 Narrative Exam Narrative: Gen: NAD, sitting comfortably in bed, speaking comfortably, appears fatigued HEENT: normocephalic, atraumatic, sclera clear Neck: no LAD, no JVD CV: RRR, no murmurs Resp: clear to auscultation bilaterally, no wheezes or crackles Abd: soft, nontender Ext: left knee wrapped with CATE murray in place draining bloody fluid, trace pitting edema bilaterally, pedal pulses intact Neuro: no gross deficits Objective Labs 02/22/25 14:41 02/22/25 05:16 Labs: Laboratory Results - last 24 hr 02/21/25 02/21/25 02/22/25 20:30 22:55 05:16 WBC 8.7 6.8 RBC 4.84 4.44 L Hgb 12.1 L 11.3 L Hct 37.3 L 34.1 L MCV 77.1 L 76.7 L MCH 25.0 L 25.4 L MCHC 32.4 33.1 RDW 15.2 H 15.4 H Plt Count 474 H 412 H Neut % (Auto) 73.2 63.0 Lymph % (Auto) 13.4 L 17.3 L [place] % (Auto) 11.8 16.8 H Eos % (Auto) 0.8 L 1.8 L Baso % (Auto) 0.8 1.1 Neut # (Auto) 6400 4300 Lymph # (Auto) 1200 1200 [place] # (Auto) 1000 H 1100 H Eos # (Auto) 100 100 Baso # (Auto) 100 100 Sodium 136 L 133 L Potassium 4.2 4.0 Chloride 102 102 Carbon Dioxide 25 25 BUN 12 11 Creatinine 1.13 1.06 Estimated GFR > 60 > 60 BUN/Creatinine Ratio 10.6 10.4 Glucose 120 H 121 H Lactate 2.3 H 1.4 Calcium 9.0 8.7 Total Bilirubin 0.4 AST 49 ALT 42 Alkaline Phosphatase 159 H Total Protein 9.1 H Albumin 3.8 Globulin 5.3 H Albumin/Globulin Ratio 0.7 L Assessment & Plan Assessment & Plan narrative: The pt is a 55yo with hypertension, sleep apnea, DM type 2, hyperlipidemia, PTSD, DVT, and hx of quadriceps tendon tear s/p repair in 2022 who presented with ongoing severe left knee pain, septic joint based on gram positive cocci seen on gram stain from joint aspiration. 1) Septic arthritis: Gram positive cocci seen on gram stain from joint aspiration. s/p I&D and joint hardware removal earlier today with CATE drain placement. Vancomycin placed in the joint prior to closure. Abx not initiated prior to surgery to allow for cultures. - Ortho consulted, appreciate ongoing care - ID curbsided by Ortho - Currently on IV Ceftriaxone and Vancomycin - As per Dr Monge (ID), recommend CBC, CMP, CPK. If CPK okay then start Daptomycin 8mg/kg daily with Ceftriaxone - F/U wound and blood cultures - Daily CBC, ESR, CRP to track 2) DVT: Diagnosed on 02/02 - Continue Eliquis 3) DM Type 2: Diet controlled with excellent control. Last A1C 09/2024 5.9. - ACHS blood sugar checks 4) HTN: BP elevated however this was immediately postoperatively - Continue to monitor BPs closely - Continue home antihypertensives for now 5) Hyperlipidemia: - Continue home statin 6) PTSD/Insomnia: Stable at this point. Pt does have hx of prolonged hospitalization for cellulitis resulting in severe demoralization and resultant profound weakness such that he required discharge to rehab facility for a week. - Will mobilize with PT as soon as stable enough to do so - Continue Nortriptyline, Prazosin DVT ppx: on Eliquis Code: Full Diet: Carb control Dispo: Pending return of wound cultures, improved mobilization, outpatient antibiotic plan in place, etc. Time-Based Coding :: [TOTAL MINUTES] spent with patient and on the chart (including review of chart, obtaining history, exam, reviewing outside data, placing orders, documenting exam and treatment plan, and counseling patient) on [DATE]. PROFEE Resource Management Planner Document charge(s): Yes Charge Codes Initial inpatient/observation care: [id number]
[2025-02-22] MEDS: VANCOMYCIN 2,000 MG/400 ML PIGGYBACK 200 MG IV (10:33)
[2025-02-22] MEDS: OXYCODONE IR 5 MG TABLET PO (10:35)
--- NOTE | 2025-02-22 10:38 | PM.OP.1 ---
Operative Date/Time/Diagnoses Date of procedure: 02/22/25 Time of procedure: 10:39 Pre-op diagnosis: LEFT Knee Septic Arthritis Post-op diagnosis: same Procedure & Clinicians Procedure: LEFT Knee Hardware Removal and I&D Same procedure as scheduled: Yes Surgeon: Alen Nava Anesthesia Type: General Operative Notes Findings: Hardware was found and removed. Cloudy fluid within the joint. Applied: none Estimated Blood Loss (mL): 5 Tourniquet time (min): 106 Procedure in detail: Procedure Date: February 22, 2025 Preoperative diagnosis: Left knee septic arthritis Post Op Diagnosis: Left knee septic arthritis Procedure Performed: Left knee hardware removal and I and D Primary Surgeon: Alen Nava MD Anesthesia Type: Spinal EBL: 5cc Urine Output: NA Drains: A CATE drain was placed inside the joint Tourniquet: 106 minutes @ 250 mmHg Implants: None Indication For Surgery: History, physical exam and imaging consistent with left knee septic arthritis. The risks, benefits, and alternatives were discussed. Risks include pain, bleeding, infection, damage to nearby structures and cartilage, lack of symptom relief, need for further surgery, knee stiffness, fracture, DVT, PE, myocardial infarction, stroke, and . The patient had a good understanding and all questions were answered. Written consent was obtained. Examination Under Anesthesia: Large effusion. No significant skin changes. Well-healed anterior surgical incision. Procedure in Detail: The patient was brought to the operating room and was placed in a supine position. A pneumatic tourniquet was applied to the proximal operative thigh over cast padding. The lower extremity was sterily prepped and draped in the normal sterile fashion. A surgical timeout was performed by the entire operating room team and all were in agreement. A midline longitudinal incision was made with a 10 blade utilizing his old incision. The quad tendon was identified proximally and the patellar tendon was identified distally. There was significant scar tissue throughout the anterior portion of the knee. I initially dissected down through the quadriceps tendon and identified the suture that was used for his repair. This suture was carefully dissected out not to damage the quadriceps tendon. A suture is tracked both proximally and distally to ensure that all suture was removed. The suture was tracked down to the patella and was cut at the patella. We then turned our attention distally to try to identify the buttons on the inferior portion of the patella. We are unable to visualize or palpate the buttons. At this point we decided to make our medial parapatellar arthrotomy. A medial parapatellar arthrotomy was made leaving approximately 3mm tissue cuff off of the patella. Immediately there was large amounts of fluid that appeared dykes and cloudy with streaks of purulence. The suprapatellar pouch was significantly inflamed and appeared to have clotted blood inside the joint. Cultures and tissues were obtained and sent to pathology. We then returned to the inferior portion of the patella and identify the 2 buttons. These were easily removed and the remaining suture was removed from the patellar tunnels. These tunnels were then curetted. The rest of the knee was then curetted and irrigated with 9 L of sterile fluid. Dilute Betadine irrigation was performed. A CATE drain was placed out the anterolateral thigh. The tubing was left within the joint. Vancomycin 1 g powder was placed in the knee joint prior to the deep closure. The deep closure was performed with #1 Stratofix suture to close the arthrotomy incision. 2-0 nylon was used to close the skin. The CATE bulb was attached and we had good suction. We injected 30 cc of 0.25% Marcaine plain. Wound was then dressed with Xeroform planes an Fabiano wrap. The patient tolerated the procedure well and transferred to the recovery room in a stable condition. All counts were correct. Plan: Admit to the hospital under Medicine Start IV antibiotics with ceftriaxone and vancomycin Obtain ID consult -will likely require PICC line Obtain daily inflammatory markers to include CBC, CRP and ESR Monitor drain output -this will likely be high due to his Eliquis use NPO at midnight on February 23 for potential OR return on February 24 Alen Nava MD Orthopedic Surgeon Complications: none Post-operative Condition: stable Disposition: PACU
[2025-02-22] MEDS: hydrOXYzine 50 MG/ML INJ 25 MG IM (10:43)
--- NOTE | 2025-02-22 11:05 | CM.DANOTE ---
Initial DCP Assessment Note Pt is a 55 yo male, resident of [place], presents from Dr Balbuena's office with septic knee. At time of this note, patient is off the floor in the OR for left knee hardware removal and I+D, cultures will be taken in OR. PCP: Maddi Powers Payer: [facility]/ [facility] [employer] Reviewed chart, pt discussed in multidisciplinary rounds this morning. Patient lives Mod independently with sp, needs assist with higher ADLs due to poor activity tolerance. Patient was admitted approximately a year ago and discharged to [facility]. Op note now reviewed, Dr Nava indicates patient is admitted under the hospitalist service and will need: PICC, ID consult, NPO at midnight 02/23 for potential return to the OR 02/24. Social work team will plan to follow clinical course closely. KAMLESH Dozier Discharge Planning/Care Management CM Discharge Assessment Start: 02/22/25 02:57 Freq: Status: Active Protocol: Document 02/22/25 11:00 REMIGIO (Rec: 02/22/25 11:05 REMIGIO [id number]) Discharge Planning Assessment Assigned Discharge KAMLESH Estevez [employer] DPOA/Assigned Jenna Vences, spouse Designee Name Contact Information [phone] Advance Directives? No History Provided By Patient,Medical Record Prior Living House Arrangements Household Members spouse Independent with ADL Yes 's Is patient alert and Yes oriented? Comment Home w/sp Comment May need ongoing IV depending on culture results. Discharge Plan Home Transportation family in POV Arrangement
--- NOTE | 2025-02-22 12:37 | DIET.CONS ---
Dietary Consultation Note Admission Date: 02/22/2025 12:05 Assessment: 55 y M admitted for septic knee Dietitian screened for low MNA score. Pt in surgery this morning, EMR reviewed. No recent significant weight loss per chart Ht: 175.26 cm Wt: 158.757 kg BMI: 51.7 UBW: 158.027 kg on 02/15/25, 159.211 kg on 05/01/24 Last BM: 02/21/25 (02/22/25 06:52) MNA: 8 Anders Score: 22 Diet: 02/22/25 02:03 NPO Diet Diet Modifications: NPO Type: NPO except for Meds 02/22/25 Lunch General (Regular) Diet Diet Modifications: Food Texture: Level 7 - Regular Liquid Consistency: Level 0 - Thin Labs: RBC 4.44 X10^6/uL (4.5-5.9) L 02/22/25 05:16 Hgb 11.3 g/dL (13.5-17.5) L 02/22/25 05:16 Hct 34.1 % (41-53) L 02/22/25 05:16 Creatinine 1.06 mg/dL (0.66-1.25) 02/22/25 05:16 Lactate 1.4 mmol/L (0.7-2.1) 02/21/25 22:55 Monitoring/Evaluations: Will monitor PO intakes and f/u Electronically Signed by: Mery Mohr 02/22/25 12:37 Clinical Dietitian [address] [address]
[2025-02-22] MEDS: AMLODIPINE 5 MG TABLET 10 MG PO (13:05)
--- NOTE | 2025-02-22 13:17 | PC.NURSE ---
Addendum entered by Kasey Ocampo R.N. 02/22/25 17:54: Pt denies discomfort. Dsg to left knee CDI SL intact/patent. Taking po w/o incidence Call light w/in reach, pt call appropriately for needs. Satisfactory post op course Continue w/plan of care. Original Note: Pt returned from surgery at 1140. Alert/drowsy IVF infusing as per orders. Dsg to Right knee CDI Pt resting quietly at this time Call light w/in reach, pt calls appropriately for needs.
[2025-02-22 14:50] LABS: Add Manual Diff / Slide Review NO; Basophils Absolute Auto 0 /uL (0-100); Basophils Percent Auto 0.1 % (0-2); Eosinophils Absolute Auto 0 /uL (0-450); Hematocrit 32.7 % (41-53); Hemoglobin 10.5 g/dL (13.5-17.5); Lymphocytes Absolute Auto 600 /uL (1100-4500); Lymphocytes Percent Auto 3.8 % (25-40); Mean Corpuscular HGB Conc 32.1 % (30-36); Mean Corpuscular Hemoglobin 24.6 PG (26-34); Mean Corpuscular Volume 76.5 fL (80-100); Monocytes Absolute Auto 900 /uL (0-900); Monocytes Percent Auto 5.8 % (3-14); Neutrophils Absolute Auto 13900 /uL (1500-7000); Neutrophils Percent Auto 90.3 % (50-75); Platelet Count 430 X10^3/uL (150-400); Red Blood Cell Count 4.27 X10^6/uL (4.5-5.9); Red Cell Distribution Width 15.1 % (11.6-14.8); White Blood Cell Count 15.4 X10^3/uL (4.5-11.0)
[2025-02-22 15:07] LABS: C-Reactive Protein Quant 2.8 mg/dL (<1.0)
[2025-02-22 15:09] LABS: Erythrocyte Sedimentation Rate 99 MM/HR (0-15)
[2025-02-22 16:39] LABS: Alanine Aminotransferase 31 IU/L (<50); Albumin 3.3 g/dL (3.5-5.0); Albumin Globulin Ratio 0.7 (1.0-2.8); Alkaline Phosphatase 140 U/L (38-126); Aspartate Aminotransferase 35 IU/L (17-59); BUN Creatinine Ratio 8.5 (6-22); Bilirubin Total 0.4 mg/dL (0.2-1.3); Blood Urea Nitrogen 10 mg/dL (9-20); Calcium 8.4 mg/dL (8.4-10.2); Carbon Dioxide 23 mmol/L (22-32); Chloride 103 mmol/L (98-107); Creatine Kinase 324 U/L (55-170); Estimated Glomerular Filt Rate > 60 mL/min (>60); Globulin 4.7 g/dL (1.7-4.1); Glucose 144 mg/dL (70-99); HEMOLYSIS < 15 (0-50); Potassium 4.8 mmol/L (3.4-5.1); Sodium 132 mmol/L (137-145)
[2025-02-22] MEDS: ATORVASTATIN 20 MG TABLET 40 MG PO (20:31)
[2025-02-22] MEDS: CYCLOBENZAPRINE 10 MG TABLET PO (20:31)
[2025-02-23] MEDS: LACTATED RINGERS 1,000 ML 42 ML IV (00:40)
[2025-02-23] MEDS: SODIUM CHLORIDE 0.9% FLUSH 10 ML IV (00:40)
[2025-02-23] MEDS: HYDROCODONE/ACET 5/325 TABLET 1 TAB PO ×3 (05:52→18:01)
[2025-02-23 08:00] VITALS: BP 126/71; PULSE 109; RESP 12; TEMP 36.4; O2SAT 95
[2025-02-23 08:27] VITALS: BP 126/71
[2025-02-23] MEDS: LOSARTAN 50 MG TABLET PO (08:27)
[2025-02-23 09:04] LABS: Add Manual Diff / Slide Review NO; Basophils Absolute Auto 0 /uL (0-100); Basophils Percent Auto 0.4 % (0-2); Eosinophils Absolute Auto 100 /uL (0-450); Eosinophils Percent Auto 1.1 % (2-4); Hematocrit 30.6 % (41-53); Lymphocytes Absolute Auto 1100 /uL (1100-4500); Lymphocytes Percent Auto 14.3 % (25-40); Mean Corpuscular HGB Conc 32.8 % (30-36); Mean Corpuscular Hemoglobin 25.2 PG (26-34); Mean Corpuscular Volume 76.8 fL (80-100); Monocytes Absolute Auto 1200 /uL (0-900); Monocytes Percent Auto 15.5 % (3-14); Neutrophils Absolute Auto 5200 /uL (1500-7000); Neutrophils Percent Auto 68.7 % (50-75); Platelet Count 349 X10^3/uL (150-400); Red Blood Cell Count 3.98 X10^6/uL (4.5-5.9); Red Cell Distribution Width 15.1 % (11.6-14.8); White Blood Cell Count 7.6 X10^3/uL (4.5-11.0)
--- NOTE | 2025-02-23 09:25 | P.PN_ITS ---
Subjective Subjective Interval history: The pt this morning reports that he is overall feeling okay. He denies any significant pain. He had muscle cramps last night, relieved by Flexeril. He found it difficult to get comfortable in bed. He states that he is feeling improved mood jurado as he can see some positives in the future. Exam Vital Signs (past 8 hours): - 02/23/25 08:00 02/23/25 08:27 Temperature 97.5 F L Pulse Rate 109 H Respiratory Rate 12 Blood Pressure 126/71 126/71 Pulse Oximetry 95 Oxygen Flow Rate 0 Oxygen Delivery Method Room Air Oxygen Flow Rate 0 Narrative Exam Narrative: Gen: NAD, sitting comfortably in bed, speaking comfortably, appears fatigued HEENT: normocephalic, atraumatic, sclera clear Neck: no LAD, no JVD CV: RRR, no murmurs Resp: clear to auscultation bilaterally, no wheezes or crackles Abd: soft, nontender Ext: left knee wrapped with CATE murray in place draining bloody fluid, trace pitting edema bilaterally, pedal pulses intact Neuro: no gross deficits Objective Labs 02/23/25 08:31 02/23/25 08:31 Labs: Laboratory Results - last 24 hr 02/22/25 02/22/25 02/23/25 14:41 16:20 08:31 WBC 15.4 H D 7.6 D RBC 4.27 L 3.98 L Hgb 10.5 L 10.0 L Hct 32.7 L 30.6 L MCV 76.5 L 76.8 L MCH 24.6 L 25.2 L MCHC 32.1 32.8 RDW 15.1 H 15.1 H Plt Count 430 H 349 Neut % (Auto) 90.3 H D 68.7 D Lymph % (Auto) 3.8 L 14.3 L [place] % (Auto) 5.8 15.5 H Eos % (Auto) 0.0 L 1.1 L Baso % (Auto) 0.1 0.4 Neut # (Auto) 06054 H 5200 Lymph # (Auto) 600 L 1100 [place] # (Auto) 900 1200 H Eos # (Auto) 0 100 Baso # (Auto) 0 0 ESR 99 H Sodium 132 L Potassium 4.8 Chloride 103 Carbon Dioxide 23 BUN 10 Creatinine 1.18 Estimated GFR > 60 BUN/Creatinine Ratio 8.5 Glucose 144 H Calcium 8.4 Total Bilirubin 0.4 AST 35 ALT 31 Alkaline Phosphatase 140 H Total Creatine Kinase 324 H C-Reactive Protein 2.8 H Total Protein 8.0 Albumin 3.3 L Globulin 4.7 H Albumin/Globulin Ratio 0.7 L [facility] Medical History (Updated 02/22/25 @ 10:23 by Maddi Powers MD) Family history of type 2 diabetes mellitus Fatty infiltration of liver LFT elevation DM2 (diabetes mellitus, type 2) COVID-19 virus infection (~05/2022) Migraine headache Shoulder impingement syndrome Bilateral primary osteoarthritis of hip Facet joint disease of lumbosacral region Bilateral primary osteoarthritis of knee PTSD (post-traumatic stress disorder) Hyperlipidemia Hypertension TROY (obstructive sleep apnea) Morbid obesity Family History Mother Diabetes mellitus Hypertension Breast cancer Grandfather Myocardial infarction Social History household members: spouse Smoking Status: Former smoker alcohol intake: current Assessment & Plan Assessment & Plan narrative: The pt is a 55yo with hypertension, sleep apnea, DM type 2, hyperlipidemia, PTSD, DVT, and hx of quadriceps tendon tear s/p repair in 2022 who presented with ongoing severe left knee pain, septic joint based on gram positive cocci seen on gram stain from joint aspiration. 1) Septic arthritis: Wound culture growing Group G Strep. POD #1 s/p I&D and joint hardware removal earlier today with CATE drain placement, drained 260cc bloody fluid thus far. Vancomycin placed in the joint prior to closure. - Ortho consulted, appreciate ongoing care - ID curbsided by Ortho - Initiated on Ceftriaxone and Daptomycin yesterday. Due to rising CPK and Group G Strep, will transition to only Ceftriaxone today - F/U wound and blood cultures - Daily CBC, ESR, CRP to track - Plan for return to the OR tomorrow 2) DVT: Diagnosed on 02/02 - Continue Eliquis 3) DM Type 2: Diet controlled with excellent control. Last A1C 09/2024 5.9. - ACHS blood sugar checks - Insulin lispro sliding scale 4) HTN: BPs good range - Continue to monitor BPs closely - Continue home antihypertensives for now 5) Hyperlipidemia: - Statin held due to Daptomycin, consider restart tomorrow 6) PTSD/Insomnia: Stable at this point. Pt does have hx of prolonged hospitalization for cellulitis resulting in severe demoralization and resultant profound weakness such that he required discharge to rehab facility for a week. - Will mobilize with PT as soon as stable enough to do so - Continue Nortriptyline, Prazosin DVT ppx: on Eliquis Code: Full Diet: Carb control, NPO after midnight Dispo: Pending return of wound cultures, improved mobilization, outpatient antibiotic plan in place, etc. Time-Based Coding :: [TOTAL MINUTES] spent with patient and on the chart (including review of chart, obtaining history, exam, reviewing outside data, placing orders, documenting exam and treatment plan, and counseling patient) on [DATE]. PROFEE Peripheral Edp Equipment Operator Document charge(s): Yes Charge Codes Subsequent inpatient/observation care: [id number]
[2025-02-23 09:32] LABS: Alanine Aminotransferase 26 IU/L (<50); Albumin Globulin Ratio 0.7 (1.0-2.8); Alkaline Phosphatase 131 U/L (38-126); Aspartate Aminotransferase 31 IU/L (17-59); BUN Creatinine Ratio 9.7 (6-22); Bilirubin Total 0.4 mg/dL (0.2-1.3); Blood Urea Nitrogen 10 mg/dL (9-20); Calcium 8.2 mg/dL (8.4-10.2); Carbon Dioxide 25 mmol/L (22-32); Chloride 103 mmol/L (98-107); Creatine Kinase 505 U/L (55-170); Estimated Glomerular Filt Rate > 60 mL/min (>60); Globulin 4.4 g/dL (1.7-4.1); Glucose 141 mg/dL (70-99); HEMOLYSIS < 15 (0-50); Potassium 3.9 mmol/L (3.4-5.1); Sodium 133 mmol/L (137-145); Total Protein 7.4 g/dL (6.3-8.2)
--- NOTE | 2025-02-23 11:29 | P.PN_ITS ---
Subjective Subjective Date Patient Seen: 02/23/25 Time Patient Seen: 11:29 Interval history: ID: 55yo M with PMH of DM, HTN, HLD, DVT on , and LEFT Quad tendon repair in 2022 s/p LEFT Knee HWR and I&D on 02/22/25 for LEFT Knee septic arthritis S: Pt reports pain in the left knee but different from before the surgery. He had minimal pain at rest and with minor movements. Denies F/C/NS/CP/SOB. Denies new N/T. Exam Vital Signs (past 8 hours): - 02/23/25 08:00 02/23/25 08:27 Temperature 97.5 F L Pulse Rate 109 H Respiratory Rate 12 Blood Pressure 126/71 126/71 Pulse Oximetry 95 Oxygen Flow Rate 0 Oxygen Delivery Method Room Air Oxygen Flow Rate 0 Narrative Exam Narrative: LEFT Knee: Well appearing, No acute distress. GERI wrap about the left lower extremity Neurovascular exam: Fires ta/gc/ehl; SILT s/s/sp/dp/t Objective Labs 02/23/25 08:31 02/23/25 08:31 Labs: Laboratory Results - last 24 hr 02/22/25 02/22/25 02/23/25 14:41 16:20 08:31 WBC 15.4 H D 7.6 D RBC 4.27 L 3.98 L Hgb 10.5 L 10.0 L Hct 32.7 L 30.6 L MCV 76.5 L 76.8 L MCH 24.6 L 25.2 L MCHC 32.1 32.8 RDW 15.1 H 15.1 H Plt Count 430 H 349 Neut % (Auto) 90.3 H D 68.7 D Lymph % (Auto) 3.8 L 14.3 L [place] % (Auto) 5.8 15.5 H Eos % (Auto) 0.0 L 1.1 L Baso % (Auto) 0.1 0.4 Neut # (Auto) 07082 H 5200 Lymph # (Auto) 600 L 1100 [place] # (Auto) 900 1200 H Eos # (Auto) 0 100 Baso # (Auto) 0 0 ESR 99 H Sodium 132 L 133 L Potassium 4.8 3.9 Chloride 103 103 Carbon Dioxide 23 25 BUN 10 10 Creatinine 1.18 1.03 Estimated GFR > 60 > 60 BUN/Creatinine Ratio 8.5 9.7 Glucose 144 H 141 H Calcium 8.4 8.2 L Total Bilirubin 0.4 0.4 AST 35 31 ALT 31 26 Alkaline Phosphatase 140 H 131 H Total Creatine Kinase 324 H 505 H C-Reactive Protein 2.8 H Total Protein 8.0 7.4 Albumin 3.3 L 3.0 L Globulin 4.7 H 4.4 H Albumin/Globulin Ratio 0.7 L 0.7 L PFSH Medical History (Updated 02/22/25 @ 10:23 by Maddi Powers MD) Family history of type 2 diabetes mellitus Fatty infiltration of liver LFT elevation DM2 (diabetes mellitus, type 2) COVID-19 virus infection (~05/2022) Migraine headache Shoulder impingement syndrome Bilateral primary osteoarthritis of hip Facet joint disease of lumbosacral region Bilateral primary osteoarthritis of knee PTSD (post-traumatic stress disorder) Hyperlipidemia Hypertension TROY (obstructive sleep apnea) Morbid obesity Family History Mother Diabetes mellitus Hypertension Breast cancer Grandfather Myocardial infarction Social History household members: spouse Smoking Status: Former smoker alcohol intake: current Assessment & Plan Post-op Postoperative Procedures: Procedures Operation Date: 02/22/25 07:45 Actual Procedure Side Surgeon p Incision and Debridement knee, removal of retained hardware Left Alen Nava MD Postoperative day: 1 Postoperative status narrative: A/P: 55M s/p Left Knee HWR and I&D on 02/22/25. Recovering as expected. No systemic symptoms. Plan to return to the OR on 02/24/25 for an additional I&D. Gram stain with WBCs Aerobic - Group g Strep Anaerobic - Pending -NPO at 2359 on 02/23/25; for potential I&D on 02/24/25 -IV Antibiotics - ID recommends Dapto and Ceftriaxone -Monitor drain output -Repeat CBC/CRP/ESR daily -NWB LLE - will likely start working with PT on ROM and WB on 02/25/25 Alen Nava MD Orthopedics [phone] rome carroll Time Spent With Patient Time with patient: 15-24 minutes
[2025-02-23] MEDS: CYCLOBENZAPRINE 10 MG TABLET PO ×2 (15:03→21:13)
[2025-02-23 17:00] VITALS: BP 145/71; PULSE 102; RESP 16; TEMP 36.3; O2SAT 96
[2025-02-23] MEDS: cefTRIAXone 2,000 MG in SODIUM CHLORIDE 0.9% 100 ML 200 MG IV (18:02)
[2025-02-23 20:10] VITALS: BP 141/87; PULSE 104; RESP 17; TEMP 36.5; O2SAT 97
[2025-02-23] MEDS: MORPHINE 4 MG/ML INJ 3 MG IV (21:12)
[2025-02-24] VITALS (14 sets, daily range): BP systolic 94–164; BP diastolic 68–99; PULSE 102–121; RESP 8–20; TEMP 36.1–36.4; O2SAT 94–99; BMI 51.7
[2025-02-24] MEDS: MORPHINE 4 MG/ML INJ 3 MG IV ×2 (00:20→05:33)
--- NOTE | 2025-02-24 08:22 | P.PN_ITS ---
Subjective Subjective Date Patient Seen: 02/24/25 Time Patient Seen: 08:22 Interval history: ID: 55yo M with PMH of DM, HTN, HLD, DVT on , and LEFT Quad tendon repair in 2022 s/p LEFT Knee HWR and I&D on 02/22/25 for LEFT Knee septic arthritis S: Pt reports pain in the left knee but most of his pain is sciatic pain because he is unable to get up. Denies F/C/NS/CP/SOB. Denies new N/T. Exam Vital Signs (past 8 hours): - 02/24/25 08:00 Temperature 97.1 F L Pulse Rate 102 H Respiratory Rate 15 Blood Pressure 143/79 H Pulse Oximetry 97 Oxygen Flow Rate 0 Oxygen Delivery Method Room Air Oxygen Flow Rate 0 Narrative Exam Narrative: LEFT Knee: Well appearing, No acute distress. GERI wrap about the left lower extremity Neurovascular exam: Fires ta/gc/ehl; SILT s/s/sp/dp/t Objective Labs 02/23/25 08:31 02/23/25 08:31 Labs: Laboratory Results - last 24 hr 02/23/25 08:31 WBC 7.6 D RBC 3.98 L Hgb 10.0 L Hct 30.6 L MCV 76.8 L MCH 25.2 L MCHC 32.8 RDW 15.1 H Plt Count 349 Neut % (Auto) 68.7 D Lymph % (Auto) 14.3 L [place] % (Auto) 15.5 H Eos % (Auto) 1.1 L Baso % (Auto) 0.4 Neut # (Auto) 5200 Lymph # (Auto) 1100 [place] # (Auto) 1200 H Eos # (Auto) 100 Baso # (Auto) 0 Sodium 133 L Potassium 3.9 Chloride 103 Carbon Dioxide 25 BUN 10 Creatinine 1.03 Estimated GFR > 60 BUN/Creatinine Ratio 9.7 Glucose 141 H Calcium 8.2 L Total Bilirubin 0.4 AST 31 ALT 26 Alkaline Phosphatase 131 H Total Creatine Kinase 505 H Total Protein 7.4 Albumin 3.0 L Globulin 4.4 H Albumin/Globulin Ratio 0.7 L PFSH Medical History (Updated 02/22/25 @ 10:23 by Maddi Powers MD) Family history of type 2 diabetes mellitus Fatty infiltration of liver LFT elevation DM2 (diabetes mellitus, type 2) COVID-19 virus infection (~05/2022) Migraine headache Shoulder impingement syndrome Bilateral primary osteoarthritis of hip Facet joint disease of lumbosacral region Bilateral primary osteoarthritis of knee PTSD (post-traumatic stress disorder) Hyperlipidemia Hypertension TROY (obstructive sleep apnea) Morbid obesity Family History Mother Diabetes mellitus Hypertension Breast cancer Grandfather Myocardial infarction Social History household members: spouse Smoking Status: Former smoker alcohol intake: current Assessment & Plan Post-op Postoperative Procedures: Procedures Operation Date: 02/22/25 07:45 Actual Procedure Side Surgeon p Incision and Debridement knee, removal of retained hardware Left Alen Nava MD Operation Date: 02/24/25 09:00 <No data on this case meets the specified criteria> Postoperative day: 2 Postoperative status narrative: 55M s/p Left Knee HWR and I&D on 02/22/25. Recovering as expected. No systemic symptoms. Plan to return to the OR this morning for an additional I&D. Blood Cultures - negative after 48 hours Gram stain with WBCs Aerobic - Group g Strep Anaerobic - Pending Drain Output: 02/23: 30cc 02/24: 55cc -NPO for OR today - repeat I&D -IV Antibiotics - ID recommends Dapto and Ceftriaxone -Repeat CBC/CRP/ESR daily - this had not been drawn as of 0800 -NWB LLE - will likely start working with PT on ROM and WB on 02/25/25 Alen Nava MD Orthopedics [phone] cell Time Spent With Patient Time with patient: 15-24 minutes
--- NOTE | 2025-02-24 08:25 | PM.PREOP ---
Pre-operative Note Interval Note History & Physical reviewed/Exam performed by Physician: Yes Changes to H&P: No
[2025-02-24 08:26] LABS: Add Manual Diff / Slide Review NO; Basophils Absolute Auto 100 /uL (0-100); Basophils Percent Auto 1.1 % (0-2); Eosinophils Absolute Auto 200 /uL (0-450); Hematocrit 30.2 % (41-53); Hemoglobin 9.7 g/dL (13.5-17.5); Lymphocytes Absolute Auto 1400 /uL (1100-4500); Lymphocytes Percent Auto 19.1 % (25-40); Mean Corpuscular Hemoglobin 24.6 PG (26-34); Mean Corpuscular Volume 76.9 fL (80-100); Monocytes Absolute Auto 1100 /uL (0-900); Monocytes Percent Auto 14.8 % (3-14); Neutrophils Absolute Auto 4700 /uL (1500-7000); Platelet Count 331 X10^3/uL (150-400); Red Blood Cell Count 3.93 X10^6/uL (4.5-5.9); Red Cell Distribution Width 15.2 % (11.6-14.8); White Blood Cell Count 7.5 X10^3/uL (4.5-11.0)
[2025-02-24] MEDS: LACTATED RINGERS 1,000 ML 42 ML IV ×2 (08:39→10:42)
[2025-02-24 08:42] LABS: Erythrocyte Sedimentation Rate 119 MM/HR (0-15)
[2025-02-24 08:46] LABS: Alanine Aminotransferase 23 IU/L (<50); Albumin 3.1 g/dL (3.5-5.0); Albumin Globulin Ratio 0.7 (1.0-2.8); Alkaline Phosphatase 135 U/L (38-126); Aspartate Aminotransferase 30 IU/L (17-59); BUN Creatinine Ratio 9.9 (6-22); Bilirubin Total 0.3 mg/dL (0.2-1.3); Blood Urea Nitrogen 9 mg/dL (9-20); C-Reactive Protein Quant 7.3 mg/dL (<1.0); Calcium 8.5 mg/dL (8.4-10.2); Carbon Dioxide 26 mmol/L (22-32); Chloride 102 mmol/L (98-107); Creatine Kinase 427 U/L (55-170); Estimated Glomerular Filt Rate > 60 mL/min (>60); Globulin 4.4 g/dL (1.7-4.1); Glucose 116 mg/dL (70-99); HEMOLYSIS < 15 (0-50); Potassium 4.2 mmol/L (3.4-5.1); Sodium 134 mmol/L (137-145); Total Protein 7.5 g/dL (6.3-8.2)
--- NOTE | 2025-02-24 09:22 | SUR.HOLD ---
Addendum entered by Bernie Patel R.N. 02/24/25 09:26: Handoff report received from YING Bernardo. Original Note: Pt scheduled for 0900 surgery. Pt identifiers confirmed and pt transferred from 218 to PACU via the bed by this RN. Side rails up, bed low. Personal belongings left in room 218.
[2025-02-24] MEDS: CEFAZOLIN VIAL 3 GM in SODIUM CHLORIDE 0.9% 100 ML IV (09:29)
[2025-02-24] MEDS: ACETAMINOPHEN IV 1,000 MG/100 ML VIAL 400 MG IV (09:34)
--- NOTE | 2025-02-24 09:46 | SUR.OPER ---
Supine on padded OR bed, head on pillow, arms secured on padded arm boards at <90 degrees abduction, legs uncrossed, safety belt at thigh, tape over blanket over lower leg, left leg prepped into field
[2025-02-24] MEDS: VANCOMYCIN 1,000 MG VIAL 1000 MG TOP (10:11)
[2025-02-24] MEDS: BUPIVACAINE 0.25% (PF) VIAL 30 ML INJ (10:12)
--- NOTE | 2025-02-24 11:00 | PM.OP.1 ---
Operative Date/Time/Diagnoses Date of procedure: 02/24/25 Time of procedure: 11:13 Pre-op diagnosis: LEFT Knee Septic Arthritis Post-op diagnosis: same Procedure & Clinicians Procedure: LEFT Knee I&D Same procedure as scheduled: Yes Surgeon: Alen Nava Anesthesia Type: General Operative Notes Findings: Healthy tissue. No purulence noted. Applied: none Estimated Blood Loss (mL): 100 Procedure in detail: Procedure Date: February 24, 2025 Preoperative diagnosis: Left knee septic arthritis Post Op Diagnosis: Left knee septic arthritis Procedure Performed: Left knee and I and D Primary Surgeon: Alen Nava MD Anesthesia Type: General EBL: 100cc Urine Output: NA Drains: Discontinued CATE drain Tourniquet: 0 minutes @ 250 mmHg Implants: None Indication For Surgery: History, physical exam and imaging consistent with left knee septic arthritis. Given the extent of infection during the first I&D, it was decided that he would benefit form a second look and additional I&D. The risks, benefits, and alternatives were discussed. Risks include pain, bleeding, infection, damage to nearby structures and cartilage, lack of symptom relief, need for further surgery, knee stiffness, fracture, DVT, PE, myocardial infarction, stroke, and . The patient had a good understanding and all questions were answered. Written consent was obtained. Procedure in Detail: The patient was brought to the operating room and was placed in a supine position. A pneumatic tourniquet was applied to the proximal operative thigh over cast padding. The drain and skin sutures were removed. The lower extremity was sterily prepped with betadine and draped in the normal sterile fashion. A surgical timeout was performed by the entire operating room team and all were in agreement. We utilized his midline longitudinal incision. We were able to identify the old medial parapatellar incision and removed the stratafix suture. There was no evidence of purulence. Small amounts of bleeding and clots. The knee was then curetted and irrigated with 9 L of sterile fluid. The drain site was also curetted and irrigated. Dilute Betadine irrigation was performed. During the soak time of 3 minutes, we set aside all used instruments as dirty and utilized a separate table for the remaining of the case. An overdrape was placed and we all changed our gloves. Vancomycin 1 g powder was placed in the knee joint prior to the deep closure. The deep closure was performed with #1 Stratofix suture to close the arthrotomy incision. 2-0 nylon was used to close the skin. We injected 30 cc of 0.25% Marcaine plain. Wound was then dressed with Xeroform, planes, ABDs an Fabiano wrap. The patient tolerated the procedure well and transferred to the recovery room in a stable condition. All counts were correct. Plan: Admit to the hospital under Medicine Contoine IV antibiotics with ceftriaxone and daptomyocin Obtain ID consult ? Obtain daily inflammatory markers to include CBC, CRP and ESR No plans to return to the OR at this point Alen Nava MD Orthopedic Surgeon Complications: none Post-operative Condition: stable Disposition: PACU
[2025-02-24] MEDS: ONDANSETRON 4 MG/2 ML INJ IV (11:17)
[2025-02-24] MEDS: HYDROMORPHONE 1 MG INJ IV (11:18)
[2025-02-24] MEDS: OXYCODONE IR 5 MG TABLET PO (11:22)
[2025-02-24] MEDS: hydrOXYzine 50 MG/ML INJ IM (11:23)
--- NOTE | 2025-02-24 11:58 | PC.NURSE ---
Pt back from OR. Lethargic but responsive. Denies any current pain. Left knee wrapped in jigar wrap, CDI. Call light within reach.
--- NOTE | 2025-02-24 12:25 | P.PN_ITS ---
Subjective Subjective Interval history: The pt is coming out of anesthesia at the time of our encounter. He reports some back discomfort prior to surgery. He denies any chest pain, SOB, etc. He has no specific complaints today. Exam Vital Signs (past 8 hours): - 02/24/25 08:00 02/24/25 08:40 02/24/25 10:51 Temperature 97.1 F L 97.5 F L 97.2 F L Pulse Rate 102 H 104 H 111 H Respiratory Rate 15 20 10 L Blood Pressure 143/79 H 164/99 H 108/83 Pulse Oximetry 97 96 97 Oxygen Delivery Method Room Air Room Air Oxygen Flow Rate 0 02/24/25 10:56 02/24/25 11:01 02/24/25 11:06 Temperature 97.4 F L Pulse Rate 117 H 121 H 115 H Respiratory Rate 11 L 13 8 L Blood Pressure 94/68 117/74 121/93 H Pulse Oximetry 96 95 94 Oxygen Delivery Method Room Air Room Air Room Air Oxygen Flow Rate 02/24/25 11:28 02/24/25 11:29 02/24/25 12:00 Temperature Pulse Rate 113 H 113 H 116 H Respiratory Rate 11 L 12 14 Blood Pressure 146/85 H 131/78 126/80 Pulse Oximetry 95 98 96 Oxygen Delivery Method Room Air Room Air Oxygen Flow Rate 0 Oxygen Delivery Method Room Air Oxygen Flow Rate 0 Narrative Exam Narrative: Gen: NAD, sitting comfortably in bed, speaking comfortably, appears fatigued HEENT: normocephalic, atraumatic, sclera clear Neck: no LAD, no JVD CV: RRR, no murmurs Resp: clear to auscultation bilaterally, no wheezes or crackles Abd: soft, nontender Ext: left knee wrapped, 2+ pitting edema left foot, 1+ pitting edema right leg, pedal pulses intact Neuro: no gross deficits Objective Labs 02/24/25 08:17 02/24/25 08:17 Labs: Laboratory Results - last 24 hr 02/24/25 08:17 WBC 7.5 RBC 3.93 L Hgb 9.7 L Hct 30.2 L MCV 76.9 L MCH 24.6 L MCHC 32.0 RDW 15.2 H Plt Count 331 Neut % (Auto) 63.0 Lymph % (Auto) 19.1 L [place] % (Auto) 14.8 H Eos % (Auto) 2.0 Baso % (Auto) 1.1 Neut # (Auto) 4700 Lymph # (Auto) 1400 [place] # (Auto) 1100 H Eos # (Auto) 200 Baso # (Auto) 100 ESR 119 H Sodium 134 L Potassium 4.2 Chloride 102 Carbon Dioxide 26 BUN 9 Creatinine 0.91 Estimated GFR > 60 BUN/Creatinine Ratio 9.9 Glucose 116 H Calcium 8.5 Total Bilirubin 0.3 AST 30 ALT 23 Alkaline Phosphatase 135 H Total Creatine Kinase 427 H C-Reactive Protein 7.3 H Total Protein 7.5 Albumin 3.1 L Globulin 4.4 H Albumin/Globulin Ratio 0.7 L PFSH Medical History (Updated 02/22/25 @ 10:23 by Maddi Powers MD) Family history of type 2 diabetes mellitus Fatty infiltration of liver LFT elevation DM2 (diabetes mellitus, type 2) COVID-19 virus infection (~05/2022) Migraine headache Shoulder impingement syndrome Bilateral primary osteoarthritis of hip Facet joint disease of lumbosacral region Bilateral primary osteoarthritis of knee PTSD (post-traumatic stress disorder) Hyperlipidemia Hypertension TROY (obstructive sleep apnea) Morbid obesity Family History Mother Diabetes mellitus Hypertension Breast cancer Grandfather Myocardial infarction Social History household members: spouse Smoking Status: Former smoker alcohol intake: never Assessment & Plan Assessment & Plan narrative: The pt is a 55yo with hypertension, sleep apnea, DM type 2, hyperlipidemia, PTSD, DVT, and hx of quadriceps tendon tear s/p repair in 2022 who presented with ongoing severe left knee pain, septic joint based on gram positive cocci seen on gram stain from joint aspiration. 1) Septic arthritis: Wound culture growing Group G Strep. POD #2 s/p I&D and joint hardware removal, s/p repeat I&D today. Vancomycin placed in the joint prior to closure. - Ortho consulted, appreciate ongoing care - ID curbsided by Ortho. Plan to rediscuss with them tomorrow after cultures finalized. - Initiated on Ceftriaxone and Daptomycin initially. Due to rising CPK and Group G Strep, transitioned to Ceftriaxone alone - Continue to F/U wound and blood cultures - Daily CBC, ESR, CRP to track - Initiate PT tomorrow 2) DVT: Diagnosed on 02/02 - Continue Eliquis 3) DM Type 2: Diet controlled with excellent control. Last A1C 09/2024 5.9. - ACHS blood sugar checks - Insulin lispro sliding scale 4) HTN: BPs good range - Continue to monitor BPs closely - Continue home antihypertensives for now 5) Hyperlipidemia: - Statin held due to Daptomycin, consider restart tomorrow after discussion with ID 6) PTSD/Insomnia: Stable at this point. Pt does have hx of prolonged hospitalization for cellulitis resulting in severe demoralization and resultant profound weakness such that he required discharge to rehab facility for a week. - Will mobilize with PT tomorrow - Continue Nortriptyline, Prazosin DVT ppx: on Eliquis Code: Full Diet: Carb control Dispo: Pending return of wound cultures, improved mobilization, outpatient antibiotic plan in place, etc. Time-Based Coding :: [TOTAL MINUTES] spent with patient and on the chart (including review of chart, obtaining history, exam, reviewing outside data, placing orders, documenting exam and treatment plan, and counseling patient) on [DATE]. PROFEE Etcher Apprentice [employer] Document charge(s): Yes Charge Codes Subsequent inpatient/observation care: [id number]
[2025-02-24] MEDS: INSULIN LISPRO 100 UNIT/ML 3ML VIAL SUBCUT ×2 (12:38→17:04)
--- NOTE | 2025-02-24 15:15 | CM.DPC ---
DCP Cont: Per Ortho Surgeon, took pt to OR this morning for additional I&D of his joint and tolerated procedure well and brought back up to the floor for recovery. Per MD, pt recovering from anesthesia and cultures pending for ongoing determination of antibiotic needs at d/c and to work with PT tomorrow Mon to determine discharge planning needs. Plan: SW to follow closely for PT and cultures to determine discharge planning needs when stable. KAMLESH Gallo
[2025-02-24] MEDS: cefTRIAXone 2,000 MG in SODIUM CHLORIDE 0.9% 100 ML 200 MG IV (18:13)
[2025-02-24] MEDS: HYDROCODONE/ACET 5/325 TABLET 1 TAB PO (19:46)
[2025-02-25] MEDS: HYDROCODONE/ACET 5/325 TABLET 1 TAB PO ×5 (01:31→20:00)
[2025-02-25 06:04] LABS: Add Manual Diff / Slide Review NO; Basophils Absolute Auto 0 /uL (0-100); Basophils Percent Auto 0.1 % (0-2); Eosinophils Absolute Auto 0 /uL (0-450); Hematocrit 27.1 % (41-53); Hemoglobin 8.7 g/dL (13.5-17.5); Lymphocytes Absolute Auto 1200 /uL (1100-4500); Lymphocytes Percent Auto 9.5 % (25-40); Mean Corpuscular HGB Conc 32.3 % (30-36); Mean Corpuscular Hemoglobin 24.9 PG (26-34); Mean Corpuscular Volume 77.1 fL (80-100); Monocytes Absolute Auto 1500 /uL (0-900); Neutrophils Absolute Auto 9600 /uL (1500-7000); Neutrophils Percent Auto 78.4 % (50-75); Platelet Count 341 X10^3/uL (150-400); Red Blood Cell Count 3.51 X10^6/uL (4.5-5.9); Red Cell Distribution Width 14.9 % (11.6-14.8); White Blood Cell Count 12.3 X10^3/uL (4.5-11.0)
[2025-02-25 06:29] LABS: Erythrocyte Sedimentation Rate 15 MM/HR (0-15)
--- NOTE | 2025-02-25 06:41 | INF.NOTE ---
Pt educated on the importance of turning in bed at least every 2 hours to prevent PI, pt acknowledged and states he will be shifting his own weight in bed. Pt tried to assess pt buttock area which pt declined.
[2025-02-25 06:42] LABS: C-Reactive Protein Quant 4.2 mg/dL (<1.0); Creatine Kinase 286 U/L (55-170)
--- NOTE | 2025-02-25 07:22 | PM.PREOP ---
Pre-operative Note Interval Note History & Physical reviewed/Exam performed by Physician: Yes Changes to H&P: No
--- NOTE | 2025-02-25 07:33 | PM.PN.IH.1 ---
Subjective Subjective Interval history: This morning the pt reports that he is feeling overall well. He was able to work with PT, and was encouraged by his ability to take a couple steps. He states it was painful, but much less painful than prior to surgery. He denies any chest pain, SOB. Exam Vital Signs (past 8 hours): Oxygen Delivery Method Room Air Oxygen Flow Rate 0 Narrative Exam Narrative: Gen: NAD, sitting comfortably in bed, speaking comfortably HEENT: normocephalic, atraumatic, sclera clear Neck: no LAD, no JVD CV: RRR, no murmurs Resp: clear to auscultation bilaterally, no wheezes or crackles Abd: soft, nontender Ext: left knee wrapped, 2+ pitting edema left foot, 1+ pitting edema right leg, pedal pulses intact Neuro: no gross deficits Objective Labs 02/25/25 05:38 02/24/25 08:17 Labs: Laboratory Results - last 24 hr 02/24/25 02/25/25 08:17 05:38 WBC 7.5 12.3 H D RBC 3.93 L 3.51 L Hgb 9.7 L 8.7 L Hct 30.2 L 27.1 L MCV 76.9 L 77.1 L MCH 24.6 L 24.9 L MCHC 32.0 32.3 RDW 15.2 H 14.9 H Plt Count 331 341 Neut % (Auto) 63.0 78.4 H Lymph % (Auto) 19.1 L 9.5 L [place] % (Auto) 14.8 H 12.0 Eos % (Auto) 2.0 0.0 L Baso % (Auto) 1.1 0.1 Neut # (Auto) 4700 9600 H Lymph # (Auto) 1400 1200 [place] # (Auto) 1100 H 1500 H Eos # (Auto) 200 0 Baso # (Auto) 100 0 ESR 119 H 15 D Sodium 134 L Potassium 4.2 Chloride 102 Carbon Dioxide 26 BUN 9 Creatinine 0.91 Estimated GFR > 60 BUN/Creatinine Ratio 9.9 Glucose 116 H Calcium 8.5 Total Bilirubin 0.3 AST 30 ALT 23 Alkaline Phosphatase 135 H Total Creatine Kinase 427 H 286 H C-Reactive Protein 7.3 H 4.2 H Total Protein 7.5 Albumin 3.1 L Globulin 4.4 H Albumin/Globulin Ratio 0.7 L PFSH Medical History (Updated 02/22/25 @ 10:23 by Maddi Powers MD) Family history of type 2 diabetes mellitus Fatty infiltration of liver LFT elevation DM2 (diabetes mellitus, type 2) COVID-19 virus infection (~05/2022) Migraine headache Shoulder impingement syndrome Bilateral primary osteoarthritis of hip Facet joint disease of lumbosacral region Bilateral primary osteoarthritis of knee PTSD (post-traumatic stress disorder) Hyperlipidemia Hypertension TROY (obstructive sleep apnea) Morbid obesity Family History Mother Diabetes mellitus Hypertension Breast cancer Grandfather Myocardial infarction Social History household members: spouse Smoking Status: Former smoker alcohol intake: never Assessment & Plan Assessment & Plan narrative: The pt is a 55yo with hypertension, sleep apnea, DM type 2, hyperlipidemia, PTSD, DVT, and hx of quadriceps tendon tear s/p repair in 2022 who presented with ongoing severe left knee pain, septic joint based on gram positive cocci seen on gram stain from joint aspiration. 1) Septic arthritis: Wound culture growing Group G Strep. POD #3 s/p I&D and joint hardware removal, POD #1 s/p repeat I&D. ESR, CRP, and CK trending down. WBC count slightly elevated today. - Ortho consulted, appreciate ongoing care - ID curbsided by Ortho. - Initiated on Ceftriaxone and Daptomycin initially. Due to rising CPK and Group G Strep, transitioned to Ceftriaxone alone. Will continue with this. - PICC line placement today due to need for at home abx after d/c - Daily CBC, ESR, CRP to track - Initiate PT/OT today 2) Acute blood loss anemia: Not at transfusion level - Start daily iron supplement 3) DVT: Diagnosed on 02/02 - Continue Eliquis 4) DM Type 2: Diet controlled with excellent control. Last A1C 09/2024 5.9. - [facility] blood sugar checks - Insulin lispro sliding scale 5) HTN: BPs good range - Continue to monitor BPs closely - Continue home antihypertensives for now 6) Hyperlipidemia: - Restart statin today 7) PTSD/Insomnia: Stable at this point. Pt does have hx of prolonged hospitalization for cellulitis resulting in severe demoralization and resultant profound weakness such that he required discharge to rehab facility for a week. Mood improved today. - Mobilization with PT - Continue Nortriptyline, Prazosin DVT ppx: on Eliquis Code: Full Diet: Carb control Dispo: Possible d/c tomorrow pending stabilization of WBC count, ability to ambulate up 5 stairs. Time-Based Coding :: [TOTAL MINUTES] spent with patient and on the chart (including review of chart, obtaining history, exam, reviewing outside data, placing orders, documenting exam and treatment plan, and counseling patient) on [DATE]. PROFEE Nursing Scheduler Document charge(s): Yes Charge Codes Subsequent inpatient/observation care: [id number]
[2025-02-25 08:30] VITALS: BP 118/67; PULSE 89; RESP 18; TEMP 36.3; O2SAT 97
[2025-02-25 08:37] VITALS: BP 118/67; PULSE 89
[2025-02-25] MEDS: LOSARTAN 50 MG TABLET PO (08:37)
[2025-02-25] MEDS: FERROUS SULFATE 325 MG TABLET PO (08:38)
[2025-02-25] MEDS: INSULIN LISPRO 100 UNIT/ML 3ML VIAL SUBCUT ×2 (08:38→12:16)
--- NOTE | 2025-02-25 09:22 | PM.PNPO.1 ---
Subjective Subjective Date Patient Seen: 02/25/25 Time Patient Seen: 09:23 Interval history: ID: 55yo M with PMH of DM, HTN, HLD, DVT on , and LEFT Quad tendon repair in 2022 s/p LEFT Knee HWR and I&D on 02/22/25 and repeat I&D on 02/24/25 for LEFT Knee septic arthritis S: Pt reports that he is doing well today. Feeling much better. OT was working with him on arrival to the room. Denies F/C/NS/CP/SOB. Denies new N/T. Exam Vital Signs (past 8 hours): - 02/25/25 08:30 02/25/25 08:37 Temperature 97.4 F L Pulse Rate 89 89 Respiratory Rate 18 Blood Pressure 118/67 118/67 Pulse Oximetry 97 Oxygen Flow Rate 0 Oxygen Delivery Method Room Air Oxygen Flow Rate 0 Narrative Exam Narrative: LEFT Knee: Well appearing, No acute distress. GERI wrap about the left lower extremity Neurovascular exam: Fires ta/gc/ehl; SILT s/s/sp/dp/t Objective Labs 02/25/25 05:38 02/24/25 08:17 Labs: Laboratory Results - last 24 hr 02/25/25 05:38 WBC 12.3 H D RBC 3.51 L Hgb 8.7 L Hct 27.1 L MCV 77.1 L MCH 24.9 L MCHC 32.3 RDW 14.9 H Plt Count 341 Neut % (Auto) 78.4 H Lymph % (Auto) 9.5 L [place] % (Auto) 12.0 Eos % (Auto) 0.0 L Baso % (Auto) 0.1 Neut # (Auto) 9600 H Lymph # (Auto) 1200 [place] # (Auto) 1500 H Eos # (Auto) 0 Baso # (Auto) 0 ESR 15 D Total Creatine Kinase 286 H C-Reactive Protein 4.2 H PFSH Medical History (Updated 02/22/25 @ 10:23 by Maddi Powers MD) Family history of type 2 diabetes mellitus Fatty infiltration of liver LFT elevation DM2 (diabetes mellitus, type 2) COVID-19 virus infection (~05/2022) Migraine headache Shoulder impingement syndrome Bilateral primary osteoarthritis of hip Facet joint disease of lumbosacral region Bilateral primary osteoarthritis of knee PTSD (post-traumatic stress disorder) Hyperlipidemia Hypertension TROY (obstructive sleep apnea) Morbid obesity Family History Mother Diabetes mellitus Hypertension Breast cancer Grandfather Myocardial infarction Social History household members: spouse Smoking Status: Former smoker alcohol intake: never Assessment & Plan Post-op Postoperative Procedures: Procedures Operation Date: 02/22/25 07:45 Actual Procedure Side Surgeon p Incision and Debridement knee, removal of retained hardware Left Alen Nava MD Operation Date: 02/24/25 09:00 Actual Procedure Side Surgeon p Incision and Debridement Wound/Left Knee Left Alen Nava MD Postoperative status narrative: 55M s/p Left Knee HWR and I&D on 02/22/25 and repeat I&D on 02/24/25. Doing well. Blood Cultures - negative after 48 hours Gram stain with WBCs Aerobic - Group g Strep Anaerobic - Pending -ID Recommendations: Ceftriaxone 2G IV daily ? will need a PICC line -Repeat CBC/CRP/ESR daily -PT/OT Consult -WBAT RLE and active ROM from 0-90 degrees Alen Nava MD Orthopedics [phone] cell Time Spent With Patient Time with patient: 15-24 minutes
--- NOTE | 2025-02-25 10:09 | OT.IP.EVAL ---
Current Diagnoses Cutaneous abscess of left lower limb (02/22/25) Pyogenic arthritis, unspecified (02/22/25) Surgery Performed Operation Date: 02/22/25 07:45 Actual Procedures p Incision and Debridement knee, removal of retained hardware(Left) - Alen Nava MD Operation Date: 02/24/25 09:00 Actual Procedures p Incision and Debridement Wound/Left Knee(Left) - Alen Nava MD Past Medical History (Last Updated 02/22/25 @ 10:23 by Maddi Powers MD) Bilateral primary osteoarthritis of hip Bilateral primary osteoarthritis of knee COVID-19 virus infection (~05/2022) DM2 (diabetes mellitus, type 2) Facet joint disease of lumbosacral region Family history of type 2 diabetes mellitus Fatty infiltration of liver Hyperlipidemia Hypertension LFT elevation Migraine headache Morbid obesity TROY (obstructive sleep apnea) PTSD (post-traumatic stress disorder) Shoulder impingement syndrome Occupational Therapy Inpatient Evaluation/Re-Eval M1 PT/OT-IP Prior Functional Status Start: 02/25/25 09:32 Freq: NEEDED Status: Active Protocol: Document 02/25/25 09:46 CHARLIE (Rec: 02/25/25 10:09 CORKYORFELISA Desktop) Medical Review Prior Functional Status Medical History Yes Reviewed Diet/Fluid Regular Consistency Communication WNLs Mobility and Gait Mod I short distances with crutches or RW in the house since LLE DVT in January, pt with high pain. 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 Pt reports I with BADL, Living and IADL's laundry, driving and wood working. Pt reports assist with yardwork. Social History Household Members spouse Living Arrangements House Number of Floors ( One Floor Floors) Number of Stairs To 5 steps to enter with B rails Enter/Railing? Home Environment Standard Height Toilet,Walk in Shower,Built-In Shower Seat Home Equipment Front Wheel Walker,Straight Cane,Crutches,Hand Held Shower,Sock Aid Employment Status Student Additional Social Suction cup grab bars History Comment M2 OT-IP Current Condition Start: 02/25/25 09:46 Freq: Status: Active Protocol: Document 02/25/25 09:46 CHARLIE (Rec: 02/25/25 10:09 CORKYORFELISA Desktop) Occupational Therapy Current Condition Current Condition Evaluation Date 02/25/25 Treatment Diagnosis subacute DVT LLE, L knee septic arthritis, hardware infection/removal 2 I&D Diagnosis Onset Date 02/22/25 Post Operative Precautions Other Precautions WBAT, L knee max of 90 deg flexion per MD Nava Weight Bearing Status Weight Bearing Weight Bear as Tolerated Status M3 OT- IP Subjective and Pain Start: 02/25/25 09:46 Freq: Status: Active Protocol: Document 02/25/25 09:46 CHARLIE (Rec: 02/25/25 10:09 [facility]- Subjective Occupational Therapy Visit Type Type Initial Evaluation Visit Start Time 08:45 Visit Stop Time 09:30 Notes Pt reclined in bed with nsg present on entrance of OT. Pt agreeable to OT eval Occupational Therapy Visit Comments Patient Comments Pt agreeable to eval Patient/Caregiver To d/c home Goals OT Pain Assessment Pain When Pain Assessed During Mobility Pain Present Pain Present Pain Reported Location Left knee Intensity 6 Description Spasm,Throbbing Pain Behaviors Calling Out,Facial Grimacing,Guarding,Holding Area M4 OT- IP ADL's Start: 02/25/25 09:46 Freq: Status: Active Protocol: Document 02/25/25 09:46 CHARLIE (Rec: 02/25/25 10:09 CHARLIE [facility]) OT [id number] Comments OT Self-Feeding not observed Comments OT ADL-Grooming General Evaluation Areas Needing Retrieving/Set-up of Grooming Items Assistance Comments OT Grooming Comments pt performs seated EOB on set up OT ADL-Oral Care Comments Oral Care Comments not observed OT ADL-Dressing General Eval Lower Body Dressing Total Assistance Ability Areas Needing Socks Assistance Comments OT Dressing Comments pt unable to assist performed EOB, pt reports he dons socks while supine at home or with sock aid OT ADL-Toileting General Evaluation Toileting Ability Independent Comments OT Toileting I for urinal, not observed for BM but likely will need Comments some assist OT ADL-Bathing Comments OT Bathing Comments not observed, sponge bath recommended at this time M5 OT- IP IADL's Start: 02/25/25 09:46 Freq: Status: Active Protocol: Document 02/25/25 09:46 CHARLIE (Rec: 02/25/25 10:09 [facility] OT-Instrumental Activities of Daily Living Deficits IADL Deficits Deficits Identified Home Safety Awareness Awareness of Need Decreased Awareness for Assistance at Home Ability to Problem Able to Problem Solve Solve Emergency Situations Medication Management Medication No Deficits Identified Management Money Management Money Management No Deficits Identified Meal Preparation Meal Preparation Caregiver Provides Assist Toe Closing Machine Tender Toe Closing Machine Tender Caregiver Provides Assist Driving Driving Comments will likely need assist on d/c M6 OT- IP Functional Cognition Start: 02/25/25 09:46 Freq: Status: Active Protocol: Document 02/25/25 09:46 CHARLIE (Rec: 02/25/25 10:09 [facility]) Cognitive Factors Limiting Selfcare Function Cognitive Ability Level of Alertness Alert Patient Orientation Name,Age,Birthday,Month,Date,Year,Day of Week,Place, Situation Attention Span Capable of Focused Attention,Capable of Sustained Ability Attention Ability to Follow Able to Follow One Step Commands,Able to Follow Multi- Commands Step Commands Memory Description No Deficits Noted Safety Awareness Underestimates Need for Assistance Problem Solving No deficits Noted Ability Executive Function No Deficits Noted Ability Abstract Thinking No Deficits Noted Ability Cognitive Comments Cognitive Assessment Pt reports desire to d/c home without practicing steps Comments with PT, stating that the FD can get him in his house. Pt with decreased safety awareness regarding need for I with getting in and out of his home OT- Vision and Hearing OT- Hearing Assessment OT- Hearing WFL Assessment OT- Vision Assessment Visual Acuity WFL,Glasses For Reading M7 OT- IP Mobility and Balance Start: 02/25/25 09:46 Freq: Status: Active Protocol: Document 02/25/25 09:46 CHARLIE (Rec: 02/25/25 10:09 [facility]ORK[facility]ORFELISA [facility]) OT- Bed Mobility Assessment Supine to Sit Supine to Sit Assist Minimal Assistance,Head of Bed Elevated,Bedrails Scooting Scooting to Edge of Minimal Assistance,1 Person Assistance Bed OT-Transfer Assessment Sit to and From Stand Sit to and from Minimal Assistance,1 Person Assistance Stand Transfers Transfer Ability Minimal Assistance,1 Person Assistance Technique Transfer Destination Chair Transfer Technique Stand Step Pivot Devices Transfer Assistive Bed Rail,Gait Belt,Front Wheeled Walker Devices Comments Mobility Comments Pt needs assist with L LE when performing bed mobility. Pt pushes up from bed rail for sit>stand and needs vcs to reach for walker. Pt needs vcs to step back until R LE touches chair and to extend L LE slightly before reaching back into sitting. OT- Balance Assessment Sitting Balance and Reactions Static Sitting Fair Balance Ability Dynamic Sitting Fair Balance Ability Standing Balance and Reactions Static Standing Fair Balance Ability Dynamic Standing Good Balance Ability M8 OT- IP Objective Assessments Start: 02/25/25 09:46 Freq: Status: Active Protocol: Document 02/25/25 09:46 [facility] (Rec: 02/25/25 10:09 [facility] Desktop) OT Gross Range of Motion Upper Extremity Range of Motion Assessment Within Functional Limits OT Strength Upper Extremity Strength Assessment Within Functional Limits Hand Surgical Instrument Maker Strength Hand Dominance Right Comments Strength Comments Pt demonstrates 5/5 UE strength overall OT Sensation Assessment Edema Edema Present Edema Comments L LE, see PT eval for details M9 OT- IP Assessment and Plan Start: 02/25/25 09:46 Freq: Status: Active Protocol: Document 02/25/25 09:46 [facility] (Rec: 02/25/25 10:09 [facility] Desktop) OT Summary Assessment and Plan Potential Rehabilitation Excellent Potential Analytic Complexity Low at Evaluation Summary OT Impairments Pain,Balance,Coordination,Functional Mobility,Grooming, Dressing,Toileting,Bathing,Toilet Transfers,Shower Transfers,Activity Tolerance Progress Towards Progressing Toward Goals Goals Assessment Summary Pt is a 55 yo M, mod complexity eval, s/p subacute DVT LLE, L knee septic arthritis, hardware infection/ removal I&D x2 this admission. Pt requires increased time for bed mobility and functional t/s, presents with decreased I BADL, decreased I with functional t/fs and balance, and activity intolerance. Skilled OT services appropriate to address pt deficits and promote return toward PLOF. 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 Pt presents with decreased safety awareness, desiring to d/c home even if he is unable to manage the 5 steps to enter. Pt states he will call the FD to get him in his home. OT recommends d/c home with HH if he is able to manage steps, if he is unable to manage steps, pt would benefit from SNF for short stay to improve functional mobility. Goals Grooming Goal Independent Dressing Goal Independent,Long Handled Shoe Horn,Sales Enablement Consultant,Sock Aid Toileting Goal Independent Bathing Goal Independent,Grab Bars Toilet Transfer Goal Independent,Grab Bars Shower Transfer Goal Independent,Shower Chair Days to Meet Goals 5 Frequency of Treatment Other frequency 5x/wk Treatment Plan OT Treatment Plan ADL Training,Functional Mobility,Therapeutic Exercises, Patient/Family Education,Discharge Planning Other Treatment LB AE, sink side ADL, EOB bathing Recommendations and Next Treatment Focus Discharge Recommendations OT Discharge Home Health,Home vs SNF Recommendations Home Equipment Needs shower chair Transportation Needs Wheelchair/Cabulance at Discharge
--- NOTE | 2025-02-25 10:22 | PT.IIE ---
Current Diagnoses Cutaneous abscess of left lower limb (02/22/25) Pyogenic arthritis, unspecified (02/22/25) Surgery Performed Operation Date: 02/22/25 07:45 Actual Procedures p Incision and Debridement knee, removal of retained hardware(Left) - Alen Nava MD Operation Date: 02/24/25 09:00 Actual Procedures p Incision and Debridement Wound/Left Knee(Left) - Alen Nava MD Medical History (Last Updated 02/22/25 @ 10:23 by Maddi Powers MD) Bilateral primary osteoarthritis of hip Bilateral primary osteoarthritis of knee COVID-19 virus infection (~05/2022) DM2 (diabetes mellitus, type 2) Facet joint disease of lumbosacral region Family history of type 2 diabetes mellitus Fatty infiltration of liver Hyperlipidemia Hypertension LFT elevation Migraine headache Morbid obesity TROY (obstructive sleep apnea) PTSD (post-traumatic stress disorder) Shoulder impingement syndrome Physical Therapy Inpatient Evaluation/Re-Eval M1 PT/OT-IP Prior Functional Status Start: 02/25/25 09:32 Freq: NEEDED Status: Active Protocol: Document 02/25/25 09:46 CHARLIE (Rec: 02/25/25 10:09 CHARLIE Desktop) Medical Review Prior Functional Status Medical History Yes Reviewed Diet/Fluid Regular Consistency Communication WNLs Mobility and Gait Mod I short distances with crutches or RW in the house since LLE DVT in January, pt with high pain. 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 Pt reports I with BADL, Living and IADL's laundry, driving and wood working. Pt reports assist with yardwork. Social History Household Members spouse Living Arrangements House Number of Floors ( One Floor Floors) Number of Stairs To 5 steps to enter with B rails Enter/Railing? Home Environment Standard Height Toilet,Walk in Shower,Built-In Shower Seat Home Equipment Front Wheel Walker,Straight Cane,Crutches,Hand Held Shower,Sock Aid Employment Status Student Additional Social Suction cup grab bars History Comment M2 PT-IP Current Condition Start: 02/25/25 09:32 Freq: NEEDED Status: Active Protocol: Document 02/25/25 09:15 MB (Rec: 02/25/25 09:43 MB Desktop) Physical Therapy Current Condition Current Condition Evaluation Date 02/25/25 Treatment Diagnosis Subacute DVT LLE, hardware infection, removal and 2 I& Ds this adm M3 PT-IP Subjective Start: 02/25/25 09:32 Freq: NEEDED Status: Active Protocol: Document 02/25/25 09:15 MB (Rec: 02/25/25 09:43 MB Desktop) Subjective Physical Therapy Visit Type Type Initial Evaluation Visit Start Time 09:15 Visit Stop Time 09:31 Number of ASSEMBLY LINE UPHOLSTERER Visits 0 Physical Therapy Visit Comments Patient Comments Pt reports high pain over the past weeks and that he has been out of school Therapy Pain Assessment Pain When Pain Assessed At Rest Pain Present Pain Present Pain Reported Location Left knee Intensity 6 Scale Used Numeric (0 - 10) M4 PT-IP Mobility and Gait Start: 02/25/25 09:32 Freq: NEEDED Status: Active Protocol: Document 02/25/25 09:15 MB (Rec: 02/25/25 09:43 MB Desktop) PT-Transfer Assessment Sit to and From Stand Sit to and from Minimal Assistance Stand Equipment Transfer Assistive Gait Belt,Front Wheeled Walker Device Orthotic/Prosthetic No Devices or Brace: Transfers Transfer Destination Chair Transfer Technique Step-to stepping Transfer Ability Level of Assist Minimal Assistance Comments Mobility Comments Pt already up to EOB with OT upon PT arrival. Pt performs STS and stepping with min A from PT and second person nearby this a.m. in case needing help Gait Assessment Gait Gait Assistance Minimum Assistance Required: Distance (Feet) 2 Able to Maintain Yes Weight Bearing Status During Gait Assistive Devices Assistive Device Gait Belt,Front Wheeled Walker Orthotic/Prosthetic No Devices or Brace: Gait Deviations General Gait Pattern Antalgic,Ataxic,Decreased Stride Length,Decreased Feet Clearance,Flexed Trunk,Step-to Gait Factors Limiting Gait Function Factors Limiting Decreased Activity Tolerance,Decreased Strength, Gait Function Difficulty Following Directions,Limited Range of Motion ,Pain,Poor Balance,Poor Safety Awareness PT-Balance Assessment Sitting Balance and Reactions Static Sitting Good Balance Ability Standing Balance and Reactions Static Standing Fair Balance Ability Dynamic Standing Fair Balance Ability Device Used RW Comments Other Balance Tests/ PT does not see dynamic sitting balance as he is EOB Deviations/Treatment with feet on floor upon PT arrival : M5 PT-IP Objective Assessments Start: 02/25/25 09:32 Freq: NEEDED Status: Active Protocol: Document 02/25/25 09:15 MB (Rec: 02/25/25 09:43 MB Desktop) Orientation Orientation/Cognition Level of Alertness Alert Safety Awareness Decreased Safety Awareness Memory Description No Deficits Noted Gross Range of Motion Upper Extremity ROM Impairments Defer to OT Lower Extremity ROM Assessment Left Impaired Impairments Limited performance today, passive flexion sitting EOB to at least 80 deg left knee Strength Lower Extremity Strength Assessment Left Impaired Comments Strength Comments MMT deferred d/t pain and functional weakness left leg, right does appear functional Coordination Assessment Gross Coordination Gross Coordination Impaired Sensation Assessment Comments Sensation Comments NT M6 PT-IP Treatment Start: 02/25/25 09:32 Freq: NEEDED Status: Active Protocol: Document 02/25/25 09:15 MB (Rec: 02/25/25 09:43 MB Desktop) Physical Therapy Treatment Exercises Exercises Ankle Pumps Education Education Provided Precautions,Weight Bearing Status M7 PT-IP Assessment and Plan Start: 02/25/25 09:32 Freq: NEEDED Status: Active Protocol: Document 02/25/25 09:15 MB (Rec: 02/25/25 09:43 MB Desktop) PT Summary Assessment and Plan Potential Rehabilitation Fair Potential Status of Condition Evolving at Evaluation Summary Impairments Pain,ROM,Strength,Balance,Coordination,Bed Mobility, Transfers,Gait,Activity Tolerance Assessment Summary Pt is a 55 y/o male adm with left knee hardware infection at previous quad tendon repair in 2022. Pt recently had a LLE DVT and has had pain over the past weeks. Pt underwent hardware removal and two I&Ds this adm. Pt is apprehensive with movement today, has some anxiety and increased pain. He requires cues and min A to get up to the chair. He does tend to limit mobility and states that he plans to have EMS carry him up the steps at home. PT ed pt that goal would be for him to try stair training before he leaves the hospital. Unsure receptiveness to this. Pt does have a history of PTSD that affected mobility in previous acute PT admission and so will con't to provide education and encouragement. Goals Bed Mobility Goal Independent Transfer Goal Independent,Front Wheeled Walker Gait Goal Independent,Front Wheel Walker Gait Distance 100 Other Goals Pt will ascend and descend 5 steps with B rails and/or LRAD with no more than min A to allow safe home entrance. Days to Meet Goals 5 Frequency of Treatment Frequency Of Once a Day Treatment Other frequency 1-2x/day Treatment Plan Physical Therapy Bed Mobility Training,Transfer Training,Gait Training, Treatment Plan Therapeutic Exercise,Balance Retraining,Post Op Education,Discharge Planning,Hot or Cold Pack, Neuromuscular Re-ed,Coordination Retraining,Manual Therapy Precautions Other Precautions Left knee ROM 0-90 deg Weight Bearing Status Weight Bearing Weight Bear as Tolerated Status Recommendations To Nursing Amount of Assist 2 Person Assist Needed Discharge Recommendations PT Discharge Home with 04/04 Assist Available,Home Health Recommendations Transportation Needs Private Vehicle at Discharge - PT assist x1-2
[2025-02-25] MEDS: APIXABAN 5 MG TABLET PO ×2 (12:16→20:55)
[2025-02-25] MEDS: SODIUM CHLORIDE 0.9% FLUSH 10 ML IV ×2 (12:16→20:55)
--- NOTE | 2025-02-25 16:19 | CM.DPNOTE ---
DCP note WHAT JOB TITLES MEAN reviewed EMR per ortho note, will need 2G IV ceftriaxone Q24, unknown stop date. no PICC order. will need to know following provider (PCP Priya?) YING Mcgill spoke with Dr. Nava, placed PICC order. Per cupola charger, no PICC plans for today, likely get PICC tomorrow. PT=home with HH vs 04/04 care. OT=home with HH vs SNF. NEED to review plan with pt, make [facility] referral, and make HH referral BENJI on . WHAT JOB TITLES MEAN unable to meet with pt today due to triaging needs. P: anticipate home with inf [facility]/HH when medically stable/details can be arranged. Will continue to follow closely for DCP coordination KAMLESH Mane
[2025-02-25] MEDS: MORPHINE 4 MG/ML INJ 3 MG IV (16:45)
[2025-02-25] MEDS: CYCLOBENZAPRINE 10 MG TABLET PO (18:00)
[2025-02-25] MEDS: cefTRIAXone 2,000 MG in SODIUM CHLORIDE 0.9% 100 ML 200 MG IV (18:00)
[2025-02-25 20:00] VITALS: BP 130/74; PULSE 98; RESP 15; TEMP 36.1; O2SAT 99
[2025-02-25] MEDS: ATORVASTATIN 20 MG TABLET PO (20:55)
--- NOTE | 2025-02-26 07:21 | PM.PNPO.1 ---
Subjective Subjective Date Patient Seen: 02/26/25 Time Patient Seen: 07:21 Interval history: ID: 55yo M with PMH of DM, HTN, HLD, DVT on , and LEFT Quad tendon repair in 2022 s/p LEFT Knee HWR and I&D on 02/22/25 and repeat I&D on 02/24/25 for LEFT Knee septic arthritis S: Pt reports that he is doing well today. Feeling much better. Worked with PT and OT yesterday. Able to ambulate a couple of steps. Denies F/C/NS/CP/SOB. Denies new N/T. Concerned about being able to take care of self at home. Exam Vital Signs (past 8 hours): Oxygen Delivery Method Room Air Oxygen Flow Rate 0 Narrative Exam Narrative: LEFT Knee: Well appearing, No acute distress. GERI wrap about the left lower extremity Neurovascular exam: Fires ta/gc/ehl; SILT s/s/sp/dp/t Objective Labs 02/25/25 05:38 02/24/25 08:17 [facility] Medical History (Updated 02/22/25 @ 10:23 by Maddi Powers MD) Family history of type 2 diabetes mellitus Fatty infiltration of liver LFT elevation DM2 (diabetes mellitus, type 2) COVID-19 virus infection (~05/2022) Migraine headache Shoulder impingement syndrome Bilateral primary osteoarthritis of hip Facet joint disease of lumbosacral region Bilateral primary osteoarthritis of knee PTSD (post-traumatic stress disorder) Hyperlipidemia Hypertension TROY (obstructive sleep apnea) Morbid obesity Family History Mother Diabetes mellitus Hypertension Breast cancer Grandfather Myocardial infarction Social History household members: spouse Smoking Status: Former smoker alcohol intake: never Assessment & Plan Post-op Postoperative Procedures: Procedures Operation Date: 02/22/25 07:45 Actual Procedure Side Surgeon p Incision and Debridement knee, removal of retained hardware Left Alen Nava MD Operation Date: 02/24/25 09:00 Actual Procedure Side Surgeon p Incision and Debridement Wound/Left Knee Left Alen Nava MD Postoperative status narrative: 55M s/p Left Knee HWR and I&D on 02/22/25 and repeat I&D on 02/24/25. Doing well. Labs were not drawn today. Will trend inflammatory markers. Blood Cultures - negative after 48 hours Gram stain with WBCs Aerobic - Group g Strep Anaerobic ? No growth -ID Recommendations: Ceftriaxone 2G IV daily ? will need a PICC line -Repeat CBC/CRP/ESR daily -PT/OT Consult -WBAT RLE and active ROM from 0-90 degrees Alen Nava MD Orthopedics [phone] cell Time Spent With Patient Time with patient: 15-24 minutes
--- NOTE | 2025-02-26 07:55 | PM.PN.IH.1 ---
Subjective Subjective Interval history: The pt reports increased muscle spasms in his left leg this morning. The pain is overall manageable. He denies any chest pain, SOB, fevers, chills. 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 HEENT: normocephalic, atraumatic, sclera clear Neck: no LAD, no JVD CV: RRR, no murmurs Resp: clear to auscultation bilaterally, no wheezes or crackles Abd: soft, nontender Ext: left knee wrapped, 1+ pitting edema left foot, 1+ pitting edema right leg, pedal pulses intact Neuro: no gross deficits Objective Labs 02/26/25 08:27 02/24/25 08:17 [facility] Medical History (Updated 02/22/25 @ 10:23 by Maddi Powers MD) Family history of type 2 diabetes mellitus Fatty infiltration of liver LFT elevation DM2 (diabetes mellitus, type 2) COVID-19 virus infection (~05/2022) Migraine headache Shoulder impingement syndrome Bilateral primary osteoarthritis of hip Facet joint disease of lumbosacral region Bilateral primary osteoarthritis of knee PTSD (post-traumatic stress disorder) Hyperlipidemia Hypertension TROY (obstructive sleep apnea) Morbid obesity Family History Mother Diabetes mellitus Hypertension Breast cancer Grandfather Myocardial infarction Social History household members: spouse Smoking Status: Former smoker alcohol intake: never Assessment & Plan Assessment & Plan narrative: The pt is a 55yo with hypertension, sleep apnea, DM type 2, hyperlipidemia, PTSD, DVT, and hx of quadriceps tendon tear s/p repair in 2022 who presented with ongoing severe left knee pain, septic joint based on gram positive cocci seen on gram stain from joint aspiration. 1) Septic arthritis: Wound culture growing Group G Strep. POD #4 s/p I&D and joint hardware removal, POD #2 s/p repeat I&D. ESR, CRP, and CK still pending for the day. WBC count normalized. - Ortho consulted, appreciate ongoing care - ID curbsided by Ortho. - Initiated on Ceftriaxone and Daptomycin initially. Due to rising CPK and Group G Strep, transitioned to Ceftriaxone alone. Will continue with this. - PICC line placed yesterday - Daily CBC, ESR, CRP to track - PT/OT initiated yesterday - Continue Flexeril for muscle spasm, can add benzo if needed but will try to avoid - Pt without a BM in the hospital, passing flatus. Declines stool softener. 2) Acute blood loss anemia: Not at transfusion level. Stable. - Continue daily iron supplement 3) DVT: Diagnosed on 02/02 - Continue Eliquis 4) DM Type 2: Diet controlled with excellent control. Last A1C 09/2024 5.9. - [facility] blood sugar checks - Insulin lispro sliding scale 5) HTN: BPs good range - Continue to monitor BPs closely - Continue home antihypertensives for now 6) Hyperlipidemia: - Continue statin today 7) PTSD/Insomnia: Stable at this point. Pt does have hx of prolonged hospitalization for cellulitis resulting in severe demoralization and resultant profound weakness such that he required discharge to rehab facility for a week. Mood continues to improve. - Mobilization with PT - Continue Nortriptyline, Prazosin DVT ppx: on Eliquis Code: Full Diet: Carb control Dispo: Pending ability to ambulate up 5 stairs. Anticipate in the next 1-2 days. Time-Based Coding :: [TOTAL MINUTES] spent with patient and on the chart (including review of chart, obtaining history, exam, reviewing outside data, placing orders, documenting exam and treatment plan, and counseling patient) on [DATE]. [employer]EE [employer] Assembler [employer] Checker Document charge(s): Yes Charge Codes Subsequent inpatient/observation care: [id number]
[2025-02-26] MEDS: HYDROCODONE/ACET 5/325 TABLET 1 TAB PO (07:56)
[2025-02-26 07:58] VITALS: BP 134/70; PULSE 88; RESP 16; TEMP 36.4; O2SAT 99
[2025-02-26 08:49] LABS: Add Manual Diff / Slide Review NO; Basophils Absolute Auto 100 /uL (0-100); Basophils Percent Auto 0.5 % (0-2); Eosinophils Absolute Auto 200 /uL (0-450); Eosinophils Percent Auto 2.3 % (2-4); Hemoglobin 8.6 g/dL (13.5-17.5); Lymphocytes Absolute Auto 1700 /uL (1100-4500); Lymphocytes Percent Auto 16.7 % (25-40); Mean Corpuscular HGB Conc 31.8 % (30-36); Mean Corpuscular Hemoglobin 24.7 PG (26-34); Mean Corpuscular Volume 77.8 fL (80-100); Monocytes Absolute Auto 1000 /uL (0-900); Monocytes Percent Auto 10.1 % (3-14); Neutrophils Absolute Auto 7100 /uL (1500-7000); Neutrophils Percent Auto 70.4 % (50-75); Platelet Count 348 X10^3/uL (150-400); Red Blood Cell Count 3.47 X10^6/uL (4.5-5.9); Red Cell Distribution Width 15.1 % (11.6-14.8)
[2025-02-26 09:09] LABS: C-Reactive Protein Quant 1.7 mg/dL (<1.0); Creatine Kinase 146 U/L (55-170)
[2025-02-26] MEDS: CYCLOBENZAPRINE 10 MG TABLET PO (09:11)
[2025-02-26] MEDS: DOCUSATE 100 MG CAPSULE PO (09:11)
[2025-02-26] MEDS: FERROUS SULFATE 325 MG TABLET PO (09:11)
[2025-02-26] MEDS: LOSARTAN 50 MG TABLET PO (09:11)
[2025-02-26] MEDS: SODIUM CHLORIDE 0.9% FLUSH 10 ML IV ×2 (09:11→21:57)
[2025-02-26] MEDS: polyethylene glycoL 3350 17 GM POWD.PACK PO (09:11)
[2025-02-26] MEDS: APIXABAN 5 MG TABLET PO ×2 (09:11→21:56)
[2025-02-26 09:43] LABS: Erythrocyte Sedimentation Rate 106 MM/HR (0-15)
--- NOTE | 2025-02-26 10:20 | PT.IPTN ---
Current Diagnoses Cutaneous abscess of left lower limb (02/22/25) Pyogenic arthritis, unspecified (02/22/25) Surgery Performed Operation Date: 02/22/25 07:45 Actual Procedures p Incision and Debridement knee, removal of retained hardware(Left) - Alen Nava MD Operation Date: 02/24/25 09:00 Actual Procedures p Incision and Debridement Wound/Left Knee(Left) - Alen Nava MD Physical Therapy Treatment Note M2 PT-IP Current Condition Start: 02/25/25 09:32 Freq: NEEDED Status: Active Protocol: Document 02/25/25 09:15 MB (Rec: 02/25/25 09:43 MB Desktop) Physical Therapy Current Condition Current Condition Evaluation Date 02/25/25 Treatment Diagnosis Subacute DVT LLE, hardware infection, removal and 2 I& Ds this adm M3 PT-IP Subjective Start: 02/25/25 09:32 Freq: NEEDED Status: Active Protocol: Document 02/26/25 10:20 AB (Rec: 02/26/25 12:48 AB [id number]) Subjective Physical Therapy Visit Type Type Treatment Note Visit Start Time 10:20 Visit Stop Time 10:50 Number of VOCATIONAL TRAINING INSTRUCTOR Visits 0 Physical Therapy Visit Comments Patient Comments agreeable to do PT Therapy Pain Assessment Pain When Pain Assessed At Rest Pain Present Pain Present Pain Reported Location Left knee Intensity 8 Scale Used Numeric (0 - 10) Pain Management Apply Cold,Distraction,Elevation,Modification of Techniques Treatment,Re-positioning,Timing of Activity with Medications M4 PT-IP Mobility and Gait Start: 02/25/25 09:32 Freq: NEEDED Status: Active Protocol: Document 02/26/25 10:20 AB (Rec: 02/26/25 12:48 AB [id number]) PT-Bed Mobility Assessment Supine to Sit Supine to Sit Standby Assistance PT-Transfer Assessment Sit to and From Stand Sit to and from Contact Guard Assistance,1 Person Assistance,Use of Stand Upper Extremities Equipment Transfer Assistive Gait Belt,Front Wheeled Walker Device Orthotic/Prosthetic No Devices or Brace: Transfers Transfer Destination Chair Transfer Technique ambulated Transfer Ability Level of Assist Standby Assistance,Contact Guard Assistance,1 Person Assistance,Use of Upper Extremities Comments Mobility Comments pt in bed. completed supine to sit SBA. sit to stand CGA and ambulated in room using fWW CGA ~ 15 ft. pt sat on the chair. pt refused further ambulation but agreed to stay up on the chair. positioned pt on the chair. call light and table placed next to pt. ice pack provided. educated pt on heel slides on L knee with caution of 90 deg knee flexion per ortho MD's note . Gait Assessment Gait Gait Assistance Standby Assistance,Contact Guard Assist Required: Distance (Feet) 15 Able to Maintain Yes Weight Bearing Status During Gait Assistive Devices Assistive Device Gait Belt,Front Wheeled Walker Orthotic/Prosthetic No Devices or Brace: Gait Deviations General Gait Pattern Antalgic,Decreased Stride Length,Decreased Feet Clearance Factors Limiting Gait Function Factors Limiting Decreased Activity Tolerance,Decreased Strength, Gait Function Difficulty Following Directions,Limited Range of Motion ,Pain,Poor Balance,Poor Safety Awareness M5 PT-IP Objective Assessments Start: 02/25/25 09:32 Freq: NEEDED Status: Active Protocol: Document 02/25/25 09:15 MB (Rec: 02/25/25 09:43 MB Desktop) Orientation Orientation/Cognition Level of Alertness Alert Safety Awareness Decreased Safety Awareness Memory Description No Deficits Noted Gross Range of Motion Upper Extremity ROM Impairments Defer to OT Lower Extremity ROM Assessment Left Impaired Impairments Limited performance today, passive flexion sitting EOB to at least 80 deg left knee Strength Lower Extremity Strength Assessment Left Impaired Comments Strength Comments MMT deferred d/t pain and functional weakness left leg, right does appear functional Coordination Assessment Gross Coordination Gross Coordination Impaired Sensation Assessment Comments Sensation Comments NT M6 PT-IP Treatment Start: 02/25/25 09:32 Freq: NEEDED Status: Active Protocol: Document 02/26/25 10:20 AB (Rec: 02/26/25 12:48 AB [id number]) Physical Therapy Treatment Education Education Provided Precautions,Safety M7 PT-IP Assessment and Plan Start: 02/25/25 09:32 Freq: NEEDED Status: Active Protocol: Document 02/26/25 10:20 AB (Rec: 02/26/25 12:48 AB [id number]) PT Summary Assessment and Plan Potential Rehabilitation Fair Potential Summary Impairments Pain,ROM,Strength,Balance,Coordination,Sensation,Tone, Cognition,Bed Mobility,Transfers,Gait,Activity Tolerance Progress Towards Slow Progress due to Pain,Slow Progress due to Medical Goals Issues Assessment Summary pt requiring SBA to CGA with mobility using FWW. pt continues to c/o increase knee pain and has decrease activity tolerance affecting mobility. pt continues to be limited with ambulation and unable to do stair climbing today. pt lives with spouse and stated that spouse can assist but also has to work. d/c plan depending on progress: SNF vs home with assist and HHPT . Goals Bed Mobility Goal Independent Transfer Goal Independent,Front Wheeled Walker Gait Goal Independent,Front Wheel Walker Gait Distance 100 Other Goals Pt will ascend and descend 5 steps with B rails and/or LRAD with no more than min A to allow safe home entrance. Days to Meet Goals 5 Frequency of Treatment Frequency Of Once a Day Treatment Other frequency 1-2x/day Treatment Plan Physical Therapy Bed Mobility Training,Transfer Training,Gait Training, Treatment Plan Therapeutic Exercise,Balance Retraining,Post Op Education,Discharge Planning,Hot or Cold Pack, Neuromuscular Re-ed,Coordination Retraining,Manual Therapy Precautions Other Precautions Left knee ROM 0-90 deg, contact precautions Weight Bearing Status Weight Bearing Weight Bear as Tolerated Status Recommendations To Nursing Amount of Assist 1 Person Assist Needed Discharge Recommendations PT Discharge Home with 04/04 Assist Available,Home Health,SNF Rehab Recommendations Transportation Needs Private Vehicle at Discharge - PT assist 1
--- NOTE | 2025-02-26 11:50 | OT.IP.TRT ---
Current Diagnoses Cutaneous abscess of left lower limb (02/22/25) Pyogenic arthritis, unspecified (02/22/25) Surgery Performed Operation Date: 02/22/25 07:45 Actual Procedures p Incision and Debridement knee, removal of retained hardware(Left) - Alen Nava MD Operation Date: 02/24/25 09:00 Actual Procedures p Incision and Debridement Wound/Left Knee(Left) - Alen Nava MD Occupational Therapy Treatment Note M2 OT-IP Current Condition Start: 02/25/25 09:46 Freq: Status: Active Protocol: Document 02/25/25 09:46 CHARLIE (Rec: 02/25/25 10:09 CHARLIE Desktop) Occupational Therapy Current Condition Current Condition Evaluation Date 02/25/25 Treatment Diagnosis subacute DVT LLE, L knee septic arthritis, hardware infection/removal 2 I&D Diagnosis Onset Date 02/22/25 Post Operative Precautions Other Precautions WBAT, L knee max of 90 deg flexion per MD Nava Weight Bearing Status Weight Bearing Weight Bear as Tolerated Status M3 OT- IP Subjective and Pain Start: 02/25/25 09:46 Freq: Status: Active Protocol: Document 02/26/25 12:38 [facility] (Rec: 02/26/25 12:44 [facility] Desktop) OT- Subjective Occupational Therapy Visit Type Type Treatment Note Visit Start Time 11:26 Visit Stop Time 11:50 Occupational Therapy Visit Comments Patient Comments Pt agreed to do sponge bath and do SLUMS. Patient/Caregiver TO go home. Goals OT Pain Assessment Pain When Pain Assessed At Rest Pain Present Pain Present Pain Reported Location Left knee Intensity 5 Scale Used Numeric (0 - 10) M4 OT- IP ADL's Start: 02/25/25 09:46 Freq: Status: Active Protocol: Document 02/26/25 12:38 [facility] (Rec: 02/26/25 12:44 [facility] Desktop) OT ADL-Bathing Bathing Type Bathing Type Sponge Bath General Evaluation Bathing Ability Moderate Assistance Areas Needing Wash/Dry Back,Wash/Dry Lower Extremities Assistance Comments OT Bathing Comments Assist to help wash his back and feet while seated in the recliner. M5 OT- IP IADL's Start: 02/25/25 09:46 Freq: Status: Active Protocol: Document 02/25/25 09:46 CHARLIE (Rec: 02/25/25 10:09 CHARLIE Desktop) OT-Instrumental Activities of Daily Living Deficits IADL Deficits Deficits Identified Home Safety Awareness Awareness of Need Decreased Awareness for Assistance at Home Ability to Problem Able to Problem Solve Solve Emergency Situations Medication Management Medication No Deficits Identified Management Money Management Money Management No Deficits Identified Meal Preparation Meal Preparation Caregiver Provides Assist Cigar Brander Cigar Brander Caregiver Provides Assist Driving Driving Comments will likely need assist on d/c M6 OT- IP Functional Cognition Start: 02/25/25 09:46 Freq: Status: Active Protocol: Document 02/26/25 12:38 [facility] (Rec: 02/26/25 12:44 [facility] Desktop) Cognitive Factors Limiting Selfcare Function Cognitive Comments Cognitive Assessment Pt remembering the SLUMS from last admit and wanting to Comments redo it as he scored 24/30 on 01/11/24. Pt scored 30/30 today. M7 OT- IP Mobility and Balance Start: 02/25/25 09:46 Freq: Status: Active Protocol: Document 02/25/25 09:46 CHARLIE (Rec: 02/25/25 10:09 CHARLIE Desktop) OT- Bed Mobility Assessment Supine to Sit Supine to Sit Assist Minimal Assistance,Head of Bed Elevated,Bedrails Scooting Scooting to Edge of Minimal Assistance,1 Person Assistance Bed OT-Transfer Assessment Sit to and From Stand Sit to and from Minimal Assistance,1 Person Assistance Stand Transfers Transfer Ability Minimal Assistance,1 Person Assistance Technique Transfer Destination Chair Transfer Technique Stand Step Pivot Devices Transfer Assistive Bed Rail,Gait Belt,Front Wheeled Walker Devices Comments Mobility Comments Pt needs assist with L LE when performing bed mobility. Pt pushes up from bed rail for sit>stand and needs vcs to reach for walker. Pt needs vcs to step back until R LE touches chair and to extend L LE slightly before reaching back into sitting. OT- Balance Assessment Sitting Balance and Reactions Static Sitting Fair Balance Ability Dynamic Sitting Fair Balance Ability Standing Balance and Reactions Static Standing Fair Balance Ability Dynamic Standing Good Balance Ability M8 OT- IP Objective Assessments Start: 02/25/25 09:46 Freq: Status: Active Protocol: Document 02/25/25 09:46 CHALRIE (Rec: 02/25/25 10:09 CHARLIE Desktop) OT Gross Range of Motion Upper Extremity Range of Motion Assessment Within Functional Limits OT Strength Upper Extremity Strength Assessment Within Functional Limits Hand Cleat Maker Strength Hand Dominance Right Comments Strength Comments Pt demonstrates 5/5 UE strength overall OT Sensation Assessment Edema Edema Present Edema Comments Violette LORENZ, see PT waqar for details M9 OT- IP Assessment and Plan Start: 02/25/25 09:46 Freq: Status: Active Protocol: Document 02/26/25 12:38 [facility] (Rec: 02/26/25 12:44 [facility] Desktop) OT Summary Assessment and Plan Potential Rehabilitation Excellent Potential Analytic Complexity Low at Evaluation Summary OT Impairments Pain,Balance,Coordination,Functional Mobility,Grooming, Dressing,Toileting,Bathing,Toilet Transfers,Shower Transfers,Activity Tolerance Progress Towards Progressing Toward Goals Goals Assessment Summary Pt recalling did SLUMS last time and did not score well and wanting to retest and scored 30/30 which implies normal for cognition. Pt able to assist for sponge bath while seated in the recliner and needing assist for his back and feet. Pt to go home with assist when medically stable. Goals Grooming Goal Independent Dressing Goal Independent,Long Handled Shoe Horn,Sports Physician,Sock Aid Toileting Goal Independent Bathing Goal Independent,Grab Bars Toilet Transfer Goal Independent,Grab Bars Shower Transfer Goal Independent,Shower Chair Days to Meet Goals 4 Frequency of Treatment Frequency Of Once a Day Treatment Treatment Plan OT Treatment Plan ADL Training,Functional Mobility,Therapeutic Exercises, Patient/Family Education,Discharge Planning Other Treatment LB AE, sink side ADL, EOB bathing Recommendations and Next Treatment Focus Discharge Recommendations OT Discharge Home with Assistance,Home Health,Outpatient PT Recommendations Home Equipment Needs shower chair Transportation Needs Private Vehicle,Wheelchair/Cabulance at Discharge
--- NOTE | 2025-02-26 13:47 | DI.RAD.S_ITS ---
PROCEDURE: XR CHEST FOR PICC 1V INDICATIONS: line placement COMPARISON: [facility], CR, XR CHEST 1V, 01/11/2024, 19:07. FINDINGS: PICC was placed by the intravenous therapy team from the left side. Fluoroscopic spot film demonstrates the tip of PICC projecting to the area of mid SVC. Heart is enlarged. IMPRESSION: Tip of PICC projects to the area of mid SVC. Dictated by: Vane Marcus M.D. on 02/26/2025 at 16:48 Approved by: Vane Marcus M.D. on 02/26/2025 at 16:49
--- NOTE | 2025-02-26 15:33 | CM.DPNOTE ---
DCP Note REELING MACHINE SETUP OPERATOR reviewed EMR REELING MACHINE SETUP OPERATOR sent inf jose eduardo referral information.. Per romain, will start auth. per Dr. Powers, stop date unknown. Dr. Monge will follow at [place]. REELING MACHINE SETUP OPERATOR attempted x3 to meet with pt, either with other staff/using restroom/getting PICC. will meet with pt tomorrow to confirm DCP. P: home with infusion solution auth pending/HH (ref needed). will continue to follow closely for DCP coordination KAMLESH Mane
[2025-02-26] MEDS: cefTRIAXone 2,000 MG in SODIUM CHLORIDE 0.9% 100 ML 200 MG IV (16:35)
[2025-02-26 20:00] VITALS: BP 129/76; PULSE 93; RESP 14; TEMP 36.1; O2SAT 93
[2025-02-26] MEDS: ATORVASTATIN 20 MG TABLET PO (21:56)
[2025-02-27] MEDS: HYDROCODONE/ACET 5/325 TABLET 1 TAB PO ×3 (03:53→21:24)
[2025-02-27 05:16] LABS: Add Manual Diff / Slide Review NO; Basophils Absolute Auto 100 /uL (0-100); Basophils Percent Auto 0.8 % (0-2); Eosinophils Absolute Auto 200 /uL (0-450); Eosinophils Percent Auto 2.1 % (2-4); Hematocrit 26.6 % (41-53); Hemoglobin 8.5 g/dL (13.5-17.5); Lymphocytes Absolute Auto 1500 /uL (1100-4500); Lymphocytes Percent Auto 17.4 % (25-40); Mean Corpuscular HGB Conc 31.9 % (30-36); Mean Corpuscular Hemoglobin 24.6 PG (26-34); Mean Corpuscular Volume 77.2 fL (80-100); Monocytes Absolute Auto 1100 /uL (0-900); Monocytes Percent Auto 12.3 % (3-14); Neutrophils Absolute Auto 6000 /uL (1500-7000); Neutrophils Percent Auto 67.4 % (50-75); Platelet Count 310 X10^3/uL (150-400); Red Blood Cell Count 3.44 X10^6/uL (4.5-5.9); Red Cell Distribution Width 15.4 % (11.6-14.8); White Blood Cell Count 8.9 X10^3/uL (4.5-11.0)
[2025-02-27 05:40] LABS: C-Reactive Protein Quant 1.1 mg/dL (<1.0); Creatine Kinase 118 U/L (55-170)
[2025-02-27 06:06] LABS: Erythrocyte Sedimentation Rate 106 MM/HR (0-15)
[2025-02-27 08:00] VITALS: BP 134/80; PULSE 94; RESP 16; TEMP 36.4; O2SAT 99
--- NOTE | 2025-02-27 08:13 | P.PN_ITS ---
Subjective Subjective Date Patient Seen: 02/27/25 Time Patient Seen: 08:14 Interval history: ID: 55yo M with PMH of DM, HTN, HLD, DVT on Eliquis, and LEFT Quad tendon repair in 2022 s/p LEFT Knee HWR and I&D on 02/22/25 and repeat I&D on 02/24/25 for LEFT Knee septic arthritis S: Pt reports that he had a rough night last night with trying to find a position of comfort while sleeping. Worked with PT yesterday and was able to ambulate 15 feet. Denies F/C/NS/CP/SOB. Denies new N/T. Exam Vital Signs (past 8 hours): Oxygen Delivery Method Room Air Oxygen Flow Rate 0 Narrative Exam Narrative: LEFT Knee: Well appearing, No acute distress. GERI wrap about the left lower extremity ? dressing changed today. Strike through on the ABD and 4x4s but no active drainage. Fires quad but unable to perform a straight leg raise Neurovascular exam: Fires ta/gc/ehl; SILT s/s/sp/dp/t Objective Labs 02/27/25 05:10 02/24/25 08:17 Labs: Laboratory Results - last 24 hr 02/26/25 02/27/25 08:27 05:10 WBC 10.0 8.9 RBC 3.47 L 3.44 L Hgb 8.6 L 8.5 L Hct 27.0 L 26.6 L MCV 77.8 L 77.2 L MCH 24.7 L 24.6 L MCHC 31.8 31.9 RDW 15.1 H 15.4 H Plt Count 348 310 Neut % (Auto) 70.4 67.4 Lymph % (Auto) 16.7 L 17.4 L [place] % (Auto) 10.1 12.3 Eos % (Auto) 2.3 2.1 Baso % (Auto) 0.5 0.8 Neut # (Auto) 7100 H 6000 Lymph # (Auto) 1700 1500 [place] # (Auto) 1000 H 1100 H Eos # (Auto) 200 200 Baso # (Auto) 100 100 ESR 106 H 106 H Total Creatine Kinase 146 118 C-Reactive Protein 1.7 H 1.1 H PFS Medical History (Updated 02/22/25 @ 10:23 by Maddi Powers MD) Family history of type 2 diabetes mellitus Fatty infiltration of liver LFT elevation DM2 (diabetes mellitus, type 2) COVID-19 virus infection (~05/2022) Migraine headache Shoulder impingement syndrome Bilateral primary osteoarthritis of hip Facet joint disease of lumbosacral region Bilateral primary osteoarthritis of knee PTSD (post-traumatic stress disorder) Hyperlipidemia Hypertension TROY (obstructive sleep apnea) Morbid obesity Family History Mother Diabetes mellitus Hypertension Breast cancer Grandfather Myocardial infarction Social History household members: spouse Smoking Status: Former smoker alcohol intake: never Assessment & Plan Post-op Postoperative Procedures: Procedures Operation Date: 02/22/25 07:45 Actual Procedure Side Surgeon p Incision and Debridement knee, removal of retained hardware Left Alen Nava MD Operation Date: 02/24/25 09:00 Actual Procedure Side Surgeon p Incision and Debridement Wound/Left Knee Left Alen Nava MD Postoperative status: doing well Postoperative status narrative: 55M s/p Left Knee HWR and I&D on 02/22/25 and repeat I&D on 02/24/25. Doing well. Inflammatory markers continue to improve (WBC is 8.9 down from 12.3 and CRP is 1.1 down from 7.3). His H/H is stable. PICC line is in place. Blood Cultures - negative after 48 hours Gram stain with WBCs Aerobic - Group g Strep Anaerobic ? No growth -ID Recommendations: Ceftriaxone 2G IV daily (has follow up with Dr. Monge on 03/06 at 0845) -Repeat CBC/CRP/ESR daily -PT/OT Consult -WBAT RLE and active ROM from 0-90 degrees -Will follow up with Dr. Balbuena next week ? will call the pt today to set up appt Alen Nava MD Orthopedics [phone] cell Time Spent With Patient Time with patient: 15-24 minutes
[2025-02-27] MEDS: APIXABAN 5 MG TABLET PO ×2 (08:51→21:24)
[2025-02-27] MEDS: FERROUS SULFATE 325 MG TABLET PO (08:51)
[2025-02-27] MEDS: LOSARTAN 50 MG TABLET PO (08:51)
[2025-02-27] MEDS: polyethylene glycoL 3350 17 GM POWD.PACK PO (08:52)
--- NOTE | 2025-02-27 10:39 | OT.IPNOTE ---
Attempted to see pt. Pt states just got up the to the bathroom and back with the nursing aid with mainly just set-up and SBA. Pt states too tired and just wanting to rest. Able to talk to pt about strategies of how to do the steps. No charge.
[2025-02-27] MEDS: cefTRIAXone 2,000 MG in SODIUM CHLORIDE 0.9% 100 ML 200 MG IV (12:12)
--- NOTE | 2025-02-27 13:08 | P.PN_ITS ---
Subjective Subjective Interval history: The pt reports feeling well this afternoon. He states he did not need any pain medication overnight. He was able to ambulate to the restroom and back to the chair this morning without any nursing assistance. He looks forward to working with PT today and attempting the stairs. Exam Vital Signs (past 8 hours): - 02/27/25 08:00 Temperature 97.6 F Pulse Rate 94 H Respiratory Rate 16 Blood Pressure 134/80 Pulse Oximetry 99 Oxygen Flow Rate 0 Oxygen Delivery Method Room Air Oxygen Flow Rate 0 Narrative Exam Narrative: Gen: NAD, sitting comfortably in chair Neck: no LAD, no JVD CV: RRR, no murmurs Resp: clear to auscultation bilaterally, no wheezes or crackles Abd: soft, nontender Ext: left knee wrapped, 2+ pitting edema left foot, 1+ pitting edema right leg, pedal pulses intact Neuro: no gross deficits Objective Labs 02/27/25 05:10 02/24/25 08:17 Labs: Laboratory Results - last 24 hr 02/27/25 05:10 WBC 8.9 RBC 3.44 L Hgb 8.5 L Hct 26.6 L MCV 77.2 L MCH 24.6 L MCHC 31.9 RDW 15.4 H Plt Count 310 Neut % (Auto) 67.4 Lymph % (Auto) 17.4 L [place] % (Auto) 12.3 Eos % (Auto) 2.1 Baso % (Auto) 0.8 Neut # (Auto) 6000 Lymph # (Auto) 1500 [place] # (Auto) 1100 H Eos # (Auto) 200 Baso # (Auto) 100 ESR 106 H Total Creatine Kinase 118 C-Reactive Protein 1.1 H PFSH Medical History (Updated 02/22/25 @ 10:23 by Maddi Powers MD) Family history of type 2 diabetes mellitus Fatty infiltration of liver LFT elevation DM2 (diabetes mellitus, type 2) COVID-19 virus infection (~05/2022) Migraine headache Shoulder impingement syndrome Bilateral primary osteoarthritis of hip Facet joint disease of lumbosacral region Bilateral primary osteoarthritis of knee PTSD (post-traumatic stress disorder) Hyperlipidemia Hypertension TROY (obstructive sleep apnea) Morbid obesity Family History Mother Diabetes mellitus Hypertension Breast cancer Grandfather Myocardial infarction Social History household members: spouse alcohol intake: never Assessment & Plan Assessment & Plan narrative: The pt is a 55yo with hypertension, sleep apnea, DM type 2, hyperlipidemia, PTSD, DVT, and hx of quadriceps tendon tear s/p repair in 2022 who presented with ongoing severe left knee pain, septic joint based on gram positive cocci seen on gram stain from joint aspiration. 1) Septic arthritis: Wound culture growing Group G Strep. POD #5 s/p I&D and joint hardware removal, POD #3 s/p repeat I&D. ESR, CRP, and CK trending down. WBC count normal. - Ortho consulted, appreciate ongoing care - ID curbsided by Ortho. - Initiated on Ceftriaxone and Daptomycin initially. Due to rising CPK and Group G Strep, transitioned to Ceftriaxone alone. Will continue with this. - PICC line in place for d/c - Daily CBC, ESR, CRP to track - PT/OT - Continue Flexeril for muscle spasm, can add benzo if needed but will try to avoid - Pt with BM today 2) Acute blood loss anemia: Not at transfusion level. Stable. - Continue daily iron supplement 3) DVT: Diagnosed on 02/02 - Continue Eliquis 4) DM Type 2: Diet controlled with excellent control. Last A1C 09/2024 5.9. - [facility] blood sugar checks - Insulin lispro sliding scale 5) HTN: BPs good range - Continue to monitor BPs closely - Continue home antihypertensives for now 6) Hyperlipidemia: - Continue statin today 7) PTSD/Insomnia: Stable at this point. Pt does have hx of prolonged hospitalization for cellulitis resulting in severe demoralization and resultant profound weakness such that he required discharge to rehab facility for a week. Mood continues to improve. - Mobilization with PT - Continue Nortriptyline, Prazosin DVT ppx: on Eliquis Code: Full Diet: Carb control Dispo: Pending ability to ambulate up 5 stairs. Hopeful for d/c tomorrow. Time-Based Coding :: [TOTAL MINUTES] spent with patient and on the chart (including review of chart, obtaining history, exam, reviewing outside data, placing orders, documenting exam and treatment plan, and counseling patient) on [DATE]. PROFEE Speech Language Pathologist Prn Document charge(s): Yes Charge Codes Subsequent inpatient/observation care: [id number]
--- NOTE | 2025-02-27 13:24 | PC.NURSE ---
D/c packet reviewed with pt at bedside. Discussed new prescriptions. Pt confirmed that he will call Dr. Salinas for post op appointment. IV removed. Pt exited via w/c with ZHANNA.
--- NOTE | 2025-02-27 13:35 | CM.DPNOTE ---
DCP note DITTO MACHINE OPERATOR reviewed EMR per provider, plan to dc tomorrow. provider gave copy of script for inf jose eduardo. per Abebe at [facility], got auth for pt's ceftriaxone. will plan to start in pt's home Tuesday. DITTO MACHINE OPERATOR faxed script/PICC report to inf jose eduardo. DITTO MACHINE OPERATOR entered room and introduced self and role. pt resting in chair. confirms preference to dc home with inf jose eduardo to follow. denies SNF. wishes to transport in POV. DITTO MACHINE OPERATOR reviewed barrier of steps into home, pt reports he will either 1) do it himself or 2) call EMS for assistance into home. open to HH. [facility] confirms [facility]'s [facility] (unsure if [facility] does). [facility], denies other CM/DCP needs. understands he will need to be able to ambulate steps in an emergency/to get to OP appts. DITTO MACHINE OPERATOR spke with L[facility] at [facility]. agreed to review. NOE Day sent initial referral information. DITTO MACHINE OPERATOR completed F2f. order pending. P: anticipate dc home tomorrow after infusion with spouse to transport in POV. [facility] pending acceptance. [facility] to follow Tuesday. will continue to follow as needed for DCP coordiantion' KAMLESH Mane
--- NOTE | 2025-02-27 15:55 | PT.IPTN ---
Current Diagnoses Cutaneous abscess of left lower limb (02/22/25) Pyogenic arthritis, unspecified (02/22/25) Surgery Performed Operation Date: 02/22/25 07:45 Actual Procedures p Incision and Debridement knee, removal of retained hardware(Left) - Alen Nava MD Operation Date: 02/24/25 09:00 Actual Procedures p Incision and Debridement Wound/Left Knee(Left) - Alen Nava MD Physical Therapy Treatment Note M2 PT-IP Current Condition Start: 02/25/25 09:32 Freq: NEEDED Status: Active Protocol: Document 02/25/25 09:15 MB (Rec: 02/25/25 09:43 MB Desktop) Physical Therapy Current Condition Current Condition Evaluation Date 02/25/25 Treatment Diagnosis Subacute DVT LLE, hardware infection, removal and 2 I& Ds this adm M3 PT-IP Subjective Start: 02/25/25 09:32 Freq: NEEDED Status: Active Protocol: Document 02/27/25 15:55 AB (Rec: 02/27/25 16:50 AB [id number]) Subjective Physical Therapy Visit Type Type Treatment Note Visit Start Time 15:55 Visit Stop Time 16:40 Number of PHOTO EDITOR Visits 0 Physical Therapy Visit Comments Patient Comments agreeable to do PT Therapy Pain Assessment Pain When Pain Assessed At Rest Pain Present Pain Present Pain Reported Location Left knee Intensity 8 Scale Used Numeric (0 - 10) Pain Behaviors Calling Out,Guarding,Holding Area Pain Management Distraction,Modification of Treatment,Re-positioning, Techniques Timing of Activity with Medications M4 PT-IP Mobility and Gait Start: 02/25/25 09:32 Freq: NEEDED Status: Active Protocol: Document 02/27/25 15:55 AB (Rec: 02/27/25 16:50 AB [id number]) PT-Bed Mobility Assessment Supine to Sit Supine to Sit Minimal Assistance,Head of Bed Elevated,Bedrails Sit to Supine Sit to Supine Moderate Assistance,1 Person Assistance,Bedrails PT-Transfer Assessment Sit to and From Stand Sit to and from Contact Guard Assistance,1 Person Assistance,Use of Stand Upper Extremities Equipment Transfer Assistive Gait Belt,Front Wheeled Walker Device Orthotic/Prosthetic No Devices or Brace: Comments Mobility Comments pt in bed and agreeable to do PT. completed supine to sit min A for moving LLE to EOB. pt wanting to put his regular clothes on and needs assistance with LB dressing. sit to stand CGA needing 3 attempts to stand . pt ambulated using FWW SBA ~ 35 ft. attempt to do stairs but unable. completed single leg stance on LLE using FWW for support x 3 reps: pt tolerated ~ 3 sec of standing. pt with heavy use of UE on walker for support. pt unable to complete stairs at this time. assisted pt back to his room. pt ambulated from w/c to bed using FWW SBA. completed sit to supine needing mod A to elevate LLE up into the bed. call light and table placed within reach. Gait Assessment Gait Gait Assistance Standby Assistance Required: Distance (Feet) 35 Able to Maintain Yes Weight Bearing Status During Gait Assistive Devices Assistive Device Gait Belt,Front Wheeled Walker Orthotic/Prosthetic No Devices or Brace: Gait Deviations General Gait Pattern Antalgic,Decreased Stride Length,Decreased Feet Clearance Factors Limiting Gait Function Factors Limiting Decreased Activity Tolerance,Decreased Strength, Gait Function Difficulty Following Directions,Limited Range of Motion ,Pain,Poor Balance,Poor Safety Awareness M5 PT-IP Objective Assessments Start: 02/25/25 09:32 Freq: NEEDED Status: Active Protocol: Document 02/25/25 09:15 MB (Rec: 02/25/25 09:43 MB Desktop) Orientation Orientation/Cognition Level of Alertness Alert Safety Awareness Decreased Safety Awareness Memory Description No Deficits Noted Gross Range of Motion Upper Extremity ROM Impairments Defer to OT Lower Extremity ROM Assessment Left Impaired Impairments Limited performance today, passive flexion sitting EOB to at least 80 deg left knee Strength Lower Extremity Strength Assessment Left Impaired Comments Strength Comments MMT deferred d/t pain and functional weakness left leg, right does appear functional Coordination Assessment Gross Coordination Gross Coordination Impaired Sensation Assessment Comments Sensation Comments NT M6 PT-IP Treatment Start: 02/25/25 09:32 Freq: NEEDED Status: Active Protocol: Document 02/27/25 15:55 AB (Rec: 02/27/25 16:50 AB [id number]) Physical Therapy Treatment Education Education Provided Safety M7 PT-IP Assessment and Plan Start: 02/25/25 09:32 Freq: NEEDED Status: Active Protocol: Document 02/27/25 15:55 AB (Rec: 02/27/25 16:50 AB [id number]) PT Summary Assessment and Plan Potential Rehabilitation Fair Potential Summary Impairments Pain,ROM,Strength,Balance,Coordination,Sensation,Tone, Cognition,Bed Mobility,Transfers,Gait,Activity Tolerance Progress Towards Slow Progress due to Pain,Slow Progress - Other Goals Assessment Summary pt improving slowly with mobility. pt requiring min to mod A for bed mobility and SBA for ambulation using FWW . pt unable to complete stair climbing at this time. pt able to complete single leg stand on LLE using FWW for support and only tolerated ~ 3 sec of standing. pt presents with heavy UE use on FWW for support. pt has 5 steps to enter the house and currently unable to do stair climbing. will continue to assess progress. pt at this time will benefit from SNF rehab. Goals Bed Mobility Goal Independent Transfer Goal Independent,Front Wheeled Walker Gait Goal Independent,Front Wheel Walker Gait Distance 100 Other Goals Pt will ascend and descend 5 steps with B rails and/or LRAD with no more than min A to allow safe home entrance. Days to Meet Goals 5 Frequency of Treatment Frequency Of Once a Day Treatment Other frequency 1-2x/day Treatment Plan Physical Therapy Bed Mobility Training,Transfer Training,Gait Training, Treatment Plan Therapeutic Exercise,Balance Retraining,Post Op Education,Discharge Planning,Hot or Cold Pack, Neuromuscular Re-ed,Coordination Retraining,Manual Therapy Precautions Other Precautions Left knee ROM 0-90 deg, contact precautions Weight Bearing Status Weight Bearing Weight Bear as Tolerated Status Recommendations To Nursing Amount of Assist 1 Person Assist Needed Discharge Recommendations PT Discharge SNF Rehab Recommendations Transportation Needs Private Vehicle at Discharge - PT assist 1
--- NOTE | 2025-02-27 16:18 | DIET.PN1 ---
Dietary Progress Note Assessment: RD f/u Pt working with therapy, majority recent recorded PO intakes 75-100%. Ht: 175.26 cm Wt: 158.757 kg BMI: 51.7 Last BM: 02/21/25 (02/24/25 08:43) MNA: 8 Anders Score: 19 Diet: 02/23/25 Dinner Carbohydrate Consistent Diet Diet Modifications: Carbohydrate level: Extra Large (5 CHO) Reflex DM orders: No Food Texture: Level 7 - Regular Liquid Consistency: Level 0 - Thin Nutrition Percent Meal Consumed 75% 02/27/25 13:58 Percent Meal Consumed 50% 02/27/25 09:04 Percent Meal Consumed 100% 02/26/25 18:00 Percent Meal Consumed 100% 02/26/25 17:29 Percent Meal Consumed 100% 02/26/25 13:11 Percent Meal Consumed 100% 02/25/25 17:27 Labs: RBC 3.44 X10^6/uL (4.5-5.9) L 02/27/25 05:10 Hgb 8.5 g/dL (13.5-17.5) L 02/27/25 05:10 Hct 26.6 % (41-53) L 02/27/25 05:10 Creatinine 0.91 mg/dL (0.66-1.25) 02/24/25 08:17 Lactate 1.4 mmol/L (0.7-2.1) 02/21/25 22:55 Nutrition Diagnosis: none at this time Monitoring/Evaluations: PO intakes Electronically Signed by: Mery Mohr 02/27/25 16:18 Clinical Diet[address] [address]
[2025-02-27] MEDS: SODIUM CHLORIDE 0.9% FLUSH 10 ML IV (21:00)
[2025-02-27] MEDS: CYCLOBENZAPRINE 10 MG TABLET PO (21:24)
[2025-02-27] MEDS: DOCUSATE 100 MG CAPSULE PO (21:24)
[2025-02-27] MEDS: ATORVASTATIN 20 MG TABLET PO (21:24)
[2025-02-28 05:36] LABS: Add Manual Diff / Slide Review NO; Basophils Absolute Auto 0 /uL (0-100); Basophils Percent Auto 0.6 % (0-2); Eosinophils Absolute Auto 200 /uL (0-450); Eosinophils Percent Auto 2.2 % (2-4); Hematocrit 26.3 % (41-53); Hemoglobin 8.4 g/dL (13.5-17.5); Lymphocytes Absolute Auto 1300 /uL (1100-4500); Lymphocytes Percent Auto 16.1 % (25-40); Mean Corpuscular HGB Conc 32.1 % (30-36); Mean Corpuscular Hemoglobin 24.8 PG (26-34); Mean Corpuscular Volume 77.2 fL (80-100); Monocytes Absolute Auto 900 /uL (0-900); Monocytes Percent Auto 11.7 % (3-14); Neutrophils Absolute Auto 5600 /uL (1500-7000); Neutrophils Percent Auto 69.4 % (50-75); Platelet Count 300 X10^3/uL (150-400); Red Blood Cell Count 3.41 X10^6/uL (4.5-5.9); Red Cell Distribution Width 15.6 % (11.6-14.8); White Blood Cell Count 8.1 X10^3/uL (4.5-11.0)
[2025-02-28 05:52] LABS: C-Reactive Protein Quant 1.9 mg/dL (<1.0); Creatine Kinase 110 U/L (55-170)
[2025-02-28 06:00] LABS: Erythrocyte Sedimentation Rate 107 MM/HR (0-15)
[2025-02-28 08:00] VITALS: BP 139/74; PULSE 96; RESP 17; TEMP 36.6; O2SAT 99
--- NOTE | 2025-02-28 08:21 | P.DS_ITS ---
History of Present Illness History of Present Illness Chief complaint: said to check in to be admitted for surgery power Narrative: he pt is a 55yo with hypertension, sleep apnea, DM type 2, hyperlipidemia, PTSD, DVT, and hx of quadriceps tendon tear s/p repair in 2022 who presented with ongoing severe left knee pain. The pt had acute onset of left knee swelling and severe pain the middle of January. He states the knee suddenly became very swollen, denying any provoking event. At that time he was still able to ambulate, but with the use of crutches for support. The pt was then kneeling on the floor at home, and the pain acutely worsened. Since then, the pt has not been able to really ambulate at all. The swelling has persisted. He has been spending all day in bed, urinating in a cup. The knee was never red or warm to touch. The pt was evaluated in the ED on 02/02. At that point xray was completed that was reassuring. Doppler was completed that showed a popliteal DVT. He was initiated on Eliquis and discharged home. The pts pain and swelling persisted. The pt returned to the ED on 02/15 due to persistent severe pain. At that point, CT scan was completed that showed significant effusion but no other acute findings. The pt was again discharged home. He then underwent outpatient MRI on 02/16 that showed a large loculated effusion, bone edema, cystic changes in the popliteus muscle, and a large partially ruptured popliteal cyst. The pt was urgently referred to Ortho, who evaluated the pt and completed a joint aspiration. Gram positive cocci were shown, and the pt was referred the ED for admission. The day of admission, labs showed no elevation in WBC count, but significant elevation of ESR and CRP. The pt was admitted for joint wash-out and IV antibiotics. Throughout the entire course of the pts knee pain and swelling he has denied any fevers, chills, knee erythema or warmth, chest pain, SOB. He has otherwise been feeling well. He is currently in school, trying to complete course work for an AA in [employer]. Discharge Providers Provider Date of admission: 02/22/25 12:05 Discharge Date: 02/28/25 Primary care physician: Maddi Powers MD Consults: 02/22/25 02:05 Consult to Occupational Therapy Evaluate & Treat Comment: Physician Instructions: Evaluate and treat 02/22/25 04:01 Consult to Orthopedic Surgery Routine Comment: Consulting Provider: Shiraz Balbuena Reason for consultation: septic joint Has provider been notified: Yes 02/25/25 08:52 Consult to Physical Therapy Evaluate & Treat Comment: Physician Instructions: Evaluate and Treat Discharge provider: Bi Enriquez MD Summary Hospital Course Discharge Diagnosis: Septic arthritis with group G strep Acute blood loss anemia Venous thromboembolism Type 2 diabetes Hypertension Hyperlipidemia PTSD and insomnia Hospital Course: Patient was admitted to the hospital with a history of hypertension sleep apnea type 2 diabetes hyperlipidemia PTSD venous thromboembolus with ongoing knee pain. Patient had left knee pain swelling evaluated in the emergency department which ultimately led to an MRI which showed a loculated effusion bone edema and cystic changes. Patient had admission to the hospital for septic arthritis with no elevation of white blood cell count elevation CRP sed rate. Patient was taken to the OR for septic arthritis patient underwent 2 operative procedures for washout and cleaning and removal of hardware. Patient is wound cultures have been actually grew out group G strep. Patient was placed on appropriate antibiotics. Id was consulted. Patient had a postoperative course which was complicated with difficulty with mobility. Due to his compounding factors of health and a BMI of 51. Patient ultimately was not able to ambulate successfully and navigate stairs to be able to be safely discharged home. Ongoing discussion and work with physical therapy and discharge planning. The time of this note patient was amenable to being discharged to a care home facility for ongoing rehabilitation of his knee postoperatively. During his hospital stay patient had monitoring of his blood sugars. Had pain control his blood pressures were monitored and he was placed on his cholesterol medication as well as his medication for his mental health. Patient worked extensively with physical therapy and occupational therapy. Had continued orthopedic follow-up and will do so outpatient with orthopedic follow-up and infection Disease. Patient will be discharged to care home facility with his home medication ceftriaxone daily PICC line in place. Exam Vital Signs (past 8 hours): Oxygen Delivery Method Room Air Oxygen Flow Rate 0 Objective Labs 02/28/25 05:11 02/24/25 08:17 Labs: Laboratory Results - last 24 hr 02/28/25 05:11 WBC 8.1 RBC 3.41 L Hgb 8.4 L Hct 26.3 L MCV 77.2 L MCH 24.8 L MCHC 32.1 RDW 15.6 H Plt Count 300 Neut % (Auto) 69.4 Lymph % (Auto) 16.1 L [place] % (Auto) 11.7 Eos % (Auto) 2.2 Baso % (Auto) 0.6 Neut # (Auto) 5600 Lymph # (Auto) 1300 [place] # (Auto) 900 Eos # (Auto) 200 Baso # (Auto) 0 ESR 107 H Total Creatine Kinase 110 C-Reactive Protein 1.9 H PFSH Medical History (Updated 02/22/25 @ 10:23 by Maddi Powers MD) Family history of type 2 diabetes mellitus Fatty infiltration of liver LFT elevation DM2 (diabetes mellitus, type 2) COVID-19 virus infection (~05/2022) Migraine headache Shoulder impingement syndrome Bilateral primary osteoarthritis of hip Facet joint disease of lumbosacral region Bilateral primary osteoarthritis of knee PTSD (post-traumatic stress disorder) Hyperlipidemia Hypertension TROY (obstructive sleep apnea) Morbid obesity Family History Mother Diabetes mellitus Hypertension Breast cancer Grandfather Myocardial infarction Social History household members: spouse alcohol intake: never Discharge Plan Discharge Plan Patient Disposition: SNF Transfer to: [facility] Provider Discharge Comment: Discharge to care home facility with IV antibiotics with ceftriaxone and rehabilitation and working on ambulation Discharge orders & Medications Prescriptions: New cyclobenzaprine 10 mg Tablet 10 mg PO Q8HR PRN (Reason: Spasms) Qty: 60 0RF ferrous sulfate 325 mg (65 mg iron) Tablet 325 mg PO DAILY Qty: 30 0RF hydrocodone-acetaminophen 5-325 mg Tablet 1 tab PO Q4H PRN (Reason: Pain, Moderate (4-6)) Qty: 40 0RF ceftriaxone 2 gram recon soln 2 g IV DAILY Continued (DME) Disabled Parking See Rx Instructions .ROUTE .MEDSUPPLY Qty: 1 0RF Rx Instructions: I find this patient to be medical disabled and qualified for Disabled Parking as indicated, and signed, on the and the Accompanying Disabled Parking Application for Individuals. losartan 50 mg tablet 50 mg PO DAILY Qty: 90 3RF rosuvastatin 20 mg tablet 20 mg PO QAM Qty: 90 2RF nortriptyline 10 mg capsule 10 mg PO BEDTIME PRN (Reason: Insomnia) Qty: 90 0RF prazosin 1 mg capsule 1 mg PO BEDTIME PRN (Reason: ptsd/insomnia) Qty: 90 0RF celecoxib [Celebrex] 200 mg capsule 400 mg PO QAM Qty: 90 0RF diclofenac sodium 3 % gel 1 applic topical BID Qty: 100 3RF Eliquis 5 mg tablet 5 mg PO BID 90 Days Qty: 180 0RF Rx Instructions: after completion of first 7 days hydrocodone-acetaminophen 5-325 mg tablet 1 tab PO Q4-6H PRN (Reason: pain) Qty: 12 0RF Medication counseling provided by Pharmacist: Yes Follow up/Referrals: Maddi Powers MD [Primary Care Provider, Family Practice] Discharge Health Status Multidrug resistant organism: No MDRO Precautions: Wana Diet/Activity/Treatments Diet: Diet as Tolerated [facility] Reason for rehabilitation: Post-operative therapy Rehab type: Physical therapy and Occupational therapy Visit Report/Discharge Packet Stand Alone Forms: Patient Portal/API Discharge Data Primary Care Provider: Maddi Powres PROFEE Charge Codes Discharge inpatient/observation: [id number]
--- NOTE | 2025-02-28 08:52 | CM.DPC ---
Addendum entered by KAMLESH Gallo 02/28/25 14:45: ADD: [facility] Mona called back and stated their Physician reviewed and approved SNF auth with #[id number]. SW called [facility] admissions and they confirm that their transport can pickup pt at 1515 with their w/c van and accept pt still today. Provided [facility] with the [facility] SN[facility] auth #. ARMANDO called Dr. Enriquez and updated and he confirms he will finalize discharge to SNF today and Ortho Dr. Mcmillna met bedside with pt due to some bleeding from incision site and likely due to blood thinner and will adjust as needed. Met bedside with pt and updated on above and he confirms he remains in agreement and answered questions and he will call his and update her. Updated BILINGUAL BRANCH MANAGER, lacrosse player, and RN and provided number to call report. NOE Day kindly faxed signed med list, scripts, PASRR, d/c summary and orders to [facility] to review. BF Original Note: DCP SNF Planning: Per MD, spoke bedside with pt today and discussed his inability to do stairs and upcoming Ortho f/u appointments and MD recommending SNF and pt now agreeable. MD confirms pt stable for d/c once SNF secured. Met bedside with pt and spouse on the phone and provided SNF Choice list contracted with [facility] insurance and preference is 1) [facility] 2) [facility] due to locations. NOE Day kindly made referral to [facility] to review and faxed [facility] to review for SNF auth. Updated Abebe at [facility] as they were set to open pt to service on Tuesday and [facility] as they had accepted HH referral. Both will continue to follow pt at SNF in case IV abx still needed at d/c to home and HH. PASRR done in anticipation of SNF. Updated RN. Plan: SW to follow closely for [facility] review and [facility] review for SNF auth for hopeful discharge today vs tomorrow pending SNF acceptance and insurance auth. KAMLESH Gallo
[2025-02-28] MEDS: APIXABAN 5 MG TABLET PO (09:19)
[2025-02-28] MEDS: HYDROCODONE/ACET 5/325 TABLET 1 TAB PO (09:19)
[2025-02-28] MEDS: LOSARTAN 50 MG TABLET PO (09:19)
[2025-02-28] MEDS: FERROUS SULFATE 325 MG TABLET PO (09:20)
--- NOTE | 2025-02-28 10:36 | PC.NURSE ---
Addendum entered by Tova Bradley R.N. 02/28/25 15:30: Report given to YING Langford at [facility], and made RN aware that pt has a PICC in left arm. D/c packet given to facility personnel. Pt confirmed that he had all of his belongings. Pt exited via w/c with [facility] personnel. Addendum entered by Tova Bradley R.N. 02/28/25 14:55: Dr. Mcmillan came to bedside to assess pt, and discussed possible reasons for the bleeding; he said it is okay to re-wrap with xeroform, gauze, ABD, and jigar, and that it's okay to shower (but no scrubbing or soaking). MD aware that the pt is going to be discharged to [facility]. Addendum entered by Tova Bradley R.N. 02/28/25 12:38: 12:30 pt notified staff that he was bleeding from his incision. This RN went to bedside and observed that part of the jigar wrap and gauze were saturated with sanguineous fluid. Steady flow of blood coming from proximal incision site. Pt denied any pain. Dr. Mcmillan notified via phone, and he said that he will come to bedside. Original Note: Pt notified this RN that his dressing for his left knee had come undone. Upon inspection, jigar wrap was loosened and gauze had fallen out. Gauze has been reapplied, and knee was re-wrapped with jigar.
--- NOTE | 2025-02-28 11:01 | OT.IPNOTE ---
Pt just having his dressing changed for his left leg and wanting to rest. Pt not able to do the steps yesterday and still needing assist for LB dressing needs and will benefit from Skilled rehab.
[2025-02-28] MEDS: cefTRIAXone 2,000 MG in SODIUM CHLORIDE 0.9% 100 ML 200 MG IV (12:20)
--- NOTE | 2025-02-28 13:17 | OT.IPNOTE ---
Pt states having bleeding from the incision and that the surgeon is suppose to come. Check on pt tomorrow for OT if still here.
== END 2025-02-28 15:27 | DRG 464 ==
LOC: ED 02-22 01:48 → AC 02-22 01:58
PROVIDERS: Orthopaedic Surgery; Admitting Provider Internal Medicine; Emergency Provider Emergency Medicine; PCP Family Medicine; Visit Provider Family Medicine
PROC: 0SPD0JZ Removal of Synthetic Substitute from Left Knee Joint, Open Approach (ICD-10-PCS; principal; 2025-02-22 07:45)
PROC: 0SBD0ZZ Excision of Left Knee Joint, Open Approach (ICD-10-PCS; principal; 2025-02-24 09:00)
DX: M00.262 Other streptococcal arthritis, left knee (principal); D62 Acute posthemorrhagic anemia; I82.432 Acute embolism and thrombosis of left popliteal vein; Z68.43 Body mass index [BMI] 50.0-59.9, adult; I10 Essential (primary) hypertension; E78.5 Hyperlipidemia, unspecified; G47.00 Insomnia, unspecified; E11.9 Type 2 diabetes mellitus without complications; F43.10 Post-traumatic stress disorder, unspecified; B95.4 Other streptococcus as the cause of diseases classified elsewhere; E66.01 Morbid (severe) obesity due to excess calories; Z79.01 Long term (current) use of anticoagulants; Z98.890 Other specified postprocedural states; Z87.891 Personal history of nicotine dependence; S76.109A Unspecified injury of unspecified quadriceps muscle, fascia and tendon, initial encounter; M00.9 Pyogenic arthritis, unspecified; M25.562 Pain in left knee
CPT/HCPCS: 36415; 36569; 80048; 80053; 82550; 82962; 83605; 85025; 85651; 86140; 87040; 87070; 87075; 87077; 87147; 87205; 89060; 93005; 93010; 97116; 97129; 97161; 97166; 97530; 97535; 99223; 99232; 99233; 99238; 99284; G0378; J0131; J0330; J0690; J0696; J0878; J1100; J1171; J1642; J1815; J1885; J2270; J2405; J2704; J3010; J3410; J3490

== ENCOUNTER → 2025-03-08 11:45 | Outpatient (CLI) | payer OTHER, SELFPAY ==
[2025-02-22 02:57] VITALS: BMI 51.7
[2025-03-08 12:29] LABS: Add Manual Diff / Slide Review NO; Basophils Absolute Auto 100 /uL (0-100); Basophils Percent Auto 0.7 % (0-2); Eosinophils Absolute Auto 300 /uL (0-450); Eosinophils Percent Auto 3.5 % (2-4); Hematocrit 29.3 % (41-53); Hemoglobin 9.5 g/dL (13.5-17.5); Lymphocytes Absolute Auto 1700 /uL (1100-4500); Lymphocytes Percent Auto 21.3 % (25-40); Mean Corpuscular HGB Conc 32.5 % (30-36); Mean Corpuscular Hemoglobin 24.9 PG (26-34); Mean Corpuscular Volume 76.8 fL (80-100); Monocytes Absolute Auto 700 /uL (0-900); Neutrophils Absolute Auto 5200 /uL (1500-7000); Neutrophils Percent Auto 65.5 % (50-75); Platelet Count 384 X10^3/uL (150-400); Red Blood Cell Count 3.81 X10^6/uL (4.5-5.9); Red Cell Distribution Width 15.7 % (11.6-14.8); White Blood Cell Count 7.9 X10^3/uL (4.5-11.0)
[2025-03-08 13:02] LABS: Erythrocyte Sedimentation Rate 103 MM/HR (0-15)
[2025-03-08 13:22] LABS: Alanine Aminotransferase 23 IU/L (<50); Albumin 3.3 g/dL (3.5-5.0); Albumin Globulin Ratio 0.8 (1.0-2.8); Alkaline Phosphatase 149 U/L (38-126); Aspartate Aminotransferase 31 IU/L (17-59); BUN Creatinine Ratio 11.5 (6-22); Bilirubin Total 0.3 mg/dL (0.2-1.3); Blood Urea Nitrogen 10 mg/dL (9-20); C-Reactive Protein Quant 0.9 mg/dL (<1.0); Calcium 8.6 mg/dL (8.4-10.2); Carbon Dioxide 24 mmol/L (22-32); Chloride 105 mmol/L (98-107); Estimated Glomerular Filt Rate > 60 mL/min (>60); Globulin 4.4 g/dL (1.7-4.1); Glucose 112 mg/dL (70-99); HEMOLYSIS < 15 (0-50); Potassium 4.3 mmol/L (3.4-5.1); Sodium 136 mmol/L (137-145); Total Protein 7.7 g/dL (6.3-8.2)
== END ==
PROVIDERS: PCP Family Medicine; Referring Provider Internal Medicine Infectious Disease; Visit Provider Internal Medicine Infectious Disease
DX: I10 Essential (primary) hypertension (principal); M00.262 Other streptococcal arthritis, left knee
CPT/HCPCS: 36415; 80053; 85025; 85651; 86140

== ENCOUNTER → 2025-03-11 11:24 | Outpatient (CLI) | payer OTHER, SELFPAY ==
[2025-02-22 02:57] VITALS: BMI 51.7
[2025-03-11 12:20] LABS: Add Manual Diff / Slide Review NO; Basophils Absolute Auto 0 /uL (0-100); Basophils Percent Auto 0.6 % (0-2); Eosinophils Absolute Auto 300 /uL (0-450); Eosinophils Percent Auto 4.2 % (2-4); Hematocrit 29.3 % (41-53); Hemoglobin 9.4 g/dL (13.5-17.5); Lymphocytes Absolute Auto 1500 /uL (1100-4500); Mean Corpuscular HGB Conc 32.1 % (30-36); Mean Corpuscular Hemoglobin 24.6 PG (26-34); Mean Corpuscular Volume 76.6 fL (80-100); Monocytes Absolute Auto 700 /uL (0-900); Monocytes Percent Auto 9.4 % (3-14); Neutrophils Absolute Auto 4900 /uL (1500-7000); Neutrophils Percent Auto 65.8 % (50-75); Platelet Count 375 X10^3/uL (150-400); Red Blood Cell Count 3.83 X10^6/uL (4.5-5.9); Red Cell Distribution Width 15.8 % (11.6-14.8); White Blood Cell Count 7.4 X10^3/uL (4.5-11.0)
[2025-03-11 12:33] LABS: Erythrocyte Sedimentation Rate 92 MM/HR (0-15)
[2025-03-11 12:47] LABS: Alanine Aminotransferase 22 IU/L (<50); Albumin 3.3 g/dL (3.5-5.0); Albumin Globulin Ratio 0.8 (1.0-2.8); Alkaline Phosphatase 155 U/L (38-126); Aspartate Aminotransferase 26 IU/L (17-59); BUN Creatinine Ratio 11.1 (6-22); Bilirubin Total 0.3 mg/dL (0.2-1.3); Blood Urea Nitrogen 10 mg/dL (9-20); Carbon Dioxide 24 mmol/L (22-32); Chloride 104 mmol/L (98-107); Estimated Glomerular Filt Rate > 60 mL/min (>60); Globulin 4.2 g/dL (1.7-4.1); Glucose 124 mg/dL (70-99); HEMOLYSIS < 15 (0-50); Potassium 4.2 mmol/L (3.4-5.1); Sodium 136 mmol/L (137-145); Total Protein 7.5 g/dL (6.3-8.2)
== END ==
PROVIDERS: PCP Family Medicine; Referring Provider Internal Medicine Infectious Disease; Visit Provider Internal Medicine Infectious Disease
DX: I10 Essential (primary) hypertension (principal); M00.262 Other streptococcal arthritis, left knee
CPT/HCPCS: 36415; 80053; 85025; 85651; 86140